=== PATIENT | male | born 1935 | race Caucasian/White ===

== ENCOUNTER → 2017-06-14 05:00 | Outpatient (REF) | payer MEDICARE, OTHER, SELFPAY ==
[2017-06-14 08:52] LABS: Anion Gap 6 (5-15); BUN 19 mg/dL (7-18); BUN/Creat Ratio 26.2 RATIO (10-20); Calcium,Total 8.5 mg/dL (8.5-10.1); Chloride 106 mmol/L (98-107); Creatinine, Serum 0.72 mg/dL (0.70-1.30); EST Glomerular Filtration Rate 111 mL/min (>60); Est Glom Filt Rate - Afr Amer 134 mL/min (>60); Glucose 80 mg/dL (74-106); Potassium 3.3 mmol/L (3.5-5.1); Sodium Level 141 mmol/L (136-145)
[2017-06-14 08:55] LABS: Hematocrit 36.7 % (40-54); Mean Corp Hgb Conc 32.7 g/gl (32-36); Mean Corpuscular Hgb 29.3 pg (27.0-32.0); Mean Corpuscular Volume 89.5 fL (80-94); Platelet Count 104 K/mm3 (150-450); RBC Distribution Width CV 17.5 % (11.6-14.6); RBC Distribution Width SD 57.1 fl (35.1-43.9); White Blood Count 5.7 K/mm3 (4.4-11.0)
[2017-06-14 08:56] LABS: Scan Indicated on CBC? Y/N YES- FLAGS NOTED
[2017-06-14 09:30] LABS: Differential Comment SCANNED
== END ==
LOC: OLS.WHLBEN 05:00
PROVIDERS: Visit Provider Family Medicine
DX: I10 Essential (primary) hypertension (principal)
CPT/HCPCS: 36415; 80048; 85027

== ENCOUNTER → 2017-07-06 05:00 | Outpatient (REF) | payer MEDICARE, OTHER, SELFPAY ==
[2017-07-06 08:36] LABS: Anion Gap 7 (5-15); BUN 20 mg/dL (7-18); BUN/Creat Ratio 26.4 RATIO (10-20); Calcium,Total 8.8 mg/dL (8.5-10.1); Chloride 105 mmol/L (98-107); Creatinine, Serum 0.76 mg/dL (0.70-1.30); EST Glomerular Filtration Rate 105 mL/min (>60); Est Glom Filt Rate - Afr Amer 127 mL/min (>60); Glucose 79 mg/dL (74-106); Potassium 3.5 mmol/L (3.5-5.1); Sodium Level 140 mmol/L (136-145)
== END ==
LOC: OLS.WHLBEN 05:00
PROVIDERS: Visit Provider Family Medicine
DX: I10 Essential (primary) hypertension (principal)
CPT/HCPCS: 36415; 80048

== ENCOUNTER → 2017-09-13 05:00 | Outpatient (REF) | payer MEDICARE, SELFPAY ==
[2017-09-13 08:48] LABS: Hematocrit 30.4 % (40-54); Hemoglobin 10.2 g/dl (13.0-16.5); Mean Corp Hgb Conc 33.6 g/gl (32-36); Mean Corpuscular Hgb 30.6 pg (27.0-32.0); Mean Corpuscular Volume 91.3 fL (80-94); Platelet Count 76 K/mm3 (150-450); RBC Distribution Width CV 19.1 % (11.6-14.6); RBC Distribution Width SD 63.2 fl (35.1-43.9); Red Blood Count 3.33 M/mm3 (4.6-6.2); White Blood Count 4.1 K/mm3 (4.4-11.0)
[2017-09-13 08:49] LABS: Scan Indicated on CBC? Y/N YES- FLAGS NOTED
[2017-09-13 09:11] LABS: BUN 18 mg/dL (7-18); Glucose 87 mg/dL (74-106)
[2017-09-13 09:12] LABS: Anion Gap 7 (5-15); BUN/Creat Ratio 22.6 RATIO (10-20); Calcium,Total 8.5 mg/dL (8.5-10.1); Chloride 104 mmol/L (98-107); EST Glomerular Filtration Rate 99 mL/min (>60); Est Glom Filt Rate - Afr Amer 120 mL/min (>60); Potassium 3.3 mmol/L (3.5-5.1); Sodium Level 138 mmol/L (136-145)
[2017-09-13 09:23] LABS: Differential Comment SCANNED
== END ==
LOC: OLS.WHLBEN 05:00
PROVIDERS: Visit Provider Family Medicine
DX: I10 Essential (primary) hypertension (principal)
CPT/HCPCS: 36415; 80048; 85027

== ENCOUNTER → 2017-11-12 06:45 | Outpatient (REF) | payer MEDICARE, SELFPAY ==
[2017-11-12 07:46] LABS: Absolute Lymphocyte Count 1.32 X10^3/ul (0.83-4.51); Absolute Neutrophil Count 0.7 X10^3/uL (2.0-7.7); Basophil# 0.01 X10^3/uL; Basophil% 0.4 % (0-1); Hematocrit 19.3 % (40-54); Hemoglobin 6.3 g/dl (13.0-16.5); Lymphocyte # 1.32 X10^3/ul (4.0); Lymphocyte % 49.8 % (19-41); Mean Corp Hgb Conc 32.6 g/gl (32-36); Mean Corpuscular Hgb 30.9 pg (27.0-32.0); Mean Corpuscular Volume 94.6 fL (80-94); Mean Platelet Vol. 10.5 fl (6.2-12.0); Monocyte# 0.64 X10^3/uL; Monocyte% 24.2 % (0-10); Neutrophil # 0.67 X10^3/uL (2.7-7.7); Neutrophil % 25.2 % (47-70); Platelet Count 60 K/mm3 (150-450); RBC Distribution Width CV 19.5 % (11.6-14.6); Red Blood Count 2.04 M/mm3 (4.6-6.2); White Blood Count 2.7 K/mm3 (4.4-11.0)
[2017-11-12 07:53] LABS: Differential Indicated SCAN CRITERIA MET; POSITIVE COUNT NO; POSITIVE DIFFERENTIAL YES; POSITIVE MORPHOLOGY NO
[2017-11-12 08:00] LABS: Anion Gap 7 (5-15); BUN 18 mg/dL (7-18); BUN/Creat Ratio 21.2 RATIO (10-20); Calcium,Total 8.2 mg/dL (8.5-10.1); Chloride 107 mmol/L (98-107); Creatinine, Serum 0.85 mg/dL (0.70-1.30); EST Glomerular Filtration Rate 92 mL/min (>60); Est Glom Filt Rate - Afr Amer 111 mL/min (>60); Glucose 84 mg/dL (74-106); Potassium 3.6 mmol/L (3.5-5.1); Sodium Level 141 mmol/L (136-145); Thyroid Stim Hormone (TSH) 3.49 uIU/mL (0.358-3.74)
[2017-11-12 08:11] LABS: Anisocytosis 1+; Differential Comment SCANNED; Hypochromasia 2+; Platelet Estimate MKD DEC (ADEQ); Polychromasia 1+
== END ==
LOC: OLS.WHLBEN 06:45
PROVIDERS: Visit Provider Family Medicine
DX: D64.9 Anemia, unspecified (principal); I10 Essential (primary) hypertension; Z13.29 Encounter for screening for other suspected endocrine disorder
CPT/HCPCS: 36415; 80048; 84443; 85025

== ENCOUNTER → 2017-11-15 05:00 | Outpatient (REF) | payer MEDICARE, OTHER, SELFPAY ==
[2017-11-15 08:58] LABS: Absolute Lymphocyte Count 1.27 X10^3/ul (0.83-4.51); Absolute Neutrophil Count 0.5 X10^3/uL (2.0-7.7); Differential Indicated SCAN CRITERIA MET; Hemoglobin 5.6 g/dl (13.0-16.5); Lymphocyte # 1.27 X10^3/ul (4.0); Lymphocyte % 56.4 % (19-41); Mean Corp Hgb Conc 32.9 g/gl (32-36); Mean Corpuscular Hgb 30.6 pg (27.0-32.0); Mean Corpuscular Volume 92.9 fL (80-94); Mean Platelet Vol. 9.8 fl (6.2-12.0); Monocyte# 0.44 X10^3/uL; Monocyte% 19.6 % (0-10); Neutrophil # 0.53 X10^3/uL (2.7-7.7); Neutrophil % 23.6 % (47-70); POSITIVE COUNT YES; POSITIVE DIFFERENTIAL YES; POSITIVE MORPHOLOGY YES; Platelet Count 55 K/mm3 (150-450); RBC Distribution Width CV 19.7 % (11.6-14.6); RBC Distribution Width SD 67.2 fl (35.1-43.9); Red Blood Count 1.83 M/mm3 (4.6-6.2); White Blood Count 2.3 K/mm3 (4.4-11.0)
[2017-11-15 09:25] LABS: Anisocytosis 1+; Hypochromasia 2+; Platelet Estimate MKD DEC (ADEQ); Polychromasia RARE
[2017-11-15 16:11] LABS: Pathologist Review Reviewed
== END ==
LOC: OLS.WHLBEN 05:00
PROVIDERS: Visit Provider Family Medicine
DX: D64.9 Anemia, unspecified (principal)
CPT/HCPCS: 36415; 85025

== ENCOUNTER 2017-11-15 15:29 | Inpatient (IN) | payer MEDICARE, OTHER, SELFPAY ==
[2017-11-15] VITALS (10 sets, daily range): BP systolic 118–150; BP diastolic 79–108; PULSE 67–98; RESP 14–20; TEMP 36.6–37.4; O2SAT 95–99; BMI 25.2; BMI 24.5
[2017-11-15] MEDS: 0.9% Normal Saline 1,000 ML 125 ML IV (16:32)
[2017-11-15 16:40] LABS: Anion Gap 9 (5-15); BUN 21 mg/dL (7-18); BUN/Creat Ratio 22.7 RATIO (10-20); Calcium,Total 8.6 mg/dL (8.5-10.1); Chloride 106 mmol/L (98-107); Creatinine, Serum 0.93 mg/dL (0.70-1.30); EST Glomerular Filtration Rate 83 mL/min (>60); Est Glom Filt Rate - Afr Amer 101 mL/min (>60); Glucose 100 mg/dL (74-106); Potassium 3.7 mmol/L (3.5-5.1); Sodium Level 140 mmol/L (136-145)
[2017-11-15 17:18] LABS: Absolute Lymphocyte Count 1.07 X10^3/ul (0.83-4.51); Absolute Neutrophil Count 0.7 X10^3/uL (2.0-7.7); Hematocrit 18.3 % (40-54); Hemoglobin 6.1 g/dl (13.0-16.5); Lymphocyte # 1.07 X10^3/ul (4.0); Lymphocyte % 43.9 % (19-41); Mean Corp Hgb Conc 33.3 g/gl (32-36); Mean Corpuscular Volume 92.9 fL (80-94); Mean Platelet Vol. 10.8 fl (6.2-12.0); Monocyte# 0.68 X10^3/uL; Monocyte% 27.9 % (0-10); Neutrophil # 0.68 X10^3/uL (2.7-7.7); Neutrophil % 27.8 % (47-70); Platelet Count 68 K/mm3 (150-450); RBC Distribution Width CV 19.9 % (11.6-14.6); RBC Distribution Width SD 66.4 fl (35.1-43.9); Red Blood Count 1.97 M/mm3 (4.6-6.2); White Blood Count 2.4 K/mm3 (4.4-11.0)
[2017-11-15 17:19] LABS: Differential Indicated SCAN CRITERIA MET; POSITIVE COUNT NO; POSITIVE DIFFERENTIAL YES; POSITIVE MORPHOLOGY YES
--- NOTE | 2017-11-15 17:25 | ED.VISSUMM ---
- ER Visit Summary Date of Service: 11/15/17 Chief Complaint: [Abnormal labs] History of Present Illness: The patient is a 82 M [presents the emergency department for abnormal labs. Patient apparently had blood work drawn on the seventh of the month as he was complaining of fatigue and at that time it was noted that he was pancytopenic. Patient had repeat blood work done yesterday continue to show decline in his hemoglobin and was sent to the ER. Patient denies any abdominal pain. Patient denies any blood in the stool. Patient states that he has not had a bowel movement in 5 days which is not unusual for him. Patient denies any chest pain or shortness of breath.] Physical Examination: [HEENT-PERRLA, EOMI. Cranial nerves II through XII grossly intact. TMs clear. Mucous membranes moist. No adenopathy. Pale conjunctiva Cardiovascular-regular rate and rhythm without murmur or ectopy Lungs-clear to auscultation, chest wall stable without crepitus or subcu emphysema Abdomen-normoactive bowel sounds, soft, nontender, no rebound or rigidity, no peritoneal signs. Extremities-intact ?4, normal range of motion, normal pulses, atraumatic] Test Results: [CBC with differential obtained showed a white count of 2.4, hemoglobin 6.1, hematocrit 18, platelets 68. Chemistry showed a sodium 140, potassium 3.7, chloride 106, CO2 25, glucose 100, BUN 21, creatinine 0.93. Hemoccult was negative.] Emergency Department Course and Treatment: [Patient was typed and crossed for 2 units packed red cells] Treatment Plan: [Admit] Disposition: [Admit] Impression: [Pancytopenia-etiology uncertain Generalized weakness] This note was generated with Heartbeatation software. It may contain incorrect words, spelling, and punctuation that were not noted in review of the chart prior to signing ED Disposition - Plan for ED Patient: Chief Complaint: Abn Labs Referrals: Skinny Gutierrez MD [Primary Care Provider] -
--- NOTE | 2017-11-15 17:36 | EKG12_ITS ---
Test Reason : ABNL LABS Blood Pressure : / mmHG Vent. Rate : 094 BPM Atrial Rate : 094 BPM P-R Int : 178 ms QRS Dur : 088 ms QT Int : 378 ms P-R-T Axes : 040 001 039 degrees QTc Int : 472 ms Normal sinus rhythm Nonspecific ST abnormality Abnormal ECG Confirmed by COSME DAVIS, MATEO ([id number]), videotape editor PATIENCE LOPEZ ([id number]) on 11/17/2017 1:58:37 PM Referred By: FELA Confirmed By:MATEO AGUIAR MD
[2017-11-15 17:55] LABS: Anisocytosis 1+; Hypochromasia RARE; Ovalocyte RARE
--- NOTE | 2017-11-15 18:02 | ED.RN ---
PT REFUSING BLOOD. DR WALKER IN TO TALK WITH PT
--- NOTE | 2017-11-15 18:05 | NURSING ---
PCU SYMTOMATIC ANEMIA WITH PANCYTOPENIA, SINUS TACHY DENISE
--- NOTE | 2017-11-15 18:21 | HP.PCM_ITS ---
Problem List (1) Pancytopenia Status: Acute (2) Severe anemia Status: Acute (3) BPH (benign prostatic hyperplasia) Status: Chronic (4) Hypertension Status: Chronic History of Present Illness Date of Admission: 11/15/17 Chief Complaint: Abnormal labs The patient is a 82 year old M with history of hypertension, BPH was sent from assisted living center or abnormal labs. Patient had labs on November 12 and today and was consistent with pancytopenia. Hemoglobin 5.6, WBCs 2.3 thousand, platelet count 55,000. On 11 12, hemoglobin of 6.3, WBC count 2.7 thousand and platelet count 60,000. Patient complains of slowly progressive fatigue, dyspnea on exertion, dizziness or lightheadedness and unsteady gait. Patient also has slowly progressive edema of lower extremities last 6 months to 1 year. Patient is hard of hearing but denies prior history of coronary artery disease, CHF, stroke, peripheral artery disease, lung disease or smoking history. Does not have prior echo. Patient had history of gross hematuria in August 2015 along with massive right inguinal hernia for which indwelling catheter and subsequently had prostate scrapping/surgery and right inguinal hernia repair. Currently, he urinates spontaneously but denies hematuria, or GI bleed or external form of bleeding. Patient is not on anticoagulant. In ED, 2 units of PRBC ordered and further decided for admission [] Past Medical History Past Medical History (Chronic Problems): Chronic Problems BPH (benign prostatic hyperplasia) (Chronic) Hypertension (Chronic) Allergies No Known Allergies Allergy (Verified 11/15/17 15:34) Home Medications: Ambulatory Orders Medication Instructions Recorded Amlodipine [Norvasc] 5 mg PO QHS 12/11/14 Lisinopril/Hydrochlorothiazide 1 tab PO DAILY 12/11/14 [Zestoretic 20-12.5 mg Tablet] Finasteride [Proscar] 5 mg PO QHS 01/09/16 Acetaminophen 650 mg PO Q4H PRN PRN 11/15/17 Bisacodyl 10 mg RC DAILY PRN 11/15/17 Mag Hydrox/Al Hydrox/Simeth 15 ml PO PRN PRN 11/15/17 [Antacid Suspension] Potassium Chloride [Klor-Con M20] 20 meq PO DAILY 11/15/17 Smoking Status: Never smoker Tobacco Use: Non-smoker - *Family History Paternal History Items: No pertinent history Review of Systems Constitutional: Reports: Weakness, Fatigue. Denies: Chills, Fever, Weight Change HEENT: Reports: Difficulty Hearing Cardiovascular: Denies: Chest Pain, Palpitations Respiratory: Reports: Shortness of breath upon exertion. Denies: Cough, Shortness of breath at rest, Sputum production Gastrointestinal: Denies: Abdominal Pain, Nausea, Vomiting Genitourinary: Denies: Dysuria, Hematuria, Retention Musculoskeletal: Denies: Joint Pain, Joint Tenderness Skin: Denies: Rash, Wounds Neurological: Reports: Balance problems. Denies: Focal weakness, Numbness, Tingling Psychiatric: Denies: Anxiety, Depression, Homicidal Ideations, Suicidal Ideations Hematologic/ Lymphatic: Denies: Easy Bruising, Easy Bleeding VTE Information - Inpt Only VTE Present on Admission: No VTE Mechan Device Prophylaxis: SCD's Reason prophylaxis not ordered:: Medical Contraindication - Severe pancytopenia and anemia Patient Problems: Active and Suspected Problems Pancytopenia (Acute) Severe anemia (Acute) - Physical Exam General: Alert, Oriented x3, Cooperative HEENT: Atraumatic, PERRLA, EOMI, Normocephalic, - - Very hard of hearing, mainly from right ear Neck: Supple, No JVD, Negative Carotid Bruits Lungs: Clear to auscultation, Normal air movement Cardiovascular: Regular Rhythm, Normal S1, Normal S2, No murmurs, Tachycardic Abdomen: Bowel Sounds Present, Soft, Non Tender, Non-Distended Extremities: Capillary Refill Less than 3 Seconds, Edema - 2+ bilateral lower extremity edema Skin: No rashes, No breakdown Musculoskeletal: No Tenderness to Palpation of Joints or Extremities, Arthritic Changes Neurological: Cranial nerves II-XII grossly intact, Neuro grossly intact Psych/Mental Status: Normal Affect, Appropriate Vital Signs Temp Pulse Resp BP Pulse Ox 98.7 F 98 14 146/102 H 98 11/15/17 15:31 11/15/17 15:31 11/15/17 15:31 11/15/17 15:31 11/15/17 15:31 Oxygen Delivery Method Room Air Weight: 190 lb 12.8 oz Body Mass Index (BMI) 25.2 Microbiology Past 72 Hours 11/15/17 16:10 Stool Occult Blood (SRINIVASAN) - Final Stool Laboratory Tests Past 24 Hrs 07/10/18 07/10/18 07/10/18 16:10 16:10 16:10 WBC 2.4 L RBC 1.97 L Hgb 6.1 L Hct 18.3 L MCV 92.9 MCH 31.0 MCHC 33.3 RDW 19.9 H RDW Differential 66.4 H Plt Count 68 L MPV 10.8 Immature Gran % (Auto) 0.400 Neut % (Auto) 27.8 L Lymph % (Auto) 43.9 H [place] % (Auto) 27.9 H Eos % (Auto) 0.0 Baso % (Auto) 0.0 Absolute Neuts (auto) 0.7 L Absolute Lymphs (auto) 1.07 Total Counted Not Reportable Differential Comment Hypochromasia RARE Anisocytosis 1+ Ovalocytes RARE Sodium 140 Potassium 3.7 Chloride 106 Carbon Dioxide 25.0 Anion Gap 9 BUN 21 H Creatinine 0.93 Estim Creat Clear Calc 70.40 Est GFR (MDRD) Af Amer 101 Est GFR (MDRD) Non-Af 83 BUN/Creatinine Ratio 22.7 H Glucose 100 Calcium 8.6 Blood Type A POSITIVE Antibody Screen NEGATIVE Crossmatch 11/15/17 16:10 WBC RBC Hgb Hct MCV MCH MCHC RDW RDW Differential Plt Count MPV Immature Gran % (Auto) Neut % (Auto) Lymph % (Auto) [place] % (Auto) Eos % (Auto) Baso % (Auto) Absolute Neuts (auto) Absolute Lymphs (auto) Total Counted Differential Comment Hypochromasia Anisocytosis Ovalocytes Sodium Potassium Chloride Carbon Dioxide Anion Gap BUN Creatinine Estim Creat Clear Calc Est GFR (MDRD) Af Amer Est GFR (MDRD) Non-Af BUN/Creatinine Ratio Glucose Calcium Blood Type Antibody Screen Crossmatch See Detail Assessment/Plan All Active Problems Pancytopenia (Acute) Severe anemia (Acute) The patient is a 82 year old M with history of hypertension, BPH was sent from [facility] [place] or abnormal labs. Patient had labs on November 12 and today and was consistent with pancytopenia. Hemoglobin 5.6, WBCs 2.3 thousand, platelet count 55,000. On 11 12, hemoglobin of 6.3, WBC count 2.7 thousand and platelet count 60,000. Patient complains of slowly progressive fatigue, dyspnea on exertion, dizziness or lightheadedness and unsteady gait. Patient also has slowly progressive edema of lower extremities last 6 months to 1 year. Patient is hard of hearing but denies prior history of coronary artery disease, CHF, stroke, peripheral artery disease, lung disease or smoking history. Does not have prior echo. Patient had history of gross hematuria in August 2015 along with massive right inguinal hernia for which indwelling catheter and subsequently had prostate scrapping/surgery and right inguinal hernia repair. Currently, he urinates spontaneously but denies hematuria, or GI bleed or external form of bleeding. Patient is not on anticoagulant. In ED, 2 units of PRBC ordered and further decided for admission 1. 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 Patient is being admitted in PCU. 2 units of PRBC transfusion ordered. Peripheral blood smear shows neutropenia and anisocytosis. Serum PT/INRs, PTT, LDH, haptoglobin, B12 and folic acid ordered. Hematology consult. Posttransfusion H&H. Stool for occult blood negative. UA ordered. Patient hemoglobin was 10.2 g percent in September 2017 and 12 g in June 2017. 2. Pancytopenia: WBC count and platelet count are low. His white count was normal in September 2017, 4.1 thousand. Platelet count was 76,000 in September 2017 and 156 ,000 in September 2016. 3. Sinus tachycardia: Patient had transient sinus tachycardia, heart rate shooting up in 140s but resolved and currently heart rate ranges in 94-98/min. Patient denies any previous cardiac history but has lower extremity edema. BNP and troponin ordered. 4. Other chronic comorbidities include BPH status post surgery, right inguinal hernia status post repair, hypertension: Blood pressure is slightly elevated, 150/108. Home medication reconciliation done. Monitor BP and titrate antihypertensive medication. DVT prophylaxis: Pathological prophylaxis contraindicated. Bilateral SCDs ordered. Code status: The patient is DNR CC arrest as per assisted paper. Patient does not wish aggressive resuscitation or ventilator on machine support if he gets into terminal condition. Microbiology Past 72 Hours 11/15/17 16:10 Stool Stool Occult Blood (SRINIVASAN) - Final Laboratory Results 11/15/17 16:10: WBC 2.4 L, RBC 1.97 L, Hgb 6.1 L, Hct 18.3 L, MCV 92.9, MCH 31.0 , MCHC 33.3, RDW 19.9 H, RDW Differential 66.4 H, Plt Count 68 L, MPV 10.8, Immature Gran % (Auto) 0.400, Neut % (Auto) 27.8 L, Lymph % (Auto) 43.9 H, [place] % (Auto) 27.9 H, Eos % (Auto) 0.0, Baso % (Auto) 0.0, Absolute Neuts (auto) 0.7 L, Absolute Lymphs (auto) 1.07, Total Counted Not Reportable, Differential Comment , Hypochromasia RARE, Anisocytosis 1+, Ovalocytes RARE 11/15/17 16:10: Sodium 140, Potassium 3.7, Chloride 106, Carbon Dioxide 25.0, Anion Gap 9, BUN 21 H, Creatinine 0.93, Estim Creat Clear Calc 70.40, Est GFR ( MDRD) Af Amer 101, Est GFR (MDRD) Non-Af 83, BUN/Creatinine Ratio 22.7 H, Glucose 100, Calcium 8.6 11/15/17 16:10: Blood Type A POSITIVE, Antibody Screen NEGATIVE 11/15/17 16:10: Crossmatch See Detail Code Visit Inpatient E&M: 03613 Init Hosp L3
--- NOTE | 2017-11-15 18:21 | NURSING ---
1818 called ed charge ok to receive patient
[2017-11-15 19:50] LABS: Bacteria 0 SEEN /hpf (None Seen); Mucous, Urine 0 SEEN /hpf (<or=2+); Red Blood Cells-Urine 0 SEEN /hpf (0-5); White Blood Cells 0 SEEN /hpf (0-5)
[2017-11-15 19:54] LABS: Color, Urine Yellow (Yellow); Glucose, Dipstick Normal (Normal); Ketone-Dipstick Negative (Negative); Leukocyte Esterase-Dipstick Negative /ul (Negative); Nitrite-Dipstick Negative (Negative); Occult Blood-Urine Negative /ul (Negative); Protein-Dipstick Negative (Negative); Urine Bilirubin Dipstick Negative (Negative); Urine Clarity Sl. Cloudy (Clear); Urine Urobilinogen Normal (Normal)
[2017-11-15 20:18] LABS: International Normalized Ratio 1.2; Prothrombin Time (Protime)PT. 14.8 SECONDS (11.7-14.9)
[2017-11-15 20:19] LABS: Partial Thromboplast Time 34.9 Seconds (24.1-36.2)
[2017-11-15 20:23] LABS: LDH 480 U/L (87-241)
[2017-11-15 20:24] LABS: Squamous Epithelial Cells - UA 0-5 SEEN /hpf (0-5)
[2017-11-15] MEDS: 0.9% Normal Saline 1,000 ML 50 ML IV (23:19)
[2017-11-15] MEDS: Finasteride 5 MG Tablet PO (23:20)
[2017-11-15] MEDS: amLODIPine 5 MG Tablet PO (23:20)
[2017-11-16] VITALS (14 sets, daily range): BP systolic 121–142; BP diastolic 79–94; PULSE 59–81; RESP 18; TEMP 36.7–37.4; O2SAT 94–98
[2017-11-16 04:49] LABS: Anion Gap 9 (5-15); BUN 16 mg/dL (7-18); BUN/Creat Ratio 22.4 RATIO (10-20); Calcium,Total 8.3 mg/dL (8.5-10.1); Chloride 110 mmol/L (98-107); Creatinine, Serum 0.71 mg/dL (0.70-1.30); EST Glomerular Filtration Rate 112 mL/min (>60); Est Glom Filt Rate - Afr Amer 136 mL/min (>60); Estimated Creatinine Clearance 63.59 ml/min; Glucose 93 mg/dL (74-106); Potassium 3.3 mmol/L (3.5-5.1); Sodium Level 144 mmol/L (136-145)
[2017-11-16 05:11] LABS: Absolute Lymphocyte Count 0.86 X10^3/ul (0.83-4.51); Absolute Neutrophil Count 0.7 X10^3/uL (2.0-7.7); Hematocrit 21.6 % (40-54); Hemoglobin 7.1 g/dl (13.0-16.5); Lymphocyte # 0.86 X10^3/ul (4.0); Lymphocyte % 39.4 % (19-41); Mean Corp Hgb Conc 32.9 g/gl (32-36); Mean Corpuscular Hgb 30.7 pg (27.0-32.0); Mean Corpuscular Volume 93.5 fL (80-94); Mean Platelet Vol. 10.6 fl (6.2-12.0); Monocyte# 0.61 X10^3/uL; Neutrophil % 32.1 % (47-70); Platelet Count 60 K/mm3 (150-450); RBC Distribution Width CV 17.9 % (11.6-14.6); RBC Distribution Width SD 57.5 fl (35.1-43.9); Red Blood Count 2.31 M/mm3 (4.6-6.2); White Blood Count 2.2 K/mm3 (4.4-11.0)
[2017-11-16 05:14] LABS: Differential Indicated SCAN CRITERIA MET; POSITIVE COUNT NO; POSITIVE DIFFERENTIAL YES; POSITIVE MORPHOLOGY NO
[2017-11-16 08:20] LABS: Vitamin B12 812 pg/mL (211-911)
--- NOTE | 2017-11-16 09:21 | CASEMGMT ---
Patient is from [facility]. LARISSA called Maribel at [facility] and she confirmed he is from their assisted living. SW to follow for appropriate d/c plan, likely back to [place]. Lorena HANSON OPERATOR AUTOMATED PROCESS
--- NOTE | 2017-11-16 09:30 | CASEMGMT ---
SW spoke with patient and confirmed he plans to return to [place]. He will likely need transport back to [place]. Plan: d/c back to [facility] [place] as long as appropriate. Lorena HANSON MSW
[2017-11-16] MEDS: Lisinopril 20 MG Tablet PO (09:54)
--- NOTE | 2017-11-16 13:04 | PCM.PROGNOTE ---
Patient Problems: Active and Suspected Problems Pancytopenia (Acute) Severe anemia (Acute) Subjective: Patient seen and examined. Very hard of hearing. Denies current complaints. No acute events overnight per nursing. - Physical Exam General: Alert, Cooperative, No apparent distress HEENT: Atraumatic, PERRLA, EOMI, Normocephalic Neck: Supple, No JVD, Negative Carotid Bruits Lungs: Clear to auscultation, Normal air movement Cardiovascular: Regular rate, Regular Rhythm, Normal S1, Normal S2, No murmurs Abdomen: Bowel Sounds Present, Soft, Non Tender, Non-Distended Extremities: No clubbing, No cyanosis, Edema - Bilateral lower extremity Skin: No rashes, No breakdown Musculoskeletal: No Tenderness to Palpation of Joints or Extremities Neurological: Cranial nerves II-XII grossly intact, Neuro grossly intact Psych/Mental Status: Normal Affect, Appropriate Vital Signs Temp Pulse Resp BP Pulse Ox 98.1 F 69 18 122/83 H 97 11/16/17 09:42 11/16/17 12:25 11/16/17 09:42 11/16/17 09:42 11/16/17 09:42 Oxygen Delivery Method Room Air Weight: 83.915 kg Body Mass Index (BMI) 24.5 Intake and Output for Last 24 Hours 11/14/17 11/15/17 11/16/17 23:59 23:59 23:59 Intake Total 1031.3 / 1031.3 665 / 665 Output Total 400 / 400 Balance 631.3 / 631.3 665 / 665 Laboratory Tests Past 24 Hrs 11/15/17 11/15/17 11/15/17 18:46 19:12 19:12 WBC RBC Hgb Hct MCV MCH MCHC RDW RDW Differential Plt Count MPV Immature Gran % (Auto) Neut % (Auto) Lymph % (Auto) [place] % (Auto) Eos % (Auto) Baso % (Auto) Absolute Neuts (auto) Absolute Lymphs (auto) Total Counted Haptoglobin Pending PT INR APTT Sodium Potassium Chloride Carbon Dioxide Anion Gap BUN Creatinine Estim Creat Clear Calc Est GFR (MDRD) Af Amer Est GFR (MDRD) Non-Af BUN/Creatinine Ratio Glucose Calcium Iron TIBC Iron Saturation Ferritin Lactate Dehydrogenase 480 H Troponin I < 0.015 Vitamin B12 Folate 5.90 Urine Color Yellow Urine Clarity Sl. Cloudy Urine pH 7.0 Ur Specific [place] 1.010 Urine Protein Negative Urine Glucose (UA) Normal Urine Ketones Negative Urine Occult Blood Negative Urine Nitrite Negative Urine Bilirubin Negative Urine Urobilinogen Normal Ur Leukocyte Esterase Negative Urine RBC 0 SEEN Urine WBC 0 SEEN Ur Squamous Epith Cells 0-5 SEEN Urine Bacteria 0 SEEN Urine Mucus 0 SEEN 11/15/17 11/15/17 11/16/17 19:12 19:12 04:10 WBC 2.2 L RBC 2.31 L Hgb 7.1 L Hct 21.6 L MCV 93.5 MCH 30.7 MCHC 32.9 RDW 17.9 H RDW Differential 57.5 H Plt Count 60 L MPV 10.6 Immature Gran % (Auto) 0.500 Neut % (Auto) 32.1 L Lymph % (Auto) 39.4 [place] % (Auto) 28.0 H Eos % (Auto) 0.0 Baso % (Auto) 0.0 Absolute Neuts (auto) 0.7 L Absolute Lymphs (auto) 0.86 Total Counted Not Reportable Haptoglobin PT 14.8 INR 1.2 APTT 34.9 Sodium Potassium Chloride Carbon Dioxide Anion Gap BUN Creatinine Estim Creat Clear Calc Est GFR (MDRD) Af Amer Est GFR (MDRD) Non-Af BUN/Creatinine Ratio Glucose Calcium Iron TIBC Iron Saturation Ferritin Lactate Dehydrogenase Troponin I Vitamin B12 812 Folate Urine Color Urine Clarity Urine pH Ur Specific [place] Urine Protein Urine Glucose (UA) Urine Ketones Urine Occult Blood Urine Nitrite Urine Bilirubin Urine Urobilinogen Ur Leukocyte Esterase Urine RBC Urine WBC Ur Squamous Epith Cells Urine Bacteria Urine Mucus 11/16/17 11/16/17 11/16/17 04:10 04:10 04:10 WBC RBC Hgb Hct MCV MCH MCHC RDW RDW Differential Plt Count MPV Immature Gran % (Auto) Neut % (Auto) Lymph % (Auto) [place] % (Auto) Eos % (Auto) Baso % (Auto) Absolute Neuts (auto) Absolute Lymphs (auto) Total Counted Haptoglobin PT INR APTT Sodium 144 Potassium 3.3 L Chloride 110 H Carbon Dioxide 25.0 Anion Gap 9 BUN 16 Creatinine 0.71 Estim Creat Clear Calc 63.59 Est GFR (MDRD) Af Amer 136 Est GFR (MDRD) Non-Af 112 BUN/Creatinine Ratio 22.4 H Glucose 93 Calcium 8.3 L Iron Pending TIBC Pending Iron Saturation Pending Ferritin Pending Lactate Dehydrogenase Troponin I Vitamin B12 Folate Urine Color Urine Clarity Urine pH Ur Specific [place] Urine Protein Urine Glucose (UA) Urine Ketones Urine Occult Blood Urine Nitrite Urine Bilirubin Urine Urobilinogen Ur Leukocyte Esterase Urine RBC Urine WBC Ur Squamous Epith Cells Urine Bacteria Urine Mucus Medical Necessity - Tobacco Use Smoking Status: Never smoker Tobacco Use: Non-smoker Assessment/Plan All Active Problems Pancytopenia (Acute) Severe anemia (Acute) Patient is an 82-year-old male admitted 11/15/2017 due to abnormal labs. He has a past medical history of hypertension, BPH. 1. Pancytopenia-unclear etiology. Hematology consulted, pending. Possible MDS? 2. Acute on chronic normochromic normocytic anemia, symptomatic-status post 2 units packed red blood cell transfusion. Stool for occult blood negative. Trend CBC. 3. Hypertension-stable, continue current regimen of amlodipine, lisinopril, HCTZ. 4. BPH-continue Proscar regimen. CODE STATUS-DNR CCA. DVT prophylaxis: SCDs, pharmacologic prophylaxis contraindicated. This patient was seen by DALTON Zepeda under the supervision of Dr. Meza.
[2017-11-16 13:17] LABS: Iron 181 ug/dL (65-175); Iron Binding Capacity,Total 193 ug/dL (250-450); PERCENT IRON SATURATION 93.8 % (15.0-55.0)
[2017-11-16 13:27] LABS: Ferritin 410 ng/mL (26-388)
[2017-11-16 14:35] LABS: Hematocrit 23.7 % (40-54)
[2017-11-16] MEDS: 0.9% Normal Saline 1,000 ML 50 ML IV (15:57)
--- NOTE | 2017-11-16 16:55 | CON.PCM_ITS ---
Consult Referring Physician: Dr. Alejandrina London. Consult Results: Pancytopenia R/O MDS Subjective Date of Service:: 11/16/17 Chief Complaint: Asked to see Pt for Pancytopenia. History of Present Illness: 82 y.o.man with history of hypertension and BPH was sent from [facility] with abnormal labs, hemoglobin 6.3, WBC 2.7 and platelets of 60,000 after patient complained of fatigue. CBC on 11/15/2017 showed WBC 2.4, Hgb 6.1, PLT 68 in ER, Film did not show any abnormal cells and patient was given 2 units of packed RBCs. He is now on the klein feeling comfortable with no complaints. Past Medical History: Chronic Problems BPH (benign prostatic hyperplasia) (Chronic) Hypertension (Chronic) Paternal Family History: No pertinent history - Social History Smoking Status: Never smoker Tobacco Use: Non-smoker Allergies/Adverse Reactions: Allergy/AdvReac Type Severity Reaction Status Date / Time No Known Allergies Allergy Verified 11/15/17 15:34 Review of Systems Constitutional:: Reports: Fatigue. Denies: Fever, Sweats Cardiovascular:: Denies: Chest pain, Palpitations, Dyspnea on exertion, Orthopnea, PND, Shortness of breath Respiratory: Denies: Cough, Hemoptysis, Shortness of Breath, Wheezing Gastrointestinal:: Denies: Abdominal pain, Nausea, Vomiting, Diarrhea, Constipation, Hematochezia Genitourinary: Denies: Dysuria, Hematuria, 15, Flank pain Musculoskeletal:: Denies: Back pain, Myalgia, Arthralgia Skin: Denies: Rash, Skin Changes, Wounds Neurological:: Denies: Headache, Dizziness, Visual changes, Tinnitus, Hearing loss Psychiatric: Denies: Anxiety, Depression, Homicidal Ideations, Suicidal Ideations Vital Signs Height 6 ft 0.83 in Weight: 83.915 kg Weight in Pounds 185.0 lbs Pulse Ox 94 Temperature 99.4 F Pulse Rate 81 Respiratory Rate 18 Blood Pressure 138/88 Blood Pressure Position Semi-Fowlers - Physical Exam General: Alert, Oriented x3, No apparent distress HEENT: Atraumatic, PERRLA, EOMI, Normocephalic, - - Hard of hearing. Oropharynx:: Dry mucosa Neck:: Supple, Trachea midline. Negative for: JVD, bilateral Cardiac:: Regular rate, Regular rhythm, Normal S1, Normal S2. Negative for: Murmur Lungs: Clear to auscultation, Excusion symmetrical. Negative for: Rhonchi, Wheezes Abdomen:: Bowel sounds x 4, Soft, Non-tender, Non-distended. Negative for: Hepatosplenomegaly Extremities:: Negative for: Cyanosis, Edema Neurological: - - Hard of hearing Skin:: Negative for: Lesions, Rash, Petechiae, Ecchymosis Lymphatics:: Negative for: Cervical lymphadenopathy, Supraclavicular lymphadenopathy, Axillary lymphadenopathy Laboratory Data: Laboratory Tests 3 11/16/17 11/16/17 11/16/17 Range/Units 14:30 04:10 04:10 WBC (4.4-11.0) K/mm3 RBC (4.6-6.2) M/mm3 Hgb 8.0 L (13.0-16.5) g/dl Hct 23.7 L (40-54) % MCV (80-94) fL MCH (27.0-32.0) pg MCHC (32-36) g/gl RDW (11.6-14.6) % RDW Differential (35.1-43.9) fl Plt Count (150-450) K/mm3 MPV (6.2-12.0) fl Immature Gran % (Auto) (0.0-0.9) % Neut % (Auto) (47-70) % Lymph % (Auto) (19-41) % [place] % (Auto) (0-10) % Eos % (Auto) (0-5) % Baso % (Auto) (0-1) % Absolute Neuts (auto) (2.0-7.7) X10^3/uL Absolute Lymphs (auto) (0.83-4.51) X10^3/ul Total Counted PT (11.7-14.9) SECONDS INR APTT (24.1-36.2) Seconds Sodium (136-145) mmol/L Potassium (3.5-5.1) mmol/L Chloride (98-107) mmol/L Carbon Dioxide (21.0-32.0) mmol/L Anion Gap (5-15) BUN (7-18) mg/dL Creatinine (0.70-1.30) mg/dL Estim Creat Clear Calc ml/min Est GFR (MDRD) Af Amer (>60) mL/min Est GFR (MDRD) Non-Af (>60) mL/min BUN/Creatinine Ratio (10-20) RATIO Glucose (74-106) mg/dL Calcium (8.5-10.1) mg/dL Iron 181 H (65-175) ug/dL TIBC 193 L (250-450) ug/dL Iron Saturation 93.8 H (15.0-55.0) % Ferritin 410 H (26-388) ng/mL Lactate Dehydrogenase (87-241) U/L Troponin I (<0.045) ng/mL Vitamin B12 (211-911) pg/mL Folate (3.1-55.4) ng/mL Urine Color (Yellow) Urine Clarity (Clear) Urine pH (5.0 - 8.0) Ur Specific [place] (1.002-1.030) Urine Protein (Negative) mg/dl Urine Glucose (UA) (Normal) mg/dl Urine Ketones (Negative) mg/dl Urine Occult Blood (Negative) /ul Urine Nitrite (Negative) Urine Bilirubin (Negative) mg/dL Urine Urobilinogen (Normal) mg/dl Ur Leukocyte Esterase (Negative) /ul Urine RBC (0-5) /hpf Urine WBC (0-5) /hpf Ur Squamous Epith Cells (0-5) /hpf Urine Bacteria (None Seen) /hpf Urine Mucus (<or=2+) /hpf 3 11/16/17 11/16/17 11/15/17 Range/Units 04:10 04:10 19:12 WBC 2.2 L (4.4-11.0) K/mm3 RBC 2.31 L (4.6-6.2) M/mm3 Hgb 7.1 L (13.0-16.5) g/dl Hct 21.6 L (40-54) % MCV 93.5 (80-94) fL MCH 30.7 (27.0-32.0) pg MCHC 32.9 (32-36) g/gl RDW 17.9 H (11.6-14.6) % RDW Differential 57.5 H (35.1-43.9) fl Plt Count 60 L (150-450) K/mm3 MPV 10.6 (6.2-12.0) fl Immature Gran % (Auto) 0.500 (0.0-0.9) % Neut % (Auto) 32.1 L (47-70) % Lymph % (Auto) 39.4 (19-41) % [place] % (Auto) 28.0 H (0-10) % Eos % (Auto) 0.0 (0-5) % Baso % (Auto) 0.0 (0-1) % Absolute Neuts (auto) 0.7 L (2.0-7.7) X10^3/uL Absolute Lymphs (auto) 0.86 (0.83-4.51) X10^3/ul Total Counted Not Reportable PT 14.8 (11.7-14.9) SECONDS INR 1.2 APTT 34.9 (24.1-36.2) Seconds Sodium 144 (136-145) mmol/L Potassium 3.3 L (3.5-5.1) mmol/L Chloride 110 H (98-107) mmol/L Carbon Dioxide 25.0 (21.0-32.0) mmol/L Anion Gap 9 (5-15) BUN 16 (7-18) mg/dL Creatinine 0.71 (0.70-1.30) mg/dL Estim Creat Clear Calc 63.59 ml/min Est GFR (MDRD) Af Amer 136 (>60) mL/min Est GFR (MDRD) Non-Af 112 (>60) mL/min BUN/Creatinine Ratio 22.4 H (10-20) RATIO Glucose 93 (74-106) mg/dL Calcium 8.3 L (8.5-10.1) mg/dL Iron (65-175) ug/dL TIBC (250-450) ug/dL Iron Saturation (15.0-55.0) % Ferritin (26-388) ng/mL Lactate Dehydrogenase (87-241) U/L Troponin I (<0.045) ng/mL Vitamin B12 (211-911) pg/mL Folate (3.1-55.4) ng/mL Urine Color (Yellow) Urine Clarity (Clear) Urine pH (5.0 - 8.0) Ur Specific [place] (1.002-1.030) Urine Protein (Negative) mg/dl Urine Glucose (UA) (Normal) mg/dl Urine Ketones (Negative) mg/dl Urine Occult Blood (Negative) /ul Urine Nitrite (Negative) Urine Bilirubin (Negative) mg/dL Urine Urobilinogen (Normal) mg/dl Ur Leukocyte Esterase (Negative) /ul Urine RBC (0-5) /hpf Urine WBC (0-5) /hpf Ur Squamous Epith Cells (0-5) /hpf Urine Bacteria (None Seen) /hpf Urine Mucus (<or=2+) /hpf 3 11/15/17 11/15/17 11/15/17 Range/Units 19:12 19:12 18:46 WBC (4.4-11.0) K/mm3 RBC (4.6-6.2) M/mm3 Hgb (13.0-16.5) g/dl Hct (40-54) % MCV (80-94) fL MCH (27.0-32.0) pg MCHC (32-36) g/gl RDW (11.6-14.6) % RDW Differential (35.1-43.9) fl Plt Count (150-450) K/mm3 MPV (6.2-12.0) fl Immature Gran % (Auto) (0.0-0.9) % Neut % (Auto) (47-70) % Lymph % (Auto) (19-41) % [place] % (Auto) (0-10) % Eos % (Auto) (0-5) % Baso % (Auto) (0-1) % Absolute Neuts (auto) (2.0-7.7) X10^3/uL Absolute Lymphs (auto) (0.83-4.51) X10^3/ul Total Counted PT (11.7-14.9) SECONDS INR APTT (24.1-36.2) Seconds Sodium (136-145) mmol/L Potassium (3.5-5.1) mmol/L Chloride (98-107) mmol/L Carbon Dioxide (21.0-32.0) mmol/L Anion Gap (5-15) BUN (7-18) mg/dL Creatinine (0.70-1.30) mg/dL Estim Creat Clear Calc ml/min Est GFR (MDRD) Af Amer (>60) mL/min Est GFR (MDRD) Non-Af (>60) mL/min BUN/Creatinine Ratio (10-20) RATIO Glucose (74-106) mg/dL Calcium (8.5-10.1) mg/dL Iron (65-175) ug/dL TIBC (250-450) ug/dL Iron Saturation (15.0-55.0) % Ferritin (26-388) ng/mL Lactate Dehydrogenase 480 H (87-241) U/L Troponin I < 0.015 (<0.045) ng/mL Vitamin B12 812 (211-911) pg/mL Folate 5.90 (3.1-55.4) ng/mL Urine Color Yellow (Yellow) Urine Clarity Sl. Cloudy (Clear) Urine pH 7.0 (5.0 - 8.0) Ur Specific [place] 1.010 (1.002-1.030) Urine Protein Negative (Negative) mg/dl Urine Glucose (UA) Normal (Normal) mg/dl Urine Ketones Negative (Negative) mg/dl Urine Occult Blood Negative (Negative) /ul Urine Nitrite Negative (Negative) Urine Bilirubin Negative (Negative) mg/dL Urine Urobilinogen Normal (Normal) mg/dl Ur Leukocyte Esterase Negative (Negative) /ul Urine RBC 0 SEEN (0-5) /hpf Urine WBC 0 SEEN (0-5) /hpf Ur Squamous Epith Cells 0-5 SEEN (0-5) /hpf Urine Bacteria 0 SEEN (None Seen) /hpf Urine Mucus 0 SEEN (<or=2+) /hpf Laboratory Tests 11/16/17 11/16/17 04:10 04:10 Iron 181 H TIBC 193 L Iron Saturation 93.8 H Ferritin 410 H Assessment and Plan Pancytopenia, s/p PRBC transfusion. Discussed obtaining bone marrow biopsy to evaluate for MDS. Pt declined at this time, wants to go back to Assisted Living facility. Suggestion: To do supportive PRBC transfusion as needed. Pt agrees to bone marrow biopsy, to be done by Invasive Radiology. If he is discharged, should follow up in [facility] for further evaluation. Thank you. Medications: Prescriptions This Visit Medication Instructions Recorded Acetaminophen 650 mg PO Q4H PRN PRN 11/15/17 Bisacodyl 10 mg RC DAILY PRN 11/15/17 Mag Hydrox/Al Hydrox/Simeth 15 ml PO PRN PRN 11/15/17 [Antacid Suspension] Potassium Chloride [Klor-Con M20] 20 meq PO DAILY 11/15/17 Medications Added to Medication List This Visit Category Date Time Status Ensure Enlive Med 11/16/17 14:00 Active 120 ml PO 4X/DAY Lisinopril [Zestril] Med 11/16/17 10:00 Active 20 mg PO DAILY Potassium Chloride [K-Dur] Med 11/16/17 08:00 Active 20 meq PO DAILY@0800 Primary Care Provider: Skinny Gutierrez MD Referring Provider: - Problem List (1) Pancytopenia Status: Acute Code Visit Office Visits / Consults: [id number] IP Consult L4
[2017-11-16] MEDS: amLODIPine 5 MG Tablet PO (21:35)
[2017-11-16] MEDS: Finasteride 5 MG Tablet PO (21:35)
[2017-11-17] VITALS (20 sets, daily range): BP systolic 123–140; BP diastolic 78–98; PULSE 56–84; RESP 17–18; TEMP 36.7–37.1; O2SAT 96–98
[2017-11-17 06:25] LABS: Hematocrit 20.5 % (40-54); Hemoglobin 6.8 g/dl (13.0-16.5); Mean Corp Hgb Conc 33.2 g/gl (32-36); Mean Corpuscular Hgb 31.2 pg (27.0-32.0); Mean Platelet Vol. 10.8 fl (6.2-12.0); Platelet Count 61 K/mm3 (150-450); RBC Distribution Width SD 58.1 fl (35.1-43.9); Red Blood Count 2.18 M/mm3 (4.6-6.2); White Blood Count 2.2 K/mm3 (4.4-11.0)
[2017-11-17 06:36] LABS: Scan Indicated on CBC? Y/N NO
[2017-11-17 07:06] LABS: Anion Gap 9 (5-15); BUN 15 mg/dL (7-18); BUN/Creat Ratio 22.4 RATIO (10-20); Calcium,Total 8.2 mg/dL (8.5-10.1); Chloride 111 mmol/L (98-107); Creatinine, Serum 0.67 mg/dL (0.70-1.30); EST Glomerular Filtration Rate 121 mL/min (>60); Est Glom Filt Rate - Afr Amer 147 mL/min (>60); Estimated Creatinine Clearance 63.59 ml/min; Glucose 85 mg/dL (74-106); Potassium 3.4 mmol/L (3.5-5.1); Sodium Level 144 mmol/L (136-145)
[2017-11-17 08:10] LABS: Haptoglobin 94 mg/dL (34-200)
--- NOTE | 2017-11-17 10:08 | CASEMGMT ---
LARISSA left a vm for Maribel at [facility] letting her know patient is not ready for d/c today. LARISSA faxed her updated PT/OT evaluations. SW to follow for d/c plan. Plan: Likely d/c back to [facility]. Lorena HANSON STEEL ROLLER
[2017-11-17] MEDS: Lisinopril 20 MG Tablet PO (11:03)
[2017-11-17] MEDS: 0.9% NaCl Peripheral Flush Adult/Peds IV ×2 (11:08→18:27)
--- NOTE | 2017-11-17 13:14 | PCM.PROGNOTE ---
Patient Problems: Active and Suspected Problems Pancytopenia (Acute) Severe anemia (Acute) Subjective: Pt restless, anxious to get out of bed, and anxious to have bone bx done. He is agreeable however. No dizziness LH. He remains fatigued. No bleeding noted. He has no fevers or chills. - Physical Exam General: Alert, Oriented x3, Cooperative HEENT: Atraumatic, PERRLA, EOMI, Normocephalic Neck: Supple, No JVD, Negative Carotid Bruits Lungs: Clear to auscultation, Normal air movement Cardiovascular: Regular rate, No murmurs Abdomen: Bowel Sounds Present, Soft, Non Tender Extremities: No edema, Capillary Refill Less than 3 Seconds Skin: No rashes, No breakdown Musculoskeletal: No Tenderness to Palpation of Joints or Extremities Neurological: Cranial nerves II-XII grossly intact Psych/Mental Status: Normal Affect, Appropriate, Alert and oriented to time, place, person, mood and affect Vital Signs Temp Pulse Resp BP Pulse Ox 98.3 F 65 18 125/88 H 97 11/17/17 12:00 11/17/17 12:00 11/17/17 12:00 11/17/17 12:00 11/17/17 12:00 Oxygen Delivery Method Room Air Weight: 83.915 kg Body Mass Index (BMI) 24.5 Intake and Output for Last 24 Hours 11/15/17 11/16/17 11/17/17 23:59 23:59 23:59 Intake Total 1031.3 / 1031.3 1641 / 1641 767 / 767 Output Total 400 / 400 Balance 631.3 / 631.3 1641 / 1641 767 / 767 Laboratory Tests Past 24 Hrs 11/15/17 11/16/17 11/16/17 19:12 04:10 04:10 WBC RBC Hgb Hct MCV MCH MCHC RDW RDW Differential Plt Count MPV Haptoglobin 94 Sodium Potassium Chloride Carbon Dioxide Anion Gap BUN Creatinine Estim Creat Clear Calc Est GFR (MDRD) Af Amer Est GFR (MDRD) Non-Af BUN/Creatinine Ratio Glucose Calcium Iron 181 H TIBC 193 L Iron Saturation 93.8 H Ferritin 410 H 11/16/17 11/17/17 11/17/17 14:30 05:18 05:18 WBC 2.2 L RBC 2.18 L Hgb 8.0 L 6.8 L Hct 23.7 L 20.5 L MCV 94.0 MCH 31.2 MCHC 33.2 RDW 18.0 H RDW Differential 58.1 H Plt Count 61 L MPV 10.8 Haptoglobin Sodium 144 Potassium 3.4 L Chloride 111 H Carbon Dioxide 24.0 Anion Gap 9 BUN 15 Creatinine 0.67 L Estim Creat Clear Calc 63.59 Est GFR (MDRD) Af Amer 147 Est GFR (MDRD) Non-Af 121 BUN/Creatinine Ratio 22.4 H Glucose 85 Calcium 8.2 L Iron TIBC Iron Saturation Ferritin Medical Necessity - Tobacco Use Smoking Status: Never smoker Tobacco Use: Non-smoker Assessment/Plan All Active Problems Pancytopenia (Acute) Severe anemia (Acute) 1. Pancytopenia unclear etiology - s/p 2 units prbc, still low Hgb, 2 more units to be given. Bone bx tomorrow. Oncology following. Occult blood neg. Iron studies low, ferritin high, B12 and folate normal, LDH high. 2. HTN - stable 3. BPH - proscar. 4. Hypokalemia - repleted. DVT ppx: SCDs. DC planning: return to assisted living at [place]. This patient was seen by Manish Michel PA-C under the supervision of Doctor Meza.
[2017-11-17] MEDS: 0.9% Normal Saline 1,000 ML 50 ML IV (18:27)
[2017-11-17] MEDS: amLODIPine 5 MG Tablet PO (22:32)
[2017-11-17] MEDS: Finasteride 5 MG Tablet PO (22:40)
[2017-11-18] VITALS (19 sets, daily range): BP systolic 94–150; BP diastolic 62–105; PULSE 48–89; RESP 13–22; TEMP 36.5–36.9; O2SAT 88–99
--- NOTE | 2017-11-18 | BMB_PTH ---
PATIENT: NOE HARRIS LOC: [facility] U#:[id number] AGE/SX: 82/M ROOM: [facility] RE11/15/[address]: Dr. Kevin Meza DO : 1935 BED: 1 DIS: 11/18/2017 SPEC #: [id number] RECD: 11/18/17 13:44 STATUS: NINA REQ #: [id number] LAURI: 11/18/17 00:[address]: Kevin Meza DEPT: BONE MARROW RECD BY: Oumar Salmon ENTERED: 11/18/17 13:44 SP TYPE: BMB OTHR DR: MD Dr. Nj Collado MD Dr. Prakash Chand, MD Tissues: Bone marrow, NOS Procedures: PERIPH Decalcification bone/plaque Bone Marrow Aspiration Special Stain Group II PAS Stain (control) Retic (control) Iron Stain (control) Jolly Stain (control) Bone Marrow Core Biopsy Iron Stain Bone Marrow HEADER OPERATION: CT-guided bone marrow biopsy and aspiration PRE-OP DIAGNOSIS: Pancytopenia; low blood count TISSUE SUBMITTED: 11g core x3 left iliac BONE MARROW DIAGNOSIS Bone marrow core and peripheral smear: Hypercellular marrow with trilineage hematopoiesis and mild megakaryocytic dysplasia. Peripheral blood - pancytopenia. See comment. SJ:timothy 11/22/17 COMMENT The findings may represent myeloproliferative disorder/myelodysplastic disorder. Immunohistochemistry ([id number]) does not show significant increase of blasts. Peripheral smear shows mild increased of blasts. Clinical correlation and appropriate follow up are necessary. Case has been reviewed in consultation with Dr. Harper who concurs with the above diagnosis. IDC:AM BONE MARROW STUDY Slides are reviewed. CBC DATE: 11/18/17 WBC 2; RBC 2.66; HGB 8.2; HCT 24.7; MCV 92.9; RDW 18.4; PLTS 66,000 Manual differential count: SEGS 25%; LYMPHS 62%; MONOS 6%; EOS 0%; BASOS 0%; BLASTS 7% PERIPHERAL SMEAR: Submitted. RBC: Normocytic and hyperchromic. WBC: Leukopenia and neutropenia. Mild increased of blasts are noted. PLTS: Decreased. BONE MARROW ASPIRATE DIFFERENTIAL: Not applicable. ASPIRATE FINDINGS: Not applicable. CORE BIOPSY FINDINGS: Site: Not specified Adequacy: Adequate Cellularity: 70-80% M/E ratio: Within normal limits. Megakaryocytes: Present and increased in number. Mild dysplastic changes are noted. Focal clustering of megakaryocytes is also noted. Bony trabeculae: Unremarkable. Granulomas: Absent. Lymphoid aggregate: Absent. Atypical infiltrate: Absent. Comment: Immunohistochemistry ([id number]) does not show significant increase of blasts. ASPIRATE CLOT FINDINGS: Not applicable. SPECIAL STAINS WITH MATCHED CONTROLS: Iron: Decreased. Atypical or ring sideroblasts are not seen. Reticulin: Increased. PAS: Highlights myeloid cells and megakaryocytes. Trichrome: Significant collagenous fibrosis is not seen. BONE MARROW GROSS A - Received is a container labeled with the patient's name and designated bone marrow biopsy. The specimen consists of three variable sized elongated pieces of matthews bone measuring 0.5 to 1.5 cm in length and 0.1 cm in diameter. The entire specimen is submitted in one cassette after decalcification. B - Also received is one peripheral smear stained slide. / DOYLE:timothy 11/18/17 TC:5 CPT: 14929, 53777, 98312, 92448 x4, 52018
--- NOTE | 2017-11-18 | IMM_PTH ---
PATIENT: NOE HARRIS LOC: [facility] U#:[id number] AGE/SX: 82/M ROOM: [facility] RE11/15/[address]: Dr. Kevin Meza DO : 1935 BED: 1 DIS: 11/18/2017 SPEC #: [id number] RECD: 11/21/17 12:07 STATUS: NINA REQ #: [id number] LAURI: 11/18/17 00:[address]: Kevin Meza DEPT: IMMUNOHISTOCHEMISTRY RECD BY: Ron Kelley ENTERED: 11/21/17 12:09 SP TYPE: IMMUNO OTHR DR: MD Dr. Nj Collado MD Dr. Prakash Chand, MD Tissues: Bone marrow of iliac crest Procedures: CD34 (initial) PHYSICIAN & INSTITUTION [place] [address] SPECIMEN INFORMATION: Tissue Source: Bone marrow core x3 left iliac, 11g Clinical Info: Pancytopenia; low blood count Specimen Number: [id number] CPT code: 92461 METHODOLOGY: Deparaffinized sections of prefer/formalin-fixed tissue or PAP/DQ stained slides are incubated with monoclonal/polyclonal antibodies/oligonucleotide probes. Localization is made via biotin free immunoperoxidase method. Appropriate controls are performed and reacted as expected. Results on target cell population are indicated in the following table: RESULTS: ANTIBODY / CLONE RESULT CD34 (QBEnd-10) negative These tests were developed and their performance characteristics determined by [facility]. They may not have been cleared or approved by the U.S. Food and Drug Administration. The FDA has determined that such clearance or approval is not necessary. INTERPRETATION: Bone marrow core x3, left iliac biopsy: Increased number of blasts is not seen. SJ:timothy 11/22/17 Case has been reviewed in consultation with Dr. Harper who concurs with the above diagnosis. IDC:[email or web address]
[2017-11-18 06:00] LABS: Hematocrit 24.7 % (40-54); Hemoglobin 8.2 g/dl (13.0-16.5); Mean Corp Hgb Conc 33.2 g/gl (32-36); Mean Corpuscular Hgb 30.8 pg (27.0-32.0); Mean Corpuscular Volume 92.9 fL (80-94); Platelet Count 66 K/mm3 (150-450); RBC Distribution Width CV 18.5 % (11.6-14.6); Red Blood Count 2.66 M/mm3 (4.6-6.2)
[2017-11-18 06:12] LABS: Scan Indicated on CBC? Y/N NO
[2017-11-18] MEDS: Lisinopril 20 MG Tablet PO (08:33)
--- NOTE | 2017-11-18 10:04 | CT_ITS ---
PROCEDURE: CT GUIDED BONE marrow biopsy of the left iliac crest. DATE: November 18, 2017. INDICATION: Male, 82 years old. Pancytopenia and anemia. PHYSICIAN: Gagan Holbrook M.D. RADIATION DOSAGE (If Supplied By Facility): CTDIvol = ( 16.6 ) mGy, DLP = ( 496.97 ) mGycm. Individualized dose optimization techniques were utilized. PROCEDURE: The risks, benefits, and alternatives to the procedure were explained to the patient. The specific risk of hemorrhage requiring further treatment or intervention was detailed and accepted. Follow-up instructions were discussed with the patient as well. Written informed consent was obtained. The patient was brought into the CT suite and placed in the right side down decubitus position. . An appropriate entry site was identified. The overlying skin was prepped and draped in the usual sterile fashion. 1% lidocaine was administered subcutaneously for local anesthesia. Conscious sedation was performed. The patient received 3 mg of Versed and 75 mcg of fentanyl intravenously. Conscious sedation was started at 10:55 AM and terminated at 11:19 AM. The patient was independently monitored by the department nurse. Under CT guidance, a total of 3 bone marrow biopsies were performed utilizing a 11-gauge bone marrow biopsy needle. The specimens were then placed in the appropriate fluid and transported to the laboratory for analysis. Hemostasis was obtained. The patient tolerated the procedure well without immediate complications. CT/Biopsy/Inj or Needle Placement IMPRESSION: Successful CT guided bone marrow biopsy of the left iliac crest, as described above. Electronically Signed: Gagan Holbrook MD at 12:51 EDT Tel [phone], Service support ,
--- NOTE | 2017-11-18 11:01 | DCINST_ITS ---
- Discharge Diagnoses Current Active Problems: Current Active and Chronic Problems Pancytopenia (Acute) Severe anemia (Acute) BPH (benign prostatic hyperplasia) (Chronic) Hypertension (Chronic) You will use the following diet at home:: Cardiac Your food should be the consistency of: Regular Your liquids should be the consistency of: Regular/Thin Discharge Activity: Return to Normal Activity Allergies/Adverse Reactions: Allergies No Known Allergies Allergy (Verified 11/15/17 15:34) Medications to take at Discharge Amlodipine [Norvasc] 5 mg PO QHS 12/11/14 Finasteride [Proscar] 5 mg PO QHS 01/09/16 Acetaminophen 650 mg PO Q4H PRN PRN 11/15/17 Bisacodyl 10 mg RC DAILY PRN 11/15/17 Mag Hydrox/Al Hydrox/Simeth [Antacid Suspension] 15 ml PO PRN PRN 11/15/17 Potassium Chloride [Klor-Con M20] 20 meq PO DAILY 11/15/17 Lisinopril [Zestril] 20 mg PO DAILY #30 tab 11/18/17 The following prescriptions were given: Lisinopril [Zestril] 20 mg PO DAILY #30 tab Primary Care Physician: Skinny Gutierrez MD [Primary Care Provider] - Please follow up with your Primary Care Physician in: as directed Test Results: Test results from this visit will be discussed in further detail at your follow- up appointment, if applicable. Please Follow Up With: Nj Leija MD When: as directed Proposed Discharge Date: 11/18/12
[2017-11-18 11:37] LABS: Bone Marrow Aspiraton SEE PATHOLOGY REPORT
--- NOTE | 2017-11-18 14:06 | CASEMGMT ---
Pt is ready to return to assisted living today after his blood transfusion is completed. All orders were faxed already. SW spoke w/RN, his blood transfusion should be done about 4pm, pt would be able to return to the assisted living after that. SW spoke w/pt, explained SW is working on setting up transportation to get pt back to the assisted living later today. Pt states that Elicia Grant LARISSA at [facility], had said she can bring pt back to the assisted living. SW called [facility], was connected to Elicia's voice mail, she is out until Tuesday. SW called back and spoke w/RN, they do not have any other way of getting pt back to [facility], and ANAM Herrera states to set up a wheelchair van. SW spoke w/pt in room, let him know that Elicia is not in until Tuesday and [facility] does not have any other transport to take pt back. SW explained we can set up a wheelchair van to take pt back. Pt asked about the hospital van, SW can check to see if they are available. Pt states he can walk and get in and out of the van. SW asked if pt would like SW to call anyone in his family to let them know he is leaving the hospital. Pt said no, but it may be good to let Sharon at [facility] know. LARISSA explained did already let Sharon know pt is returning to the [facility] today. LARISSA called the hospital van, they are not available to take pt at that time. L[facility]ISSA called [facility] neither are available at that time. LARISSA asked RN, pt may be able to be ready by 4:15pm. [facility], they are still not available at 4:15pm. LARISSA called the hospital van back, they can take pt at 4:15pm. SW let pt and pt's RN know that the hospital van can take pt back at 4:15, and pt needs to be at the front entrance at 4:15pm. Pt is in agreement with this. Pt again confirmed he will be able to get in and out of the van himself. RN also thinks pt will be able to get in and out of the van himself. LARISSA did also ask pt about home health care for therapy, pt declined referral. No further needs, pt to [facility] today. SW did let [facility] know as well pt is leaving here at 4:15pm today. RODO Womack, CLEAT BLANKER
--- NOTE | 2017-11-18 14:12 | PCM.DC.SUM ---
Discharge Date and Diagnosis - Problem List Patient Problems: Active and Suspected Problems Pancytopenia (Acute) Severe anemia (Acute) Date of Admission: 11/15/17 Date of Discharge: 11/18/17 - Primary Discharge Diagnosis Active and Suspected Problems Pancytopenia (Acute) Severe anemia (Acute) HTN BPH - Secondary Discharge Diagnosis Chronic Problems BPH (benign prostatic hyperplasia) (Chronic) Hypertension (Chronic) Hospital Course and Treatment Imaging Results: CT/Biopsy/Inj or Needle Placement IMPRESSION: Successful CT guided bone marrow biopsy of the left iliac crest, as described above. Consultations: Oncology-[facility] Operations: None Procedures: - - Bone marrow biopsy Summary of Care Provided: Physical exam on day of discharge: General: Resting comfortably NAD Psych: A/Ox3 normal affect HEENT: PEARRLA AT NC Neck: Supple NT CV: RRR no m/t/r/g/h Resp: CTA Abd: [id number] Soft NT no guarding or rigidity Ext: DP2+= no edema Skin: W/D normal turgor Lymph/Heme: No active bleeding or adenopathy Neuro: CN2-12 intact Hospital course: The patient is a 82 year old M with a history of hypertension, BPH, who presented to the emergency room after being sent from his assisted living for abnormal labs-pancytopenia as demonstrated by hemoglobin of 5.6, WBCs of 2.3, platelet count 55,000. He did complain of slowly progressing fatigue and exertional dyspnea, lightheadedness and dizziness, and unsteady gait. He had no prior history of pancytopenia. He was admitted to the hospital and he underwent transfusion of 2 units of packed red blood cells and hematology oncology was consulted. Iron studies were checked which were unremarkable. He Monck recommended that he have as needed blood transfusions and a bone marrow biopsy. Bone marrow biopsy was obtained via interventional radiology. He received a total of 3 more units for total of 5 units of packed red blood cells. His symptoms did improve and his hemoglobin improved dramatically. Rest of his counts remained stable. We advised that he follow-up as an outpatient with his primary care provider and with [facility] as an outpatient in order to obtain his bone marrow biopsy results. The patient was discharged back to assisted living in stable condition. Please follow-up as directed. This patient was seen by Manish Michel PA-C under the supervision of Doctor Derrick. [] Discharge Diet: Low fat/ Low Cholesterol, 2000 mg Sodium Diet Discharge Activity: Return to Normal Activity Home Medications: Medications to take at Discharge Amlodipine [Norvasc] 5 mg PO QHS 12/11/14 Finasteride [Proscar] 5 mg PO QHS 01/09/16 Acetaminophen 650 mg PO Q4H PRN PRN 11/15/17 Bisacodyl 10 mg RC DAILY PRN 11/15/17 Mag Hydrox/Al Hydrox/Simeth [Antacid Suspension] 15 ml PO PRN PRN 11/15/17 Potassium Chloride [Klor-Con M20] 20 meq PO DAILY 11/15/17 Lisinopril [Zestril] 20 mg PO DAILY #30 tab 11/18/17 Following Prescrptions Were Given to Patient: Lisinopril [Zestril] 20 mg PO DAILY #30 tab Primary Care Physician: Skinny Gutierrez MD [Primary Care Provider] - Please follow up with your Primary Care Physician in: as directed Please Follow Up With: Nj Leija MD When: as directed Disposition: Asstd Living/Non-Skill [place] Minutes spent on discharge:: 35 Patient Condition:: Stable Medical Necessity - Tobacco Use Smoking Status: Never smoker Tobacco Use: Non-smoker Meaningful Use Info Meaningful Use Diagnoses (Choose all that apply): None applicable
--- NOTE | 2017-11-18 14:17 | DS.PCM_ITS ---
Discharge Date and Diagnosis - Problem List Patient Problems: Active and Suspected Problems Pancytopenia (Acute) Severe anemia (Acute) Date of Admission: 11/15/17 Date of Discharge: 11/18/17 - Primary Discharge Diagnosis Active and Suspected Problems Pancytopenia (Acute) Severe anemia (Acute) HTN BPH - Secondary Discharge Diagnosis Chronic Problems BPH (benign prostatic hyperplasia) (Chronic) Hypertension (Chronic) Hospital Course and Treatment Imaging Results: CT/Biopsy/Inj or Needle Placement IMPRESSION: Successful CT guided bone marrow biopsy of the left iliac crest, as described above. Consultations: Oncology-[facility] Operations: None Procedures: - - Bone marrow biopsy Summary of Care Provided: Physical exam on day of discharge: General: Resting comfortably NAD Psych: A/Ox3 normal affect HEENT: PEARRLA AT NC Neck: Supple NT CV: RRR no m/t/r/g/h Resp: CTA Abd: [id number] Soft NT no guarding or rigidity Ext: DP2+= no edema Skin: W/D normal turgor Lymph/Heme: No active bleeding or adenopathy Neuro: CN2-12 intact Hospital course: The patient is a 82 year old M with a history of hypertension, BPH, who presented to the emergency room after being sent from his assisted living for abnormal labs-pancytopenia as demonstrated by hemoglobin of 5.6, WBCs of 2.3, platelet count 55,000. He did complain of slowly progressing fatigue and exertional dyspnea, lightheadedness and dizziness, and unsteady gait. He had no prior history of pancytopenia. He was admitted to the hospital and he underwent transfusion of 2 units of packed red blood cells and hematology oncology was consulted. Iron studies were checked which were unremarkable. He Monck recommended that he have as needed blood transfusions and a bone marrow biopsy. Bone marrow biopsy was obtained via interventional radiology. He received a total of 3 more units for total of 5 units of packed red blood cells. His symptoms did improve and his hemoglobin improved dramatically. Rest of his counts remained stable. We advised that he follow-up as an outpatient with his primary care provider and with [place] [facility] as an outpatient in order to obtain his bone marrow biopsy results. The patient was discharged back to assisted living in stable condition. Please follow-up as directed. This patient was seen by Manish Michel PA-C under the supervision of Doctor Derrick. [] Discharge Diet: Low fat/ Low Cholesterol, 2000 mg Sodium Diet Discharge Activity: Return to Normal Activity Home Medications: Medications to take at Discharge Amlodipine [Norvasc] 5 mg PO QHS 12/11/14 Finasteride [Proscar] 5 mg PO QHS 01/09/16 Acetaminophen 650 mg PO Q4H PRN PRN 11/15/17 Bisacodyl 10 mg RC DAILY PRN 11/15/17 Mag Hydrox/Al Hydrox/Simeth [Antacid Suspension] 15 ml PO PRN PRN 11/15/17 Potassium Chloride [Klor-Con M20] 20 meq PO DAILY 11/15/17 Lisinopril [Zestril] 20 mg PO DAILY #30 tab 11/18/17 Following Prescrptions Were Given to Patient: Lisinopril [Zestril] 20 mg PO DAILY #30 tab Primary Care Physician: Skinny Gutierrez MD [Primary Care Provider] - Please follow up with your Primary Care Physician in: as directed Please Follow Up With: jN Leija MD When: as directed Disposition: Asstd Living/Non-Skill [place] Minutes spent on discharge:: 35 Patient Condition:: Stable Medical Necessity - Tobacco Use Smoking Status: Never smoker Tobacco Use: Non-smoker Meaningful Use Info Meaningful Use Diagnoses (Choose all that apply): None applicable
== END 2017-11-18 16:13 | disposition home or self-care (01) | DRG 810 ==
LOC: ED 17:35 → PCU 18:18
PROVIDERS: Internal Medicine Medical Oncology; Nurse Practitioner Family; Physician Assistant; Admitting Provider Internal Medicine; Emergency Provider Emergency Medicine; Visit Provider Internal Medicine
DX: D61.818 Other pancytopenia (principal); N40.0 Benign prostatic hyperplasia without lower urinary tract symptoms; I10 Essential (primary) hypertension; Z66 Do not resuscitate; E87.6 Hypokalemia
CPT/HCPCS: 36415; 77012; 80048; 81001; 82274; 82607; 82728; 82746; 83010; 83540; 83550; 83615; 83880; 84443; 84484; 85014; 85018; 85025; 85027; 85610; 85730; 86850; 86900; 86920; 88305; 88311; 88313; 88342; 93005; 97116; 97162; 97165; 97530; 97802; 99156; 99157; 99282; J7030; P9016; A4216

== ENCOUNTER → 2017-11-21 07:50 | Outpatient (REF) | payer MEDICARE, OTHER, SELFPAY ==
[2017-11-21 09:37] LABS: Anion Gap 6 (5-15); BUN 19 mg/dL (7-18); BUN/Creat Ratio 25.9 RATIO (10-20); Calcium,Total 8.3 mg/dL (8.5-10.1); Chloride 111 mmol/L (98-107); Creatinine, Serum 0.74 mg/dL (0.70-1.30); EST Glomerular Filtration Rate 109 mL/min (>60); Est Glom Filt Rate - Afr Amer 131 mL/min (>60); Glucose 84 mg/dL (74-106); Potassium 3.8 mmol/L (3.5-5.1); Sodium Level 140 mmol/L (136-145)
[2017-11-21 09:41] LABS: Absolute Lymphocyte Count 1.38 X10^3/ul (0.83-4.51); Absolute Neutrophil Count 0.7 X10^3/uL (2.0-7.7); Basophil# 0.01 X10^3/uL; Basophil% 0.4 % (0-1); Hematocrit 27.8 % (40-54); Hemoglobin 9.2 g/dl (13.0-16.5); Lymphocyte # 1.38 X10^3/ul (4.0); Lymphocyte % 51.7 % (19-41); Mean Corp Hgb Conc 33.1 g/gl (32-36); Mean Corpuscular Hgb 29.7 pg (27.0-32.0); Mean Corpuscular Volume 89.7 fL (80-94); Monocyte# 0.58 X10^3/uL; Monocyte% 21.7 % (0-10); Neutrophil % 26.2 % (47-70); Platelet Count 60 K/mm3 (150-450); RBC Distribution Width SD 58.4 fl (35.1-43.9); White Blood Count 2.7 K/mm3 (4.4-11.0)
[2017-11-21 09:42] LABS: Differential Indicated SCAN CRITERIA MET; POSITIVE COUNT NO; POSITIVE DIFFERENTIAL YES; POSITIVE MORPHOLOGY YES
== END ==
LOC: OLS.WHLBEN 07:50
PROVIDERS: Visit Provider Family Medicine
DX: D64.9 Anemia, unspecified (principal); I10 Essential (primary) hypertension
CPT/HCPCS: 36415; 80048; 85025

== ENCOUNTER → 2017-11-28 06:40 | Outpatient (REF) | payer MEDICARE, OTHER, SELFPAY ==
[2017-11-28 09:41] LABS: Absolute Lymphocyte Count 0.78 X10^3/ul (0.83-4.51); Absolute Neutrophil Count 0.4 X10^3/uL (2.0-7.7); Hematocrit 23.5 % (40-54); Hemoglobin 7.7 g/dl (13.0-16.5); Lymphocyte # 0.78 X10^3/ul (4.0); Lymphocyte % 47.9 % (19-41); Mean Corp Hgb Conc 32.8 g/gl (32-36); Mean Corpuscular Hgb 29.8 pg (27.0-32.0); Mean Corpuscular Volume 91.1 fL (80-94); Monocyte# 0.46 X10^3/uL; Monocyte% 28.2 % (0-10); Neutrophil # 0.39 X10^3/uL (2.7-7.7); Neutrophil % 23.9 % (47-70); RBC Distribution Width CV 17.5 % (11.6-14.6); RBC Distribution Width SD 57.5 fl (35.1-43.9); Red Blood Count 2.58 M/mm3 (4.6-6.2); White Blood Count 1.6 K/mm3 (4.4-11.0)
[2017-11-28 09:49] LABS: Differential Indicated SCAN CRITERIA MET; POSITIVE COUNT YES; POSITIVE DIFFERENTIAL YES; POSITIVE MORPHOLOGY YES; Platelet Count 43 K/mm3 (150-450)
[2017-11-28 10:00] LABS: Anisocytosis RARE; Hypochromasia 2+; Platelet Estimate MKD DEC (ADEQ); Platelet Morphology LARGE
[2017-11-29 16:28] LABS: Pathologist Review Reviewed
== END ==
LOC: OLS.WHLBEN 06:40
PROVIDERS: Visit Provider Family Medicine
DX: D64.9 Anemia, unspecified (principal)
CPT/HCPCS: 36415; 85025

== ENCOUNTER → 2017-11-30 05:55 | Outpatient (REF) | payer SELFPAY | LOC: OLS.WHLBEN 05:55 | PROVIDERS: Visit Provider Family Medicine | DX: D64.9 Anemia, unspecified (principal) | CPT/HCPCS: 86920; 86922 ==

== ENCOUNTER → 2017-12-01 08:54 | Outpatient (CLI) | payer MEDICARE, OTHER, SELFPAY ==
[2017-11-30 07:45] LABS: Absolute Lymphocyte Count 1.05 X10^3/ul (0.83-4.51); Absolute Neutrophil Count 0.5 X10^3/uL (2.0-7.7); Hematocrit 23.5 % (40-54); Hemoglobin 7.6 g/dl (13.0-16.5); Lymphocyte # 1.05 X10^3/ul (4.0); Lymphocyte % 53.6 % (19-41); Mean Corp Hgb Conc 32.3 g/gl (32-36); Mean Corpuscular Hgb 29.6 pg (27.0-32.0); Mean Corpuscular Volume 91.4 fL (80-94); Monocyte% 21.9 % (0-10); Neutrophil # 0.47 X10^3/uL (2.7-7.7); RBC Distribution Width CV 17.5 % (11.6-14.6); RBC Distribution Width SD 58.3 fl (35.1-43.9); Red Blood Count 2.57 M/mm3 (4.6-6.2)
[2017-11-30 07:46] LABS: Monocyte# 0.43 X10^3/uL
[2017-11-30 07:55] LABS: Differential Indicated SCAN CRITERIA MET; POSITIVE COUNT YES; POSITIVE DIFFERENTIAL YES; POSITIVE MORPHOLOGY YES
[2017-11-30 07:56] LABS: Platelet Count 49 K/mm3 (150-450)
[2017-11-30 15:33] LABS: Pathologist Review Reviewed
[2017-12-01] VITALS (7 sets, daily range): BP systolic 129–149; BP diastolic 85–102; PULSE 59–86; RESP 16–18; TEMP 36.8–37.5; O2SAT 96–100; BMI 24.1
== END ==
PROVIDERS: Visit Provider Family Medicine
DX: D61.818 Other pancytopenia (principal)
CPT/HCPCS: 36415; 36430; 85025; 86850; 86900; 86920; 86922; J7040; P9016; A4216

== ENCOUNTER → 2017-12-05 06:05 | Outpatient (REF) | payer MEDICARE, OTHER, SELFPAY ==
[2017-12-05 11:02] LABS: Absolute Lymphocyte Count 1.19 X10^3/ul (0.83-4.51); Absolute Neutrophil Count 0.5 X10^3/uL (2.0-7.7); Hematocrit 26.1 % (40-54); Hemoglobin 8.6 g/dl (13.0-16.5); Lymphocyte # 1.19 X10^3/ul (4.0); Lymphocyte % 53.4 % (19-41); Mean Corpuscular Hgb 30.1 pg (27.0-32.0); Mean Corpuscular Volume 91.3 fL (80-94); Monocyte# 0.57 X10^3/uL; Monocyte% 25.6 % (0-10); Neutrophil # 0.47 X10^3/uL (2.7-7.7); RBC Distribution Width CV 16.7 % (11.6-14.6); RBC Distribution Width SD 54.8 fl (35.1-43.9); Red Blood Count 2.86 M/mm3 (4.6-6.2); White Blood Count 2.2 K/mm3 (4.4-11.0)
[2017-12-05 11:05] LABS: Differential Indicated SCAN CRITERIA MET; POSITIVE COUNT YES; POSITIVE DIFFERENTIAL YES; POSITIVE MORPHOLOGY YES; Platelet Count 44 K/mm3 (150-450)
[2017-12-06 15:15] LABS: Pathologist Review Reviewed
== END ==
LOC: OLS.WHLBEN 06:05
PROVIDERS: Visit Provider Family Medicine
DX: D64.9 Anemia, unspecified (principal)
CPT/HCPCS: 36415; 85025

== ENCOUNTER → 2017-12-12 05:00 | Outpatient (REF) | payer MEDICARE, OTHER, SELFPAY ==
[2017-12-12 10:14] LABS: Absolute Lymphocyte Count 1.05 X10^3/ul (0.83-4.51); Absolute Neutrophil Count 0.4 X10^3/uL (2.0-7.7); Hematocrit 23.6 % (40-54); Hemoglobin 7.6 g/dl (13.0-16.5); Lymphocyte # 1.05 X10^3/ul (4.0); Lymphocyte % 57.7 % (19-41); Mean Corp Hgb Conc 32.2 g/gl (32-36); Mean Corpuscular Hgb 29.6 pg (27.0-32.0); Mean Corpuscular Volume 91.8 fL (80-94); Monocyte# 0.42 X10^3/uL; Monocyte% 23.1 % (0-10); Neutrophil # 0.35 X10^3/uL (2.7-7.7); Neutrophil % 19.2 % (47-70); RBC Distribution Width CV 16.8 % (11.6-14.6); RBC Distribution Width SD 55.7 fl (35.1-43.9); Red Blood Count 2.57 M/mm3 (4.6-6.2); White Blood Count 1.8 K/mm3 (4.4-11.0)
[2017-12-12 10:25] LABS: POSITIVE COUNT YES; POSITIVE DIFFERENTIAL YES; POSITIVE MORPHOLOGY YES; Platelet Count 47 K/mm3 (150-450)
[2017-12-12 10:26] LABS: Differential Indicated SCAN CRITERIA MET
[2017-12-13 10:26] LABS: Pathologist Review Reviewed
== END ==
LOC: OLS.WHLBEN 05:00
PROVIDERS: Visit Provider Family Medicine
DX: D64.9 Anemia, unspecified (principal)
CPT/HCPCS: 36415; 85025

== ENCOUNTER → 2017-12-19 05:00 | Outpatient (REF) | payer MEDICARE, OTHER, SELFPAY ==
[2017-12-19 09:38] LABS: Anion Gap 6 (5-15); BUN 17 mg/dL (7-18); BUN/Creat Ratio 23.1 RATIO (10-20); Calcium,Total 8.3 mg/dL (8.5-10.1); Chloride 110 mmol/L (98-107); Creatinine, Serum 0.74 mg/dL (0.70-1.30); EST Glomerular Filtration Rate 109 mL/min (>60); Est Glom Filt Rate - Afr Amer 131 mL/min (>60); Glucose 91 mg/dL (74-106); Potassium 3.8 mmol/L (3.5-5.1); Sodium Level 142 mmol/L (136-145)
[2017-12-19 09:39] LABS: Absolute Lymphocyte Count 1.36 X10^3/ul (0.83-4.51); Absolute Neutrophil Count 0.8 X10^3/uL (2.0-7.7); Hematocrit 23.6 % (40-54); Hemoglobin 7.5 g/dl (13.0-16.5); Lymphocyte # 1.36 X10^3/ul (4.0); Lymphocyte % 48.6 % (19-41); Mean Corp Hgb Conc 31.8 g/gl (32-36); Mean Corpuscular Hgb 28.8 pg (27.0-32.0); Mean Corpuscular Volume 90.8 fL (80-94); Monocyte# 0.61 X10^3/uL; Monocyte% 21.8 % (0-10); Neutrophil # 0.82 X10^3/uL (2.7-7.7); Neutrophil % 29.2 % (47-70); Platelet Count 56 K/mm3 (150-450); RBC Distribution Width SD 56.2 fl (35.1-43.9); White Blood Count 2.8 K/mm3 (4.4-11.0)
[2017-12-19 09:41] LABS: Differential Indicated SCAN CRITERIA MET; POSITIVE COUNT NO; POSITIVE DIFFERENTIAL YES; POSITIVE MORPHOLOGY YES
[2017-12-19 10:32] LABS: Atypical Lymphocyte 1+ %; Hypochromasia 2+; Platelet Estimate MKD DEC (ADEQ); Platelet Morphology LARGE
== END ==
LOC: OLS.WHLBEN 05:00
PROVIDERS: Visit Provider Family Medicine
DX: D64.9 Anemia, unspecified (principal); I10 Essential (primary) hypertension
CPT/HCPCS: 36415; 80048; 85025

== ENCOUNTER → 2017-12-26 05:00 | Outpatient (REF) | payer MEDICARE, OTHER, SELFPAY ==
[2017-12-26 09:59] LABS: Absolute Lymphocyte Count 1.06 X10^3/ul (0.83-4.51); Absolute Neutrophil Count 0.4 X10^3/uL (2.0-7.7); Hematocrit 18.7 % (40-54); Hemoglobin 6.1 g/dl (13.0-16.5); Lymphocyte # 1.06 X10^3/ul (4.0); Lymphocyte % 57.6 % (19-41); Mean Corp Hgb Conc 32.6 g/gl (32-36); Mean Corpuscular Hgb 29.5 pg (27.0-32.0); Mean Corpuscular Volume 90.3 fL (80-94); Mean Platelet Vol. 10.3 fl (6.2-12.0); Monocyte# 0.38 X10^3/uL; Monocyte% 20.7 % (0-10); Neutrophil % 21.7 % (47-70); Platelet Count 51 K/mm3 (150-450); RBC Distribution Width CV 16.7 % (11.6-14.6); Red Blood Count 2.07 M/mm3 (4.6-6.2); White Blood Count 1.8 K/mm3 (4.4-11.0)
[2017-12-26 10:11] LABS: Differential Indicated SCAN CRITERIA MET; POSITIVE COUNT NO; POSITIVE DIFFERENTIAL YES; POSITIVE MORPHOLOGY YES
== END ==
LOC: OLS.WHLBEN 05:00
PROVIDERS: Visit Provider Family Medicine
DX: D64.9 Anemia, unspecified (principal)
CPT/HCPCS: 36415; 85025

== ENCOUNTER → 2017-12-27 08:28 | Outpatient (CLI) | payer MEDICARE, OTHER, SELFPAY ==
[2017-12-27] VITALS (7 sets, daily range): BP systolic 116–145; BP diastolic 63–90; PULSE 60–85; RESP 16–18; TEMP 36.6–37.1; O2SAT 96–97
== END ==
PROVIDERS: Visit Provider Family Medicine
DX: D61.818 Other pancytopenia (principal)
CPT/HCPCS: 36415; 36430; 86850; 86900; 86920; 86922; J7040; P9016; A4216

== ENCOUNTER → 2018-01-02 05:00 | Outpatient (REF) | payer MEDICARE, OTHER, SELFPAY ==
[2018-01-02 10:02] LABS: Absolute Lymphocyte Count 1.02 X10^3/ul (0.83-4.51); Absolute Neutrophil Count 0.3 X10^3/uL (2.0-7.7); Hematocrit 23.3 % (40-54); Hemoglobin 7.5 g/dl (13.0-16.5); Lymphocyte # 1.02 X10^3/ul (4.0); Mean Corp Hgb Conc 32.2 g/gl (32-36); Mean Corpuscular Hgb 29.1 pg (27.0-32.0); Mean Corpuscular Volume 90.3 fL (80-94); Mean Platelet Vol. 11.4 fl (6.2-12.0); Monocyte# 0.42 X10^3/uL; Monocyte% 24.3 % (0-10); Neutrophil # 0.28 X10^3/uL (2.7-7.7); Neutrophil % 16.1 % (47-70); Platelet Count 66 K/mm3 (150-450); RBC Distribution Width CV 16.1 % (11.6-14.6); RBC Distribution Width SD 52.3 fl (35.1-43.9); Red Blood Count 2.58 M/mm3 (4.6-6.2); White Blood Count 1.7 K/mm3 (4.4-11.0)
[2018-01-02 10:03] LABS: Differential Indicated SCAN CRITERIA MET; POSITIVE COUNT NO; POSITIVE DIFFERENTIAL YES; POSITIVE MORPHOLOGY YES
[2018-01-02 11:10] LABS: Atypical Lymphocyte 2+ %; Hypochromasia 2+; Platelet Estimate MKD DEC (ADEQ); Platelet Morphology LARGE
== END ==
LOC: OLS.WHLBEN 05:00
PROVIDERS: Visit Provider Family Medicine
DX: D64.9 Anemia, unspecified (principal)
CPT/HCPCS: 36415; 85025

== ENCOUNTER → 2018-01-10 05:00 | Outpatient (REF) | payer MEDICARE, OTHER, SELFPAY ==
[2018-01-10 09:44] LABS: Anion Gap 9 (5-15); BUN 20 mg/dL (7-18); BUN/Creat Ratio 27.3 RATIO (10-20); Chloride 110 mmol/L (98-107); Creatinine, Serum 0.73 mg/dL (0.70-1.30); EST Glomerular Filtration Rate 109 mL/min (>60); Est Glom Filt Rate - Afr Amer 132 mL/min (>60); Glucose 86 mg/dL (74-106); Potassium 3.9 mmol/L (3.5-5.1); Sodium Level 144 mmol/L (136-145)
[2018-01-10 09:45] LABS: Absolute Lymphocyte Count 0.89 X10^3/ul (0.83-4.51); Absolute Neutrophil Count 0.2 X10^3/uL (2.0-7.7); Basophil# 0.01 X10^3/uL; Basophil% 0.6 % (0-1); Eosinophil# 0.01 X10^3/uL; Eosinophils% 0.6 % (0-5); Hematocrit 19.4 % (40-54); Hemoglobin 6.4 g/dl (13.0-16.5); Lymphocyte # 0.89 X10^3/ul (4.0); Lymphocyte % 57.8 % (19-41); Mean Corpuscular Hgb 29.2 pg (27.0-32.0); Mean Corpuscular Volume 88.6 fL (80-94); Neutrophil # 0.23 X10^3/uL (2.7-7.7); Platelet Count 52 K/mm3 (150-450); RBC Distribution Width SD 51.4 fl (35.1-43.9); Red Blood Count 2.19 M/mm3 (4.6-6.2); White Blood Count 1.5 K/mm3 (4.4-11.0)
[2018-01-10 09:48] LABS: Differential Indicated SCAN CRITERIA MET; POSITIVE COUNT NO; POSITIVE DIFFERENTIAL YES; POSITIVE MORPHOLOGY YES
[2018-01-12 14:17] LABS: Pathologist Review Reviewed
== END ==
LOC: OLS.WHLBEN 05:00
PROVIDERS: Visit Provider Family Medicine
DX: D64.9 Anemia, unspecified (principal); I10 Essential (primary) hypertension
CPT/HCPCS: 36415; 80048; 85025

== ENCOUNTER → 2018-01-11 09:23 | Outpatient (CLI) | payer MEDICARE, OTHER, SELFPAY ==
[2018-01-11] VITALS (7 sets, daily range): BP systolic 116–147; BP diastolic 75–89; PULSE 57–85; RESP 16–18; TEMP 36.8–37.1; O2SAT 95–98; BMI 25.3
== END ==
PROVIDERS: Visit Provider Family Medicine
DX: C92.00 Acute myeloblastic leukemia, not having achieved remission (principal); D61.818 Other pancytopenia
CPT/HCPCS: 36415; 36430; 86850; 86900; 86920; 86922; J7040; P9016; A4216

== ENCOUNTER → 2018-01-16 05:00 | Outpatient (REF) | payer MEDICARE, OTHER, SELFPAY ==
[2018-01-16 08:24] LABS: Absolute Lymphocyte Count 0.89 X10^3/ul (0.83-4.51); Absolute Neutrophil Count 0.2 X10^3/uL (2.0-7.7); Basophil# 0.01 X10^3/uL; Differential Indicated SCAN CRITERIA MET; Hematocrit 21.9 % (40-54); Hemoglobin 7.1 g/dl (13.0-16.5); Lymphocyte # 0.89 X10^3/ul (4.0); Mean Corp Hgb Conc 32.4 g/gl (32-36); Mean Corpuscular Hgb 29.2 pg (27.0-32.0); Mean Corpuscular Volume 90.1 fL (80-94); Mean Platelet Vol. 12.6 fl (6.2-12.0); Monocyte# 0.39 X10^3/uL; Neutrophil # 0.21 X10^3/uL (2.7-7.7); POSITIVE COUNT NO; POSITIVE DIFFERENTIAL YES; POSITIVE MORPHOLOGY YES; Platelet Count 58 K/mm3 (150-450); RBC Distribution Width CV 15.1 % (11.6-14.6); RBC Distribution Width SD 48.2 fl (35.1-43.9); Red Blood Count 2.43 M/mm3 (4.6-6.2); White Blood Count 1.5 K/mm3 (4.4-11.0)
[2018-01-16 11:21] LABS: Blast 3 % (0-0); Lymphocyte 61 % (19-41); Metamyelocyte 4 % (0-1); Monocyte 5 % (0-10); Myelocyte 3 (0-0); Neutrophil-Band 6 % (0-5); Neutrophil-Segmented 18 % (47-70); Platelet Estimate MKD DEC (ADEQ); Total Cells Counted 100 (MANUAL DIFF)
[2018-01-16 11:22] LABS: Red Cell Morphology NORM C+C NORMAL (NORM C&C)
[2018-01-16 11:48] LABS: Scan Smear per Review Criteria MANUAL DIFF
[2018-01-17 15:10] LABS: Pathologist Review Reviewed
== END ==
LOC: OLS.WHLBEN 05:00
PROVIDERS: Visit Provider Family Medicine
DX: D64.9 Anemia, unspecified (principal)
CPT/HCPCS: 36415; 85025

== ENCOUNTER → 2018-01-23 05:00 | Outpatient (REF) | payer MEDICARE, OTHER, SELFPAY ==
[2018-01-23 07:36] LABS: Absolute Lymphocyte Count 0.94 X10^3/ul (0.83-4.51); Absolute Neutrophil Count 0.2 X10^3/uL (2.0-7.7); Hematocrit 19.3 % (40-54); Hemoglobin 6.4 g/dl (13.0-16.5); Lymphocyte # 0.94 X10^3/ul (4.0); Lymphocyte % 67.6 % (19-41); Mean Corp Hgb Conc 33.2 g/gl (32-36); Mean Corpuscular Volume 87.3 fL (80-94); Monocyte# 0.28 X10^3/uL; Monocyte% 20.1 % (0-10); Neutrophil # 0.17 X10^3/uL (2.7-7.7); Neutrophil % 12.3 % (47-70); RBC Distribution Width CV 15.6 % (11.6-14.6); RBC Distribution Width SD 50.2 fl (35.1-43.9); Red Blood Count 2.21 M/mm3 (4.6-6.2)
[2018-01-23 07:55] LABS: Differential Indicated SCAN CRITERIA MET; POSITIVE COUNT YES; POSITIVE DIFFERENTIAL YES; POSITIVE MORPHOLOGY YES
[2018-01-23 08:52] LABS: White Blood Count 1.4 K/mm3 (4.4-11.0)
[2018-01-23 08:53] LABS: Platelet Count 50 K/mm3 (150-450)
[2018-01-24 10:36] LABS: Pathologist Review Reviewed
== END ==
LOC: OLS.WHLBEN 05:00
PROVIDERS: Visit Provider Family Medicine
DX: D64.9 Anemia, unspecified (principal)
CPT/HCPCS: 36415; 85025; 86850; 86900; 86920; 86922

== ENCOUNTER → 2018-01-24 08:56 | Outpatient (CLI) | payer MEDICARE, OTHER, SELFPAY ==
[2018-01-24 09:08] VITALS: BP 125/67; PULSE 74; RESP 16; TEMP 36.7; O2SAT 99; BMI 24.3
[2018-01-24 09:50] VITALS: BP 128/79; PULSE 62; RESP 16; TEMP 36.8
[2018-01-24 11:55] VITALS: BP 138/90; PULSE 60; TEMP 37.1; O2SAT 95
[2018-01-24 12:18] VITALS: BP 148/87; PULSE 64; RESP 16; TEMP 36.8; O2SAT 96
[2018-01-24 12:19] VITALS: BP 134/93; PULSE 57; RESP 15; TEMP 36.9; O2SAT 99
[2018-01-24 14:16] VITALS: BP 142/97; PULSE 68; RESP 16; TEMP 36.9
== END ==
PROVIDERS: Visit Provider Family Medicine
DX: D64.9 Anemia, unspecified (principal)
CPT/HCPCS: 36430; 86850; 86900; 86920; 86922; J7040; P9016; A4216

== ENCOUNTER → 2018-01-30 05:00 | Outpatient (REF) | payer MEDICARE, OTHER, SELFPAY ==
[2018-01-30 08:04] LABS: Absolute Lymphocyte Count 0.94 X10^3/ul (0.83-4.51); Absolute Neutrophil Count 0.1 X10^3/uL (2.0-7.7); Hematocrit 22.2 % (40-54); Hemoglobin 7.1 g/dl (13.0-16.5); Lymphocyte # 0.94 X10^3/ul (4.0); Lymphocyte % 59.1 % (19-41); Mean Corpuscular Hgb 28.9 pg (27.0-32.0); Mean Corpuscular Volume 90.2 fL (80-94); Mean Platelet Vol. 11.6 fl (6.2-12.0); Monocyte# 0.49 X10^3/uL; Monocyte% 30.8 % (0-10); Neutrophil # 0.14 X10^3/uL (2.7-7.7); Neutrophil % 8.8 % (47-70); Platelet Count 59 K/mm3 (150-450); RBC Distribution Width SD 47.9 fl (35.1-43.9); Red Blood Count 2.46 M/mm3 (4.6-6.2); White Blood Count 1.6 K/mm3 (4.4-11.0)
[2018-01-30 08:06] LABS: Differential Indicated SCAN CRITERIA MET; POSITIVE COUNT NO; POSITIVE DIFFERENTIAL YES; POSITIVE MORPHOLOGY NO
[2018-01-30 08:20] LABS: Differential Comment SCANNED; Platelet Estimate MKD DEC (ADEQ)
[2018-01-30 08:21] LABS: Atypical Lymphocyte 1+ %; Hypochromasia 2+
== END ==
LOC: OLS.WHLBEN 05:00
PROVIDERS: Visit Provider Family Medicine
DX: D64.9 Anemia, unspecified (principal)
CPT/HCPCS: 36415; 85025

== ENCOUNTER → 2018-02-06 05:00 | Outpatient (REF) | payer MEDICARE, OTHER, SELFPAY ==
[2018-02-06 08:12] LABS: Absolute Lymphocyte Count 0.82 X10^3/ul (0.83-4.51); Absolute Neutrophil Count 0.2 X10^3/uL (2.0-7.7); Hematocrit 20.7 % (40-54); Hemoglobin 6.9 g/dl (13.0-16.5); Lymphocyte # 0.82 X10^3/ul (4.0); Lymphocyte % 60.3 % (19-41); Mean Corp Hgb Conc 33.3 g/gl (32-36); Mean Corpuscular Hgb 28.9 pg (27.0-32.0); Mean Corpuscular Volume 86.6 fL (80-94); Mean Platelet Vol. 11.7 fl (6.2-12.0); Monocyte# 0.36 X10^3/uL; Monocyte% 26.5 % (0-10); Neutrophil # 0.17 X10^3/uL (2.7-7.7); Neutrophil % 12.5 % (47-70); Platelet Count 64 K/mm3 (150-450); RBC Distribution Width CV 15.3 % (11.6-14.6); RBC Distribution Width SD 48.6 fl (35.1-43.9); Red Blood Count 2.39 M/mm3 (4.6-6.2)
[2018-02-06 08:20] LABS: Anion Gap 9 (5-15); BUN 14 mg/dL (7-18); BUN/Creat Ratio 21.1 RATIO (10-20); Calcium,Total 8.2 mg/dL (8.5-10.1); Chloride 107 mmol/L (98-107); Creatinine, Serum 0.66 mg/dL (0.70-1.30); EST Glomerular Filtration Rate 122 mL/min (>60); Est Glom Filt Rate - Afr Amer 148 mL/min (>60); Glucose 89 mg/dL (74-106); Potassium 3.5 mmol/L (3.5-5.1); Sodium Level 141 mmol/L (136-145)
[2018-02-06 08:22] LABS: Differential Indicated SCAN CRITERIA MET; POSITIVE COUNT YES; POSITIVE DIFFERENTIAL YES; POSITIVE MORPHOLOGY YES; White Blood Count 1.4 K/mm3 (4.4-11.0)
[2018-02-07 09:25] LABS: Pathologist Review Reviewed
== END ==
LOC: OLS.WHLBEN 05:00
PROVIDERS: Visit Provider Family Medicine
DX: I10 Essential (primary) hypertension (principal)
CPT/HCPCS: 36415; 80048; 85025

== ENCOUNTER → 2018-02-13 05:00 | Outpatient (REF) | payer MEDICARE, OTHER, SELFPAY ==
[2018-02-13 08:29] LABS: Absolute Lymphocyte Count 1.01 X10^3/ul (0.83-4.51); Absolute Neutrophil Count 0.2 X10^3/uL (2.0-7.7); Basophil# 0.01 X10^3/uL; Basophil% 0.5 % (0-1); Eosinophil# 0.01 X10^3/uL; Eosinophils% 0.5 % (0-5); Hematocrit 19.6 % (40-54); Hemoglobin 6.4 g/dl (13.0-16.5); Lymphocyte # 1.01 X10^3/ul (4.0); Lymphocyte % 53.4 % (19-41); Mean Corp Hgb Conc 32.7 g/gl (32-36); Mean Corpuscular Hgb 28.3 pg (27.0-32.0); Mean Corpuscular Volume 86.7 fL (80-94); Mean Platelet Vol. 11.7 fl (6.2-12.0); Monocyte# 0.68 X10^3/uL; Neutrophil # 0.17 X10^3/uL (2.7-7.7); Neutrophil % 9.1 % (47-70); Platelet Count 70 K/mm3 (150-450); RBC Distribution Width CV 15.6 % (11.6-14.6); RBC Distribution Width SD 50.1 fl (35.1-43.9); Red Blood Count 2.26 M/mm3 (4.6-6.2); White Blood Count 1.9 K/mm3 (4.4-11.0)
[2018-02-13 08:30] LABS: Differential Indicated SCAN CRITERIA MET; POSITIVE COUNT NO; POSITIVE DIFFERENTIAL YES; POSITIVE MORPHOLOGY YES
[2018-02-13 08:43] LABS: Hypochromasia 2+; Platelet Estimate MKD DEC (ADEQ)
== END ==
LOC: OLS.WHLBEN 05:00
PROVIDERS: Visit Provider Family Medicine
DX: I10 Essential (primary) hypertension (principal)
CPT/HCPCS: 36415; 85025; 86850; 86900; 86920; 86922

== ENCOUNTER → 2018-02-14 08:45 | Outpatient (CLI) | payer MEDICARE, OTHER, SELFPAY ==
[2018-02-14 08:52] VITALS: BP 139/83; PULSE 73; RESP 15; TEMP 36.8; O2SAT 97; BMI 23.7
[2018-02-14 09:32] VITALS: BP 117/81; PULSE 63; RESP 16; TEMP 36.8; O2SAT 97
[2018-02-14 10:32] VITALS: BP 128/87; PULSE 60; RESP 18; TEMP 37; O2SAT 98
[2018-02-14 11:28] VITALS: BP 128/81; PULSE 61; RESP 16; TEMP 36.7; O2SAT 99
[2018-02-14 13:51] VITALS: BP 123/79; PULSE 73; RESP 15; TEMP 37.2; O2SAT 99
[2018-02-14 15:10] VITALS: BP 133/78; PULSE 63; RESP 16; TEMP 37.2; O2SAT 97
== END ==
PROVIDERS: Referring Provider Family Medicine; Visit Provider Family Medicine
DX: C92.00 Acute myeloblastic leukemia, not having achieved remission (principal); D61.818 Other pancytopenia
CPT/HCPCS: 36430; 86850; 86900; 86920; 86922; J7040; P9016; A4216

== ENCOUNTER → 2018-02-20 04:00 | Outpatient (REF) | payer MEDICARE, OTHER, SELFPAY ==
[2018-02-20 09:02] LABS: Absolute Neutrophil Count 0.2 X10^3/uL (2.0-7.7); Hematocrit 21.1 % (40-54); Hemoglobin 6.7 g/dl (13.0-16.5); Lymphocyte % 60.4 % (19-41); Mean Corp Hgb Conc 31.8 g/gl (32-36); Mean Corpuscular Hgb 28.3 pg (27.0-32.0); Mean Platelet Vol. 11.2 fl (6.2-12.0); Monocyte# 0.39 X10^3/uL; Monocyte% 26.2 % (0-10); Neutrophil # 0.18 X10^3/uL (2.7-7.7); Neutrophil % 12.1 % (47-70); Platelet Count 67 K/mm3 (150-450); RBC Distribution Width SD 46.6 fl (35.1-43.9); Red Blood Count 2.37 M/mm3 (4.6-6.2); White Blood Count 1.5 K/mm3 (4.4-11.0)
[2018-02-20 09:05] LABS: Differential Indicated SCAN CRITERIA MET; POSITIVE COUNT YES; POSITIVE DIFFERENTIAL YES; POSITIVE MORPHOLOGY NO
[2018-02-20 09:40] LABS: Differential Comment SCANNED; Hypochromasia 3+; Platelet Estimate MKD DEC (ADEQ); Platelet Morphology LARGE
== END ==
LOC: OLS.WHLBEN 04:00
PROVIDERS: Visit Provider Family Medicine
DX: I10 Essential (primary) hypertension (principal)
CPT/HCPCS: 36415; 85025

== ENCOUNTER → 2018-02-27 05:00 | Outpatient (REF) | payer MEDICARE, OTHER, SELFPAY ==
[2018-02-27 08:39] LABS: Absolute Lymphocyte Count 0.81 X10^3/ul (0.83-4.51); Absolute Neutrophil Count 0.2 X10^3/uL (2.0-7.7); Basophil# 0.01 X10^3/uL; Basophil% 0.8 % (0-1); Hematocrit 18.8 % (40-54); Hemoglobin 6.1 g/dl (13.0-16.5); Lymphocyte # 0.81 X10^3/ul (4.0); Lymphocyte % 60.9 % (19-41); Mean Corp Hgb Conc 32.4 g/gl (32-36); Mean Corpuscular Hgb 28.1 pg (27.0-32.0); Mean Corpuscular Volume 86.6 fL (80-94); Mean Platelet Vol. 11.2 fl (6.2-12.0); Monocyte# 0.34 X10^3/uL; Monocyte% 25.6 % (0-10); Neutrophil # 0.17 X10^3/uL (2.7-7.7); Neutrophil % 12.7 % (47-70); Platelet Count 69 K/mm3 (150-450); RBC Distribution Width CV 15.7 % (11.6-14.6); RBC Distribution Width SD 50.1 fl (35.1-43.9); Red Blood Count 2.17 M/mm3 (4.6-6.2)
[2018-02-27 08:53] LABS: Differential Indicated SCAN CRITERIA MET; POSITIVE COUNT YES; POSITIVE DIFFERENTIAL YES; POSITIVE MORPHOLOGY YES; White Blood Count 1.3 K/mm3 (4.4-11.0)
[2018-03-01 15:27] LABS: Pathologist Review Reviewed
== END ==
LOC: OLS.WHLBEN 05:00
PROVIDERS: Visit Provider Family Medicine
DX: I10 Essential (primary) hypertension (principal)
CPT/HCPCS: 36415; 85025; 86850; 86900; 86920; 86922

== ENCOUNTER → 2018-02-28 07:53 | Outpatient (CLI) | payer MEDICARE, OTHER, SELFPAY ==
[2018-02-28] VITALS (12 sets, daily range): BP systolic 111–143; BP diastolic 66–95; PULSE 52–72; RESP 14–18; TEMP 36.3–37.3; O2SAT 96–100; BMI 23.7
== END ==
PROVIDERS: Referring Provider Family Medicine; Visit Provider Family Medicine
DX: C92.00 Acute myeloblastic leukemia, not having achieved remission (principal); D61.818 Other pancytopenia
CPT/HCPCS: 36430; 86850; 86900; 86920; 86922; J7040; P9016; A4216

== ENCOUNTER → 2018-03-06 05:00 | Outpatient (REF) | payer MEDICARE, OTHER, SELFPAY ==
[2018-03-06 09:05] LABS: Absolute Neutrophil Count 0.2 X10^3/uL (2.0-7.7); Hematocrit 24.6 % (40-54); Hemoglobin 8.1 g/dl (13.0-16.5); Lymphocyte % 63.3 % (19-41); Mean Corp Hgb Conc 32.9 g/gl (32-36); Mean Corpuscular Hgb 28.2 pg (27.0-32.0); Mean Corpuscular Volume 85.7 fL (80-94); Mean Platelet Vol. 11.6 fl (6.2-12.0); Monocyte# 0.41 X10^3/uL; Monocyte% 25.9 % (0-10); Neutrophil # 0.17 X10^3/uL (2.7-7.7); Neutrophil % 10.8 % (47-70); Platelet Count 64 K/mm3 (150-450); RBC Distribution Width CV 15.3 % (11.6-14.6); RBC Distribution Width SD 47.9 fl (35.1-43.9); Red Blood Count 2.87 M/mm3 (4.6-6.2); White Blood Count 1.6 K/mm3 (4.4-11.0)
[2018-03-06 09:07] LABS: Differential Indicated SCAN CRITERIA MET; POSITIVE COUNT NO; POSITIVE DIFFERENTIAL YES; POSITIVE MORPHOLOGY YES
== END ==
LOC: OLS.WHLBEN 05:00
PROVIDERS: Visit Provider Family Medicine
DX: I10 Essential (primary) hypertension (principal)
CPT/HCPCS: 36415; 85025

== ENCOUNTER → 2018-03-13 05:00 | Outpatient (REF) | payer MEDICARE, OTHER, SELFPAY ==
[2018-03-13 08:45] LABS: Absolute Lymphocyte Count 0.89 X10^3/ul (0.83-4.51); Absolute Neutrophil Count 0.2 X10^3/uL (2.0-7.7); Basophil# 0.01 X10^3/uL; Basophil% 0.7 % (0-1); Lymphocyte # 0.89 X10^3/ul (4.0); Lymphocyte % 59.7 % (19-41); Mean Corp Hgb Conc 31.8 g/gl (32-36); Mean Corpuscular Hgb 27.9 pg (27.0-32.0); Mean Corpuscular Volume 87.6 fL (80-94); Mean Platelet Vol. 12.3 fl (6.2-12.0); Monocyte# 0.42 X10^3/uL; Monocyte% 28.2 % (0-10); Neutrophil # 0.15 X10^3/uL (2.7-7.7); Neutrophil % 10.1 % (47-70); Platelet Count 59 K/mm3 (150-450); RBC Distribution Width CV 14.9 % (11.6-14.6); RBC Distribution Width SD 45.1 fl (35.1-43.9); Red Blood Count 2.51 M/mm3 (4.6-6.2); White Blood Count 1.5 K/mm3 (4.4-11.0)
[2018-03-13 08:49] LABS: Anion Gap 7 (5-15); BUN 17 mg/dL (7-18); BUN/Creat Ratio 24.6 RATIO (10-20); Calcium,Total 8.1 mg/dL (8.5-10.1); Chloride 109 mmol/L (98-107); Creatinine, Serum 0.69 mg/dL (0.70-1.30); EST Glomerular Filtration Rate 117 mL/min (>60); Est Glom Filt Rate - Afr Amer 141 mL/min (>60); Glucose 82 mg/dL (74-106); Potassium 3.9 mmol/L (3.5-5.1); Sodium Level 141 mmol/L (136-145)
[2018-03-13 08:51] LABS: Differential Indicated SCAN CRITERIA MET; POSITIVE COUNT YES; POSITIVE DIFFERENTIAL YES; POSITIVE MORPHOLOGY NO
[2018-03-14 10:39] LABS: Pathologist Review Reviewed
== END ==
LOC: OLS.WHLBEN 05:00
PROVIDERS: Visit Provider Family Medicine
DX: D64.9 Anemia, unspecified (principal)
CPT/HCPCS: 36415; 80048; 85025

== ENCOUNTER → 2018-03-20 05:00 | Outpatient (REF) | payer MEDICARE, OTHER, SELFPAY ==
[2018-03-20 07:54] LABS: Absolute Lymphocyte Count 0.92 X10^3/ul (0.83-4.51); Absolute Neutrophil Count 0.2 X10^3/uL (2.0-7.7); Hematocrit 18.5 % (40-54); Lymphocyte # 0.92 X10^3/ul (4.0); Mean Corp Hgb Conc 32.4 g/gl (32-36); Mean Corpuscular Hgb 28.3 pg (27.0-32.0); Mean Corpuscular Volume 87.3 fL (80-94); Mean Platelet Vol. 11.5 fl (6.2-12.0); Monocyte# 0.46 X10^3/uL; Monocyte% 29.5 % (0-10); Neutrophil # 0.16 X10^3/uL (2.7-7.7); Neutrophil % 10.2 % (47-70); Platelet Count 59 K/mm3 (150-450); RBC Distribution Width SD 44.9 fl (35.1-43.9); Red Blood Count 2.12 M/mm3 (4.6-6.2); White Blood Count 1.6 K/mm3 (4.4-11.0)
[2018-03-20 07:55] LABS: Differential Indicated SCAN CRITERIA MET; POSITIVE COUNT NO; POSITIVE DIFFERENTIAL YES; POSITIVE MORPHOLOGY NO
[2018-03-20 08:13] LABS: Hypochromasia 2+; Platelet Estimate MKD DEC (ADEQ); Platelet Morphology LARGE
== END ==
LOC: OLS.WHLBEN 05:00
PROVIDERS: Visit Provider Family Medicine
DX: D64.9 Anemia, unspecified (principal)
CPT/HCPCS: 36415; 85025

== ENCOUNTER → 2018-03-20 18:50 | Outpatient (CLI) | payer MEDICARE, OTHER, SELFPAY ==
[2018-03-21] VITALS (11 sets, daily range): BP systolic 125–150; BP diastolic 70–89; PULSE 55–78; RESP 16–18; TEMP 36.4–36.9; O2SAT 95–98; BMI 24.4
== END ==
PROVIDERS: Referring Provider Family Medicine; Visit Provider Family Medicine
DX: C92.00 Acute myeloblastic leukemia, not having achieved remission (principal); D61.818 Other pancytopenia
CPT/HCPCS: 36430; 86850; 86900; 86920; 86922; J7040; P9016; A4216

== ENCOUNTER → 2018-03-27 05:00 | Outpatient (REF) | payer MEDICARE, OTHER, SELFPAY ==
[2018-03-27 08:08] LABS: Absolute Lymphocyte Count 0.78 X10^3/ul (0.83-4.51); Absolute Neutrophil Count 0.3 X10^3/uL (2.0-7.7); Basophil# 0.01 X10^3/uL; Basophil% 0.6 % (0-1); Hematocrit 24.1 % (40-54); Hemoglobin 7.7 g/dl (13.0-16.5); Lymphocyte # 0.78 X10^3/ul (4.0); Lymphocyte % 45.6 % (19-41); Mean Corpuscular Hgb 28.2 pg (27.0-32.0); Mean Corpuscular Volume 88.3 fL (80-94); Mean Platelet Vol. 11.9 fl (6.2-12.0); Monocyte# 0.62 X10^3/uL; Monocyte% 36.3 % (0-10); Neutrophil # 0.29 X10^3/uL (2.7-7.7); Neutrophil % 16.9 % (47-70); Platelet Count 58 K/mm3 (150-450); RBC Distribution Width CV 15.1 % (11.6-14.6); RBC Distribution Width SD 46.8 fl (35.1-43.9); Red Blood Count 2.73 M/mm3 (4.6-6.2); White Blood Count 1.7 K/mm3 (4.4-11.0)
[2018-03-27 08:11] LABS: Differential Indicated SCAN CRITERIA MET; POSITIVE COUNT NO; POSITIVE DIFFERENTIAL YES; POSITIVE MORPHOLOGY NO
[2018-03-27 08:34] LABS: Platelet Estimate MKD DEC (ADEQ); Platelet Morphology LARGE
[2018-03-27 08:35] LABS: Atypical Lymphocyte 1+ %; Hypochromasia 2+
[2018-04-13 09:46] VITALS: BMI 23.7
== END ==
LOC: OLS.WHLBEN 05:00
PROVIDERS: Visit Provider Family Medicine
DX: D64.9 Anemia, unspecified (principal)
CPT/HCPCS: 36415; 85025

== ENCOUNTER → 2018-04-03 05:00 | Outpatient (REF) | payer MEDICARE, OTHER, SELFPAY ==
[2018-04-03 09:12] LABS: Absolute Lymphocyte Count 1.02 X10^3/ul (0.83-4.51); Absolute Neutrophil Count 0.2 X10^3/uL (2.0-7.7); Basophil# 0.01 X10^3/uL; Basophil% 0.6 % (0-1); Differential Indicated SCAN CRITERIA MET; Eosinophil# 0.01 X10^3/uL; Eosinophils% 0.6 % (0-5); Hematocrit 22.4 % (40-54); Hemoglobin 7.3 g/dl (13.0-16.5); Lymphocyte # 1.02 X10^3/ul (4.0); Lymphocyte % 60.4 % (19-41); Mean Corp Hgb Conc 32.6 g/gl (32-36); Mean Corpuscular Hgb 27.8 pg (27.0-32.0); Mean Corpuscular Volume 85.2 fL (80-94); Mean Platelet Vol. 11.2 fl (6.2-12.0); Monocyte# 0.48 X10^3/uL; Monocyte% 28.4 % (0-10); Neutrophil # 0.15 X10^3/uL (2.7-7.7); Neutrophil % 8.8 % (47-70); POSITIVE COUNT NO; POSITIVE DIFFERENTIAL YES; POSITIVE MORPHOLOGY YES; Platelet Count 69 K/mm3 (150-450); RBC Distribution Width CV 15.6 % (11.6-14.6); Red Blood Count 2.63 M/mm3 (4.6-6.2); White Blood Count 1.7 K/mm3 (4.4-11.0)
[2018-04-13 09:46] VITALS: BMI 23.7
== END ==
LOC: OLS.WHLBEN 05:00
PROVIDERS: Visit Provider Family Medicine
DX: D64.9 Anemia, unspecified (principal)
CPT/HCPCS: 36415; 85025

== ENCOUNTER → 2018-04-10 04:00 | Outpatient (REF) | payer MEDICARE, OTHER, SELFPAY ==
[2018-04-10 07:50] LABS: Anion Gap 9 (5-15); BUN 16 mg/dL (7-18); BUN/Creat Ratio 24.2 RATIO (10-20); Calcium,Total 8.1 mg/dL (8.5-10.1); Chloride 110 mmol/L (98-107); Creatinine, Serum 0.66 mg/dL (0.70-1.30); EST Glomerular Filtration Rate 123 mL/min (>60); Est Glom Filt Rate - Afr Amer 149 mL/min (>60); Glucose 84 mg/dL (74-106); Potassium 3.9 mmol/L (3.5-5.1); Sodium Level 144 mmol/L (136-145)
[2018-04-10 09:28] LABS: Absolute Neutrophil Count 0.1 X10^3/uL (2.0-7.7); Hematocrit 20.6 % (40-54); Hemoglobin 6.6 g/dl (13.0-16.5); Lymphocyte % 63.7 % (19-41); Mean Corpuscular Hgb 28.1 pg (27.0-32.0); Mean Corpuscular Volume 87.7 fL (80-94); Mean Platelet Vol. 11.5 fl (6.2-12.0); Monocyte# 0.41 X10^3/uL; Monocyte% 26.1 % (0-10); Neutrophil # 0.14 X10^3/uL (2.7-7.7); Neutrophil % 8.9 % (47-70); Platelet Count 72 K/mm3 (150-450); RBC Distribution Width CV 15.1 % (11.6-14.6); RBC Distribution Width SD 45.6 fl (35.1-43.9); Red Blood Count 2.35 M/mm3 (4.6-6.2); White Blood Count 1.6 K/mm3 (4.4-11.0)
[2018-04-10 09:29] LABS: Differential Indicated SCAN CRITERIA MET; POSITIVE COUNT NO; POSITIVE DIFFERENTIAL YES; POSITIVE MORPHOLOGY NO
[2018-04-11 15:03] LABS: Pathologist Review Reviewed
[2018-04-13 09:46] VITALS: BMI 23.7
--- OUTSIDE RECORDS SUMMARY | 2018-06-03 02:40 | XMS RPT_ITS ---
:1935 Author Organization OHIP Support Name Relationship Address Phone Marla Xie Unavailable [address] + [place] [address] R Unavailable Unavailable Unavailable Tebbe, Wagner Unavailable [address] + [place] [address] Marla Xie Unavailable [address] + [place] [address] R Unavailable Unavailable Unavailable Tebbe, Wagner Unavailable [address] + [place] [address] ANNE-MARIE MARLA Unavailable [address] + [place] [address] R Unavailable Unavailable Unavailable TEBBE, WAGNER Unavailable [address] + [place] [address] Anne-Marie, Marla Unavailable [address] + [place] [address] R Unavailable Unavailable Unavailable Tebbe, Wagner Unavailable [address] + [place] [address] Grabielhem, Marla Unavailable [address] + [place] [address] R Unavailable Unavailable Unavailable Tebbe, Wagner Unavailable [address] + [place] [address] [facility] Unavailable [address] + [place] [address] R Unavailable Unavailable Unavailable TEBBE, WAGNER Unavailable [address] + [place] [address] GRABIELHEM, MARLA Unavailable [address] + [place] [address] R Unavailable Unavailable Unavailable TEBBE, WAGNER Unavailable [address] + [place] [address] [facility], Marla Unavailable [address] + [place] [address] R Unavailable Unavailable Unavailable Tebbe, Wagner Unavailable [address] + [place] [address] Hothem, Marla Unavailable [address] + [place] [address] R Unavailable Unavailable Unavailable Tebbe, Wagner Unavailable [address] + [place] [address] Hothem, Marla Unavailable [address] + [place] [address] R Unavailable Unavailable Unavailable Tebbe, Wagner Unavailable [address] + [place] [address] [facility] MARLA Unavailable [address] + [place] [address] R Unavailable Unavailable Unavailable LLOYDBBE, WAGNER Unavailable [address] + [place] [address] [facility] MARLA Unavailable [address] + [place] [address] R Unavailable Unavailable Unavailable TEBBE, WAGNER Unavailable [address] + [place] [address] Hothem, Marla Unavailable [address] + [place] [address] R Unavailable Unavailable Unavailable Tebbe, Wagner Unavailable [address] + [place] [address] HOTHEM, MARLA Unavailable [address] + [place] [address] R Unavailable Unavailable Unavailable TEBBE WAGNER Unavailable [address] + [place] [address] Hothem, Marla Unavailable [address] + [place] [address] R Unavailable Unavailable Unavailable Tebbe Wagner Unavailable [address] + [place] [address] Hothem, Marla Unavailable [address] + [place] [address] R Unavailable Unavailable Unavailable Tebbe Wagner Unavailable [address] + [place] [address] Hothem, Marla Unavailable [address] + [place] [address] R Unavailable Unavailable Unavailable Tebbe, Wagner Unavailable [address] + [place] [address] HOTHEM, MARLA Unavailable [address] + [place] [address] R Unavailable Unavailable Unavailable TEBBE, WAGNER Unavailable [address] + [place] [address] HOTHEM, MARLA Unavailable [address] + [place] [address] R Unavailable Unavailable Unavailable TEBBE, WAGNER Unavailable [address] + [place] [address] [facility], MARLA Unavailable [address] + [place] [address] R Unavailable Unavailable Unavailable TEBBE, WAGNER Unavailable [address] + [place] [address] [facility], MARLA Unavailable [address] + [place] [address] R Unavailable Unavailable Unavailable LLOYDBBE, WAGNER Unavailable [address] + [place] [address] HOTHEM, MARLA Unavailable [address] + [place] [address] R Unavailable Unavailable Unavailable TEBBE, WAGNER Unavailable [address] + [place] [address] HOTHEM, MARLA Unavailable [address] + [place] [address] R Unavailable Unavailable Unavailable TEBBE WAGNER Unavailable [address] + [place] [address] HOTHEM, MARLA Unavailable [address] + [place] [address] R Unavailable Unavailable Unavailable TEBBE, WAGNER Unavailable [address] [facility] [address] + [place] [address] HOTHEM, MARLA Unavailable [address] + [place] [address] R Unavailable Unavailable Unavailable TEBBE WAGNER Unavailable [address] + [place] [address] HOTHEM, MARLA Unavailable [address] + [place] [address] R Unavailable Unavailable Unavailable TEBBE WAGNER Unavailable [address] + [place] [address] HOTHEM, MARLA Unavailable [address] + [place] [address] R Unavailable Unavailable Unavailable TEBBE WAGNER Unavailable [address] + [place] [address] [facility], MARLA Unavailable [address] + [place] [address] R Unavailable Unavailable Unavailable TEBBE, WAGNER Unavailable [address] + [place] [address] [facility], Marla Unavailable [address] + [place] [address] R Unavailable Unavailable Unavailable Tebbe Wagner Unavailable [address] + [place] [address] [facility], Marla Unavailable [address] + [place] [address] R Unavailable Unavailable Unavailable Tebbe Wagner Unavailable [address] + [place] [address] HOT[facility], MARLA Unavailable [address] + [place] [address] R Unavailable Unavailable Unavailable TEBBE, WAGNER Unavailable [address] + [place] [address] Hothem, Marla Unavailable [address] + [place] [address] R Unavailable Unavailable Unavailable Tebbe Wagner Unavailable [address] + [place] [address] [facility], Marla Unavailable [address] + [place] [address] R Unavailable Unavailable Unavailable Tebbe Wagner Unavailable [address] + [place] [address] Hothem, Marla Unavailable [address] + [place] [address] R Unavailable Unavailable Unavailable Tebbe Wagner Unavailable [address] + [place] [address] Hothem, Marla Unavailable [address] + [place] [address] R Unavailable Unavailable Unavailable Tebbe Wagner Unavailable [address] + [place] [address] HOT[facility], MARLA Unavailable [address] + [place] [address] R Unavailable Unavailable Unavailable TEBBE WAGNER Unavailable [address] + [place] [address] Hothem, Marla Unavailable [address] + [place] [address] R Unavailable Unavailable Unavailable Tebbe, Wagner Unavailable [address] + [place] [address] Hothem, Marla Unavailable [address] + [place] [address] R Unavailable Unavailable Unavailable HumphreyeWagner Unavailable [address] + [place] [address] Hothem, Marla Unavailable [address] + [place] [address] R Unavailable Unavailable Unavailable Lloydbbe Wagner Unavailable [address] + [place] [address] Hothem, Marla Unavailable [address] + [place] [address] R Unavailable Unavailable Unavailable Humphreye Wagner Unavailable [address] + [place] [address] Hothem, Marla Unavailable [address] + [place] [address] R Unavailable Unavailable Unavailable Tebbe Wagner Unavailable [address] + [place] [address] Hothem, Marla Unavailable [address] + [place] [address] R Unavailable Unavailable Unavailable Lloydbbe Wagner Unavailable [address] + [place] [address] Hothem, Marla Unavailable [address] + [place] [address] R Unavailable Unavailable Unavailable Tebbe Wagner Unavailable [address] + [place] [address] [facility] Marla Unavailable [address] + [place] [address] R Unavailable Unavailable Unavailable Tebbe, Wagner Unavailable [address] [facility] [facility] [address] + [place] [address] Marla Xie Unavailable [address] + [place] [address] R Unavailable Unavailable Unavailable Tebbe, Wagner Unavailable [address] [facility] [facility] [facility] [address] + [place] [address] [facility] Marla Unavailable [address] + [place] [address] R Unavailable Unavailable Unavailable Tebbe, Wagner Unavailable [address] [facility] [facility] [facility] [address] + [place] [address] [facility] Marla Unavailable [address] + [place] [address] R Unavailable Unavailable Unavailable Tebbe, Wagner Unavailable [address] [facility] [facility] [address] + [place] [address] Care Team Providers Name Role Phone AJ LAZARO Attending Unavailable AJ LAZARO Attending Unavailable AJ LAZARO Referring Unavailable Skinny Lopez Attending Unavailable Matt, Skinny Attending Unavailable Matt, Skinny Attending Unavailable Matt, Skinny Attending Unavailable Matt, Skinny Attending Unavailable Matt, Skinny Attending Unavailable Skinny Lopez E Primary Care Unavailable Surya, Kei Admitting Unavailable PraNj villavicencio Consulting Unavailable Kevin Meza Attending Unavailable Surya, Kei Admitting Unavailable Surya, Kei Attending Unavailable Skinny Lopez E Primary Care Unavailable Surya, Kei Consulting Unavailable Surya, Kei Admitting Unavailable Lopez, Skinny E Primary Care Unavailable Nj Leija Consulting Unavailable Radha Hicks NP-C Attending Unavailable Derrick, Kevin Consulting Unavailable Surya, Kei Admitting Unavailable Manish Michel Attending Unavailable Matt, Skinny E Primary Care Unavailable PraNj villavicencio Consulting Unavailable Teryomairaky, Kevin Consulting Unavailable Surya, Kei Admitting Unavailable Nj Leija Attending Unavailable Matt, Skinny E Primary Care Unavailable Pramaye, Nj Consulting Unavailable Tereletsky, Kevin Consulting Unavailable Surya, Kei Admitting Unavailable Manish Michel Attending Unavailable Lopez, Skinny E Primary Care Unavailable Nj Leija Consulting Unavailable Derrick, Kevin Consulting Unavailable Skinny Lopez Attending Unavailable Lopez, Skinny Attending Unavailable Lopez, Skinny Attending Unavailable Lopez, Skinny Attending Unavailable Lopez, Skinny Referring Unavailable Lopez, Skinny E Primary Care Unavailable Lopez, Skinny Attending Unavailable Prah, Nj Attending Unavailable Lopez, Skinny Referring Unavailable Lopez, Skinny E Primary Care Unavailable Prah, Nj Attending Unavailable Lopez, Skinny Referring Unavailable Lopez, Skinny E Primary Care Unavailable Prah, Nj Consulting Unavailable Lopez, Skinny Attending Unavailable Prah, Nj Attending Unavailable Lopez, Skinny Referring Unavailable Lopez, Skinny E Primary Care Unavailable Prah, Nj Consulting Unavailable Lopez, Skinny Attending Unavailable Lopez, Skinny Attending Unavailable Lopez, Skinny Attending Unavailable Lopez, Skinny Referring Unavailable Lopez, Skinny E Primary Care Unavailable Lopez, Skinny Attending Unavailable Prah, Nj Attending Unavailable Lopez, Skinny Referring Unavailable Lopez, Skinny E Primary Care Unavailable Prah, Nj Consulting Unavailable Lopez, Skinny Attending Unavailable Lopez, Skinny Attending Unavailable Lopez, Skinny Referring Unavailable Lopez, Skinny E Primary Care Unavailable Lopez, Skinny Consulting Unavailable Lopez, Skinny Attending Unavailable Lopez, Skinny Attending Unavailable Lopez, Skinny E Primary Care Unavailable Lopez, Skinny Consulting Unavailable Lopez, Skinny Attending Unavailable Lopez, Skinny Referring Unavailable Lopez, Skinny Attending Unavailable Lopez, Skinny Attending Unavailable Lopez, Skinny Attending Unavailable Lopez, Skinny Attending Unavailable Lopez, Skinny Referring Unavailable Lopez, Skinny E Primary Care Unavailable DOCTOR, OUT OF TOWN Consulting Unavailable Lopez, Skinny Attending Unavailable Lopez, Skinny Attending Unavailable Lopez, Skinny Attending Unavailable Lopez, Skinny Referring Unavailable Lopez, Skinny E Primary Care Unavailable Lopez, Skinny Attending Unavailable Lopez, Skinny Attending Unavailable Lopez, Skinny Attending Unavailable Lopez, Skinny Attending Unavailable Lopez, Skinny Referring Unavailable Lopez, Skinny E Primary Care Unavailable Lopez, Skinny Attending Unavailable Lopez, Skinny Attending Unavailable Lopez, Skinny Attending Unavailable Lopez, Skinny Attending Unavailable Lopez, Skinny E Primary Care Unavailable Lopez, Skinny Referring Unavailable Lopez, Skinny Attending Unavailable PROBLEMS PROBLEMS DATE TYPE CONDITION / CODE ATTENDING STATUS SOURCE 04/20/2018 Unknown I10 - Essential Skinny Lopez Active [facility] (primary) Community hypertension / Hospital I10(ICD-10) Repository 04/20/2018 Unknown D64.9 - Anemia, Skinny Lopez Active [facility] unspecified / Community D64.9(ICD-10) Hospital Repository 04/26/2018 Unknown 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, 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 / C92.00(ICD-10) 01/02/2018 Unknown 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, 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 / Community D61.818(ICD-10) Hospital Repository 12/22/2017 Unknown E11.9 - Type 2 Skinny Lopez Active [facility] diabetes mellitus Community without Hospital complications / Repository E11.9(ICD-10) PROCEDURES PROCEDURES No Procedure Records FoundRESULTS RESULTS CBC W/DIFF, AUTOMATED Collected: 04/24/2018 Status: C Source: [place] 5:15 AM [facility] REPOSITORY Order Comment: 202 ETRA BB TUBE DRAWN [id number] TYPE CODE TESTS RESULT OUT OF RANGE REFERENCE UNITS LAB L100.1000 4.4-11.0 K/mm3 Low WBC 1.8 LAB L100.1200 4.6-6.2 M/mm3 Low RBC 2.50 LAB L100.1300 13.0-16.5 g/dl Low HGB 6.9 LAB L100.1400 40-54 % Low HCT 20.9 LAB L100.1500 80-94 fL Normal MCV 83.6 LAB L100.1600 27.0-32.0 pg Normal MCH 27.6 LAB L100.1700 32-36 g/gl Normal MCHC 33.0 LAB L100.1810 11.6-14.6 % High RDW CV 15.4 LAB L100.1820 35.1-43.9 fl High RDW SD 47.3 LAB L100.1900 150-450 K/mm3 Low PLT 71 LAB L100.2000 6.2-12.0 fl Normal MPV 10.5 LAB L100.2100 47-70 % Low NEUT% 10.4 LAB L100.2200 19-41 % High LY% 61.7 LAB L100.2300 0-10 % High MONO% 26.8 LAB L100.2400 0-5 % Normal EO% 0.0 LAB L100.2500 0-1 % Normal BASO% 0.0 LAB L100.2550 0.0-0.9 % High IM GRAN % 1.100 Result Comment: IG% - Immature Granulocytes (promyelocytes, myelocytes and metamyelocytes) > 1% indicates that a LEFT SHIFT is Present. LAB L100.2620 2.0-7.7 X10 3/uL Low Absolute Neut 0.2 LAB L100.2720 0.83-4.51 X10 3/ul Normal Absolute Lymph 1.13 LAB L100.4500 Normal SMEAR COMMENT SCANNED Result Comment: 1+ ATYPICAL LYMPHS LAB L100.5500 ADEQ PLT EST Normal MOD DEC LAB L100.7600 HYPOCHROMASIA 2+ Normal LAB L100.9900 PATH REV Normal Reviewed Result Comment: Immature cells consistent with blasts are noted. Pancytopenia. Clinical correlation necessary. Darrin Dobson M.D. 04/25/18 AMENDED REPORT 04/25/18 1447 PATH REV previously reported as: September aman Performed By: #### L100.0100 #### [facility] [address] [place], [address] CBC W/DIFF, AUTOMATED Collected: 04/17/2018 Status: F Source: [place] 5:45 AM [facility] REPOSIT[facility] Order Comment: 202 EXRA BB TUBE DRAWN [id number] TYPE CODE TESTS RESULT OUT OF RANGE REFERENCE UNITS LAB L100.1000 4.4-11.0 K/mm3 Low WBC 1.8 LAB L100.1200 4.6-6.2 M/mm3 Low RBC 2.77 LAB L100.1300 13.0-16.5 g/dl Low HGB 7.6 LAB L100.1400 40-54 % Low HCT 23.3 LAB L100.1500 80-94 fL Normal MCV 84.1 LAB L100.1600 27.0-32.0 pg Normal MCH 27.4 LAB L100.1700 32-36 g/gl Normal MCHC 32.6 LAB L100.1810 11.6-14.6 % High RDW CV 15.4 LAB L100.1820 35.1-43.9 fl High RDW SD 48.2 LAB L100.1900 150-450 K/mm3 Low PLT 75 LAB L100.2000 6.2-12.0 fl Normal MPV 11.6 LAB L100.2100 47-70 % Low NEUT% 12.1 LAB L100.2200 19-41 % High LY% 62.8 LAB L100.2300 0-10 % High MONO% 24.6 LAB L100.2400 0-5 % Normal EO% 0.0 LAB L100.2500 0-1 % Normal BASO% 0.5 LAB L100.2550 0.0-0.9 % Normal IM GRAN % 0.000 Result Comment: IG% - Immature Granulocytes (promyelocytes, myelocytes and metamyelocytes) > 1% indicates that a LEFT SHIFT is Present. LAB L100.2620 2.0-7.7 X10 3/uL Low Absolute Neut 0.2 LAB L100.2720 0.83-4.51 X10 3/ul Normal Absolute Lymph 1.15 LAB L100.4500 Normal SMEAR COMMENT COMMENT Result Comment: SLIDE SCANNED - NEUTROPENIA NOTED. Performed By: #### L100.0100 #### [facility] [address] [place], [address] TYPE AND SCREEN Collected: 04/12/2018 Status: F Source: [place] 6:00 AM [facility]POSIT[facility] Order Comment: CMV NEG?* N Give When? 04/13/18 09:30AM Irradiated? N Leukodepleted? Y Reason for Type AND Screen/Red Cells: ANEMIA TYPE CODE TESTS RESULT OUT OF RANGE REFERENCE UNITS LAB B10.0800 A Normal BLOOD TYPE GEL POSITIVE LAB B100.4000 Normal Antibody NEGATIVE Screen Performed By: #### B101.7450 #### [facility] [address] [place], [address] RC Collected: 04/12/2018 Status: F Source: [place] 6:00 AM [facility]POS[facility] TYPE CODE TESTS RESULT OUT OF REFERENCE UNITS RANGE LAB U100.0000 [id number] TRANSFUSED PRODUCT: T AND S with Crossmatch, Red Cells COUNT: 2 Performed By: #### U100.0000 #### Non-[facility] - refer to report for specific site BASIC METABOLIC Collected: 04/10/2018 Status: F Source: [place] PROFILE (BMP) 5:45 AM [facility] REPOSITORY Order Comment: ROOM 202 TYPE CODE TESTS RESULT OUT OF RANGE REFERENCE UNITS LAB L501.0100 74-106 mg/dL Normal GLU 84 Result Comment: Please note revised GLUCOSE reference range effective 2017. LAB L501.1000 7-18 mg/dL Normal BUN 16 LAB L501.1100 0.70-1.30 mg/dL Low CREAT,SERUM 0.66 Result Comment: The validity of the calculated GFR AND GFRAA in patients over 70 years has not been determined. Clinical correlation is essential. LAB L501.1110 >60 mL/min Normal EST GFR 123 Result Comment: Non- GFR Calc LAB L501.1115 >60 mL/min Normal EST GFR - AA 149 Result Comment: GFR Calc LAB L501.1300 10-20 RATIO High BUN/CRE 24.2 LAB L501.2200 8.5-10.1 mg/dL Low CA 8.1 LAB L501.5300 136-145 mmol/L NA Normal 144 LAB L501.5600 3.5-5.1 mmol/L K Normal 3.9 LAB L501.5900 98-107 mmol/L High CL 110 LAB L501.6100 21.0-32.0 mmol/L Normal CO2 25.0 LAB L501.6200 5-15 Normal GAP 9 Performed By: #### L500.2500 #### [facility] [address] [place], [place], [address] CBC W/DIFF, AUTOMATED Collected: 04/10/2018 Status: C Source: [place] 5:45 AM [facility]POS[facility] Order Comment: ROOM 202 TYPE CODE TESTS RESULT OUT OF RANGE REFERENCE UNITS LAB L100.1000 4.4-11.0 K/mm3 Low WBC 1.6 LAB L100.1200 4.6-6.2 M/mm3 Low RBC 2.35 LAB L100.1300 13.0-16.5 g/dl Low HGB 6.6 LAB L100.1400 40-54 % Low HCT 20.6 LAB L100.1500 80-94 fL Normal MCV 87.7 LAB L100.1600 27.0-32.0 pg Normal MCH 28.1 LAB L100.1700 32-36 g/gl Normal MCHC 32.0 LAB L100.1810 11.6-14.6 % High RDW CV 15.1 LAB L100.1820 35.1-43.9 fl High RDW SD 45.6 LAB L100.1900 150-450 K/mm3 Low PLT 72 LAB L100.2000 6.2-12.0 fl Normal MPV 11.5 LAB L100.2100 47-70 % Low NEUT% 8.9 LAB L100.2200 19-41 % High LY% 63.7 LAB L100.2300 0-10 % High MONO% 26.1 LAB L100.2400 0-5 % Normal EO% 0.0 LAB L100.2500 0-1 % Normal BASO% 0.0 LAB L100.2550 0.0-0.9 % High IM GRAN % 1.300 Result Comment: IG% - Immature Granulocytes (promyelocytes, myelocytes and metamyelocytes) > 1% indicates that a LEFT SHIFT is Present. LAB L100.2620 2.0-7.7 X10 3/uL Low Absolute Neut 0.1 LAB L100.2720 0.83-4.51 X10 3/ul Normal Absolute Lymph 1.00 LAB L100.9900 Normal PATH REV Reviewed Result Comment: Pancytopenia. Immature cells consistent with blasts are noted. Clinical correlation necessary. Darrin Dobson M.D. 04/11/18 AMENDED REPORT 04/11/18 1502 PATH REV previously reported as: Violette newton Performed By: #### L100.0100 #### [facility] [address] [place], [address] CBC W/DIFF, AUTOMATED Collected: 04/03/2018 Status: F Source: [place] 6:30 AM [facility]POS[facility] Order Comment: 202 TYPE CODE TESTS RESULT OUT OF RANGE REFERENCE UNITS LAB L100.1000 4.4-11.0 K/mm3 Low WBC 1.7 LAB L100.1200 4.6-6.2 M/mm3 Low RBC 2.63 LAB L100.1300 13.0-16.5 g/dl Low HGB 7.3 LAB L100.1400 40-54 % Low HCT 22.4 LAB L100.1500 80-94 fL Normal MCV 85.2 LAB L100.1600 27.0-32.0 pg Normal MCH 27.8 LAB L100.1700 32-36 g/gl Normal MCHC 32.6 LAB L100.1810 11.6-14.6 % High RDW CV 15.6 LAB L100.1820 35.1-43.9 fl High RDW SD 49.0 LAB L100.1900 150-450 K/mm3 Low PLT 69 LAB L100.2000 6.2-12.0 fl Normal MPV 11.2 LAB L100.2100 47-70 % Low NEUT% 8.8 LAB L100.2200 19-41 % High LY% 60.4 LAB L100.2300 0-10 % High MONO% 28.4 LAB L100.2400 0-5 % Normal EO% 0.6 LAB L100.2500 0-1 % Normal BASO% 0.6 LAB L100.2550 0.0-0.9 % High IM GRAN % 1.200 Result Comment: IG% - Immature Granulocytes (promyelocytes, myelocytes and metamyelocytes) > 1% indicates that a LEFT SHIFT is Present. LAB L100.2620 2.0-7.7 X10 3/uL Low Absolute Neut 0.2 LAB L100.2720 0.83-4.51 X10 3/ul Normal Absolute Lymph 1.02 LAB L100.4500 Normal SMEAR COMMENT COMMENT Result Comment: SLIDE SCANNED - NEUTROPENIA. Performed By: #### L100.0100 #### [facility] [address] [place], [address] CBC W/DIFF, AUTOMATED Collected: 03/27/2018 Status: F Source: [place] 5:40 AM [facility] TYPE CODE TESTS RESULT OUT OF RANGE REFERENCE UNITS LAB L100.1000 4.4-11.0 K/mm3 Low WBC 1.7 LAB L100.1200 4.6-6.2 M/mm3 Low RBC 2.73 LAB L100.1300 13.0-16.5 g/dl Low HGB 7.7 LAB L100.1400 40-54 % Low HCT 24.1 LAB L100.1500 80-94 fL Normal MCV 88.3 LAB L100.1600 27.0-32.0 pg Normal MCH 28.2 LAB L100.1700 32-36 g/gl Normal MCHC 32.0 LAB L100.1810 11.6-14.6 % High RDW CV 15.1 LAB L100.1820 35.1-43.9 fl High RDW SD 46.8 LAB L100.1900 150-450 K/mm3 Low PLT 58 LAB L100.2000 6.2-12.0 fl Normal MPV 11.9 LAB L100.2100 47-70 % Low NEUT% 16.9 LAB L100.2200 19-41 % High LY% 45.6 LAB L100.2300 0-10 % High MONO% 36.3 LAB L100.2400 0-5 % Normal EO% 0.0 LAB L100.2500 0-1 % Normal BASO% 0.6 LAB L100.2550 0.0-0.9 % Normal IM GRAN % 0.600 Result Comment: IG% - Immature Granulocytes (promyelocytes, myelocytes and metamyelocytes) > 1% indicates that a LEFT SHIFT is Present. LAB L100.2620 2.0-7.7 X10 3/uL Low Absolute Neut 0.3 LAB L100.2720 0.83-4.51 X10 3/ul Low Absolute Lymph 0.78 LAB L100.4600 % ATYPICAL LYMPH Normal 1+ LAB L100.5500 ADEQ PLT EST Normal MKD DEC LAB L100.5650 PLT MORPH Normal LARGE LAB L100.7600 HYPOCHROMASIA Normal 2+ Performed By: #### L100.0100 #### [facility] [address] [place], [address] CBC W/DIFF, AUTOMATED Collected: 03/20/2018 Status: F Source: [place] 6:00 AM [facility]POS[facility] Order Comment: HUNTER EXTRA BB TUBE TYPE CODE TESTS RESULT OUT OF RANGE REFERENCE UNITS LAB L100.1000 4.4-11.0 K/mm3 Low WBC 1.6 LAB L100.1200 4.6-6.2 M/mm3 Low RBC 2.12 LAB L100.1300 13.0-16.5 g/dl Low HGB 6.0 LAB L100.1400 40-54 % Low HCT 18.5 LAB L100.1500 80-94 fL Normal MCV 87.3 LAB L100.1600 27.0-32.0 pg Normal MCH 28.3 LAB L100.1700 32-36 g/gl Normal MCHC 32.4 LAB L100.1810 11.6-14.6 % High RDW CV 15.0 LAB L100.1820 35.1-43.9 fl High RDW SD 44.9 LAB L100.1900 150-450 K/mm3 Low PLT 59 LAB L100.2000 6.2-12.0 fl Normal MPV 11.5 LAB L100.2100 47-70 % Low NEUT% 10.2 LAB L100.2200 19-41 % High LY% 59.0 LAB L100.2300 0-10 % High MONO% 29.5 LAB L100.2400 0-5 % Normal EO% 0.0 LAB L100.2500 0-1 % Normal BASO% 0.0 LAB L100.2550 0.0-0.9 % High IM GRAN % 1.300 Result Comment: IG% - Immature Granulocytes (promyelocytes, myelocytes and metamyelocytes) > 1% indicates that a LEFT SHIFT is Present. LAB L100.2620 2.0-7.7 X10 3/uL Low Absolute Neut 0.2 LAB L100.2720 0.83-4.51 X10 3/ul Absolute Lymph Normal 0.92 LAB L100.5500 ADEQ PLT EST Normal MKD DEC LAB L100.5650 PLT MORPH Normal LARGE LAB L100.7600 HYPOCHROMASIA Normal 2+ Performed By: #### L100.0100 #### [facility] [address] [facility] [place], [place], [address] TYPE AND SCREEN Collected: 03/20/2018 Status: F Source: [place] 6:00 AM [facility]POSIT[facility] Order Comment: PRETRANSFUSION HGB = 6 HCT = 18.5 PERFORMED AT [facility] CMV NEG?* N Give When? 03/21/18 @0800 Irradiated? N Leukodepleted? Y Reason for Type AND Screen/Red Cells: ANEMIA TYPE CODE TESTS RESULT OUT OF RANGE REFERENCE UNITS LAB B10.0800 A Normal BLOOD TYPE GEL POSITIVE LAB B100.4000 Normal Antibody NEGATIVE Screen Performed By: #### B101.7450 #### [facility] [address] [place], [address] RC Collected: 03/20/2018 Status: F Source: KIMBERLY 6:00 AM [facility] REPOSITORY TYPE CODE TESTS RESULT OUT OF REFERENCE UNITS RANGE LAB U100.0000 [id number] TRANSFUSED PRODUCT: T AND S with Crossmatch, Red Cells COUNT: 3 Performed By: #### U100.0000 #### Non-[facility] - refer to report for specific site BASIC METABOLIC Collected: 03/13/2018 Status: F Source: KIMBERLY PROFILE (BMP) 5:50 AM [facility] REPOSITORY TYPE CODE TESTS RESULT OUT OF RANGE REFERENCE UNITS LAB L501.0100 74-106 mg/dL Normal GLU 82 Result Comment: Please note revised GLUCOSE reference range effective 2017. LAB L501.1000 7-18 mg/dL Normal BUN 17 LAB L501.1100 0.70-1.30 mg/dL Low CREAT,SERUM 0.69 Result Comment: The validity of the calculated GFR AND GFRAA in patients over 70 years has not been determined. Clinical correlation is essential. LAB L501.1110 >60 mL/min Normal EST GFR 117 Result Comment: Non- GFR Calc LAB L501.1115 >60 mL/min Normal EST GFR - AA 141 Result Comment: GFR Calc LAB L501.1300 10-20 RATIO High BUN/CRE 24.6 LAB L501.2200 8.5-10.1 mg/dL Low CA 8.1 LAB L501.5300 136-145 mmol/L NA Normal 141 LAB L501.5600 3.5-5.1 mmol/L K Normal 3.9 LAB L501.5900 98-107 mmol/L High CL 109 LAB L501.6100 21.0-32.0 mmol/L Normal CO2 25.0 LAB L501.6200 5-15 Normal GAP 7 Performed By: #### L500.2500 #### [facility] [address]. [place], [place], [address] CBC W/DIFF, AUTOMATED Collected: 03/13/2018 Status: C Source: JASPER 5:50 AM [facility] REPOSITORY Order Comment: HUNTER EXTRA BLOOD BANK TUBE TYPE CODE TESTS RESULT OUT OF RANGE REFERENCE UNITS LAB L100.1000 4.4-11.0 K/mm3 Low WBC 1.5 LAB L100.1200 4.6-6.2 M/mm3 Low RBC 2.51 LAB L100.1300 13.0-16.5 g/dl Low HGB 7.0 LAB L100.1400 40-54 % Low HCT 22.0 LAB L100.1500 80-94 fL Normal MCV 87.6 LAB L100.1600 27.0-32.0 pg Normal MCH 27.9 LAB L100.1700 32-36 g/gl Low MCHC 31.8 LAB L100.1810 11.6-14.6 % High RDW CV 14.9 LAB L100.1820 35.1-43.9 fl High RDW SD 45.1 LAB L100.1900 150-450 K/mm3 Low PLT 59 LAB L100.2000 6.2-12.0 fl High MPV 12.3 LAB L100.2100 47-70 % Low NEUT% 10.1 LAB L100.2200 19-41 % High LY% 59.7 LAB L100.2300 0-10 % High MONO% 28.2 LAB L100.2400 0-5 % Normal EO% 0.0 LAB L100.2500 0-1 % Normal BASO% 0.7 LAB L100.2550 0.0-0.9 % High IM GRAN % 1.300 Result Comment: IG% - Immature Granulocytes (promyelocytes, myelocytes and metamyelocytes) > 1% indicates that a LEFT SHIFT is Present. LAB L100.2620 2.0-7.7 X10 3/uL Low Absolute Neut 0.2 LAB L100.2720 0.83-4.51 X10 3/ul Normal Absolute Lymph 0.89 LAB L100.4500 Normal SMEAR COMMENT COMMENT Result Comment: SLIDE SCANNED - NEUTROPENIA,LEUKOCYTOPENIA. LAB L100.9900 Normal Reviewed PATH REV Result Comment: Pancytopenia. A few immature cells consistent with blasts are noted. Clinical correlation necessary. Darrin Dobson M.D. 03/14/18 AMENDED REPORT 03/14/18 1038 PATH REV previously reported as: September aman Performed By: #### L100.0100 #### [facility] [place], [address] CBC W/DIFF, AUTOMATED Collected: 03/06/2018 Status: F Source: JASPER 6:20 AM [facility] REPOSITORY Order Comment: HUNTER EXTRA BLOOD BANK TUBE ([id number]) TYPE CODE TESTS RESULT OUT OF RANGE REFERENCE UNITS LAB L100.1000 4.4-11.0 K/mm3 Low WBC 1.6 LAB L100.1200 4.6-6.2 M/mm3 Low RBC 2.87 LAB L100.1300 13.0-16.5 g/dl Low HGB 8.1 LAB L100.1400 40-54 % Low HCT 24.6 LAB L100.1500 80-94 fL Normal MCV 85.7 LAB L100.1600 27.0-32.0 pg Normal MCH 28.2 LAB L100.1700 32-36 g/gl Normal MCHC 32.9 LAB L100.1810 11.6-14.6 % High RDW CV 15.3 LAB L100.1820 35.1-43.9 fl High RDW SD 47.9 LAB L100.1900 150-450 K/mm3 Low PLT 64 LAB L100.2000 6.2-12.0 fl Normal MPV 11.6 LAB L100.2100 47-70 % Low NEUT% 10.8 LAB L100.2200 19-41 % High LY% 63.3 LAB L100.2300 0-10 % High MONO% 25.9 LAB L100.2400 0-5 % Normal EO% 0.0 LAB L100.2500 0-1 % Normal BASO% 0.0 LAB L100.2550 0.0-0.9 % Normal IM GRAN % 0.000 Result Comment: IG% - Immature Granulocytes (promyelocytes, myelocytes and metamyelocytes) > 1% indicates that a LEFT SHIFT is Present. LAB L100.2620 2.0-7.7 X10 3/uL Low Absolute Neut 0.2 LAB L100.2720 0.83-4.51 X10 3/ul Normal Absolute Lymph 1.00 LAB L100.4500 SMEAR Normal COMMENT Result Comment: SLIDE SCANNED - NEUTROPENIA NOTED. Performed By: #### L100.0100 #### [facility] [address] [place], [address] CBC W/DIFF, AUTOMATED Collected: 02/27/2018 Status: C Source: JASPER 6:22 AM [facility] REPOSITORY Order Comment: HUNTER EXTRA BLOOD BANK TUBE TYPE CODE TESTS RESULT OUT OF RANGE REFERENCE UNITS LAB L100.1000 4.4-11.0 K/mm3 Low alert WBC 1.3 Result Comment: CRITICAL VALUE VERIFIED. CALLED TO JAILYN ABRAMS 02/27/18 0852 Nahid Sousa. RESULTS READ BACK BY SAME. LAB L100.1200 4.6-6.2 M/mm3 Low RBC 2.17 LAB L100.1300 13.0-16.5 g/dl Low HGB 6.1 LAB L100.1400 40-54 % Low HCT 18.8 LAB L100.1500 80-94 fL Normal MCV 86.6 LAB L100.1600 27.0-32.0 pg Normal MCH 28.1 LAB L100.1700 32-36 g/gl Normal MCHC 32.4 LAB L100.1810 11.6-14.6 % High RDW 15.7 CV LAB L100.1820 35.1-43.9 fl High RDW 50.1 SD LAB L100.1900 150-450 K/mm3 Low PLT 69 LAB L100.2000 6.2-12.0 fl Normal MPV 11.2 LAB L100.2100 47-70 % Low NEUT% 12.7 LAB L100.2200 19-41 % High LY% 60.9 LAB L100.2300 0-10 % High MONO% 25.6 LAB L100.2400 0-5 % Normal EO% 0.0 LAB L100.2500 0-1 % Normal BASO% 0.8 LAB L100.2550 0.0-0.9 % Normal IM 0.000 GRAN % Result Comment: IG% - Immature Granulocytes (promyelocytes, myelocytes and metamyelocytes) > 1% indicates that a LEFT SHIFT is Present. LAB L100.2620 2.0-7.7 X10 3/uL Low Absolute Neut 0.2 LAB L100.2720 0.83-4.51 X10 3/ul Low Absolute Lymph 0.81 LAB L100.4500 Normal SMEAR COMMENT COMMENT Result Comment: SLIDE SCANNED - NEUTROPENIA,LEUKOCYTOPENIA. LAB L100.9900 Normal Reviewed PATH REV Result Comment: Pancytopenia. Immature cells consistent with blasts are noted. Clinical correlation necessary. Darrin Dobson M.D. 03/01/18 AMENDED REPORT 03/01/18 1526 PATH REV previously reported as: September foll Performed By: #### L100.0100 #### [facility] [address] [place], [place], [address] TYPE AND SCREEN Collected: 02/27/2018 Status: P Source: KIMBERLY 6:22 AM [facility] REPOSITORY Order Comment: CMV NEG?* N Give When? 02/28/18 08:00AM Irradiated? N Leukodepleted? Y Reason for Type AND Screen/Red Cells: ANEMIA TYPE CODE TESTS RESULT OUT OF RANGE REFERENCE UNITS LAB B10.0800 A Normal BLOOD TYPE GEL POSITIVE LAB B100.4000 Normal Antibody NEGATIVE Screen Performed By: #### B101.7450 #### [facility] [address] [place], [address] TYPE AND SCREEN Collected: 02/27/2018 Status: F Source: JASPER 6:22 AM [facility] REPOSITORY Order Comment: CMV NEG?* N Give When? 02/28/18 08:00AM Irradiated? N Leukodepleted? Y Reason for Type AND Screen/Red Cells: ANEMIA TYPE CODE TESTS RESULT OUT OF RANGE REFERENCE UNITS LAB B10.0800 A Normal BLOOD TYPE GEL POSITIVE LAB B100.4000 Normal Antibody NEGATIVE Screen Performed By: #### B101.7450 #### [facility] [address] [place], [address] RC Collected: 02/27/2018 Status: F Source: JASPER 6:22 AM [facility] REPOSITORY TYPE CODE TESTS RESULT OUT OF REFERENCE UNITS RANGE LAB U100.0000 [id number] TRANSFUSED PRODUCT: T AND S with Crossmatch, Red Cells COUNT: 3 Performed By: #### U100.0000 #### Non-[facility] - refer to report for specific site CBC W/DIFF, AUTOMATED Collected: 02/20/2018 Status: F Source: JASPER 6:35 AM [facility] REPOSITORY Order Comment: ROOM 202 TYPE CODE TESTS RESULT OUT OF RANGE REFERENCE UNITS LAB L100.1000 4.4-11.0 K/mm3 Low WBC 1.5 LAB L100.1200 4.6-6.2 M/mm3 Low RBC 2.37 LAB L100.1300 13.0-16.5 g/dl Low HGB 6.7 LAB L100.1400 40-54 % Low HCT 21.1 LAB L100.1500 80-94 fL Normal MCV 89.0 LAB L100.1600 27.0-32.0 pg Normal MCH 28.3 LAB L100.1700 32-36 g/gl Low MCHC 31.8 LAB L100.1810 11.6-14.6 % High RDW CV 15.0 LAB L100.1820 35.1-43.9 fl High RDW SD 46.6 LAB L100.1900 150-450 K/mm3 Low PLT 67 LAB L100.2000 6.2-12.0 fl Normal MPV 11.2 LAB L100.2100 47-70 % Low NEUT% 12.1 LAB L100.2200 19-41 % High LY% 60.4 LAB L100.2300 0-10 % High MONO% 26.2 LAB L100.2400 0-5 % Normal EO% 0.0 LAB L100.2500 0-1 % Normal BASO% 0.0 LAB L100.2550 0.0-0.9 % High IM GRAN % 1.300 Result Comment: IG% - Immature Granulocytes (promyelocytes, myelocytes and metamyelocytes) > 1% indicates that a LEFT SHIFT is Present. LAB L100.2620 2.0-7.7 X10 3/uL Low Absolute Neut 0.2 LAB L100.2720 0.83-4.51 X10 3/ul Normal Absolute Lymph 0.90 LAB L100.4500 Normal SMEAR COMMENT SCANNED Result Comment: DECREASED LEUKOCYTES AND THROMBOCYTES NOTED LAB L100.5500 ADEQ PLT EST Normal MKD DEC LAB L100.5650 PLT MORPH Normal LARGE LAB L100.7600 HYPOCHROMASIA Normal 3+ Performed By: #### L100.0100 #### [facility] [place], [address] CNOVSP Observed: 02/17/2018 Status: COMPLETED Source: MONUMENT 3:10 PM [facility] REPOSITORY Visit (SP) Office (CHERIE) ORION XIE ([id number]) 1935 M Date Time Provider Department 02/17/18 3:10 PM AJ LAZARO During your visit today, we recorded the following information about you: Temperature Pulse Blood pressure Weight 98.5 degrees 75/minute 140/85 82.3 kg Gisela Mar LPN 02/17/2018 3:16 PM Signed Est patient. Six week office visit. Gisela Mar ALIZA Aj Lazaro, 02/17/2018 3:58 PM Signed Patient is self-referred for second opinion regarding management of acute leukemia. HPI: The patient is an 82-year-old male who has a past medical history significant for hypertension. He had a history of anemia and moderate thrombocytopenia. For instance a CBC done in August 2015 demonstrated a total white count of 7900. Differential not performed. Hemoglobin was 9.6 g/dL with an MCV of 86.9 and a platelet count of 106,000. Another CBC in December 2015 revealed a white count of 6700. Differential not performed. Hemoglobin was 7.8 g/dL with a platelet count 215,000. In September 2017, another CBC showed a white count of 4100. Hemoglobin 10.2 g/dL with platelet count of 76,000. Repeat CBC with differential on 11/12/2017 revealed a total white count of 2700. The ANC was 700. The hemoglobin was 6.3 g/dL and the platelet count was 60,000. The patient underwent of red blood cell transfusion and was referred referred to Dr. eLija who performed a thorough evaluation. A bone marrow biopsy performed on 11/18/2017 demonstrated a hypercellular marrow with trilineage hematopoiesis and mild megakaryocytic dysplasia. The cellularity of the marrow with 70-80%. Focal clustering of megakaryocytes was also observed. No granulomas were observed. Doesn't appear aspirate was performed. Cytogenetic testing revealed no mitotic activity. Subsequent PCR testing for JAK2 V617F and flow cytometry of peripheral blood for PNH on 12/08/2017 were negative. However flow cytometry of the peripheral blood revealed a blast population with an immunophenotype indicative of acute undifferentiated leukemia representing 22% of the 2200 peripheral white blood cells. Additionally 2% of the peripheral leukocytes were identified as a monoclonal CD5+, CD23+ positive, CD38- lymphocyte population. The patient has been transfusion dependent. He had not had any infectious complications. He has chronic gait imbalance. Presents for ongoing hematologic management. Interim history: Has been receiving transfusions regularly. Most recent transfusion was 02/14 for Hgb of 6.4 g/dl on 02/13. He tells me today that sometimes she will have a bowel movement for 2 or 3 days and then when he goes he has a large black tarry looking bowel movement. He is not seeing any blood per se. However he does feel that after one these episodes he's a lot weaker and has noticed some correlation to the time when he needs a transfusion. He denies abdominal pain and bloating except for sometime some left lower quadrant discomfort where he feels a lump that is reducible when he pushes on it. No nausea or vomiting. His appetite is been doing fairly well. Has not been acutely he'll since I last saw him. No other unusual bleeding or unexplained bruising. PMH, medications and allergies personally reviewed by me today. Any changes documented in appropriate section. ROS: Constitutional: No recent fever, chills or night sweats. Neuro: Denies symptoms of neuropathy. HEENT: No recent change in voice, vision or hearing. Resp: Denies cough, wheeze and hemoptysis. Denies shortness of breath at rest. Denies KWOK. CVS: Denies exertional chest pain, PND, orthopnea and LE edema. GI: Denies dysgeusia. Denies symptoms of stomatitis. Denies dysphagia and odynophagia. Denies reflux, n/v, change in bowel habits and abdominal pain. : Denies dysuria or gross hematuria. Endo: Denies hot flashes. Denies polyuria and polydipsia. Denies heat and cold intolerance. Musculoskeletal: Denies bone, back, joint and muscular pain. Derm: Denies rash. Denies jaundice and diffuse pruritis. Heme: See above. Psych: Normal mood. PHYSICAL EXAM: Vitals: Blood pressure 140/85, pulse 75, temperature 36.9 ?C (98.5 ?F), temperature source Temporal Artery, weight 82.3 kg (181 lb 8 oz). Thin and frail-appearing and in no acute distress. EYES: Sclerae are anicteric bilaterally. ENT: Oral mucosa is unremarkable. There is no sign of thrush or mucositis. NECK: Supple. LYMPHATIC: There is no palpable cervical, supraclavicular or axillary adenopathy. RESPIRATORY: Inspiratory breath sounds are of normal intensity in all malagon. No rales, wheezes or rhonchi. CARDIOVASCULAR: Rhythm is regular. Normal intensity S1/S2. There is no gallop or murmur. ABDOMEN: The abdomen is nondistended. No organomegaly. No tenderness. Extremities: Trace edema. SKIN: No jaundice or rash. No petechiae. NEUROLOGIC: radiology director II-XII are grossly intact. 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 More recently he developed pancytopenia and has been transfusion dependent. 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 -His KPS is 50-60%. -I again discussed the natural history and treatment approach to the management of MDS/acute leukemia. We discussed best supportive care with ongoing transfusions and again discussed the use of Vidaza. -He has an appointment with the social work professor at [facility] to start the process of getting a medical power of environmental attorney for healthcare decisions in place as well as a living will. -Is also been having symptoms of melena and constipation. He has not previously had colonoscopy. Plan: -He will continue transfusional supportive care. -I will discuss stool testing and referral to colonoscopy with Dr. Lopez. Aj Lazaro DO Referring Provider: AJ LAZARO [[id number]] Allergies As of Date: 02/17/2018 (No Known Allergies) Date Reviewed: 02/17/2018 Reviewed by: Gisela Mar LPN - Fully Assessed Reason for Visit: Established Patient [175] Primary Visit Diagnosis:Acute myeloid leukemia not having achieved remission (HCC) [C92.00] Follow-up and Disposition History Recorded Prescriptions as of 02/17/2018 Sig: FERROUS GLUCONATE 324 MG (36 * Take 1 tablet by mouth twice * LISINOPRIL 20 MG TABLET Take 20 mg by mouth once myranda* POTASSIUM CHLORIDE ER 20 MEQ * Take 20 mEq by mouth once dillon* FINASTERIDE 5 MG TABLET Take 1 tablet by mouth once d* AMLODIPINE 10 MG TABLET Take 1 tablet by mouth once d* HYDROCODONE 5 MG-ACETAMINOPHE* Take 1 tablet by mouth every * Patient not taking: Reported on 01/05/2018 DOCUSATE SODIUM 100 MG CAPSULE Take 1 capsule by mouth twice* Patient not taking: Reported on 01/05/2018 TAMSULOSIN 0.4 MG CAPSULE Take 1 capsule by mouth daily* Patient not taking: Reported on 01/05/2018 LISINOPRIL 20 MG-HYDROCHLOROT* Take 1 tablet by mouth once d* Patient not taking: Reported on 01/05/2018 Problem List As Of Date 02/17/2018 Noted Resolved Urinary retention [R33.9] INVALID FOR* H/O right inguinal hernia repair [Z98.890, Z87.*INVALID FOR* Hypertension [I10] Gross hematuria [R31.0] INVALID FOR* BPH (benign prostatic hypertrophy) with urinary*INVALID FOR* 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 Six week office visit. Gisela Mar LPN Encounter Status:Closed by AJ LAZARO DO on 02/17/18 PROGRESS Observed: 02/17/2018 Status: COMPLETED Source: MONUMENT 3:06 PM [facility] [place] REPOSITORY HNO ID: [id number] Author: Aj Lazaro Service: (none) Author Type: Physician Type: Progress Notes Filed: 02/17/2018 3:58 PM Note Text: Patient is self-referred for second opinion regarding management of acute leukemia. HPI: The patient is an 82-year-old male who has a past medical history significant for hypertension. He had a history of anemia and moderate thrombocytopenia. For instance a CBC done in August 2015 demonstrated a total white count of 7900. Differential not performed. Hemoglobin was 9.6 g/dL with an MCV of 86.9 and a platelet count of 106,000. Another CBC in December 2015 revealed a white count of 6700. Differential not performed. Hemoglobin was 7.8 g/dL with a platelet count 215,000. In September 2017, another CBC showed a white count of 4100. Hemoglobin 10.2 g/dL with platelet count of 76,000. Repeat CBC with differential on 11/12/2017 revealed a total white count of 2700. The ANC was 700. The hemoglobin was 6.3 g/dL and the platelet count was 60,000. The patient underwent of red blood cell transfusion and was referred referred to Dr. Leija who performed a thorough evaluation. A bone marrow biopsy performed on 11/18/2017 demonstrated a hypercellular marrow with trilineage hematopoiesis and mild megakaryocytic dysplasia. The cellularity of the marrow with 70-80%. Focal clustering of megakaryocytes was also observed. No granulomas were observed. Doesn't appear aspirate was performed. Cytogenetic testing revealed no mitotic activity. Subsequent PCR testing for JAK2 V617F and flow cytometry of peripheral blood for PNH on 12/08/2017 were negative. However flow cytometry of the peripheral blood revealed a blast population with an immunophenotype indicative of acute undifferentiated leukemia representing 22% of the 2200 peripheral white blood cells. Additionally 2% of the peripheral leukocytes were identified as a monoclonal CD5+, CD23+ positive, CD38- lymphocyte population. The patient has been transfusion dependent. He had not had any infectious complications. He has chronic gait imbalance. Presents for ongoing hematologic management. Interim history: Has been receiving transfusions regularly. Most recent transfusion was 02/14 for Hgb of 6.4 g/dl on 02/13. He tells me today that sometimes she will have a bowel movement for 2 or 3 days and then when he goes he has a large black tarry looking bowel movement. He is not seeing any blood per se. However he does feel that after one these episodes he's a lot weaker and has noticed some correlation to the time when he needs a transfusion. He denies abdominal pain and bloating except for sometime some left lower quadrant discomfort where he feels a lump that is reducible when he pushes on it. No nausea or vomiting. His appetite is been doing fairly well. Has not been acutely he'll since I last saw him. No other unusual bleeding or unexplained bruising. PMH, medications and allergies personally reviewed by me today. Any changes documented in appropriate section. ROS: Constitutional: No recent fever, chills or night sweats. Neuro: Denies symptoms of neuropathy. HEENT: No recent change in voice, vision or hearing. Resp: Denies cough, wheeze and hemoptysis. Denies shortness of breath at rest. Denies KWOK. CVS: Denies exertional chest pain, PND, orthopnea and LE edema. GI: Denies dysgeusia. Denies symptoms of stomatitis. Denies dysphagia and odynophagia. Denies reflux, n/v, change in bowel habits and abdominal pain. : Denies dysuria or gross hematuria. Endo: Denies hot flashes. Denies polyuria and polydipsia. Denies heat and cold intolerance. Musculoskeletal: Denies bone, back, joint and muscular pain. Derm: Denies rash. Denies jaundice and diffuse pruritis. Heme: See above. Psych: Normal mood. PHYSICAL EXAM: Vitals: Blood pressure 140/85, pulse 75, temperature 36.9 ?C (98.5 ?F), temperature source Temporal Artery, weight 82.3 kg (181 lb 8 oz). Thin and frail-appearing and in no acute distress. EYES: Sclerae are anicteric bilaterally. ENT: Oral mucosa is unremarkable. There is no sign of thrush or mucositis. NECK: Supple. LYMPHATIC: There is no palpable cervical, supraclavicular or axillary adenopathy. RESPIRATORY: Inspiratory breath sounds are of normal intensity in all malagon. No rales, wheezes or rhonchi. CARDIOVASCULAR: Rhythm is regular. Normal intensity S1/S2. There is no gallop or murmur. ABDOMEN: The abdomen is nondistended. No organomegaly. No tenderness. Extremities: Trace edema. SKIN: No jaundice or rash. No petechiae. NEUROLOGIC: radiology director II-XII are grossly intact. 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 More recently he developed pancytopenia and has been transfusion dependent. 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 -His KPS is 50-60%. -I again discussed the natural history and treatment approach to the management of MDS/acute leukemia. We discussed best supportive care with ongoing transfusions and again discussed the use of Vidaza. -He has an appointment with the social work professor at the [facility] to start the process of getting a medical power of environmental attorney for healthcare decisions in place as well as a living will. -Is also been having symptoms of melena and constipation. He has not previously had colonoscopy. Plan: -He will continue transfusional supportive care. -I will discuss stool testing and referral to colonoscopy with Dr. Lopez. Aj Lazaro, CBC W/DIFF, AUTOMATED Collected: 02/13/2018 Status: F Source: KIMBERLY 7:30 AM [facility] REPOSITORY Order Comment: 202 HUNTER EXTRA BLOOD BANK TUBE TYPE CODE TESTS RESULT OUT OF RANGE REFERENCE UNITS LAB L100.1000 4.4-11.0 K/mm3 Low WBC 1.9 LAB L100.1200 4.6-6.2 M/mm3 Low RBC 2.26 LAB L100.1300 13.0-16.5 g/dl Low HGB 6.4 LAB L100.1400 40-54 % Low HCT 19.6 LAB L100.1500 80-94 fL Normal MCV 86.7 LAB L100.1600 27.0-32.0 pg Normal MCH 28.3 LAB L100.1700 32-36 g/gl Normal MCHC 32.7 LAB L100.1810 11.6-14.6 % High RDW CV 15.6 LAB L100.1820 35.1-43.9 fl High RDW SD 50.1 LAB L100.1900 150-450 K/mm3 Low PLT 70 LAB L100.2000 6.2-12.0 fl Normal MPV 11.7 LAB L100.2100 47-70 % Low NEUT% 9.1 LAB L100.2200 19-41 % High LY% 53.4 LAB L100.2300 0-10 % High MONO% 36.0 LAB L100.2400 0-5 % Normal EO% 0.5 LAB L100.2500 0-1 % Normal BASO% 0.5 LAB L100.2550 0.0-0.9 % Normal IM GRAN % 0.500 Result Comment: IG% - Immature Granulocytes (promyelocytes, myelocytes and metamyelocytes) > 1% indicates that a LEFT SHIFT is Present. LAB L100.2620 2.0-7.7 X10 3/uL Low Absolute Neut 0.2 LAB L100.2720 0.83-4.51 X10 3/ul Absolute Lymph Normal 1.01 LAB L100.5500 ADEQ PLT EST Normal MKD DEC LAB L100.7600 HYPOCHROMASIA Normal 2+ Performed By: #### L100.0100 #### [facility] [address] [place], [address] TYPE AND SCREEN Collected: 02/13/2018 Status: P Source: KIMBERLY 7:30 AM [facility] REPOSIT[facility] Order Comment: CMV NEG?* N Give When? [id number] 9AM Irradiated? N Leukodepleted? Y Reason for Type AND Screen/Red Cells: ANEMIA TYPE CODE TESTS RESULT OUT OF RANGE REFERENCE UNITS LAB B10.0800 A Normal BLOOD TYPE GEL POSITIVE LAB B100.4000 Normal Antibody NEGATIVE Screen Performed By: #### B101.7450 #### [facility] [place], [place], [address] TYPE AND SCREEN Collected: 02/13/2018 Status: P Source: KIMBERLY 7:30 AM [facility] REPOSIT[facility] Order Comment: CMV NEG?* N Give When? [id number] 9AM Irradiated? N Leukodepleted? Y Reason for Type AND Screen/Red Cells: ANEMIA TYPE CODE TESTS RESULT OUT OF RANGE REFERENCE UNITS LAB B10.0800 A Normal BLOOD TYPE GEL POSITIVE LAB B100.4000 Normal Antibody NEGATIVE Screen Performed By: #### B101.7450 #### [facility] [address] [place] [address]. [place], [place], [address] TYPE AND SCREEN Collected: 02/13/2018 Status: F Source: KIMBERLY 7:30 AM [facility] REPOS[facility] Order Comment: CMV NEG?* N Give When? [id number] 9AM Irradiated? N Leukodepleted? Y Reason for Type AND Screen/Red Cells: ANEMIA TYPE CODE TESTS RESULT OUT OF RANGE REFERENCE UNITS LAB B10.0800 A Normal BLOOD TYPE GEL POSITIVE LAB B100.4000 Normal Antibody NEGATIVE Screen Performed By: #### B101.7450 #### [facility] [address] [place] [address]. [place], [place], [address] RC Collected: 02/13/2018 Status: F Source: KIMBERLY 7:30 AM [facility]POS[facility] TYPE CODE TESTS RESULT OUT OF REFERENCE UNITS RANGE LAB U100.0000 [id number] TRANSFUSED PRODUCT: T AND S with Crossmatch, Red Cells COUNT: 2 Performed By: #### U100.0000 #### [facility] - refer to report for specific site BASIC METABOLIC Collected: 02/06/2018 Status: F Source: KIMBERLY PROFILE (BMP) 6:40 AM [facility] REPOS[facility]ORY TYPE CODE TESTS RESULT OUT OF RANGE REFERENCE UNITS LAB L501.0100 74-106 mg/dL Normal GLU 89 Result Comment: Please note revised GLUCOSE reference range effective 2017. LAB L501.1000 7-18 mg/dL Normal BUN 14 LAB L501.1100 0.70-1.30 mg/dL Low CREAT,SERUM 0.66 Result Comment: The validity of the calculated GFR AND GFRAA in patients over 70 years has not been determined. Clinical correlation is essential. LAB L501.1110 >60 mL/min Normal EST GFR 122 Result Comment: Non- GFR Calc LAB L501.1115 >60 mL/min Normal EST GFR - AA 148 Result Comment: GFR Calc LAB L501.1300 10-20 RATIO High BUN/CRE 21.1 LAB L501.2200 8.5-10.1 mg/dL Low CA 8.2 LAB L501.5300 136-145 mmol/L NA Normal 141 LAB L501.5600 3.5-5.1 mmol/L K Normal 3.5 LAB L501.5900 98-107 mmol/L CL Normal 107 LAB L501.6100 21.0-32.0 mmol/L Normal CO2 25.0 LAB L501.6200 5-15 Normal GAP 9 Performed By: #### L500.2500 #### [facility] [address] [place], [address] CBC W/DIFF, AUTOMATED Collected: 02/06/2018 Status: C Source: JASPER 6:40 AM [facility]POS[facility] Order Comment: HUNTER EXTRA BLOOD BANK TUBE TYPE CODE TESTS RESULT OUT OF RANGE REFERENCE UNITS LAB L100.1000 4.4-11.0 K/mm3 Low alert WBC 1.4 Result Comment: CRITICAL VALUE VERIFIED. CALLED TO JAILYN ABRAMS 02/06/18 0821 Nahid Sousa. RESULTS READ BACK BY SAME. LAB L100.1200 4.6-6.2 M/mm3 Low RBC 2.39 LAB L100.1300 13.0-16.5 g/dl Low HGB 6.9 LAB L100.1400 40-54 % Low HCT 20.7 LAB L100.1500 80-94 fL Normal MCV 86.6 LAB L100.1600 27.0-32.0 pg Normal MCH 28.9 LAB L100.1700 32-36 g/gl Normal MCHC 33.3 LAB L100.1810 11.6-14.6 % High RDW 15.3 CV LAB L100.1820 35.1-43.9 fl High RDW 48.6 SD LAB L100.1900 150-450 K/mm3 Low PLT 64 LAB L100.2000 6.2-12.0 fl Normal MPV 11.7 LAB L100.2100 47-70 % Low NEUT% 12.5 LAB L100.2200 19-41 % High LY% 60.3 LAB L100.2300 0-10 % High MONO% 26.5 LAB L100.2400 0-5 % Normal EO% 0.0 LAB L100.2500 0-1 % Normal BASO% 0.0 LAB L100.2550 0.0-0.9 % Normal IM 0.700 GRAN % Result Comment: IG% - Immature Granulocytes (promyelocytes, myelocytes and metamyelocytes) > 1% indicates that a LEFT SHIFT is Present. LAB L100.2620 2.0-7.7 X10 3/uL Low Absolute Neut 0.2 LAB L100.2720 0.83-4.51 X10 3/ul Low Absolute Lymph 0.82 LAB L100.4500 Normal SMEAR COMMENT COMMENT Result Comment: SLIDE SCANNED - NEUTROPENIA,LEUKOCYTOPENIA. LAB L100.9900 Normal Reviewed PATH REV Result Comment: Pancytopenia. Rare immature cells consistent with blasts are noted. Clinical correlation necessary. Darrin Dobson M.D. 02/07/18 AMENDED REPORT 02/07/18 0925 PATH REV previously reported as: Violette newton Performed By: #### L100.0100 #### [facility] [address] [place] [address]. [place], [address] CBC W/DIFF, AUTOMATED Collected: 01/30/2018 Status: F Source: JASPER 5:45 AM [facility]POS[facility] TYPE CODE TESTS RESULT OUT OF RANGE REFERENCE UNITS LAB L100.1000 4.4-11.0 K/mm3 Low WBC 1.6 LAB L100.1200 4.6-6.2 M/mm3 Low RBC 2.46 LAB L100.1300 13.0-16.5 g/dl Low HGB 7.1 LAB L100.1400 40-54 % Low HCT 22.2 LAB L100.1500 80-94 fL Normal MCV 90.2 LAB L100.1600 27.0-32.0 pg Normal MCH 28.9 LAB L100.1700 32-36 g/gl Normal MCHC 32.0 LAB L100.1810 11.6-14.6 % High RDW CV 15.0 LAB L100.1820 35.1-43.9 fl High RDW SD 47.9 LAB L100.1900 150-450 K/mm3 Low PLT 59 LAB L100.2000 6.2-12.0 fl Normal MPV 11.6 LAB L100.2100 47-70 % Low NEUT% 8.8 LAB L100.2200 19-41 % High LY% 59.1 LAB L100.2300 0-10 % High MONO% 30.8 LAB L100.2400 0-5 % Normal EO% 0.0 LAB L100.2500 0-1 % Normal BASO% 0.0 LAB L100.2550 0.0-0.9 % High IM GRAN % 1.300 Result Comment: IG% - Immature Granulocytes (promyelocytes, myelocytes and metamyelocytes) > 1% indicates that a LEFT SHIFT is Present. LAB L100.2620 2.0-7.7 X10 3/uL Low Absolute Neut 0.1 LAB L100.2720 0.83-4.51 X10 3/ul Normal Absolute Lymph 0.94 LAB L100.4500 Normal SMEAR COMMENT SCANNED Result Comment: DECREASED LEUKOCYTES NOTED LAB L100.4600 % ATYPICAL LYMPH Normal 1+ LAB L100.5500 ADEQ PLT EST Normal MKD DEC LAB L100.7600 HYPOCHROMASIA Normal 2+ Performed By: #### L100.0100 #### [facility] [address] [place], [address] CBC W/DIFF, AUTOMATED Collected: 01/23/2018 Status: C Source: JASPER 6:20 AM [facility]POS[facility] TYPE CODE TESTS RESULT OUT OF RANGE REFERENCE UNITS LAB L100.1000 4.4-11.0 K/mm3 Low alert WBC 1.4 Result Comment: CRITICAL VALUE VERIFIED. CALLED TO TALIA MENDIETA 01/23/18 0821 Nahid Sousa. RESULTS READ BACK BY SAME. LAB L100.1200 4.6-6.2 M/mm3 Low RBC 2.21 LAB L100.1300 13.0-16.5 g/dl Low HGB 6.4 LAB L100.1400 40-54 % Low HCT 19.3 LAB L100.1500 80-94 fL Normal MCV 87.3 LAB L100.1600 27.0-32.0 pg Normal MCH 29.0 LAB L100.1700 32-36 g/gl Normal MCHC 33.2 LAB L100.1810 11.6-14.6 % High RDW 15.6 CV LAB L100.1820 35.1-43.9 fl High RDW 50.2 SD LAB L100.1900 150-450 K/mm3 Low alert PLT 50 Result Comment: CRITICAL VALUE VERIFIED. CALLED TO TALIA MENDIETA 01/23/18 0821 Nahid Sousa. RESULTS READ BACK BY SAME. LAB L100.2000 6.2-12.0 fl Normal MPV 11.0 LAB L100.2100 47-70 % Low NEUT% 12.3 LAB L100.2200 19-41 % High LY% 67.6 LAB L100.2300 0-10 % High MONO% 20.1 LAB L100.2400 0-5 % Normal EO% 0.0 LAB L100.2500 0-1 % Normal BASO% 0.0 LAB L100.2550 0.0-0.9 % Normal IM 0.000 GRAN % Result Comment: IG% - Immature Granulocytes (promyelocytes, myelocytes and metamyelocytes) > 1% indicates that a LEFT SHIFT is Present. LAB L100.2620 2.0-7.7 X10 3/uL Low Absolute Neut 0.2 LAB L100.2720 0.83-4.51 X10 3/ul Normal Absolute Lymph 0.94 LAB L100.4500 Normal SMEAR COMMENT COMMENT Result Comment: SLIDE SCANNED - NEUTROPENIA,LEUKOCYTOPENIA. LAB L100.9900 Normal Reviewed PATH REV Result Comment: Pancytopenia. Immature cells consistent with blasts are noted. As per EMR, the patient has seen Dr. Leija, oncologist. Clinical correlation necessary. Darrin Dobson M.D. 01/24/18 AMENDED REPORT 01/24/18 1035 PATH REV previously reported as: September Performed By: #### L100.0100 #### [facility] [address] [place], [address] TYPE AND SCREEN Collected: 01/23/2018 Status: P Source: JASPER 6:20 AM [facility]POS[facility] Order Comment: CMV NEG?* N Give When? 01/24/18 10AM Irradiated? N Leukodepleted? Y Reason for Type AND Screen/Red Cells: ANEMIA TYPE CODE TESTS RESULT OUT OF RANGE REFERENCE UNITS LAB B10.0800 A Normal BLOOD TYPE GEL POSITIVE LAB B100.4000 Normal Antibody NEGATIVE Screen Performed By: #### B101.7450 #### [facility] [address] [facility] [place], [address] TYPE AND SCREEN Collected: 01/23/2018 Status: F Source: JASPER 6:20 AM [facility] Order Comment: CMV NEG?* N Give When? 01/24/18 10AM Irradiated? N Leukodepleted? Y Reason for Type AND Screen/Red Cells: ANEMIA TYPE CODE TESTS RESULT OUT OF RANGE REFERENCE UNITS LAB B10.0800 A Normal BLOOD TYPE GEL POSITIVE LAB B100.4000 Normal Antibody NEGATIVE Screen Performed By: #### B101.7450 #### [facility] [address] [place], [address] RC Collected: 01/23/2018 Status: F Source: JASPER 6:20 AM [facility] TYPE CODE TESTS RESULT OUT OF REFERENCE UNITS RANGE LAB U100.0000 [id number] TRANSFUSED PRODUCT: T AND S with Crossmatch, Red Cells COUNT: 2 Performed By: #### U100.0000 #### [facility] - refer to report for specific site CBC W/DIFF, AUTOMATED Collected: 01/16/2018 Status: C Source: JASPER 6:35 AM [facility]POS[facility] TYPE CODE TESTS RESULT OUT OF RANGE REFERENCE UNITS LAB L100.1000 4.4-11.0 K/mm3 Low WBC 1.5 LAB L100.1200 4.6-6.2 M/mm3 Low RBC 2.43 LAB L100.1300 13.0-16.5 g/dl Low HGB 7.1 LAB L100.1400 40-54 % Low HCT 21.9 LAB L100.1500 80-94 fL Normal MCV 90.1 LAB L100.1600 27.0-32.0 pg Normal MCH 29.2 LAB L100.1700 32-36 g/gl Normal MCHC 32.4 LAB L100.1810 11.6-14.6 % High RDW CV 15.1 LAB L100.1820 35.1-43.9 fl High RDW SD 48.2 LAB L100.1900 150-450 K/mm3 Low 58 PLT LAB L100.2000 6.2-12.0 fl High MPV 12.6 LAB L100.2620 2.0-7.7 X10 3/uL Low Absolute Neut 0.2 LAB L100.2720 0.83-4.51 X10 3/ul Normal Absolute Lymph 0.89 LAB L100.3100 MANUAL DIFF Normal CELLS COUNTED 100 LAB L100.3200 47-70 % Low 18 SEGS LAB L100.3300 0-5 % High 6 BAND LAB L100.3400 0-1 % High 4 META LAB L100.3500 0-0 High 3 MYELO LAB L100.3700 0-0 % High 3 alert BLAST LAB L100.3800 19-41 % High 61 LYMPH LAB L100.3900 0-10 % 5 Normal MONOCYTE LAB L100.5500 ADEQ Normal PLT EST MKD DEC LAB L100.7000 NORM C AND C NORMAL Normal RED CELL MORPH NORM C+C LAB L100.9900 Normal PATH REV Reviewed Result Comment: Pancytopenia. Rare immature cells consistent with blasts are noted. Clinical correlation necessary. Darrin Dobson M.D. 01/17/18 AMENDED REPORT 01/17/18 1510 PATH REV previously reported as: September Performed By: #### L100.0100 #### [facility] [address] [facility] [place], [address] TYPE AND SCREEN Collected: 01/10/2018 Status: F Source: JASPER 1:55 PM [facility]POS[facility] Order Comment: CMV NEG?* N Give When? 01/11/18 09:30am Irradiated? N Leukodepleted? Y Reason for Type AND Screen/Red Cells: ANEMIA TYPE CODE TESTS RESULT OUT OF RANGE REFERENCE UNITS LAB B10.0800 A Normal BLOOD TYPE GEL POSITIVE LAB B100.4000 Normal Antibody NEGATIVE Screen Performed By: #### B101.7450 #### [facility] [address] [place], [address] RC Collected: 01/10/2018 Status: F Source: KIMBERLY 1:55 PM [facility] TYPE CODE TESTS RESULT OUT OF REFERENCE UNITS RANGE LAB U100.0000 [id number] TRANSFUSED PRODUCT: T AND S with Crossmatch, Red Cells COUNT: 2 Performed By: #### U100.0000 #### [facility] - refer to report for specific site BASIC METABOLIC Collected: 01/10/2018 Status: F Source: KIMBERLY PROFILE (BMP) 5:45 AM [facility] REPOS[facility] Order Comment: 202 TYPE CODE TESTS RESULT OUT OF RANGE REFERENCE UNITS LAB L501.0100 74-106 mg/dL Normal GLU 86 Result Comment: Please note revised GLUCOSE reference range effective 2017. LAB L501.1000 7-18 mg/dL High BUN 20 LAB L501.1100 0.70-1.30 mg/dL Normal CREAT,SERUM 0.73 Result Comment: The validity of the calculated GFR AND GFRAA in patients over 70 years has not been determined. Clinical correlation is essential. LAB L501.1110 >60 mL/min Normal EST GFR 109 Result Comment: Non- GFR Calc LAB L501.1115 >60 mL/min Normal EST GFR - AA 132 Result Comment: GFR Calc LAB L501.1300 10-20 RATIO High BUN/CRE 27.3 LAB L501.2200 8.5-10.1 mg/dL Low CA 8.0 LAB L501.5300 136-145 mmol/L NA Normal 144 LAB L501.5600 3.5-5.1 mmol/L K Normal 3.9 LAB L501.5900 98-107 mmol/L High CL 110 LAB L501.6100 21.0-32.0 mmol/L Normal CO2 25.0 LAB L501.6200 5-15 Normal GAP 9 Performed By: #### L500.2500 #### [facility] [address] [place], [address] CBC W/DIFF, AUTOMATED Collected: 01/10/2018 Status: C Source: KIMBERLY 5:45 AM [facility]POS[facility] Order Comment: 202 TYPE CODE TESTS RESULT OUT OF RANGE REFERENCE UNITS LAB L100.1000 4.4-11.0 K/mm3 Low WBC 1.5 LAB L100.1200 4.6-6.2 M/mm3 Low RBC 2.19 LAB L100.1300 13.0-16.5 g/dl Low HGB 6.4 LAB L100.1400 40-54 % Low HCT 19.4 LAB L100.1500 80-94 fL Normal MCV 88.6 LAB L100.1600 27.0-32.0 pg Normal MCH 29.2 LAB L100.1700 32-36 g/gl Normal MCHC 33.0 LAB L100.1810 11.6-14.6 % High RDW CV 16.0 LAB L100.1820 35.1-43.9 fl High RDW SD 51.4 LAB L100.1900 150-450 K/mm3 Low PLT 52 LAB L100.2100 47-70 % Low NEUT% 15.0 LAB L100.2200 19-41 % High LY% 57.8 LAB L100.2300 0-10 % High MONO% 26.0 LAB L100.2400 0-5 % Normal EO% 0.6 LAB L100.2500 0-1 % Normal BASO% 0.6 LAB L100.2550 0.0-0.9 % Normal IM GRAN % 0.000 Result Comment: IG% - Immature Granulocytes (promyelocytes, myelocytes and metamyelocytes) > 1% indicates that a LEFT SHIFT is Present. LAB L100.2620 2.0-7.7 X10 3/uL Low Absolute Neut 0.2 LAB L100.2720 0.83-4.51 X10 3/ul Normal Absolute Lymph 0.89 LAB L100.4500 Normal SMEAR COMMENT COMMENT Result Comment: SLIDE SCANNED - NEUTROPENIA, 1+ LARGE PLTS. LAB L100.9900 Normal Reviewed PATH REV Result Comment: Pancytopenia. Clinical correlation necessary. Darrin Dobson M.D. 01/12/18 AMENDED REPORT 01/12/18 1417 PATH REV previously reported as: September aman Performed By: #### L100.0100 #### [facility] [place], [address] PROGRESS Observed: 01/07/2018 Status: COMPLETED Source: MONUMENT 1:57 PM [facility] REPOSITORY HNO ID: [id number] Author: Aj Lazaro Service: (none) Author Type: Physician Type: Progress Notes Filed: 01/07/2018 2:24 PM Note Text: Patient is self-referred for second opinion regarding management of acute leukemia. HPI: The patient is an 82-year-old male who has a past medical history significant for hypertension. He had a history of anemia and moderate thrombocytopenia. For instance a CBC done in August 2015 demonstrated a total white count of 7900. Differential not performed. Hemoglobin was 9.6 g/dL with an MCV of 86.9 and a platelet count of 106,000. Another CBC in December 2015 revealed a white count of 6700. Differential not performed. Hemoglobin was 7.8 g/dL with a platelet count 215,000. In September 2017, another CBC showed a white count of 4100. Hemoglobin 10.2 g/dL with platelet count of 76,000. Repeat CBC with differential on 11/12/2017 revealed a total white count of 2700. The ANC was 700. The hemoglobin was 6.3 g/dL and the platelet count was 60,000. The patient underwent of red blood cell transfusion and was referred referred to Dr. Leija who performed a thorough evaluation. A bone marrow biopsy performed on 11/18/2017 demonstrated a hypercellular marrow with trilineage hematopoiesis and mild megakaryocytic dysplasia. The cellularity of the marrow with 70-80%. Focal clustering of megakaryocytes was also observed. No granulomas were observed. Doesn't appear aspirate was performed. Cytogenetic testing revealed no mitotic activity. Subsequent PCR testing for JAK2 V617F and flow cytometry of peripheral blood for PN on 12/08/2017 were negative. However flow cytometry of the peripheral blood revealed a blast population with an immunophenotype indicative of acute undifferentiated leukemia representing 22% of the 2200 peripheral white blood cells. Additionally 2% of the peripheral leukocytes were identified as a monoclonal CD5+, CD23+ positive, CD38- lymphocyte population. The patient has been transfusion dependent. It appears she's been receiving red blood cell transfusion every 1-2 weeks. -Currently he is quite satisfied with periodic transfusions at [facility]. He enjoys the food and care. He's not had any infectious complications. He's had no unusual bleeding or unexplained bruising. He is taking an iron supplement and tolerating it well. He is not on any antiplatelet agents or anticoagulation. His appetite is been normal. He is a resident at [facility]--he doesn't have any family in this area. He has 2 brothers but there are not involved in his medical situation. He entered snf care several years ago after undergoing inguinal hernia repair.. He's not had any complications from transfusion. He has chronic gait imbalance. He offers no complaints today. PMH, medications and allergies personally reviewed by me today. Any changes documented in appropriate section. ROS: Constitutional: See above. Neuro: Denies symptoms of neuropathy. HEENT: No recent change in voice, vision or hearing. Resp: Denies cough, wheeze and hemoptysis. Denies shortness of breath at rest. Denies KWOK. CVS: Denies exertional chest pain, PND, orthopnea and LE edema. GI: Denies dysgeusia. Denies symptoms of stomatitis. Denies dysphagia and odynophagia. Denies reflux, n/v, change in bowel habits and abdominal pain. : Denies dysuria or gross hematuria. Endo: Denies hot flashes. Denies polyuria and polydipsia. Denies heat and cold intolerance. Musculoskeletal: Denies bone, back, joint and muscular pain. Derm: Denies rash. Denies jaundice and diffuse pruritis. Heme: See above. Psych: Normal mood. PHYSICAL EXAM: Vitals: Blood pressure 139/92, pulse 84, temperature 37.4 ?C (99.3 ?F), temperature source Temporal Artery, height 180.3 cm (5' 11), weight 83.5 kg (184 lb). Thin and frail-appearing and in no acute distress. EYES: Sclerae are anicteric bilaterally. ENT: Oral mucosa is unremarkable. There is no sign of thrush or mucositis. NECK: Supple. LYMPHATIC: There is no palpable cervical, supraclavicular or axillary adenopathy. RESPIRATORY: Inspiratory breath sounds are of normal intensity in all malagon. No rales, wheezes or rhonchi. CARDIOVASCULAR: Rhythm is regular. Normal intensity S1/S2. There is no gallop or murmur. ABDOMEN: The abdomen is nondistended. No organomegaly. No tenderness. Extremities: Trace edema. SKIN: No jaundice or rash. No petechiae. NEUROLOGIC: radiology director II-XII are grossly intact. Unsteady gait--orthostasis observed when standing up. 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 More recently he developed pancytopenia and has been transfusion dependent. 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 -His KPS is 50-60%. -I had a long and detailed discussion with the patient and his friend today regarding the the natural history, treated course, and prognosis of MDS/AML. I discussed the approach to treatment consisting of best supportive care and the potential for lower-intensity treatment such as azacitidine and decitabine. He understands the goal of such therapy would be a potential increase in overall survival as well as a decrease in transfusion dependence. 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 -At this juncture, he and his friend would like to think over the options. I also discussed advanced directives with him. He does not have a durable health care power of environmental attorney nor does he have a living will in place. I encouraged him to do so and we'll have our social work professor discuss these documents with him. Plan: -He will continue transfusional supportive care. -OV in about 6 weeks. Aj Lazaro DO CNOVSP Observed: 01/05/2018 Status: COMPLETED Source: MONUMENT 3:00 PM [facility] REPOSITORY Visit (SP) Office (CHERIE) ORION XIE ([id number]) 1935 M Date Time Provider Department 01/05/18 3:00 PM AJ LAZARO During your visit today, we recorded the following information about you: Temperature Pulse Blood pressure Weight 99.3 degrees 84/minute 139/92 83.5 kg Height 1.803 m Gisela Mar LPN 01/05/2018 3:26 PM Signed New patient. Discuss acute leukemia. Gisela Lazaro DO 01/07/2018 2:24 PM Signed Patient is self-referred for second opinion regarding management of acute leukemia. HPI: The patient is an 82-year-old male who has a past medical history significant for hypertension. He had a history of anemia and moderate thrombocytopenia. For instance a CBC done in August 2015 demonstrated a total white count of 7900. Differential not performed. Hemoglobin was 9.6 g/dL with an MCV of 86.9 and a platelet count of 106,000. Another CBC in December 2015 revealed a white count of 6700. Differential not performed. Hemoglobin was 7.8 g/dL with a platelet count 215,000. In September 2017, another CBC showed a white count of 4100. Hemoglobin 10.2 g/dL with platelet count of 76,000. Repeat CBC with differential on 11/12/2017 revealed a total white count of 2700. The ANC was 700. The hemoglobin was 6.3 g/dL and the platelet count was 60,000. The patient underwent of red blood cell transfusion and was referred referred to Dr. Leija who performed a thorough evaluation. A bone marrow biopsy performed on 11/18/2017 demonstrated a hypercellular marrow with trilineage hematopoiesis and mild megakaryocytic dysplasia. The cellularity of the marrow with 70-80%. Focal clustering of megakaryocytes was also observed. No granulomas were observed. Doesn't appear aspirate was performed. Cytogenetic testing revealed no mitotic activity. Subsequent PCR testing for JAK2 V617F and flow cytometry of peripheral blood for PNH on 12/08/2017 were negative. However flow cytometry of the peripheral blood revealed a blast population with an immunophenotype indicative of acute undifferentiated leukemia representing 22% of the 2200 peripheral white blood cells. Additionally 2% of the peripheral leukocytes were identified as a monoclonal CD5+, CD23+ positive, CD38- lymphocyte population. The patient has been transfusion dependent. It appears she's been receiving red blood cell transfusion every 1-2 weeks. -Currently he is quite satisfied with periodic transfusions at [facility]. He enjoys the food and care. He's not had any infectious complications. He's had no unusual bleeding or unexplained bruising. He is taking an iron supplement and tolerating it well. He is not on any antiplatelet agents or anticoagulation. His appetite is been normal. He is a resident at [facility]--he doesn't have any family in this area. He has 2 brothers but there are not involved in his medical situation. He entered snf care several years ago after undergoing inguinal hernia repair.. He's not had any complications from transfusion. He has chronic gait imbalance. He offers no complaints today. PMH, medications and allergies personally reviewed by me today. Any changes documented in appropriate section. ROS: Constitutional: See above. Neuro: Denies symptoms of neuropathy. HEENT: No recent change in voice, vision or hearing. Resp: Denies cough, wheeze and hemoptysis. Denies shortness of breath at rest. Denies KWOK. CVS: Denies exertional chest pain, PND, orthopnea and LE edema. GI: Denies dysgeusia. Denies symptoms of stomatitis. Denies dysphagia and odynophagia. Denies reflux, n/v, change in bowel habits and abdominal pain. : Denies dysuria or gross hematuria. Endo: Denies hot flashes. Denies polyuria and polydipsia. Denies heat and cold intolerance. Musculoskeletal: Denies bone, back, joint and muscular pain. Derm: Denies rash. Denies jaundice and diffuse pruritis. Heme: See above. Psych: Normal mood. PHYSICAL EXAM: Vitals: Blood pressure 139/92, pulse 84, temperature 37.4 ?C (99.3 ?F), temperature source Temporal Artery, height 180.3 cm (5' 11), weight 83.5 kg (184 lb). Thin and frail-appearing and in no acute distress. EYES: Sclerae are anicteric bilaterally. ENT: Oral mucosa is unremarkable. There is no sign of thrush or mucositis. NECK: Supple. LYMPHATIC: There is no palpable cervical, supraclavicular or axillary adenopathy. RESPIRATORY: Inspiratory breath sounds are of normal intensity in all malagon. No rales, wheezes or rhonchi. CARDIOVASCULAR: Rhythm is regular. Normal intensity S1/S2. There is no gallop or murmur. ABDOMEN: The abdomen is nondistended. No organomegaly. No tenderness. Extremities: Trace edema. SKIN: No jaundice or rash. No petechiae. NEUROLOGIC: radiology director II-XII are grossly intact. Unsteady gait--orthostasis observed when standing up. 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 More recently he developed pancytopenia and has been transfusion dependent. 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 -His KPS is 50-60%. -I had a long and detailed discussion with the patient and his friend today regarding the the natural history, treated course, and prognosis of MDS/AML. I discussed the approach to treatment consisting of best supportive care and the potential for lower-intensity treatment such as azacitidine and decitabine. He understands the goal of such therapy would be a potential increase in overall survival as well as a decrease in transfusion dependence. 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 -At this juncture, he and his friend would like to think over the options. I also discussed advanced directives with him. He does not have a durable health care power of environmental attorney nor does he have a living will in place. I encouraged him to do so and we'll have our social work professor discuss these documents with him. Plan: -He will continue transfusional supportive care. -OV in about 6 weeks. Aj Lazaro DO Referring Provider: SELF [200] Allergies As of Date: 01/05/2018 (No Known Allergies) Date Reviewed: 01/05/2018 Reviewed by: Gisela Mar LPN - Fully Assessed Reason for Visit: New Patient [172] Primary Visit Diagnosis:Acute myeloid leukemia not having achieved remission (HCC) [C92.00] Follow-up and Disposition History Recorded Prescriptions as of 01/05/2018 Sig: FERROUS GLUCONATE 324 MG (36 * Take 1 tablet by mouth twice * LISINOPRIL 20 MG TABLET Take 20 mg by mouth once myranda* POTASSIUM CHLORIDE ER 20 MEQ * Take 20 mEq by mouth once dillon* FINASTERIDE 5 MG TABLET Take 1 tablet by mouth once d* AMLODIPINE 10 MG TABLET Take 1 tablet by mouth once d* HYDROCODONE 5 MG-ACETAMINOPHE* Take 1 tablet by mouth every * Patient not taking: Reported on 01/05/2018 DOCUSATE SODIUM 100 MG CAPSULE Take 1 capsule by mouth twice* Patient not taking: Reported on 01/05/2018 TAMSULOSIN 0.4 MG CAPSULE Take 1 capsule by mouth daily* Patient not taking: Reported on 01/05/2018 LISINOPRIL 20 MG-HYDROCHLOROT* Take 1 tablet by mouth once d* Patient not taking: Reported on 01/05/2018 Medication notes this encounter AMLODIPINE 10 MG TABLET >> Gisela Mar LPN 01/05/2018 3:07 PM >> GISELA MAR LPN [facility] Jan 05, 2018 3:07 PM Taking 5 mg daily Problem List As Of Date 01/05/2018 Noted Resolved Urinary retention [R33.9] INVALID FOR* H/O right inguinal hernia repair [Z98.890, Z87.*INVALID FOR* Hypertension [I10] Gross hematuria [R31.0] INVALID FOR* BPH (benign prostatic hypertrophy) with urinary*INVALID FOR* 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 Discuss acute leukemia. Gisela Mar LPN Encounter Status:Closed by AJ LAZARO DO on 01/07/18 CNPN Observed: 01/05/2018 Status: COMPLETED Source: [place] 12:00 AM [facility] REPOSITORY Telephone (CHERIE) ORION XIE ([id number]) 1935 M Date Time Provider Department 01/05/18 AJ LAZARO During your visit today, we recorded the following information about you: Aliya Mullins 01/05/2018 5:01 PM Signed [facility] requests patient records from his OV with Dr. Lazaro. Fax number is [phone] Zhanna Harrell 01/06/2018 8:10 AM Signed Notes from yesterday have not been completed from , so we will fax this information once it has been completed Zhanna Rubior Kita Hooper, RN, RN 01/10/2018 8:40 AM Signed Notes faxed to [facility] [employer] [facility]. Gisela Mar LPN 01/10/2018 12:17 PM Signed Correct fax# is [phone]. Gisela Mar LPN Allergies As of Date: 01/05/2018 (No Known Allergies) Date Reviewed: 01/05/2018 Reviewed by: Gisela Mar LPN - Fully Assessed Reason for Visit: Records [Other] Prescriptions as of 01/05/2018 Sig: FERROUS GLUCONATE 324 MG (36 * Take 1 tablet by mouth twice * LISINOPRIL 20 MG TABLET Take 20 mg by mouth once myranda* POTASSIUM CHLORIDE ER 20 MEQ * Take 20 mEq by mouth once dillon* HYDROCODONE 5 MG-ACETAMINOPHE* Take 1 tablet by mouth every * Patient not taking: Reported on 01/05/2018 DOCUSATE SODIUM 100 MG CAPSULE Take 1 capsule by mouth twice* Patient not taking: Reported on 01/05/2018 FINASTERIDE 5 MG TABLET Take 1 tablet by mouth once d* TAMSULOSIN 0.4 MG CAPSULE Take 1 capsule by mouth daily* Patient not taking: Reported on 01/05/2018 LISINOPRIL 20 MG-HYDROCHLOROT* Take 1 tablet by mouth once d* Patient not taking: Reported on 01/05/2018 AMLODIPINE 10 MG TABLET Take 1 tablet by mouth once d* Problem List As Of Date 01/05/2018 Noted Resolved Urinary retention [R33.9] INVALID FOR* H/O right inguinal hernia repair [Z98.890, Z87.*INVALID FOR* Hypertension [I10] Gross hematuria [R31.0] INVALID FOR* BPH (benign prostatic hypertrophy) with urinary*INVALID FOR* 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 - History of Present Illness 82y/o man was found to have abnormal labs, CBC on November 15, 2017 showed WBC 2.4 hemoglobin 6.1 platelets 68. Peripheral smear showed no abnormal cells and he was given 2 units of packed RBCs. He had bone marrow biopsy was done on 11/18/2017. He was seen in the clinic for further evaluation. 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 JAK2 was negative, PNH was also negative. He was thinking about his options, comes in for follow up. Has been getting blood transfusions weekly. - Past Medical/Social History Social History Smoking Status Never smoker Review of Systems Constitutional:: Denies: Fever, Sweats, Weight loss, Appetite change, Chills Cardiovascular:: Denies: Chest pain, Palpitations, Dyspnea on exertion, Orthopnea, PND, Shortness of breath Respiratory: Denies: Cough, Hemoptysis, Shortness of Breath, Wheezing Gastrointestinal:: Denies: Abdominal pain, Nausea, Vomiting, Diarrhea, Constipation, Hematochezia Genitourinary: Denies: Dysuria, Hematuria, 15, Flank pain Musculoskeletal:: Denies: Back pain, Myalgia, Arthralgia Vital Signs Height 5 ft 10 in Weight: 83.461 kg Weight in Pounds 184.0 lbs Pulse Ox 97 - Physical Exam General: Alert, Oriented x3, No apparent distress Laboratory Data: Laboratory Tests 01/02/2018 wbc 1.7, Hgb 7.5, PLT 66. 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 Discussed the finding of blast cells and differential diagnosis with Pt and his friend Wagner. It may be suggestive of Acute Leukemia. Suggested referral to a bigger hospital for review, they still have not made a decision about further management. Plan is to think about options and report next week. I will also talk to Dr. Taj Lopez. RTC 1 wk. Medications: Prescriptions This Visit Medication Instructions Recorded Ferrous Gluconate 325 mg PO DAILY@0800 12/07/17 Primary Care Provider: Skinny Lopez MD Referring Provider: Skinny Lopez - Problem List (1) Pancytopenia Status: Chronic Code Visit Office Visits / Consults: [id number] OV L4 Est 01/02/18 1706 <Electronically signed by Nj Leija MD> Date Nj Leija MD Cosigner Signature: Date (if applicable) CC: COMPREHENSIVE METABOLIC Collected: 01/02/2018 Status: F Source: [place] PROFIL 3:00 PM [facility] REPOSITORY Order Comment: Reason for Laboratory Test OV TYPE CODE TESTS RESULT OUT OF RANGE REFERENCE UNITS LAB L501.0100 74-106 mg/dL High GLU 107 Result Comment: Fasting Glucose result from 100 to 125 mg/dL suggests IMPAIRED HOMEOSTASIS per A.D.A. criteria. Please note revised GLUCOSE reference range effective 2017. LAB L501.1000 7-18 mg/dL High BUN 19 LAB L501.1100 0.70-1.30 mg/dL Normal CREAT,SERUM 0.81 Result Comment: The validity of the calculated GFR AND GFRAA in patients over 70 years has not been determined. Clinical correlation is essential. LAB L501.1110 >60 mL/min Normal EST GFR 97 Result Comment: Non- GFR Calc LAB L501.1115 >60 mL/min Normal EST GFR - AA 118 Result Comment: GFR Calc LAB L501.1255 ml/min Normal Estimated CRCL 73.85 LAB L501.1300 10-20 RATIO High BUN/CRE 23.5 LAB L501.1500 6.4-8. g/dL Normal 2 T PROT 8.0 LAB L501.1800 3.2-5. g/dL Normal 0 ALB 3.7 LAB L501.1950 2.2-4. g/dL High 2 GLOB 4.3 LAB L501.2000 0.9-2. RATIO Normal 4 A/G 0.9 LAB L501.2200 8.5-10 mg/dL Normal .1 CA 8.7 LAB L501.4100 15-37 U/L Normal AST 18 LAB L501.4305 45-117 U/L High ALK P 328 LAB L501.4405 16-61 U/L Normal ALT 28 LAB L501.4600 0.20-1 mg/dL Normal .00 T BILI 0.30 LAB L501.5300 136-14 mmol/L Normal 5 NA 142 LAB L501.5600 3.5-5. mmol/L Normal 1 K 4.2 LAB L501.5900 98-107 mmol/L Normal CL 106 LAB L501.6100 21.0-3 mmol/L Normal 2.0 CO2 24.0 LAB L501.6200 5-15 Normal GAP 12 Performed By: #### L500.4050 #### [facility] [address] [place], [address] CBC W/DIFF, AUTOMATED Collected: 01/02/2018 Status: F Source: [place] 6:05 AM [facility] REPOSITORY Order Comment: 202 TYPE CODE TESTS RESULT OUT OF RANGE REFERENCE UNITS LAB L100.1000 4.4-11.0 K/mm3 Low WBC 1.7 LAB L100.1200 4.6-6.2 M/mm3 Low RBC 2.58 LAB L100.1300 13.0-16.5 g/dl Low HGB 7.5 LAB L100.1400 40-54 % Low HCT 23.3 LAB L100.1500 80-94 fL Normal MCV 90.3 LAB L100.1600 27.0-32.0 pg Normal MCH 29.1 LAB L100.1700 32-36 g/gl Normal MCHC 32.2 LAB L100.1810 11.6-14.6 % High RDW CV 16.1 LAB L100.1820 35.1-43.9 fl High RDW SD 52.3 LAB L100.1900 150-450 K/mm3 Low PLT 66 LAB L100.2000 6.2-12.0 fl Normal MPV 11.4 LAB L100.2100 47-70 % Low NEUT% 16.1 LAB L100.2200 19-41 % High LY% 59.0 LAB L100.2300 0-10 % High MONO% 24.3 LAB L100.2400 0-5 % Normal EO% 0.0 LAB L100.2500 0-1 % Normal BASO% 0.0 LAB L100.2550 0.0-0.9 % Normal IM GRAN % 0.600 Result Comment: IG% - Immature Granulocytes (promyelocytes, myelocytes and metamyelocytes) > 1% indicates that a LEFT SHIFT is Present. LAB L100.2620 2.0-7.7 X10 3/uL Low Absolute Neut 0.3 LAB L100.2720 0.83-4.51 X10 3/ul Absolute Lymph Normal 1.02 LAB L100.4600 % ATYPICAL LYMPH Normal 2+ LAB L100.5500 ADEQ PLT EST Normal MKD DEC LAB L100.5650 PLT MORPH Normal LARGE LAB L100.7600 HYPOCHROMASIA Normal 2+ Performed By: #### L100.0100 #### [facility] [address] [place], [place], [address] TYPE AND SCREEN Collected: 12/26/2017 Status: F Source: [place] 10:30 PM [facility] REPOSITORY Order Comment: CMV NEG?* N Give When? 12/27/2017 0830 Irradiated? N Leukodepleted? Y Reason for Type AND Screen/Red Cells: ANEMIA TYPE CODE TESTS RESULT OUT OF RANGE REFERENCE UNITS LAB B10.0800 A Normal BLOOD TYPE GEL POSITIVE LAB B100.4000 Normal Antibody NEGATIVE Screen Performed By: #### B101.7450 #### [facility] [address] [place], [place], [address] RC Collected: 12/26/2017 Status: F Source: [place] 10:30 PM [facility] REPOSITORY TYPE CODE TESTS RESULT OUT OF REFERENCE UNITS RANGE LAB U100.0000 [id number] TRANSFUSED PRODUCT: T AND S with Crossmatch, Red Cells COUNT: 2 Performed By: #### U100.0000 #### Non-[facility] - refer to report for specific site CBC W/DIFF, AUTOMATED Collected: 12/26/2017 Status: F Source: [place] 6:00 AM [facility] REPOSITORY Order Comment: 202 TYPE CODE TESTS RESULT OUT OF RANGE REFERENCE UNITS LAB L100.1000 4.4-11.0 K/mm3 Low WBC 1.8 LAB L100.1200 4.6-6.2 M/mm3 Low RBC 2.07 LAB L100.1300 13.0-16.5 g/dl Low HGB 6.1 LAB L100.1400 40-54 % Low HCT 18.7 LAB L100.1500 80-94 fL Normal MCV 90.3 LAB L100.1600 27.0-32.0 pg Normal MCH 29.5 LAB L100.1700 32-36 g/gl Normal MCHC 32.6 LAB L100.1810 11.6-14.6 % High RDW CV 16.7 LAB L100.1820 35.1-43.9 fl High RDW SD 54.0 LAB L100.1900 150-450 K/mm3 Low PLT 51 LAB L100.2000 6.2-12.0 fl Normal MPV 10.3 LAB L100.2100 47-70 % Low NEUT% 21.7 LAB L100.2200 19-41 % High LY% 57.6 LAB L100.2300 0-10 % High MONO% 20.7 LAB L100.2400 0-5 % Normal EO% 0.0 LAB L100.2500 0-1 % Normal BASO% 0.0 LAB L100.2550 0.0-0.9 % Normal IM GRAN % 0.000 Result Comment: IG% - Immature Granulocytes (promyelocytes, myelocytes and metamyelocytes) > 1% indicates that a LEFT SHIFT is Present. LAB L100.2620 2.0-7.7 X10 3/uL Low Absolute Neut 0.4 LAB L100.2720 0.83-4.51 X10 3/ul Normal Absolute Lymph 1.06 LAB L100.4500 Normal SMEAR COMMENT COMMENT Result Comment: SLIDE SCANNED - NEUTROPENIA NOTED. Performed By: #### L100.0100 #### [facility] [address] [place], [address] BASIC METABOLIC Collected: 12/19/2017 Status: F Source: [place] PROFILE ([facility]) 8:00 AM [facility] REPOSITORY Order Comment: 202 TYPE CODE TESTS RESULT OUT OF RANGE REFERENCE UNITS LAB L501.0100 74-106 mg/dL Normal GLU 91 Result Comment: Please note revised GLUCOSE reference range effective 2017. LAB L501.1000 7-18 mg/dL Normal BUN 17 LAB L501.1100 0.70-1.30 mg/dL Normal CREAT,SERUM 0.74 Result Comment: The validity of the calculated GFR AND GFRAA in patients over 70 years has not been determined. Clinical correlation is essential. LAB L501.1110 >60 mL/min Normal EST GFR 109 Result Comment: Non- GFR Calc LAB L501.1115 >60 mL/min Normal EST GFR - AA 131 Result Comment: GFR Calc LAB L501.1300 10-20 RATIO High BUN/CRE 23.1 LAB L501.2200 8.5-10.1 mg/dL Low CA 8.3 LAB L501.5300 136-145 mmol/L NA Normal 142 LAB L501.5600 3.5-5.1 mmol/L K Normal 3.8 LAB L501.5900 98-107 mmol/L High CL 110 LAB L501.6100 21.0-32.0 mmol/L Normal CO2 26.0 LAB L501.6200 5-15 Normal GAP 6 Performed By: #### L500.2500 #### [facility] [address] [place], [address] CBC W/DIFF, AUTOMATED Collected: 12/19/2017 Status: F Source: [place] 8:00 AM [facility] REPOSITORY Order Comment: 202 TYPE CODE TESTS RESULT OUT OF RANGE REFERENCE UNITS LAB L100.1000 4.4-11.0 K/mm3 Low 2.8 WBC LAB L100.1200 4.6-6.2 M/mm3 Low 2.60 RBC LAB L100.1300 13.0-16.5 g/dl Low 7.5 HGB LAB L100.1400 40-54 % Low 23.6 HCT LAB L100.1500 80-94 fL 90.8 Normal MCV LAB L100.1600 27.0-32.0 pg 28.8 Normal MCH LAB L100.1700 32-36 g/gl Low 31.8 MCHC LAB L100.1810 11.6-14.6 % High 17.0 RDW CV LAB L100.1820 35.1-43.9 fl High 56.2 RDW SD LAB L100.1900 150-450 K/mm3 Low 56 PLT LAB L100.2000 6.2-12.0 fl Test Normal MPV not performed LAB L100.2100 47-70 % Low 29.2 NEUT% LAB L100.2200 19-41 % High 48.6 LY% LAB L100.2300 0-10 % High 21.8 MONO% LAB L100.2400 0-5 % 0.0 Normal EO% LAB L100.2500 0-1 % 0.0 Normal BASO% LAB L100.2550 0.0-0.9 % 0.400 Normal IM GRAN % Result Comment: IG% - Immature Granulocytes (promyelocytes, myelocytes and metamyelocytes) > 1% indicates that a LEFT SHIFT is Present. LAB L100.2620 2.0-7.7 X10 3/uL Low Absolute Neut 0.8 LAB L100.2720 0.83-4.51 X10 3/ul Absolute Lymph Normal 1.36 LAB L100.4600 % ATYPICAL LYMPH Normal 1+ LAB L100.5500 ADEQ PLT EST Normal MKD DEC LAB L100.5650 PLT MORPH Normal LARGE LAB L100.7600 HYPOCHROMASIA Normal 2+ Performed By: #### L100.0100 #### [facility] [facility] [place], [address] ONCOLOGY VISIT REPORT Observed: 12/15/2017 Status: F Source: [place] 1:20 PM [facility] REPOSIT[facility] [address] [place] [address]. [place] [address] OFFICE VISIT Date of Service: 12/14/171918 MR#: [id number] Acct: [id number] Name: ORION XIE Rep #: [id number] : 1935 From: Nj Leija MD Age/Sex: 82/M Location: OMD Status: Signed Subjective - Date of Service Date of Service:: 12/13/17 - Chief Complaint Follow up for Pancytopenia. - History of Present Illness 82y/o man was found to have abnormal labs, CBC on November 15, 2017 showed WBC 2.4 hemoglobin 6.1 platelets 68. Peripheral smear showed no abnormal cells and he was given 2 units of packed RBCs. He had bone marrow biopsy was done on 11/18/2017. Hewas seen in the clinic for further evaluation. Had Flow cytometry done, got a preliminary report so he is in the clinic to discuss the findings. - Past Medical/Social History Social History Smoking Status Never smoker Review of Systems Constitutional:: Denies: Fever, Sweats, Weight loss, Appetite change, Chills Cardiovascular:: Denies: Chest pain, Palpitations, Dyspnea on exertion, Orthopnea, PND, Shortness of breath Respiratory: Denies: Cough, Hemoptysis, Shortness of Breath, Wheezing Gastrointestinal:: Denies: Abdominal pain, Nausea, Vomiting, Diarrhea, Constipation, Hematochezia Genitourinary: Denies: Dysuria, Hematuria, 15, Flank pain Musculoskeletal:: Denies: Back pain, Myalgia, Arthralgia Skin: Denies: Rash, Skin Changes, Wounds Neurological:: Denies: Headache, Dizziness, Visual changes, Tinnitus, Hearing loss Psychiatric: Denies: Anxiety, Depression, Homicidal Ideations, Suicidal Ideations Vital Signs Height 5 ft 10 in Weight: 83.915 kg Weight in Pounds 185.0 lbs Pulse Ox 97 - Physical Exam General: Alert, Oriented x3, No apparent distress Laboratory Data: 12/08/2017 Preliminary report of flow cytometry shows 22% blast cells according to Lab elayne Pathologist. Assessment and Plan Pancytopenia-differential diagnosis include Myeloproliferative disease, MDS. Discussed the biopsy report with Pathologist Dr. 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 Discussed the finding of blast cells and differential diagnosis with Pt and his friend Wagner. It may be suggestive of Acute Leukemia. Suggested referral to a bigger hospital for review. They want to wait for official report and also think about what they want to do. Plan is to await Peripheral blood flow cytometry for PNH, cytogenetics, JAK2. RTC 2 wks. Medications: Prescriptions This Visit Medication Instructions Recorded Ferrous Gluconate 325 mg PO DAILY@0800 12/07/17 Primary Care Provider: Skinny Lopez MD Referring Provider: Skinny Lopez - Problem List (1) Pancytopenia Status: Acute Code Visit Office Visits / Consults: [id number] OV L3 Est 12/15/17 1320 <Electronically signed by Nj Leija MD> Date Nj Leija MD Cosigner Signature: Date (if applicable) CC: CBC W/DIFF, AUTOMATED Collected: 12/12/2017 Status: C Source: [place] 6:05 AM [facility] REPOSITORY Order Comment: 202 TYPE CODE TESTS RESULT OUT OF RANGE REFERENCE UNITS LAB L100.1000 4.4-11.0 K/mm3 Low WBC 1.8 LAB L100.1200 4.6-6.2 M/mm3 Low RBC 2.57 LAB L100.1300 13.0-16.5 g/dl Low HGB 7.6 LAB L100.1400 40-54 % Low HCT 23.6 LAB L100.1500 80-94 fL Normal MCV 91.8 LAB L100.1600 27.0-32.0 pg Normal MCH 29.6 LAB L100.1700 32-36 g/gl Normal MCHC 32.2 LAB L100.1810 11.6-14.6 % High RDW CV 16.8 LAB L100.1820 35.1-43.9 fl High RDW SD 55.7 LAB L100.1900 150-450 K/mm3 Low alert PLT 47 Result Comment: CRITICAL VALUE VERIFIED. CALLED TO JAILYN ABRAMS 12/12/17 1025 Nahid Sousa. RESULTS READ BACK BY SAME. LAB L100.2100 47-70 % Low NEUT% 19.2 LAB L100.2200 19-41 % High LY% 57.7 LAB L100.2300 0-10 % High MONO% 23.1 LAB L100.2400 0-5 % Normal EO% 0.0 LAB L100.2500 0-1 % Normal BASO% 0.0 LAB L100.2550 0.0-0.9 % Normal IM GRAN % 0.000 Result Comment: IG% - Immature Granulocytes (promyelocytes, myelocytes and metamyelocytes) > 1% indicates that a LEFT SHIFT is Present. LAB L100.2620 2.0-7.7 X10 3/uL Low Absolute Neut 0.4 LAB L100.2720 0.83-4.51 X10 3/ul Normal Absolute Lymph 1.05 LAB L100.4500 Normal SMEAR COMMENT COMMENT Result Comment: SLIDE SCANNED - NEUTROPENIA, THROMBOCYTOPENIA, 1+ LARGE PLTS. LAB L100.9900 Normal Reviewed PATH REV Result Comment: Pancytopenia. Clinical correlation necessary. Darrin Dobson M.D. 12/13/17 AMENDED REPORT 12/13/17 1026 PATH REV previously reported as: September aman Performed By: #### L100.0100 #### [facility] [place], [address] MISCELLANEOUS LAB Collected: 12/08/2017 Status: F Source: [place] PROCEDURE 2:19 PM [facility] REPOSITORY Order Comment: Reason for Laboratory Test JAK2-LC# [id number] Comments: [id number] Mutation Analysis, Qualitativ Test(s) Ordered: [id number] Mutation Analysis,TALL LAV WB TYPE CODE TESTS RESULT OUT OF RANGE REFERENCE UNITS LAB L801.1541 Normal [facility] LAB TEST Result Comment: TEST RESULT LIMITS JAK2 V617F Qual, Rfx E12-15 JAK2 V617F mutation detection Result: NEGATIVE for the JAK2 V617F mutation. Interpretation: The G to T nucleotide change encoding the V617F mutation was not detected. This result does not rule out the presence of the JAK2 mutation at a level below the sensitivity of detection of this assay, or the presence of other mutations within JAK2 not detected by this assay. This result does not rule out a diagnosis of polycythemia vera, essential thrombocythemia or idiopathic myelofibrosis as the V617F mutation is not detected in all patients with these disorders. Background: JAK2 is a cytoplasmic tyrosine kinase with a jackman role in signal transduction from multiple hematopoietic growth factor receptors. A point mutation within exon 14 of the JAK2 gene ([id number]) encoding a valine to phenylalanine substitution at position 617 of the JAK2 protein (V617F) has been identified in most patients with polycythemia vera, and in about half of those with either essential thrombocythemia or idiopathic myelofibrosis. The V617F has also been detected, although infrequently, in other myeloid disorders such as chronic myelomonocytic leukemia and chronic neutrophilic luekemia. V617F is an acquired mutation that alters a highly conserved valine present in the negative regulatory JH2 domain of the JAK2 protein and is predicted to dysregulate kinase activity. Methodology: Total genomic DNA was extracted and subjected to TaqMan real-time PCR amplification/detection. Two amplification products per sample were monitored by real-time PCR using primers/probes specific to JAK2 wild type (WT) and JAK2 mutant V617F. The [id number] Absolute Quantitation software will compare the patient specimen valuse to the standard curves and generate percent values for wild type and mutant type. In vitro studies have indicated that this assay has an analytical sensitivity of 1%. References: Smith EJ, Duarte LM, Jimmy PJ, et al. Acquired mutation of the tyrosine kinase JAK2 in human myeloproliferative disorders. Lancet. 2005 Jul 25; 365(8240):4870-8305. Harley Diego, Edward V, Kisha Silva JP. A unique clonal JAK2 mutation leading to constitutive signaling causes polycythaemia vera. Nature. 2005 Sep 03; 557(9397):3830-2156. Homer R, Clarisa F, Debra , et al. A bsvd-qd-gjzoschy mutation of JAK2 in myeloproliferative disorders. N Engl J Med. 2005 Sep 03; 352(89):2429-0068. Director Review: Nathalie Frausto MD, PhD Director, Molecular Oncology [facility] [place] [address] Disclaimer: This test was developed and its performance characteristics determined by [facility]. It has not been cleared or approved by the Food and Drug Administration. Reflex: Reflex to JAK2 Exon 12-15 Mutation Analysis is indicated. JAK2 Exons 12-15 Mut Det PCR NEGATIVE JAK2 mutations were not detected in exons 12, 13, 14 and 15. This result does not rule out the presence of JAK2 mutation at a level below the detection sensitivity of this assay, the presence of other mutations outside the analyzed region of the JAK2 gene, or the presence of a myeloproliferative or other neoplasm. Result must be correlated with other clinical data for the most accurate diagnosis. Indications Comment: NEUTROPENIA THROMBOCYTOPENIA PANCYTOPENIA Specimen Type Blood Background JAK2 V617F mutation is detected in patients with polycythemia vera (95%), essential thrombocythemia (50%) and primary myelofibrosis (50%). A small percentage of JAK2 mutation positive patients (3.3%)contain other non-V617F mutations within exons 12 to 15. The detection of a JAK2 gene mutation aids in the specific diagnosis of a myeloproliferative neoplasm, and help distinguish this clonal disease from a benign reactive process. Method Total RNA was purified from the provided specimen. The JAK2 gene region covering exons 12 to 15 was subjected to reverse-color sprayer coupled PCR amplification, and bi-directional sequencing to identify sequence variations. This assay has a sensitivity to detect approximately 15% population of cells containing the JAK2 mutations in a background of non-mutant cells. This test was developed and its performance characteristics determined by [facility]. It has not been cleared or approved by the Food and Drug Administration. References Tran Merrill. et al. Detection of mutations in JAK2 exons 12-15 by Les sequencing. Int J Lab Hemato. 2015, 38:34-41. Meggan Elaine. et al. Mutation profile of JAK2 transcripts in patients with chronic myeloproliferative neoplasias. J Mol Diagn. 2009, 11:49-53. Director Review Keven Petit, PhD Director, Molecular Oncology [facility] [place] [address] Extraction Completed TESTING PERFORMED AT [facility]. ORIGINAL REPORT ON FILE IN LAB CONTAINS ADDITIONAL TEST SITE INFORMATION. Performed By: #### L801.1541 #### [facility] [address] [place], [address] MISCELLANEOUS LAB Collected: 12/08/2017 Status: F Source: JASPER PROCEDURE 2:19 PM [facility] REPOSITORY Order Comment: Reason for Laboratory Test [id number] Comments: [id number] [facility] 4ML HEPARIN Test(s) Ordered: [id number] [facility] 4ML HEPARIN TYPE CODE TESTS RESULT OUT OF RANGE REFERENCE UNITS LAB L801.1541 Normal [facility] LAB TEST Result Comment: TEST RESULT LIMITS Flow Cytometry [facility] Interpretation: Peripheral Blood: No evidence of paroxysmal nocturnal hemoglobinuria (PNH). Comment: At the sensitivity level of this assay (typically 0.01-0.1%), these results do not support a diagnosis of paroxysmal nocturnal hemoglobinuria (PNH). Correlation with all available clinical, laboratory, and morphologic data is recommended. (sensitivity typically 0.01-0.1%; lower limit of detection dependent on number of cells present and events acquired, typically 90,000+ events acquired) Specimen: Peripheral Blood Submitted Dx: Evaluation for paroxysmal nocturnal hemoglobinuria (PNH) Viability: 98% (7AAD exclusion) Flow Results: Cell Population Population Analysis Granulocytes: No GPI-anchor deficiency Monocytes: No GPI-anchor deficiency Antibodies Performed: CD14, CD15, CD24, CD45, CD64, FLAER Comment: This test was developed and its performance characteristics determined by [facility]. It has not been cleared or approved by the Food and Drug Administration (FDA). The FDA has determined that such clearance or approval is not necessary. Any image(s) that accompany this report is/are a treasury representative image(s) only and should not be used to render a diagnosis. Director Review Reviewed By: Nj Mark M.D. TESTING PERFORMED AT [facility]. ORIGINAL REPORT ON FILE IN LAB CONTAINS ADDITIONAL TEST SITE INFORMATION. Performed By: #### L801.1541 #### [facility] [address] [place], [address] MISCELLANEOUS LAB Collected: 12/08/2017 Status: F Source: JASPER PROCEDURE 3 2:19 PM [facility] REPOSITORY Order Comment: Reason for Laboratory Test FLOW CYTOMETRY-PNH Comments: [id number] Leukemia/Lymphoma Immunophenotyping Profile List Test(s) Ordered by Physician: [id number] Leukemia/Lymphoma Immunophenotyping Profile TYPE CODE TESTS RESULT OUT OF RANGE REFERENCE UNITS LAB L801.1545 Normal [facility] LAB TEST 3 Result Comment: TEST RESULT LIMITS Comp panel: Leukemia/Lymphoma Flow Interpretation 1) Acute undifferentiated leukemia See Comment 2) CD5+, CD23+ clonal B-cell population, CLL/SLL phenotype, CD38 negative, 2% of leukocytes, <5000/uL See Comment Flow Comment 1) The blasts do not express any lineage specific markers. Bone marrow evaluation and cytogenetic studies are recommended if clinically indicated. 2) If the patient is not known to have CLL or SLL, further investigation is recommended if clinically indicated. In the absence of CLL or SLL, small (<5000/uL) clonal B-cell populations in the blood are classified as monoclonal B-cell lymphocytosis. Clinical correlation is required. This case received intradepartmental review. Clinical Information Accompanying CBC dated 12-05-17 shows a pancytopenia. WBC 2.2,RBC 2.86, PLT 44 K, Shamar 0.5, Lym 1.7 Specimen Type Peripheral blood Assessment of Leukocytes A CD5+, CD23+ monoclonal B cell population is detected with kappa light chain restriction representing 48% of the B-cells and 2% of the leukocytes. CD38 is not expressed on the clonal B-cells. There is no loss of, or aberrant expression of, the bustillos T cell antigens to suggest a neoplastic T cell process. A decreased CD4/T helper to CD8/T suppressor cell ratio is detected. CD4:CD8 ratio 0.3 CD57+ large granular lymphocytes are relatively increased, 48% of the lymphocytes. They are a mixed population of CD4+ and CD8+ T-cells and natural killer cells. A blast population is detected representing 22% of the leukocytes. The blasts express CD7, CD38, CD117 (dim) and HLA-DR. CD2, CD3, cCD3, CD4, CD5, CD8, CD10, CD11c, CD13, CD33, CD19, CD20, CD34, CD14, CD64, CD41, CD61, MPO, Tdt, are not expressed. Monocytes show aberrant expression of CD56. Analysis of the leukocyte population shows: granulocytes 17%, monocytes 8%, lymphocytes 53%, blasts 22%, B cells 5%, T cells 36%, NK cells 12%, CD57+ LGLs 25%. Viability 94% Immunophenotypic Profile Abnormal cell population: present-22% of total cells (Phenotype below),2% of total cells (Phenotype below) Analysis and Gating Strategy 8 color analysis with CD45/SSC Phenotype Chart CD2 N N CD3 N N CD4 N N CD5 N P CD7 P N CD8 N N CD10 N N CD11b N N CD11c N N CD13 N N CD14 N N CD15 N N CD16 N N CD19 N P CD20 N PD CD22 N PD CD23 N P CD33 N N CD34 N N CD38 PB N CD45 PD P CD56 N N CD57 N N CD103 IM N CD117 PD N cMPO N IM cCD3 N IM [facility]-7 IM N HLA-DR P P KAPPA N PD LAMBDA N N TdT N IM CD64 N N CD61 N IM Resulting Path Name Melissa Boyd M.D. Comment: Each antibody in this assay was utilized to assess for potential abnormalities of studied cell populations or to characterize identified abnormalities. This test was developed and its performance characteristics determined by [facility]. It has not been cleared or approved by the U.S. Food and Drug Administration. The FDA has determined that such clearance or approval is not necessary. This test is used for clinical purposes. It should not be regarded as investigational or for research. TESTING PERFORMED AT [facility]. ORIGINAL REPORT ON FILE IN LAB CONTAINS ADDITIONAL TEST SITE INFORMATION. Performed By: #### L801.1545 #### [facility] [place], [address] MISCELLANEOUS LAB Collected: 12/08/2017 Status: F Source: JASPER PROCEDURE 2 2:19 PM [facility] REPOSITORY Order Comment: Reason for Laboratory Test PERIPHERAL BLOOD CYTOGENICS-# [id number] Comments: [id number] Chromosome Analysis, PED HEPARIN List Test(s) Ordered by Physician: [id number] Chromosome Analysis, PED HEPARIN TYPE CODE TESTS RESULT OUT OF RANGE REFERENCE UNITS LAB L801.1543 Normal [facility] LAB TEST 2 Result Comment: TEST RESULT LIMITS Chromosome, Leukemia/Lymphoma Specimen Type Comment: BLOOD Cells Counted 0 Cells Analyzed 0 Cells Karyotyped 0 GTG Band Resolution Achieved N/A Cytogenetic Result Comment: NO MITOTIC ACTIVITY Interpetation Comment: Cytogenetic analysis of unstimulated cultures revealed no mitotic activity. The sample submitted appeared to be blood. Generally 5% blasts in the peripheral circulation are necessary to obtain cytogenetic results*. Bone marrow is recommended for the analysis of disorders with blasts below that percentage. Interphase FISH (fluorescence in situ hybridization) or a chromosome microarray PROCESSOR INSPECTOR), however, can be performed on this sample. FISH panels available targeting specific disease associated alterations are: AML (#[id number]), MDS (#[id number]), CLL (#[id number]), MM (#[id number]), ALL (#[id number], pediatric panel; #[id number], adult panel), and aggressive B-cell lymphoma (#[id number]). The array (#[id number]) targets both copy number changes throughout the genome and copy neutral DEUCE. (If desired, please call the number below ([phone]) and testing can be performed on available residual sample.. *In small cell B-lymphoid disorders some leukemic clones can be stimulated by B mitogens, eliminating the necessity for peripheral blood blasts. These disorders include most B-LPD. Director Review: Comment: Sarah Conrad, PhD TESTING PERFORMED AT [facility]. ORIGINAL REPORT ON FILE IN LAB CONTAINS ADDITIONAL TEST SITE INFORMATION. Performed By: #### L801.1543 #### [facility] [address] [place], [address] ONCOLOGY HISTORY AND Observed: 12/07/2017 Status: F Source: KIMBERLY PHYSICAL 5:16 PM [facility] REPOSITORY [facility] Medical Records Department [address] [place] [address] History and Physical 12/07/17 1649 MR#: [id number] Acct: [id number] Name: ORION XIE Rep #: [id number] : [id number] 82 From: Nj Leija MD PCP: Skinny Lopez MD Status: REG RCR Y Location: [facility] Subjective Date of Service:: 12/07/17 Chief Complaint: For work up of Pancytopenia. History of Present Illness: 82y/o man was found to have abnormal labs, CBC on November 15, 2017 showed WBC 2.4 hemoglobin 6.1 platelets 68. Peripheral smear showed no abnormal cells and he was given 2 units of packed RBCs. He had bone marrow biopsy was done on 11/18/2017. He comes to the clinic today for further evaluation. Power of Electrophysiology Technologist: No Living Will: No Health History: Past Medical History (Last Updated 12/07/17 @ 14:58 by Joan Burton) Anemia (Acute) Benign prostatic hyperplasia (Acute) Hernia (Acute) Pancytopenia (Acute) Hypertension (Chronic) Past Surgical History (Last Updated 12/07/17 @ 14:58 by Joan Burton) History of hernia repair (Acute) Family History (Last Updated 12/07/17 @ 08:22 by Joan Burton) Other No pertinent family history Allergies/Adverse Reactions: Allergy/AdvReac Type Severity Reaction Status Date / Time No Known Allergies Allergy Verified 12/01/17 09:41 Risk Factors Social History Smoking Status Never smoker Tobacco Risk Data: Tobacco Risk Smoking Status Never smoker Type of tobacco: Smokeless tobacco usage: Items/Day: Year started: Years used: Counseled to quit/cut down: Reason for no counseling performed: Reason for no pharmacotherapy: Tobacco use comments: Passive smoke exposure: No Substance Risk Drug use: No Caffeine use [drinks/day]: 2 Alcohol use: No Type of alcohol: Drinks per day: Has patient felt the need to cut down: Has the patient been annoyed by complaints: Has the patient felt guilty about drinking: Has the patient needed an eye weatherization specialist in the mornings: Comments: Review of Systems Constitutional:: Reports: - - Hard of hearing.. Denies: Fever, Sweats, Weight loss, Appetite change, Chills Cardiovascular:: Denies: Chest pain, Palpitations, Dyspnea on exertion, Orthopnea, PND, Shortness of breath Respiratory: Denies: Cough, Hemoptysis, Shortness of Breath, Wheezing Gastrointestinal:: Denies: Abdominal pain, Nausea, Vomiting, Diarrhea, Constipation, Hematochezia Genitourinary: Denies: Dysuria, Hematuria, 15, Flank pain Musculoskeletal:: Denies: Back pain, Myalgia, Arthralgia Skin: Denies: Rash, Skin Changes, Wounds Neurological:: Denies: Headache, Dizziness, Visual changes, Tinnitus, Hearing loss Psychiatric: Denies: Anxiety, Depression, Homicidal Ideations, Suicidal Ideations Vital Signs Height 5 ft 10 in Weight: 85.275 kg Weight in Pounds 188.0 lbs Pulse Ox 97 - Physical Exam General: Alert, Oriented x3, No apparent distress HEENT: Atraumatic, PERRLA, EOMI, Normocephalic, - - + hearing difficulty. Oropharynx:: Dry mucosa Neck:: Supple, Trachea midline. Negative for: JVD, bilateral Cardiac:: Regular rate, Regular rhythm, Normal S1, Normal S2. Negative for: Murmur Lungs: Clear to auscultation, Excusion symmetrical. Negative for: Rhonchi, Wheezes Abdomen:: Bowel sounds x 4, Soft, Non-tender, Non-distended. Negative for: Hepatosplenomegaly Extremities:: Negative for: Cyanosis, Edema Neurological: Neuro grossly intact Skin:: Negative for: Lesions, Rash, Petechiae, Ecchymosis Psychiatric:: Appropriate affect, Euthymic Lymphatics:: Negative for: Cervical lymphadenopathy, Supraclavicular lymphadenopathy, Axillary lymphadenopathy Laboratory Data: Laboratory Tests WBC 2.2 L Pathology Data: 11/18/2017 Bone marrow biopsy reviewed. BONE MARROW DIAGNOSIS Bone marrow core and peripheral smear: Hypercellular marrow with trilineage hematopoiesis and mild megakaryocytic dysplasia. Peripheral blood - pancytopenia. See comment. SJ:rg 11/22/17 COMMENT The findings may represent myeloproliferative disorder/myelodysplastic disorder. Immunohistochemistry ([id number]) does not show significant increase of blasts. Peripheral smear shows mild increased of blasts. Clinical correlation and appropriate follow up are necessary. Case has been reviewed in consultation with Dr. Harper who concurs with the above diagnosis. 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 Discussed the biopsy report with Pathologist Dr. 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 No cytogenetic testing was done. Discussed the finding with pt and his friend. Plan is to obtain Peripheral blood flow cytometry for [facility], cytogenetics, JAK2. RTC 2 wks. Medications: Prescriptions This Visit Medication Instructions Recorded Ferrous Gluconate 325 mg PO DAILY@0800 12/07/17 Primary Care Provider: Skinny Lopez MD Referring Provider: Skinny Lopez - Problem List (1) Pancytopenia Status: Acute Code Visit Office Visits / Consults: [id number] OV L5 New 12/07/17 1716 <Electronically signed by Nj Leija MD> Date Nj Leija MD Cosigner Signature: Date (if applicable) CC: Skinny Lopez MD; Skinny Lopez MD; Nj Leija MD Signed CBC W/DIFF, AUTOMATED Collected: 12/05/2017 Status: C Source: JASPER 6:05 AM [facility] REPOSITORY TYPE CODE TESTS RESULT OUT OF RANGE REFERENCE UNITS LAB L100.1000 4.4-11.0 K/mm3 Low WBC 2.2 LAB L100.1200 4.6-6.2 M/mm3 Low RBC 2.86 LAB L100.1300 13.0-16.5 g/dl Low HGB 8.6 LAB L100.1400 40-54 % Low HCT 26.1 LAB L100.1500 80-94 fL Normal MCV 91.3 LAB L100.1600 27.0-32.0 pg Normal MCH 30.1 LAB L100.1700 32-36 g/gl Normal MCHC 33.0 LAB L100.1810 11.6-14.6 % High RDW CV 16.7 LAB L100.1820 35.1-43.9 fl High RDW SD 54.8 LAB L100.1900 150-450 K/mm3 Low alert PLT 44 Result Comment: CRITICAL VALUE VERIFIED. CALLED TO JAILYN ABRAMS 12/05/17 1105 Nahid R Stoner. RESULTS READ BACK BY SAME. LAB L100.2100 47-70 % Low NEUT% 21.0 LAB L100.2200 19-41 % High LY% 53.4 LAB L100.2300 0-10 % High MONO% 25.6 LAB L100.2400 0-5 % Normal EO% 0.0 LAB L100.2500 0-1 % Normal BASO% 0.0 LAB L100.2550 0.0-0.9 % Normal IM GRAN % 0.000 Result Comment: IG% - Immature Granulocytes (promyelocytes, myelocytes and metamyelocytes) > 1% indicates that a LEFT SHIFT is Present. LAB L100.2620 2.0-7.7 X10 3/uL Low Absolute Neut 0.5 LAB L100.2720 0.83-4.51 X10 3/ul Normal Absolute Lymph 1.19 LAB L100.4500 SMEAR Normal COMMENT Result Comment: SLIDE SCANNED - NEUTROPENIA, RARE RBC FRAGMENTS, 1+ LARGE PLTS, THROMBOCYTOPENIA. LAB L100.9900 Normal Reviewed PATH REV Result Comment: Pancytopenia. Clinical correlation necessary. Darrin Dobson M.D. 12/06/17 AMENDED REPORT 12/06/17 1514 PATH REV previously reported as: September Performed By: #### L100.0100 #### [facility] [place], [address] CBC W/DIFF, AUTOMATED Collected: 11/30/2017 Status: C Source: JASPER 5:55 AM [facility] REPOSITORY TYPE CODE TESTS RESULT OUT OF RANGE REFERENCE UNITS LAB L100.1000 4.4-11.0 K/mm3 Low WBC 2.0 LAB L100.1200 4.6-6.2 M/mm3 Low RBC 2.57 LAB L100.1300 13.0-16.5 g/dl Low HGB 7.6 LAB L100.1400 40-54 % Low HCT 23.5 LAB L100.1500 80-94 fL Normal MCV 91.4 LAB L100.1600 27.0-32.0 pg Normal MCH 29.6 LAB L100.1700 32-36 g/gl Normal MCHC 32.3 LAB L100.1810 11.6-14.6 % High RDW CV 17.5 LAB L100.1820 35.1-43.9 fl High RDW SD 58.3 LAB L100.1900 150-450 K/mm3 Low alert PLT 49 Result Comment: CRITICAL VALUE VERIFIED. CALLED TO JAILYN ABRAMS 11/30/17 0756 Nahid Sousa. RESULTS READ BACK BY SAME. LAB L100.2100 47-70 % Low NEUT% 24.0 LAB L100.2200 19-41 % High LY% 53.6 LAB L100.2300 0-10 % High MONO% 21.9 LAB L100.2400 0-5 % Normal EO% 0.0 LAB L100.2500 0-1 % Normal BASO% 0.0 LAB L100.2550 0.0-0.9 % Normal IM GRAN % 0.500 Result Comment: IG% - Immature Granulocytes (promyelocytes, myelocytes and metamyelocytes) > 1% indicates that a LEFT SHIFT is Present. LAB L100.2620 2.0-7.7 X10 3/uL Low Absolute Neut 0.5 LAB L100.2720 0.83-4.51 X10 3/ul Normal Absolute Lymph 1.05 LAB L100.4500 Normal SMEAR COMMENT COMMENT Result Comment: SLIDE SCANNED - NEUTROPENIA,THROMBOCYTOPENIA. LAB L100.9900 Normal Reviewed PATH REV Result Comment: Pancytopenia. Rare blasts are noted. Darrin Dobson M.D. 11/30/17 AMENDED REPORT 11/30/17 1533 PATH REV previously reported as: September Performed By: #### L100.0100 #### [facility] [address] [place], [place], [id number] TYPE AND SCREEN Collected: 11/30/2017 Status: P Source: KIMBERLY 5:55 AM [facility] REPOSITORY Order Comment: CMV NEG?* N Give When? WHEN NEEDED Irradiated? N Leukodepleted? Y Reason for Type AND Screen/Red Cells: ANEMIA TYPE CODE TESTS RESULT OUT OF RANGE REFERENCE UNITS LAB B10.0800 A Normal BLOOD TYPE GEL POSITIVE LAB B100.4000 Normal Antibody NEGATIVE Screen Performed By: #### B101.7450 #### [facility] [address] [place], [place], [address] TYPE AND SCREEN Collected: 11/30/2017 Status: P Source: JASPER 5:55 AM [facility] REPOSITORY Order Comment: CMV NEG?* N Give When? WHEN NEEDED Irradiated? N Leukodepleted? Y Reason for Type AND Screen/Red Cells: ANEMIA TYPE CODE TESTS RESULT OUT OF RANGE REFERENCE UNITS LAB B10.0800 A Normal BLOOD TYPE GEL POSITIVE LAB B100.4000 Normal Antibody NEGATIVE Screen Performed By: #### B101.7450 #### [facility] [address] [place], [address] CBC W/DIFF, AUTOMATED Collected: 11/30/2017 Status: F Source: JASPER 5:55 AM [facility] REPOSITORY TYPE CODE TESTS RESULT OUT OF RANGE REFERENCE UNITS LAB L100.1000 4.4-11.0 K/mm3 Low WBC 2.0 LAB L100.1200 4.6-6.2 M/mm3 Low RBC 2.57 LAB L100.1300 13.0-16.5 g/dl Low HGB 7.6 LAB L100.1400 40-54 % Low HCT 23.5 LAB L100.1500 80-94 fL Normal MCV 91.4 LAB L100.1600 27.0-32.0 pg Normal MCH 29.6 LAB L100.1700 32-36 g/gl Normal MCHC 32.3 LAB L100.1810 11.6-14.6 % High RDW CV 17.5 LAB L100.1820 35.1-43.9 fl High RDW SD 58.3 LAB L100.1900 150-450 K/mm3 Low alert PLT 49 Result Comment: CRITICAL VALUE VERIFIED. CALLED TO JAILYN ABRAMS 11/30/17 0756 Nahid Sousa. RESULTS READ BACK BY SAME. LAB L100.2100 47-70 % Low NEUT% 24.0 LAB L100.2200 19-41 % High LY% 53.6 LAB L100.2300 0-10 % High MONO% 21.9 LAB L100.2400 0-5 % Normal EO% 0.0 LAB L100.2500 0-1 % Normal BASO% 0.0 LAB L100.2550 0.0-0.9 % Normal IM GRAN % 0.500 Result Comment: IG% - Immature Granulocytes (promyelocytes, myelocytes and metamyelocytes) > 1% indicates that a LEFT SHIFT is Present. LAB L100.2620 2.0-7.7 X10 3/uL Low Absolute Neut 0.5 LAB L100.2720 0.83-4.51 X10 3/ul Normal Absolute Lymph 1.05 LAB L100.4500 Normal SMEAR COMMENT COMMENT Result Comment: SLIDE SCANNED - NEUTROPENIA,THROMBOCYTOPENIA. LAB L100.9900 Normal Reviewed PATH REV Result Comment: Pancytopenia. Rare blasts are noted. Darrin Dobson M.D. 11/30/17 AMENDED REPORT 11/30/17 1533 PATH REV previously reported as: September Performed By: #### L100.0100 #### [facility] [address] [facility] [address] [place], [place], [address] TYPE AND SCREEN Collected: 11/30/2017 Status: F Source: JASPER 5:55 AM [facility] REPOSITORY Order Comment: CMV NEG?* N Give When? WHEN NEEDED Irradiated? N Leukodepleted? Y Reason for Type AND Screen/Red Cells: ANEMIA TYPE CODE TESTS RESULT OUT OF RANGE REFERENCE UNITS LAB B10.0800 A Normal BLOOD TYPE GEL POSITIVE LAB B100.4000 Normal Antibody NEGATIVE Screen Performed By: #### B101.7450 #### [facility] [address] [place], [place], [address] RC Collected: 11/30/2017 Status: F Source: JASPER 5:55 AM [facility] REPOSITORY TYPE CODE TESTS RESULT OUT OF REFERENCE UNITS RANGE LAB U100.0000 [id number] TRANSFUSED PRODUCT: T AND S with Crossmatch, Red Cells COUNT: 2 Performed By: #### U100.0000 #### Non-[facility] - refer to report for specific site CBC W/DIFF, AUTOMATED Collected: 11/28/2017 Status: C Source: JASPER 6:40 AM [facility] REPOSITORY TYPE CODE TESTS RESULT OUT OF RANGE REFERENCE UNITS LAB L100.1000 4.4-11.0 K/mm3 Low WBC 1.6 LAB L100.1200 4.6-6.2 M/mm3 Low RBC 2.58 LAB L100.1300 13.0-16.5 g/dl Low HGB 7.7 LAB L100.1400 40-54 % Low HCT 23.5 LAB L100.1500 80-94 fL Normal MCV 91.1 LAB L100.1600 27.0-32.0 pg Normal MCH 29.8 LAB L100.1700 32-36 g/gl Normal MCHC 32.8 LAB L100.1810 11.6-14.6 % High RDW CV 17.5 LAB L100.1820 35.1-43.9 fl High RDW SD 57.5 LAB L100.1900 150-450 K/mm3 Low alert PLT 43 Result Comment: CRITICAL VALUE VERIFIED. CALLED TO JAILYN ABRAMS 11/28/17 0949 Nahid Sousa. RESULTS READ BACK BY SAME. LAB L100.2100 47-70 % Low NEUT% 23.9 LAB L100.2200 19-41 % High LY% 47.9 LAB L100.2300 0-10 % High MONO% 28.2 LAB L100.2400 0-5 % Normal EO% 0.0 LAB L100.2500 0-1 % Normal BASO% 0.0 LAB L100.2550 0.0-0.9 % Normal IM GRAN % 0.000 Result Comment: IG% - Immature Granulocytes (promyelocytes, myelocytes and metamyelocytes) > 1% indicates that a LEFT SHIFT is Present. LAB L100.2620 2.0-7.7 X10 3/uL Low Absolute Neut 0.4 LAB L100.2720 0.83-4.51 X10 3/ul Low Absolute Lymph 0.78 LAB L100.5500 ADEQ PLT EST Normal MKD DEC LAB L100.5650 PLT MORPH Normal LARGE LAB L100.7300 ANISO Normal RARE LAB L100.7600 HYPOCHROMASIA Normal 2+ LAB L100.9900 PATH REV Normal Reviewed Result Comment: Pancytopenia. Rare blasts are noted. Clinical correlation necessary. Darrin Dobson M.D. 11/29/17 AMENDED REPORT 11/29/17 1628 PATH REV previously reported as: September aman Performed By: #### L100.0100 #### [facility] [place], [address] BASIC METABOLIC Collected: 11/21/2017 Status: F Source: JASPER PROFILE (BMP) 7:50 AM [facility] REPOSITORY TYPE CODE TESTS RESULT OUT OF RANGE REFERENCE UNITS LAB L501.0100 74-106 mg/dL Normal GLU 84 Result Comment: Please note revised GLUCOSE reference range effective 2017. LAB L501.1000 7-18 mg/dL High BUN 19 LAB L501.1100 0.70-1.30 mg/dL Normal CREAT,SERUM 0.74 Result Comment: The validity of the calculated GFR AND GFRAA in patients over 70 years has not been determined. Clinical correlation is essential. LAB L501.1110 >60 mL/min Normal EST GFR 109 Result Comment: Non- GFR Calc LAB L501.1115 >60 mL/min Normal EST GFR - AA 131 Result Comment: GFR Calc LAB L501.1300 10-20 RATIO High BUN/CRE 25.9 LAB L501.2200 8.5-10.1 mg/dL Low CA 8.3 LAB L501.5300 136-145 mmol/L NA Normal 140 LAB L501.5600 3.5-5.1 mmol/L K Normal 3.8 LAB L501.5900 98-107 mmol/L High CL 111 LAB L501.6100 21.0-32.0 mmol/L Normal CO2 23.0 LAB L501.6200 5-15 Normal GAP 6 Performed By: #### L500.2500 #### [facility] [address] [place], [address] CBC W/DIFF, AUTOMATED Collected: 11/21/2017 Status: F Source: KIMBER[place] 7:50 AM [facility] REPOSITORY TYPE CODE TESTS RESULT OUT OF RANGE REFERENCE UNITS LAB L100.1000 4.4-11.0 K/mm3 Low WBC 2.7 LAB L100.1200 4.6-6.2 M/mm3 Low RBC 3.10 LAB L100.1300 13.0-16.5 g/dl Low HGB 9.2 LAB L100.1400 40-54 % Low HCT 27.8 LAB L100.1500 80-94 fL Normal MCV 89.7 LAB L100.1600 27.0-32.0 pg Normal MCH 29.7 LAB L100.1700 32-36 g/gl Normal MCHC 33.1 LAB L100.1810 11.6-14.6 % High RDW CV 18.0 LAB L100.1820 35.1-43.9 fl High RDW SD 58.4 LAB L100.1900 150-450 K/mm3 Low PLT 60 LAB L100.2100 47-70 % Low NEUT% 26.2 LAB L100.2200 19-41 % High LY% 51.7 LAB L100.2300 0-10 % High MONO% 21.7 LAB L100.2400 0-5 % Normal EO% 0.0 LAB L100.2500 0-1 % Normal BASO% 0.4 LAB L100.2550 0.0-0.9 % Normal IM GRAN % 0.000 Result Comment: IG% - Immature Granulocytes (promyelocytes, myelocytes and metamyelocytes) > 1% indicates that a LEFT SHIFT is Present. LAB L100.2620 2.0-7.7 X10 3/uL Low Absolute Neut 0.7 LAB L100.2720 0.83-4.51 X10 3/ul Normal Absolute Lymph 1.38 LAB L100.4500 Normal SMEAR COMMENT COMMENT Result Comment: SLIDE SCANNED - NEUTROPENIA, 1+ LARGE PLTS. Performed By: #### L100.0100 #### [facility] [address] [place], [address] DISCHARGE SUMMARY Observed: 11/18/2017 Status: F Source: JASPER 5:40 PM [facility] REPOSITORY [facility] Medical Records Department [address] [place] [address] Discharge Summary 11/18/17 1412 MR#: [id number] Acct: [id number] Name: ORION XIE Rep #: [id number] : 1935 82 From: Manish MCGILL PCP: Skinny Lopez MD Status: DIS IN Y Location: [place] [address]-1 ADDENDUM by Kevin Meza DO on 11/18/17 at 1740 Code Visit Additional diagnosis: Severe anemia requiring blood transfusion Inpatient E AND M: [id number] Disch Hosp 11/18/17 1740 <Electronically signed by Kevin Meza DO> Date Kevin Meza DO cc: Skinny Lopez MD; NANO Michel; Kevin Meza DO * Signed Discharge Date and Diagnosis - Problem List Patient Problems: Active and Suspected Problems Pancytopenia (Acute) Severe anemia (Acute) Date of Admission: 11/15/17 Date of Discharge: 11/18/17 - Primary Discharge Diagnosis Active and Suspected Problems Pancytopenia (Acute) Severe anemia (Acute) HTN BPH - Secondary Discharge Diagnosis Chronic Problems BPH (benign prostatic hyperplasia) (Chronic) Hypertension (Chronic) Hospital Course and Treatment Imaging Results: CT/Biopsy/Inj or Needle Placement IMPRESSION: Successful CT guided bone marrow biopsy of the left iliac crest, as described above. Consultations: Oncology-Pra Operations: None Procedures: - - Bone marrow biopsy Summary of Care Provided: Physical exam on day of discharge: General: Resting comfortably NAD Psych: A/Ox3 normal affect HEENT: PEARRLA AT NC Neck: Supple NT CV: RRR no m/t/r/g/h Resp: CTA Abd: [id number] Soft NT no guarding or rigidity Ext: DP2+= no edema Skin: W/D normal turgor Lymph/Heme: No active bleeding or adenopathy Neuro: CN2-12 intact Hospital course: The patient is a 82 year old M with a history of hypertension, BPH, who presented to the emergency room after being sent from his assisted living for abnormal labs-pancytopenia as demonstrated by hemoglobin of 5.6, WBCs of 2.3, platelet count 55,000. He did complain of slowly progressing fatigue and exertional dyspnea, lightheadedness and dizziness, and unsteady gait. He had no prior history of pancytopenia. He was admitted to the hospital and he underwent transfusion of 2 units of packed red blood cells and hematology oncology was consulted. Iron studies were checked which were unremarkable. He Monck recommended that he have as needed blood transfusions and a bone marrow biopsy. Bone marrow biopsy was obtained via interventional radiology. He received a total of 3 more units for total of 5 units of packed red blood cells. His symptoms did improve and his hemoglobin improved dramatically. Rest of his counts remained stable. We advised that he follow- up as an outpatient with his primary care provider and with [facility] as an outpatient in order to obtain his bone marrow biopsy results. The patient was discharged back to assisted living in stable condition. Please follow-up as directed. This patient was seen by Manish Michel PA-C under the supervision of Doctor Derrick. [] Discharge Diet: Low fat/ Low Cholesterol, 2000 mg Sodium Diet Discharge Activity: Return to Normal Activity Home Medications: Medications to take at Discharge Amlodipine [Norvasc] 5 mg PO QHS 12/11/14 Finasteride [Proscar] 5 mg PO QHS 01/09/16 Acetaminophen 650 mg PO Q4H PRN PRN 11/15/17 Bisacodyl 10 mg RC DAILY PRN 11/15/17 Mag Hydrox/Al Hydrox/Simeth [Antacid Suspension] 15 ml PO PRN PRN 11/15/17 Potassium Chloride [Klor-Con M20] 20 meq PO DAILY 11/15/17 Lisinopril [Zestril] 20 mg PO DAILY #30 tab 11/18/17 Following Prescrptions Were Given to Patient: Lisinopril [Zestril] 20 mg PO DAILY #30 tab Primary Care Physician: Skinny Lopez MD [Primary Care Provider] - Please follow up with your Primary Care Physician in: as directed Please Follow Up With: Nj Leija MD When: as directed Disposition: Asstd Living/Non-Skill PR Minutes spent on discharge:: 35 Patient Condition:: Stable Medical Necessity - Tobacco Use Smoking Status: Never smoker Tobacco Use: Non-smoker Meaningful Use Info Meaningful Use Diagnoses (Choose all that apply): None applicable 11/18/17 1417 <Electronically signed by Manish MCGILL> Date Manish MCGILL 11/18/17 1737<Electronically signed by Kevin Meza DO> Cosigner Signature (if applicable): Date Kevin Meza DO CC: Skinny Lopez MD; NANO Michel; Kevin Meza DO Signed BONE MARROW ASPIRATON Collected: 11/18/2017 Status: F Source: JASPER 11:20 AM [facility] REPOSITORY TYPE CODE TESTS RESULT OUT OF RANGE REFERENCE UNITS LAB L350.0900 SEE Normal BONE PATHOLOGY MARROW ASP REPORT Result Comment: Specimen submitted to Anatomical Pathology Department for testing. Performed By: #### L350.0900 #### [facility] [address] [place], [address] DISCHARGE INSTRUCTION Observed: 11/18/2017 Status: F Source: JASPER 11:01 AM [facility] REPOSITORY [facility] Medical Records Department [address] [place] [address] Instructions for Home/Discharge Instructions 11/18/17 1059 MR#: [id number] Acct: [id number] Name: ORION XIE Rep #: [id number] : 1935 82 From: Manish MCGILL PCP: Skinny Lopez MD Status: ADM IN - Discharge Diagnoses Current Active Problems: Current Active and Chronic Problems Pancytopenia (Acute) Severe anemia (Acute) BPH (benign prostatic hyperplasia) (Chronic) Hypertension (Chronic) You will use the following diet at home:: Cardiac Your food should be the consistency of: Regular Your liquids should be the consistency of: Regular/Thin Discharge Activity: Return to Normal Activity Allergies/Adverse Reactions: Allergies No Known Allergies Allergy (Verified 11/15/17 15:34) Medications to take at Discharge Amlodipine [Norvasc] 5 mg PO QHS 12/11/14 Finasteride [Proscar] 5 mg PO QHS 01/09/16 Acetaminophen 650 mg PO Q4H PRN PRN 11/15/17 Bisacodyl 10 mg RC DAILY PRN 11/15/17 Mag Hydrox/Al Hydrox/Simeth [Antacid Suspension] 15 ml PO PRN PRN 11/15/17 Potassium Chloride [Klor-Con M20] 20 meq PO DAILY 11/15/17 Lisinopril [Zestril] 20 mg PO DAILY #30 tab 11/18/17 The following prescriptions were given: Lisinopril [Zestril] 20 mg PO DAILY #30 tab Primary Care Physician: Skinny Lopez MD [Primary Care Provider] - Please follow up with your Primary Care Physician in: as directed Test Results: Test results from this visit will be discussed in further detail at your follow-up appointment, if applicable. Please Follow Up With: Nj Leija MD When: as directed Proposed Discharge Date: 11/18/12 11/18/17 1101 <Electronically signed by Manish MCGILL> Date Manish MCGILL CC: Skinny Lopez MD; Nj Leija MD CBC-COMPLETE BLOOD CNT Collected: 11/18/2017 Status: F Source: [place]IM[place] NO DIFF 5:12 AM [facility] REPOSITORY TYPE CODE TESTS RESULT OUT OF RANGE REFERENCE UNITS LAB L100.1000 4.4-11.0 K/mm3 Low WBC 2.0 LAB L100.1200 4.6-6.2 M/mm3 Low RBC 2.66 LAB L100.1300 13.0-16.5 g/dl Low HGB 8.2 LAB L100.1400 40-54 % Low HCT 24.7 LAB L100.1500 80-94 fL Normal MCV 92.9 LAB L100.1600 27.0-32.0 pg Normal MCH 30.8 LAB L100.1700 32-36 g/gl Normal MCHC 33.2 LAB L100.1810 11.6-14.6 % High RDW CV 18.5 LAB L100.1820 35.1-43.9 fl High RDW SD 59.0 LAB L100.1900 150-450 K/mm3 Low PLT 66 LAB L100.2000 6.2-12.0 fl Normal MPV 12.0 Performed By: #### L100.0500 #### [facility] [address] [place], [place], [id number] BONE MARROW BIOPSY Observed: 11/18/2017 Status: F Source: KIMBERLY 12:00 AM [facility] REPOSITORY Patient: ORION XIE : 1935 (82/M) Acct Num: [id number] Phys: Derrick ROSEKevin Unit Num: [id number] Loc: U [id number] Specimen: [id number] Received: 11/18/17 - 1344 Spec Type: BMB TISSUES TISSUES: Bone marrow, NOS BONE MARROW GROSS A - Received is a container labeled with the patient's name and designated bone marrow biopsy. The specimen consists of three variable sized elongated pieces of matthews bone measuring 0.5 to 1.5 cm in length and 0.1 cm in diameter. The entire specimen is submitted in one cassette after decalcification. B - Also received is one peripheral smear stained slide. / SJ:timothy 11/18/17 TC: 5 CPT: 84564, 44904, 17266, 46084 x4, 17077 BONE MARROW STUDY Slides are reviewed. CBC DATE: 11/18/17 WBC 2; RBC 2.66; HGB 8.2; HCT 24.7; MCV 92.9; RDW 18.4; PLTS 66,000 Manual differential count: SEGS 25%; LYMPHS 62%; MONOS 6%; EOS 0%; BASOS 0 %; BLASTS 7% PERIPHERAL SMEAR: Submitted. RBC: Normocytic and hyperchromic. WBC: Leukopenia and neutropenia. Mild increased of blasts are noted. PLTS: Decreased. BONE MARROW ASPIRATE DIFFERENTIAL: Not applicable. ASPIRATE FINDINGS: Not applicable. CORE BIOPSY FINDINGS: Site: Not specified Adequacy: Adequate Cellularity: 70-80% M/E ratio: Within normal limits. Megakaryocytes: Present and increased in number. Mild dysplastic changes are noted. Focal clustering of megakaryocytes is also noted. Bony trabeculae: Unremarkable. Granulomas: Absent. Lymphoid aggregate: Absent. Atypical infiltrate: Absent. Comment: Immunohistochemistry ([id number]) does not show significant increase of blasts. ASPIRATE CLOT FINDINGS: Not applicable. SPECIAL STAINS WITH MATCHED CONTROLS: Iron: Decreased. Atypical or ring sideroblasts are not seen. Reticulin: Increased. PAS: Highlights myeloid cells and megakaryocytes. Trichrome: Significant collagenous fibrosis is not seen. COMMENT The findings may represent myeloproliferative disorder/myelodysplastic disorder. Immunohistochemistry ([id number]) does not show significant increase of blasts. Peripheral smear shows mild increased of blasts. Clinical correlation and appropriate follow up are necessary. Case has been reviewed in consultation with Dr. Harper who concurs with the above diagnosis. IDC:AM BONE MARROW DIAGNOSIS Bone marrow core and peripheral smear: Hypercellular marrow with trilineage hematopoiesis and mild megakaryocytic dysplasia. Peripheral blood - pancytopenia. See comment. SJ:timothy 11/22/17 HEADER OPERATION: CT-guided bone marrow biopsy and aspiration PRE-OP DIAGNOSIS: Pancytopenia; low blood count TISSUE SUBMITTED: 11g core x3 left iliac Signed Darrin Dobson 11/22/17 <signature on file> Performed By: #### PBMB #### [facility] [address] [place] [address]. [place], [address] IMMUNOHISTOCHEMISTRY Observed: 11/18/2017 Status: F Source: JASPER 12:00 AM [facility] REPOSITORY Patient: ORION XIE : 1935 (82/M) Acct Num: [id number] Phys: Derrick ,Kevin Unit Num: [id number] Loc: [facility] [id number] Specimen: [id number] Received: 11/21/171206 Spec Type: IMMUNO TISSUES TISSUES: Bone marrow of iliac crest SPECIMEN INFORMATION: Tissue Source: Bone marrow core x3 left iliac, 11g Clinical Info: Pancytopenia; low blood count Specimen Number: [id number] CPT code: 98692 METHODOLOGY: Deparaffinized sections of prefer/formalin-fixed tissue or PAP/DQ stained slides are incubated with monoclonal/polyclonal antibodies/oligonucleotide probes. Localization is made via biotin free immunoperoxidase method. Appropriate controls are performed and reacted as expected. Results on target cell population are indicated in the following table: RESULTS: ANTIBODY / CLONE RESULT CD34 (QBEnd-10) negative These tests were developed and their performance characteristics determined by [facility]. They may not have been cleared or approved by the U.S. Food and Drug Administration. The FDA has determined that such clearance or approval is not necessary. INTERPRETATION: Bone marrow core x3, left iliac biopsy: Increased number of blasts is not seen. DOYLE:timothy 11/22/17 Case has been reviewed in consultation with Dr. Harper who concurs with the above diagnosis. IDC:AM [facility]YS[facility] IN[facility] [address] [address] Signed Darrin Terryin 11/22/17 <signature on file> Performed By: #### PIMM #### [facility] [address] [place], [address] CONSULTATION Observed: 11/17/2017 Status: F Source: JASPER 5:22 PM [facility] REPOSITORY [facility] Medical Records Department [address] [place] [address] Consultation 11/16/17 1649 MR#: [id number] Acct: [id number] Name: ORION XIE Rep #: [id number] : 1935 82 From: Nj Leija MD PCP: Skinny Lopez MD Status: ADM IN Y Location: [place] [address] Consult Referring Physician: Dr. Alejandrina London. Consult Results: Pancytopenia R/O MDS Subjective Date of Service:: 11/16/17 Chief Complaint: Asked to see Pt for Pancytopenia. History of Present Illness: 82 y.o.man with history of hypertension and BPH was sent from [facility] with abnormal labs, hemoglobin 6.3, WBC 2.7 and platelets of 60,000 after patient complained of fatigue. CBC on 11/15/2017 showed WBC 2.4, Hgb 6.1, PLT 68 in ER, Film did not show any abnormal cells and patient was given 2 units of packed RBCs. He is now on the klein feeling comfortable with no complaints. Past Medical History: Chronic Problems BPH (benign prostatic hyperplasia) (Chronic) Hypertension (Chronic) Paternal Family History: No pertinent history - Social History Smoking Status: Never smoker Tobacco Use: Non-smoker Allergies/Adverse Reactions: Allergy/AdvReac Type Severity Reaction Status Date / Time No Known Allergies Allergy Verified 11/15/17 15:34 Review of Systems Constitutional:: Reports: Fatigue. Denies: Fever, Sweats Cardiovascular:: Denies: Chest pain, Palpitations, Dyspnea on exertion, Orthopnea, PND, Shortness of breath Respiratory: Denies: Cough, Hemoptysis, Shortness of Breath, Wheezing Gastrointestinal:: Denies: Abdominal pain, Nausea, Vomiting, Diarrhea, Constipation, Hematochezia Genitourinary: Denies: Dysuria, Hematuria, 15, Flank pain Musculoskeletal:: Denies: Back pain, Myalgia, Arthralgia Skin: Denies: Rash, Skin Changes, Wounds Neurological:: Denies: Headache, Dizziness, Visual changes, Tinnitus, Hearing loss Psychiatric: Denies: Anxiety, Depression, Homicidal Ideations, Suicidal Ideations Vital Signs Height 6 ft 0.83 in Weight: 83.915 kg Weight in Pounds 185.0 lbs Pulse Ox 94 - Physical Exam General: Alert, Oriented x3, No apparent distress HEENT: Atraumatic, PERRLA, EOMI, Normocephalic, - - Hard of hearing. Oropharynx:: Dry mucosa Neck:: Supple, Trachea midline. Negative for: JVD, bilateral Cardiac:: Regular rate, Regular rhythm, Normal S1, Normal S2. Negative for: Murmur Lungs: Clear to auscultation, Excusion symmetrical. Negative for: Rhonchi, Wheezes Abdomen:: Bowel sounds x 4, Soft, Non-tender, Non-distended. Negative for: Hepatosplenomegaly Extremities:: Negative for: Cyanosis, Edema Neurological: - - Hard of hearing Skin:: Negative for: Lesions, Rash, Petechiae, Ecchymosis Lymphatics:: Negative for: Cervical lymphadenopathy, Supraclavicular lymphadenopathy, Axillary lymphadenopathy Laboratory Data: Laboratory Tests WBC (4.4-11.0) K/mm3 RBC (4.6-6.2) M/mm3 WBC 2.2 L (4.4-11.0) K/mm3 Laboratory Tests Iron 181 H TIBC 193 L Iron Saturation 93.8 H Ferritin 410 H Assessment and Plan Pancytopenia, s/p PRBC transfusion. Discussed obtaining bone marrow biopsy to evaluate for MDS. Pt declined at this time, wants to go back to Assisted Living facility. Suggestion: To do supportive PRBC transfusion as needed. Pt agrees to bone marrow biopsy, to be done by Invasive Radiology. If he is discharged, should follow up in [facility] for further evaluation. Thank you. Medications: Prescriptions This Visit Medication Instructions Recorded Acetaminophen 650 mg PO Q4H PRN PRN 11/15/17 Medications Added to Medication List This Visit Ensure [facility] Med 11/16/17 14:00 Active Primary Care Provider: Skinny Lopez MD Referring Provider: - Problem List (1) Pancytopenia Status: Acute Code Visit Office Visits / Consults: [id number] IP Consult L4 11/17/17 1722 <Electronically signed by Nj Leija MD> Date Nj Leija MD Cosigner Signature (if applicable): Date CC: Skinny Lopez MD; Nj Leija MD Signed 12 LEAD ELECTROCARDIOGRAM Observed: 11/17/2017 Status: F Source: JASPER 1:59 PM [facility] REPOSITORY [facility] Cardiovascular Services [address] [place] [address] 12 Lead EKG 11/15/17 1736 MR#: [id number] Acct: [id number] Name: ORION XIE Rep #: [id number] : 1935 82 From: Francisco Sarah MD Attending Dr: Kevin Meza DO Status: ADM IN Ordering Dr: Kevin Meza DO Date: 11/15/17 Location: [facility] Sex: M C Admitted: 11/15/17 Test Reason : ABNL LABS Blood Pressure : / mmHG Vent. Rate : 094 BPM Atrial Rate : 094 BPM P-R Int : 178 ms QRS Dur : 088 ms QT Int : 378 ms P-R-T Axes : 040 001 039 degrees QTc Int : 472 ms Normal sinus rhythm Nonspecific ST abnormality Abnormal ECG Confirmed by FRANCISCO SARAH MD ([id number]), editor publications PATIENCE LOPEZ ([id number]) on 11/17/2017 1:58:37 PM Referred By: FELA Confirmed By:FRANCISCO SARAH MD 11/17/17 1358 Date Francisco Sarah MD CC: Skinny Lopez MD; Kevin Meza DO Signed BIOPSY/INJ OR NEEDLE Observed: 11/17/2017 Status: F Source: [place] PLACEMENT 10:06 AM [facility] REPOSITORY [facility] Imaging Services [address] [place] [address] Biopsy/Inj or Needle Placement MR#: [id number] Acct: [id number] Name: ORION XIE Rep #: [id number] : 1935 M 82 From: Gagan Holbrook MD PCP: Skinny Lopez MD Status: ADM IN Study: Biopsy/Inj or Needle Placement Date of Exam: 11/18/17 Exam# [id number] Ordering Dr: Kevin Meza DO PROCEDURE: CT GUIDED BONE marrow biopsy of the left iliac crest. DATE: November 18, 2017. INDICATION: Male, 82 years old. Pancytopenia and anemia. PHYSICIAN: Gagan Holbrook M.D. RADIATION DOSAGE (If Supplied By Facility): CTDIvol = ( 16.6 ) mGy, DLP = ( 496.97 ) mGycm. Individualized dose optimization techniques were utilized. PROCEDURE: The risks, benefits, and alternatives to the procedure were explained to the patient. The specific risk of hemorrhage requiring further treatment or intervention was detailed and accepted. Follow-up instructions were discussed with the patient as well. Written informed consent was obtained. The patient was brought into the CT suite and placed in the right side down decubitus position. . An appropriate entry site was identified. The overlying skin was prepped and draped in the usual sterile fashion. 1% lidocaine was administered subcutaneously for local anesthesia. Conscious sedation was performed. The patient received 3 mg of Versed and 75 mcg of fentanyl intravenously. Conscious sedation was started at 10:55 AM and terminated at 11:19 AM. The patient was independently monitored by the department nurse. Under CT guidance, a total of 3 bone marrow biopsies were performed utilizing a 11-gauge bone marrow biopsy needle. The specimens were then placed in the appropriate fluid and transported to the laboratory for analysis. Hemostasis was obtained. The patient tolerated the procedure well without immediate complications. CT/Biopsy/Inj or Needle Placement IMPRESSION: Successful CT guided bone marrow biopsy of the left iliac crest, as described above. Electronically Signed: Gagan Holbrook MD at 12:51 EDT Tel [phone], Service support , CC: Skinny Lopez MD; Kevin Meza DO [employer] Supervisor: Signed CBC-COMPLETE BLOOD CNT Collected: 11/17/2017 Status: F Source: [place]IMBER[place] NO DIFF 5:18 AM [facility] REPOSITORY TYPE CODE TESTS RESULT OUT OF RANGE REFERENCE UNITS LAB L100.1000 4.4-11.0 K/mm3 Low WBC 2.2 LAB L100.1200 4.6-6.2 M/mm3 Low RBC 2.18 LAB L100.1300 13.0-16.5 g/dl Low HGB 6.8 LAB L100.1400 40-54 % Low HCT 20.5 LAB L100.1500 80-94 fL Normal MCV 94.0 LAB L100.1600 27.0-32.0 pg Normal MCH 31.2 LAB L100.1700 32-36 g/gl Normal MCHC 33.2 LAB L100.1810 11.6-14.6 % High RDW CV 18.0 LAB L100.1820 35.1-43.9 fl High RDW SD 58.1 LAB L100.1900 150-450 K/mm3 Low PLT 61 LAB L100.2000 6.2-12.0 fl Normal MPV 10.8 Performed By: #### L100.0500 #### [facility] [place], [address] BASIC METABOLIC Collected: 11/17/2017 Status: F Source: KIMBERLY PROFILE (BMP) 5:18 AM [facility] REPOSITORY TYPE CODE TESTS RESULT OUT OF RANGE REFERENCE UNITS LAB L501.0100 74-106 mg/dL Normal GLU 85 Result Comment: Please note revised GLUCOSE reference range effective 2017. LAB L501.1000 7-18 mg/dL Normal BUN 15 LAB L501.1100 0.70-1.30 mg/dL Low CREAT,SERUM 0.67 Result Comment: The validity of the calculated GFR AND GFRAA in patients over 70 years has not been determined. Clinical correlation is essential. LAB L501.1110 >60 mL/min Normal EST GFR 121 Result Comment: Non- GFR Calc LAB L501.1115 >60 mL/min Normal EST GFR - AA 147 Result Comment: GFR Calc LAB L501.1255 ml/min Normal Estimated CRCL 63.59 LAB L501.1300 10-20 RATIO High BUN/CRE 22.4 LAB L501.2200 8.5-10 mg/dL Low .1 CA 8.2 LAB L501.5300 136-14 mmol/L Normal 5 NA 144 LAB L501.5600 3.5-5. mmol/L Low 1 K 3.4 LAB L501.5900 98-107 mmol/L High CL 111 LAB L501.6100 21.0-3 mmol/L Normal 2.0 CO2 24.0 LAB L501.6200 5-15 Normal GAP 9 Performed By: #### L500.2500 #### [facility] [address] [place], [address] HH, HEMOGLOBIN AND Collected: 11/16/2017 Status: F Source: JASPER HEMATOCRIT 2:30 PM [facility] REPOSITORY TYPE CODE TESTS RESULT OUT OF RANGE REFERENCE UNITS LAB L100.1300 13.0-16.5 g/dl Low HGB 8.0 LAB L100.1400 40-54 % Low HCT 23.7 Performed By: #### L100.0600 #### [facility] [address] [place], [address] BASIC METABOLIC Collected: 11/16/2017 Status: F Source: KIMBERLY PROFILE (BMP) 4:10 AM [facility] REPOSITORY TYPE CODE TESTS RESULT OUT OF RANGE REFERENCE UNITS LAB L501.0100 74-106 mg/dL Normal GLU 93 Result Comment: Please note revised GLUCOSE reference range effective 2017. LAB L501.1000 7-18 mg/dL Normal BUN 16 LAB L501.1100 0.70-1.30 mg/dL Normal CREAT,SERUM 0.71 Result Comment: The validity of the calculated GFR AND GFRAA in patients over 70 years has not been determined. Clinical correlation is essential. LAB L501.1110 >60 mL/min Normal EST GFR 112 Result Comment: Non- GFR Calc LAB L501.1115 >60 mL/min Normal EST GFR - AA 136 Result Comment: GFR Calc LAB L501.1255 ml/min Normal Estimated CRCL 63.59 LAB L501.1300 10-20 RATIO High BUN/CRE 22.4 LAB L501.2200 8.5-10 mg/dL Low .1 CA 8.3 LAB L501.5300 136-14 mmol/L Normal 5 NA 144 LAB L501.5600 3.5-5. mmol/L Low 1 K 3.3 LAB L501.5900 98-107 mmol/L High CL 110 LAB L501.6100 21.0-3 mmol/L Normal 2.0 CO2 25.0 LAB L501.6200 5-15 Normal GAP 9 Performed By: #### L500.2500 #### [facility] [address] [place], [place], [address] CBC W/DIFF, AUTOMATED Collected: 11/16/2017 Status: F Source: JASPER 4:10 AM [facility] REPOSITORY TYPE CODE TESTS RESULT OUT OF RANGE REFERENCE UNITS LAB L100.1000 4.4-11.0 K/mm3 Low WBC 2.2 LAB L100.1200 4.6-6.2 M/mm3 Low RBC 2.31 LAB L100.1300 13.0-16.5 g/dl Low HGB 7.1 LAB L100.1400 40-54 % Low HCT 21.6 LAB L100.1500 80-94 fL Normal MCV 93.5 LAB L100.1600 27.0-32.0 pg Normal MCH 30.7 LAB L100.1700 32-36 g/gl Normal MCHC 32.9 LAB L100.1810 11.6-14.6 % High RDW CV 17.9 LAB L100.1820 35.1-43.9 fl High RDW SD 57.5 LAB L100.1900 150-450 K/mm3 Low PLT 60 LAB L100.2000 6.2-12.0 fl Normal MPV 10.6 LAB L100.2100 47-70 % Low NEUT% 32.1 LAB L100.2200 19-41 % Normal LY% 39.4 LAB L100.2300 0-10 % High MONO% 28.0 LAB L100.2400 0-5 % Normal EO% 0.0 LAB L100.2500 0-1 % Normal BASO% 0.0 LAB L100.2550 0.0-0.9 % Normal IM GRAN % 0.500 Result Comment: IG% - Immature Granulocytes (promyelocytes, myelocytes and metamyelocytes) > 1% indicates that a LEFT SHIFT is Present. LAB L100.2620 2.0-7.7 X10 3/uL Low Absolute Neut 0.7 LAB L100.2720 0.83-4.51 X10 3/ul Normal Absolute Lymph 0.86 Performed By: #### L100.0100 #### [facility] [address] [place], [place], [address] IRON+IRON BINDING Collected: 11/16/2017 Status: F Source: [facility] 4:10 AM [facility] REPOSITORY Order Comment: Comments: Specimen for 11/15/2017 TYPE CODE TESTS RESULT OUT OF REFERENCE UNITS RANGE LAB L503.6075 250-450 ug/dL Low TIBC 193 LAB L503.6150 65-175 ug/dL IRON High 181 LAB L503.6250 15.0-55.0 % IRON High SATURATION 93.8 Performed By: #### L503.6030 #### [facility] [address] [place], [place], [address] FERRITIN Collected: 11/16/2017 Status: F Source: JASPER 4:10 AM [facility] REPOSITORY Order Comment: Comments: Specimen from 11/15/2017 TYPE CODE TESTS RESULT OUT OF REFERENCE UNITS RANGE LAB L503.6550 26-388 ng/mL High FERRITIN 410 Performed By: #### L503.6550 #### [facility] [address] [place], [place], [address] TROPONIN-I Collected: 11/15/2017 Status: F Source: JASPER 7:12 PM [facility] REPOSITORY TYPE CODE TESTS RESULT OUT OF RANGE REFERENCE UNITS LAB L501.4010 <0.045 ng/mL Normal < 0.015 TROPONIN-I Result Comment: TROPONIN-I EXPECTED VALUES <0.045 Negative 0.045 - 0.590 Consistent with Cardiac Damage > OR = 0.600 Critical Value Not every elevated troponin is indicative of CA. These values should be used with clinical judgement in examining the patient's clinical picture for diagnosis. To establish a diagnosis of CA versus myocardial injury, there must be a demonstrated rise and/or fall in the troponin values, in addition to ischemic symptoms, EKG changes, new regional wall motion abnormality, and/or angiographical evidence. PLEASE NOTE: REFERENCE RANGES EDITED 17 Performed By: #### L501.4010, L504.2610, L506.0250 #### [facility] [address] [place], [address] LDH Collected: 11/15/2017 Status: F Source: JASPER 7:12 PM [facility] REPOSITORY TYPE CODE TESTS RESULT OUT OF RANGE REFERENCE UNITS LAB L504.2610 87-241 U/L High LDH 480 Performed By: #### L501.4010, L504.2610, L506.0250 #### [facility] [address] [place], [address] FOLATES, (FOLIC ACID) Collected: 11/15/2017 Status: F Source: JASPER 7:12 PM [facility] REPOSITORY TYPE CODE TESTS RESULT OUT OF RANGE REFERENCE UNITS LAB L506.0250 3.1-55.4 ng/mL Normal FOLATES 5.90 Performed By: #### L501.4010, L504.2610, L506.0250 #### [facility] [address] [place], [address] PROTHROMBIN TIME W/INR Collected: 11/15/2017 Status: F Source: JASPER 7:12 PM [facility] REPOSITORY TYPE CODE TESTS RESULT OUT OF RANGE REFERENCE UNITS LAB L300.4150 11.7-14.9 SECONDS Normal PROTIME 14.8 LAB L300.4200 Normal INR 1.2 Performed By: #### L300.3900, L300.4310 #### [facility] [address] [place], [address] PARTIAL THROMBOPLAST Collected: 11/15/2017 Status: F Source: KIMBERLY TIME 7:12 PM [facility] REPOSITORY TYPE CODE TESTS RESULT OUT OF RANGE REFERENCE UNITS LAB L300.4310 24.1-36.2 Seconds Normal PTT 34.9 Performed By: #### L300.3900, L300.4310 #### [facility] [address] [place], [address] VITAMIN B12 Collected: 11/15/2017 Status: F Source: KIMBERLY 7:12 PM [facility] REPOSITORY TYPE CODE TESTS RESULT OUT OF RANGE REFERENCE UNITS LAB L503.0105 211-911 pg/mL Normal Vitamin B12 812 Performed By: #### L503.0105 #### [facility] [address] [place], [address] HAPTOGLOBIN Collected: 11/15/2017 Status: F Source: KIMBERLY 7:12 PM [facility] REPOSITORY TYPE CODE TESTS RESULT OUT OF RANGE REFERENCE UNITS LAB L3100.1850 34-200 mg/dL Normal HAPTOGLOB 1628 94 Result Comment: Performed at: - [facility] [id number] Inspector Packager: Leroy Villegas PhD, Phone: [phone] Performed By: #### L3100.1850 #### [facility] (refer to report for specific site) refer to report for address and phone number HISTORY AND PHYSICAL Observed: 11/15/2017 Status: F Source: KIMBERLY EXAM 7:09 PM [facility] REPOSITORY [facility] Medical Records Department [address] [place] [address] History and Physical 11/15/17 1821 MR#: [id number] Acct: [id number] Name: ORION XIE Rep #: [id number] : [id number] 82 From: Kei London MD PCP: Skinny Lpoez MD Status: ADM IN Location: [address] Problem List (1) Pancytopenia Status: Acute (2) Severe anemia Status: Acute (3) BPH (benign prostatic hyperplasia) Status: Chronic (4) Hypertension Status: Chronic History of Present Illness Date of Admission: 11/15/17 Chief Complaint: Abnormal labs The patient is a 82 year old M with history of hypertension, BPH was sent from [facility] or abnormal labs. Patient had labs on November 12 and today and was consistent with pancytopenia. Hemoglobin 5.6, WBCs 2.3 thousand, platelet count 55,000. On 11 12, hemoglobin of 6.3, WBC count 2.7 thousand and platelet count 60,000. Patient complains of slowly progressive fatigue, dyspnea on exertion, dizziness or lightheadedness and unsteady gait. Patient also has slowly progressive edema of lower extremities last 6 months to 1 year. Patient is hard of hearing but denies prior history of coronary artery disease, CHF, stroke, peripheral artery disease, lung disease or smoking history. Does not have prior echo. Patient had history of gross hematuria in August 2015 along with massive right inguinal hernia for which indwelling catheter and subsequently had prostate scrapping/surgery and right inguinal hernia repair. Currently, he urinates spontaneously but denies hematuria, or GI bleed or external form of bleeding. Patient is not on anticoagulant. In ED, 2 units of PRBC ordered and further decided for admission [] Past Medical History Past Medical History (Chronic Problems): Chronic Problems BPH (benign prostatic hyperplasia) (Chronic) Hypertension (Chronic) Allergies No Known Allergies Allergy (Verified 11/15/17 15:34) Home Medications: Ambulatory Orders Medication Instructions Recorded Amlodipine [Norvasc] 5 mg PO QHS 12/11/14 Smoking Status: Never smoker Tobacco Use: Non-smoker - *Family History Paternal History Items: No pertinent history Review of Systems Constitutional: Reports: Weakness, Fatigue. Denies: Chills, Fever, Weight Change HEENT: Reports: Difficulty Hearing Cardiovascular: Denies: Chest Pain, Palpitations Respiratory: Reports: Shortness of breath upon exertion. Denies: Cough, Shortness of breath at rest, Sputum production Gastrointestinal: Denies: Abdominal Pain, Nausea, Vomiting Genitourinary: Denies: Dysuria, Hematuria, Retention Musculoskeletal: Denies: Joint Pain, Joint Tenderness Skin: Denies: Rash, Wounds Neurological: Reports: Balance problems. Denies: Focal weakness, Numbness, Tingling Psychiatric: Denies: Anxiety, Depression, Homicidal Ideations, Suicidal Ideations Hematologic/ Lymphatic: Denies: Easy Bruising, Easy Bleeding VTE Information - Inpt Only VTE Present on Admission: No VTE Mechan Device Prophylaxis: SCD's Reason prophylaxis not ordered:: Medical Contraindication - Severe pancytopenia and anemia Patient Problems: Active and Suspected Problems Pancytopenia (Acute) Severe anemia (Acute) - Physical Exam General: Alert, Oriented x3, Cooperative HEENT: Atraumatic, PERRLA, EOMI, Normocephalic, - - Very hard of hearing, mainly from right ear Neck: Supple, No JVD, Negative Carotid Bruits Lungs: Clear to auscultation, Normal air movement Cardiovascular: Regular Rhythm, Normal S1, Normal S2, No murmurs, Tachycardic Abdomen: Bowel Sounds Present, Soft, Non Tender, Non-Distended Extremities: Capillary Refill Less than 3 Seconds, Edema - 2+ bilateral lower extremity edema Skin: No rashes, No breakdown Musculoskeletal: No Tenderness to Palpation of Joints or Extremities, Arthritic Changes Neurological: Cranial nerves II-XII grossly intact, Neuro grossly intact Psych/Mental Status: Normal Affect, Appropriate Vital Signs Temp Pulse Resp BP Pulse Ox 98.7 F 98 14 146/102 H 98 11/15/17 15:31 11/15/17 15:31 11/15/17 15:31 11/15/17 15:31 11/15/17 15:31 Oxygen Delivery Method Room Air Weight: 190 lb 12.8 oz Body Mass Index (BMI) 25.2 Microbiology Past 72 Hours 11/15/17 16:10 Stool Occult Blood (SRINIVASAN) - Final Stool Laboratory Tests Past 24 Hrs WBC 2.4 L RBC 1.97 L Hgb 6.1 L Hct 18.3 L MCV 92.9 MCH 31.0 MCHC 33.3 WBC RBC Hgb Assessment/Plan All Active Problems Pancytopenia (Acute) Severe anemia (Acute) The patient is a 82 year old M with history of hypertension, BPH was sent from [facility] or abnormal labs. Patient had labs on November 12 and today and was consistent with pancytopenia. Hemoglobin 5.6, WBCs 2.3 thousand, platelet count 55,000. On 11 12, hemoglobin of 6.3, WBC count 2.7 thousand and platelet count 60,000. Patient complains of slowly progressive fatigue, dyspnea on exertion, dizziness or lightheadedness and unsteady gait. Patient also has slowly progressive edema of lower extremities last 6 months to 1 year. Patient is hard of hearing but denies prior history of coronary artery disease, CHF, stroke, peripheral artery disease, lung disease or smoking history. Does not have prior echo. Patient had history of gross hematuria in August 2015 along with massive right inguinal hernia for which indwelling catheter and subsequently had prostate scrapping/surgery and right inguinal hernia repair. Currently, he urinates spontaneously but denies hematuria, or GI bleed or external form of bleeding. Patient is not on anticoagulant. In ED, 2 units of PRBC ordered and further decided for admission 1. 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 Patient is being admitted in PCU. 2 units of PRBC transfusion ordered. Peripheral blood smear shows neutropenia and anisocytosis. Serum PT/INRs, PTT, LDH, haptoglobin, B12 and folic acid ordered. Hematology consult. Posttransfusion H AND H. Stool for occult blood negative. UA ordered. Patient hemoglobin was 10.2 g percent in September 2017 and 12 g in June 2017. 2. Pancytopenia: WBC count and platelet count are low. His white count was normal in September 2017, 4.1 thousand. Platelet count was 76,000 in September 2017 and 156,000 in September 2016. 3. Sinus tachycardia: Patient had transient sinus tachycardia, heart rate shooting up in 140s but resolved and currently heart rate ranges in 94-98/min. Patient denies any previous cardiac history but has lower extremity edema. BNP and troponin ordered. 4. Other chronic comorbidities include BPH status post surgery, right inguinal hernia status post repair, hypertension: Blood pressure is slightly elevated, 150/108. Home medication reconciliation done. Monitor BP and titrate antihypertensive medication. DVT prophylaxis: Pathological prophylaxis contraindicated. Bilateral SCDs ordered. Code status: The patient is DNR CC arrest as per snf paper. Patient does not wish aggressive resuscitation or ventilator on machine support if he gets into terminal condition. Microbiology Past 72 Hours 11/15/17 16:10 Stool Stool Occult Blood (SRINIVASAN) - Final Laboratory Results 11/15/17 16:10: WBC 2.4 L, RBC 1.97 L, Hgb 6.1 L, Hct 18.3 L, MCV 92.9, MCH 31.0, MCHC 33.3, RDW 19.9 H, RDW Differential 66.4 H, Plt Count 68 L, MPV 10.8, Immature Gran % (Auto) 0.400, Neut % (Auto) 27.8 L, Lymph % (Auto) 43.9 H, [place] % (Auto) 27.9 H, Eos % (Auto) 0.0, Baso % (Auto) 0.0, Absolute Neuts (auto) 0.7 L, Absolute Lymphs (auto) 1.07, Total Counted Not Reportable, Differential Comment , Hypochromasia RARE, Anisocytosis 1+, Ovalocytes RARE 11/15/17 16:10: Sodium 140, Potassium 3.7, Chloride 106, Carbon Dioxide 25.0, Anion Gap 9, BUN 21 H, Creatinine 0.93, Estim Creat Clear Calc 70.40, Est GFR (MDRD) Af Amer 101, Est GFR (MDRD) Non-Af 83, BUN/Creatinine Ratio 22.7 H, Glucose 100, Calcium 8.6 11/15/17 16:10: Blood Type A POSITIVE, Antibody Screen NEGATIVE 11/15/17 16:10: Crossmatch See Detail Code Visit Inpatient E AND M: 47904 Init Hosp L3 11/15/17 1909 <Electronically signed by Kei London MD> Date Kei London MD Cosigner Signature: Date (if applicable) CC: Skinny Lopez MD; Kei London MD Signed URINALYSIS, COMPLETE Collected: 11/15/2017 Status: F Source: KIMBERLY 6:46 PM [facility] REPOSITORY Order Comment: How was Urine Obtained? NURSERY RN TO SPECIFY TYPE CODE TESTS RESULT OUT OF RANGE REFERENCE UNITS LAB L400.3000 Yellow COLOR Normal Yellow LAB L400.3050 Clear Normal CLARITY Sl. Cloudy LAB L400.3200 Normal mg/dl Normal GLUCOSE, UR Normal LAB L400.3300 Negative mg/dL Normal BILIRUBIN URINE Negative LAB L400.3400 Negative mg/dl Normal KETONE UR Negative LAB L400.3465 1.002-1.030 Normal SP.GR. DIPSTX 1.010 LAB L400.3550 5.0 - 8.0 pH UR Normal 7.0 LAB L400.3600 Negative mg/dl PROT Normal DIPSTX Negative LAB L400.3700 Normal mg/dl Normal UROBILI Normal LAB L400.3750 Negative Normal NITRITE UR Negative LAB L400.3780 Negative /ul Normal OCCULT BLOOD-UR Negative LAB L400.3800 Negative /ul LEUK Normal ESTERASE Negative LAB L400.4050 0-5 /hpf WBC 0 Normal SEEN LAB L400.4100 0-5 /hpf 0 Normal RBC-UA SEEN LAB L400.4150 0-5 /hpf SQUAM Normal EPI 0-5 SEEN LAB L400.4300 None Seen /hpf 0 Normal BACTERIA SEEN LAB L400.4350 <or=2+ /hpf 0 Normal MUCUS, URINE SEEN Performed By: #### L400.0001 #### [facility] [address] [place], [address] EMERGENCY DEPARTMENT Observed: 11/15/2017 Status: F Source: JASPER SUMMARY 5:27 PM [facility] REPOSITORY [facility] Medical Records Department [address] [place] [address] Emergency Department Summary 11/15/17 1725 MR#: [id number] Acct: [id number] Name: ORION XIE Rep #: [id number] : 1935 82 From: Janie Lozano DO PCP: Skinny Lopez MD Status: REG ER - ER Visit Summary Date of Service: 11/15/17 Chief Complaint: [Abnormal labs] History of Present Illness: The patient is a 82 M [presents the emergency department for abnormal labs. Patient apparently had blood work drawn on the seventh of the month as he was complaining of fatigue and at that time it was noted that he was pancytopenic. Patient had repeat blood work done yesterday continue to show decline in his hemoglobin and was sent to the ER. Patient denies any abdominal pain. Patient denies any blood in the stool. Patient states that he has not had a bowel movement in 5 days which is not unusual for him. Patient denies any chest pain or shortness of breath.] Physical Examination: [HEENT-PERRLA, EOMI. Cranial nerves II through XII grossly intact. TMs clear. Mucous membranes moist. No adenopathy. Pale conjunctiva Cardiovascular-regular rate and rhythm without murmur or ectopy Lungs-clear to auscultation, chest wall stable without crepitus or subcu emphysema Abdomen-normoactive bowel sounds, soft, nontender, no rebound or rigidity, no peritoneal signs. Extremities-intact 4, normal range of motion, normal pulses, atraumatic] Test Results: [CBC with differential obtained showed a white count of 2.4, hemoglobin 6.1, hematocrit 18, platelets 68. Chemistry showed a sodium 140, potassium 3.7, chloride 106, CO2 25, glucose 100, BUN 21, creatinine 0.93. Hemoccult was negative.] Emergency Department Course and Treatment: [Patient was typed and crossed for 2 units packed red cells] Treatment Plan: [Admit] Disposition: [Admit] Impression: [Pancytopenia-etiology uncertain Generalized weakness] This note was generated with Pitchbriteation software. It may contain incorrect words, spelling, and punctuation that were not noted in review of the chart prior to signing ED Disposition - Plan for ED Patient: Chief Complaint: Abn Labs Referrals: Skinny Lopez MD [Primary Care Provider] - What to do if you have Problems For any increased pain, shortness of breath, bleeding, nausea or vomiting, chest pain, or any unexpected problems, contact your Primary Care Provider. Call [facility] ([phone]) or report to the closest Emergency Room. Call 911 if necessary. 11/15/17 1727 <Electronically signed by Janie Lozano DO> Date Janie Lozano DO Cosigner Signature (If Indicated): Date CC: Skinny Lopez MD BASIC METABOLIC Collected: 11/15/2017 Status: F Source: KIMBERLY PROFILE (BMP) 4:10 PM [facility] REPOSITORY TYPE CODE TESTS RESULT OUT OF RANGE REFERENCE UNITS LAB L501.0100 74-106 mg/dL Normal GLU 100 Result Comment: Fasting Glucose result from 100 to 125 mg/dL suggests IMPAIRED HOMEOSTASIS per A.D.A. criteria. Please note revised GLUCOSE reference range effective 2017. LAB L501.1000 7-18 mg/dL High BUN 21 LAB L501.1100 0.70-1.30 mg/dL Normal CREAT,SERUM 0.93 Result Comment: The validity of the calculated GFR AND GFRAA in patients over 70 years has not been determined. Clinical correlation is essential. LAB L501.1110 >60 mL/min Normal EST GFR 83 Result Comment: Non- GFR Calc LAB L501.1115 >60 mL/min Normal EST GFR - AA 101 Result Comment: GFR Calc LAB L501.1255 ml/min Normal Estimated CRCL 70.40 LAB L501.1300 10-20 RATIO High BUN/CRE 22.7 LAB L501.2200 8.5-10 mg/dL Normal .1 CA 8.6 LAB L501.5300 136-14 mmol/L Normal 5 NA 140 LAB L501.5600 3.5-5. mmol/L Normal 1 K 3.7 LAB L501.5900 98-107 mmol/L Normal CL 106 LAB L501.6100 21.0-3 mmol/L Normal 2.0 CO2 25.0 LAB L501.6200 5-15 Normal GAP 9 Performed By: #### L500.2500 #### [facility] [address] [place], [address] Observed: 11/15/2017 Status: F Source: JASPER STOOL OCCULT BLOOD 4:10 PM [facility] IFOB REPOSITORY Order Date: 11/15/17 Has pt arrived? Y STOB iFOB Occult Blood Negative Performed By: #### M100.7900 #### [facility] [address] [place], [address] CBC W/DIFF, AUTOMATED Collected: 11/15/2017 Status: F Source: JASPER 4:10 PM [facility] REPOSITORY TYPE CODE TESTS RESULT OUT OF RANGE REFERENCE UNITS LAB L100.1000 4.4-11.0 K/mm3 Low WBC 2.4 LAB L100.1200 4.6-6.2 M/mm3 Low RBC 1.97 LAB L100.1300 13.0-16.5 g/dl Low HGB 6.1 LAB L100.1400 40-54 % Low HCT 18.3 LAB L100.1500 80-94 fL Normal MCV 92.9 LAB L100.1600 27.0-32.0 pg Normal MCH 31.0 LAB L100.1700 32-36 g/gl Normal MCHC 33.3 LAB L100.1810 11.6-14.6 % High RDW CV 19.9 LAB L100.1820 35.1-43.9 fl High RDW SD 66.4 LAB L100.1900 150-450 K/mm3 Low PLT 68 LAB L100.2000 6.2-12.0 fl Normal MPV 10.8 LAB L100.2100 47-70 % Low NEUT% 27.8 LAB L100.2200 19-41 % High LY% 43.9 LAB L100.2300 0-10 % High MONO% 27.9 LAB L100.2400 0-5 % Normal EO% 0.0 LAB L100.2500 0-1 % Normal BASO% 0.0 LAB L100.2550 0.0-0.9 % Normal IM GRAN % 0.400 Result Comment: IG% - Immature Granulocytes (promyelocytes, myelocytes and metamyelocytes) > 1% indicates that a LEFT SHIFT is Present. LAB L100.2620 2.0-7.7 X10 3/uL Low Absolute Neut 0.7 LAB L100.2720 0.83-4.51 X10 3/ul Absolute Lymph Normal 1.07 LAB L100.7300 ANISO Normal 1+ LAB L100.7600 HYPOCHROMASIA Normal RARE LAB L100.8200 OVALOCYTE Normal RARE LAB L100.4500 SMEAR COMMENT Normal Result Comment: NEUTROPENIA AND ANISOCYTOSIS NOTED Performed By: #### L100.0100 #### [facility] [address] [place], [address] TYPE AND SCREEN Collected: 11/15/2017 Status: F Source: JASPER 4:10 PM [facility] REPOSITORY Order Comment: Reason for Type AND Screen/Red Cells: ANEMIA TYPE CODE TESTS RESULT OUT OF RANGE REFERENCE UNITS LAB B10.0800 A Normal BLOOD TYPE GEL POSITIVE LAB B100.4000 Normal Antibody NEGATIVE Screen Performed By: #### B101.7450 #### [facility] [address] [place], [address] RC Collected: 11/15/2017 Status: F Source: KIMBERLY 4:10 PM [facility] REPOSITORY TYPE CODE TESTS RESULT OUT OF REFERENCE UNITS RANGE LAB U100.0000 [id number] TRANSFUSED PRODUCT: T AND S with Crossmatch, Red Cells COUNT: 2 Performed By: #### U100.0000 #### [facility] Laboratory - refer to report for specific site BNP,B-TYPE NATRIURETIC Collected: 11/15/2017 Status: F Source: KIMBERLY PEPTIDE 4:10 PM [facility] REPOSITORY TYPE CODE TESTS RESULT OUT OF RANGE REFERENCE UNITS LAB L503.6620 0-100 pg/mL Normal B-TYPE 25.0 REKHA PEP Performed By: #### L503.6620 #### [facility] [address] [place], [address] RC Collected: 11/15/2017 Status: F Source: KIMBERLY 4:10 PM [facility] REPOSITORY TYPE CODE TESTS RESULT OUT OF REFERENCE UNITS RANGE LAB U100.0000 [id number] TRANSFUSED PRODUCT: T AND S with Crossmatch, Red Cells COUNT: 2 Performed By: #### U100.0000 #### [facility] Laboratory - refer to report for specific site RC Collected: 11/15/2017 Status: F Source: KIMBERLY 4:10 PM [facility] REPOSITORY TYPE CODE TESTS RESULT OUT OF REFERENCE UNITS RANGE LAB U100.0000 [id number] TRANSFUSED PRODUCT: T AND S with Crossmatch, Red Cells COUNT: 1 Performed By: #### U100.0000 #### [facility] Laboratory - refer to report for specific site CBC W/DIFF, AUTOMATED Collected: 11/15/2017 Status: F Source: KIMBERLY 6:50 AM [facility] REPOSITORY Order Comment: 202 CRITICAL VALUE VERIFIED. CALLED TO PRIMO AT [facility] 11/15/17926 Radha Neff. RESULTS READ BACK BY SAME . RESULTS FAXED TO [phone] 11/15/17926 Radha Neff. TYPE CODE TESTS RESULT OUT OF RANGE REFERENCE UNITS LAB L100.1000 4.4-11.0 K/mm3 Low WBC 2.3 LAB L100.1200 4.6-6.2 M/mm3 Low RBC 1.83 LAB L100.1300 13.0-16.5 g/dl Low alert HGB 5.6 LAB L100.1400 40-54 % Low HCT 17.0 LAB L100.1500 80-94 fL Normal MCV 92.9 LAB L100.1600 27.0-32.0 pg Normal MCH 30.6 LAB L100.1700 32-36 g/gl Normal MCHC 32.9 LAB L100.1810 11.6-14.6 % High RDW CV 19.7 LAB L100.1820 35.1-43.9 fl High RDW SD 67.2 LAB L100.1900 150-450 K/mm3 Low PLT 55 LAB L100.2000 6.2-12.0 fl Normal MPV 9.8 LAB L100.2100 47-70 % Low NEUT% 23.6 LAB L100.2200 19-41 % High LY% 56.4 LAB L100.2300 0-10 % High MONO% 19.6 LAB L100.2400 0-5 % Normal EO% 0.0 LAB L100.2500 0-1 % Normal BASO% 0.0 LAB L100.2550 0.0-0.9 % Normal IM GRAN % 0.400 Result Comment: IG% - Immature Granulocytes (promyelocytes, myelocytes and metamyelocytes) > 1% indicates that a LEFT SHIFT is Present. LAB L100.2620 2.0-7.7 X10 3/uL Low Absolute Neut 0.5 LAB L100.2720 0.83-4.51 X10 3/ul Absolute Lymph Normal 1.27 LAB L100.5500 ADEQ PLT EST Normal MKD DEC LAB L100.7300 ANISO Normal 1+ LAB L100.7500 POLYCHROMASIA Normal RARE LAB L100.7600 HYPOCHROMASIA Normal 2+ LAB L100.9900 PATH REV Normal Reviewed Result Comment: Pancytopenia. Clinical correlation necessary. Darrin Dobson M.D. 11/15/17 Performed By: #### L100.0100 #### [facility] [address] [place], [place], [id number] CBC W/DIFF, AUTOMATED Collected: 11/12/2017 Status: F Source: JASPER 6:45 AM [facility] REPOSITORY TYPE CODE TESTS RESULT OUT OF RANGE REFERENCE UNITS LAB L100.1000 4.4-11.0 K/mm3 Low WBC 2.7 LAB L100.1200 4.6-6.2 M/mm3 Low RBC 2.04 LAB L100.1300 13.0-16.5 g/dl Low HGB 6.3 LAB L100.1400 40-54 % Low HCT 19.3 LAB L100.1500 80-94 fL High MCV 94.6 LAB L100.1600 27.0-32.0 pg Normal MCH 30.9 LAB L100.1700 32-36 g/gl Normal MCHC 32.6 LAB L100.1810 11.6-14.6 % High RDW CV 19.5 LAB L100.1820 35.1-43.9 fl High RDW SD 62.0 LAB L100.1900 150-450 K/mm3 Low PLT 60 LAB L100.2000 6.2-12.0 fl Normal MPV 10.5 LAB L100.2100 47-70 % Low NEUT% 25.2 LAB L100.2200 19-41 % High LY% 49.8 LAB L100.2300 0-10 % High MONO% 24.2 LAB L100.2400 0-5 % Normal EO% 0.0 LAB L100.2500 0-1 % Normal BASO% 0.4 LAB L100.2550 0.0-0.9 % Normal IM GRAN % 0.400 Result Comment: IG% - Immature Granulocytes (promyelocytes, myelocytes and metamyelocytes) > 1% indicates that a LEFT SHIFT is Present. LAB L100.2620 2.0-7.7 X10 3/uL Low Absolute Neut 0.7 LAB L100.2720 0.83-4.51 X10 3/ul Normal Absolute Lymph 1.32 LAB L100.4500 Normal SMEAR COMMENT SCANNED Result Comment: ELEVATED LYMPHOCYTES NOTED RARE ATYPICAL LYMPHS LAB L100.5500 ADEQ Normal PLT EST MKD DEC LAB L100.7300 Normal ANISO 1+ LAB L100.7500 Normal POLYCHROMASIA 1+ LAB L100.7600 Normal HYPOCHROMASIA 2+ Performed By: #### L100.0100 #### [facility] [address] [place], [address] BASIC METABOLIC Collected: 11/12/2017 Status: F Source: KIMBERLY PROFILE (BMP) 6:45 AM [facility] REPOSITORY TYPE CODE TESTS RESULT OUT OF RANGE REFERENCE UNITS LAB L501.0100 74-106 mg/dL Normal GLU 84 Result Comment: Please note revised GLUCOSE reference range effective 2017. LAB L501.1000 7-18 mg/dL Normal BUN 18 LAB L501.1100 0.70-1.30 mg/dL Normal CREAT,SERUM 0.85 Result Comment: The validity of the calculated GFR AND GFRAA in patients over 70 years has not been determined. Clinical correlation is essential. LAB L501.1110 >60 mL/min Normal EST GFR 92 Result Comment: Non- GFR Calc LAB L501.1115 >60 mL/min Normal EST GFR - AA 111 Result Comment: GFR Calc LAB L501.1300 10-20 RATIO High BUN/CRE 21.2 LAB L501.2200 8.5-10.1 mg/dL Low CA 8.2 LAB L501.5300 136-145 mmol/L NA Normal 141 LAB L501.5600 3.5-5.1 mmol/L K Normal 3.6 LAB L501.5900 98-107 mmol/L CL Normal 107 LAB L501.6100 21.0-32.0 mmol/L Normal CO2 27.0 LAB L501.6200 5-15 Normal GAP 7 Performed By: #### L500.2500, L501.9520 #### [facility] [address] [place], [address] THYROID STIM HORMONE Collected: 11/12/2017 Status: F Source: KIMBERLY (TSH) 6:45 AM [facility] REPOSITORY TYPE CODE TESTS RESULT OUT OF RANGE REFERENCE UNITS LAB L501.9520 0.358-3.74 uIU/mL Normal TSH 3.49 Performed By: #### L500.2500, L501.9520 #### [facility] [address] [place], [address] CBC-COMPLETE BLOOD CNT Collected: 09/13/2017 Status: F Source: KIMBERLY NO DIFF 7:05 AM [facility] REPOSITORY Order Comment: 202 TYPE CODE TESTS RESULT OUT OF RANGE REFERENCE UNITS LAB L100.1000 4.4-11.0 K/mm3 Low 4.1 WBC LAB L100.1200 4.6-6.2 M/mm3 Low 3.33 RBC LAB L100.1300 13.0-16.5 g/dl Low 10.2 HGB LAB L100.1400 40-54 % Low 30.4 HCT LAB L100.1500 80-94 fL 91.3 Normal MCV LAB L100.1600 27.0-32.0 pg 30.6 Normal MCH LAB L100.1700 32-36 g/gl 33.6 Normal MCHC LAB L100.1810 11.6-14.6 % High 19.1 RDW CV LAB L100.1820 35.1-43.9 fl High 63.2 RDW SD LAB L100.1900 150-450 K/mm3 Low 76 PLT LAB L100.2000 6.2-12.0 fl Test Normal MPV not performed Performed By: #### L100.0500, L100.4500 #### [facility] [address] [place], [place], [address] DIFFERENTIAL COMMENT Collected: 09/13/2017 Status: F Source: KIMBERLY 7:05 AM [facility] REPOSITORY Order Comment: 202 TYPE CODE TESTS RESULT OUT OF RANGE REFERENCE UNITS LAB L100.4500 Normal SMEAR COMMENT SCANNED Result Comment: LARGE PLATELETS NOTED Performed By: #### L100.0500, L100.4500 #### [facility] [address] [place], [address] BASIC METABOLIC Collected: 09/13/2017 Status: F Source: KIMBERLY PROFILE (BMP) 7:05 AM [facility] REPOSITORY Order Comment: 202 TYPE CODE TESTS RESULT OUT OF RANGE REFERENCE UNITS LAB L501.0100 74-106 mg/dL Normal GLU 87 Result Comment: Please note revised GLUCOSE reference range effective 2017. LAB L501.1000 7-18 mg/dL Normal BUN 18 LAB L501.1100 0.70-1.30 mg/dL Normal CREAT,SERUM 0.80 Result Comment: The validity of the calculated GFR AND GFRAA in patients over 70 years has not been determined. Clinical correlation is essential. LAB L501.1110 >60 mL/min Normal EST GFR 99 Result Comment: Non- GFR Calc LAB L501.1115 >60 mL/min Normal EST GFR - AA 120 Result Comment: GFR Calc LAB L501.1300 10-20 RATIO High BUN/CRE 22.6 LAB L501.2200 8.5-10.1 mg/dL CA Normal 8.5 LAB L501.5300 136-145 mmol/L NA Normal 138 LAB L501.5600 3.5-5.1 mmol/L Low K 3.3 LAB L501.5900 98-107 mmol/L CL Normal 104 LAB L501.6100 21.0-32.0 mmol/L Normal CO2 27.0 LAB L501.6200 5-15 Normal GAP 7 Performed By: #### L500.2500 #### [facility] [address] [place], [address] BASIC METABOLIC Collected: 07/06/2017 Status: F Source: JASPER PROFILE ([facility]) 6:22 AM [facility] REPOSITORY Order Comment: ROOM 202 PREETHI TYPE CODE TESTS RESULT OUT OF RANGE REFERENCE UNITS LAB L501.0100 74-106 mg/dL Normal GLU 79 Result Comment: Please note revised GLUCOSE reference range effective 2017. LAB L501.1000 7-18 mg/dL High BUN 20 LAB L501.1100 0.70-1.30 mg/dL Normal CREAT,SERUM 0.76 Result Comment: The validity of the calculated GFR AND GFRAA in patients over 70 years has not been determined. Clinical correlation is essential. LAB L501.1110 >60 mL/min Normal EST GFR 105 Result Comment: Non- GFR Calc LAB L501.1115 >60 mL/min Normal EST GFR - AA 127 Result Comment: GFR Calc LAB L501.1300 10-20 RATIO High BUN/CRE 26.4 LAB L501.2200 8.5-10.1 mg/dL CA Normal 8.8 LAB L501.5300 136-145 mmol/L NA Normal 140 LAB L501.5600 3.5-5.1 mmol/L K Normal 3.5 LAB L501.5900 98-107 mmol/L CL Normal 105 LAB L501.6100 21.0-32.0 mmol/L Normal CO2 28.0 LAB L501.6200 5-15 Normal GAP 7 Performed By: #### L500.2500 #### [facility] [address] [place], [place], [address] BASIC METABOLIC Collected: 06/14/2017 Status: F Source: KIMBERLY PROFILE (BMP) 6:42 AM [facility] REPOSITORY Order Comment: 202 TYPE CODE TESTS RESULT OUT OF RANGE REFERENCE UNITS LAB L501.0100 74-106 mg/dL Normal GLU 80 LAB L501.1000 7-18 mg/dL High BUN 19 LAB L501.1100 0.70-1.30 mg/dL Normal 0.72 CREAT,SERUM Result Comment: The validity of the calculated GFR AND GFRAA in patients over 70 years has not been determined. Clinical correlation is essential. LAB L501.1110 >60 mL/min Normal EST GFR 111 Result Comment: Non- GFR Calc LAB L501.1115 >60 mL/min Normal EST GFR - AA 134 Result Comment: GFR Calc LAB L501.1300 10-20 RATIO High BUN/CRE 26.2 LAB L501.2200 8.5-10.1 mg/dL CA Normal 8.5 LAB L501.5300 136-145 mmol/L NA Normal 141 LAB L501.5600 3.5-5.1 mmol/L Low K 3.3 LAB L501.5900 98-107 mmol/L CL Normal 106 LAB L501.6100 21.0-32.0 mmol/L Normal CO2 29.0 LAB L501.6200 5-15 Normal GAP 6 Performed By: #### L500.2500 #### [facility] [address] [place], [place], [address] CBC-COMPLETE BLOOD CNT Collected: 06/14/2017 Status: F Source: KIMBERLY NO DIFF 6:42 AM [facility] REPOSITORY Order Comment: 202 TYPE CODE TESTS RESULT OUT OF RANGE REFERENCE UNITS LAB L100.1000 4.4-11.0 K/mm3 5.7 Normal WBC LAB L100.1200 4.6-6.2 M/mm3 Low 4.10 RBC LAB L100.1300 13.0-16.5 g/dl Low 12.0 HGB LAB L100.1400 40-54 % Low 36.7 HCT LAB L100.1500 80-94 fL 89.5 Normal MCV LAB L100.1600 27.0-32.0 pg 29.3 Normal MCH LAB L100.1700 32-36 g/gl 32.7 Normal MCHC LAB L100.1810 11.6-14.6 % High 17.5 RDW CV LAB L100.1820 35.1-43.9 fl High 57.1 RDW SD LAB L100.1900 150-450 K/mm3 Low 104 PLT LAB L100.2000 6.2-12.0 fl Test Normal MPV not performed Performed By: #### L100.0500, L100.4500 #### [facility] [address] [place], [address] DIFFERENTIAL COMMENT Collected: 06/14/2017 Status: F Source: JASPER 6:42 AM [facility] REPOSITORY Order Comment: 202 TYPE CODE TESTS RESULT OUT OF RANGE REFERENCE UNITS LAB L100.4500 Normal SMEAR COMMENT SCANNED Result Comment: LARGE PLATELETS NOTED Performed By: #### L100.0500, L100.4500 #### [facility] [address] [place], [address] ALLERGIES ALLERGIES DATE TYPE / CODE NAME / CODE REACTION SEVERITY SOURCE 01/02/2018 Drug No Known Unknown [facility] Allergy/416 Allergies/C41602 [facility] 773507(SNOM 0388(RXNORM) Repository ED CT) Drug NO KNOWN [facility] Class/79865 ALLERGIES [facility] [place] 1003(SNOMED Repository CT) ENCOUNTERS ENCOUNTERS ADMIT/DISCHARGE ACCOUNT ADMITTING ENCOUNTER LOCATION SOURCE NUMBER CLASS 04/24/2018 [id number] [facility] ing:OLS.LBE Repository N 04/17/2018 [id number] [facility] ing:OLS.LBE Repository N 04/13/2018 [id number] [facility] 04/10/2018 [id number] [facility] ing:OLS.LBE Repository N 04/03/2018 [id number] [facility] ing:OLS.WHLBE Repository N 03/27/2018 [id number] [facility] Repository N 03/20/2018 [id number] [facility] ing:[facility] Repository 03/20/2018 [id number] [facility] ing:OLS.WHLBE Repository N 03/13/2018 [id number] Ambulatory [facility] ing:OLS.WHLBE Repository N 03/06/2018 [id number] [facility] ing:OLS.WHLBE Repository N 02/28/2018 [id number] Ambulatory [facility] ing:MEDOUTP Repository 02/27/2018 [id number] Ambulatory [facility] ing:OLS.WHLBE Repository N 02/20/2018 [id number] Ambulatory [facility] ing:OLS.WHLBE Repository N 02/17/2018/02/21/20 [id number] Ambulatory [address] Repository 02/14/2018 [id number] [facility] ing:[facility] Repository 02/13/2018 [id number] Ambulatory [facility] ing:OLS.WHLBE Repository N 02/06/2018 [id number] [facility] ing:OLS.WHLBE Repository N 01/30/2018 [id number] [facility] ing:[facility]S.WHL[facility] Repository N 01/24/2018 [id number] [facility] ing:MED[facility] Repository 01/23/2018 [id number] [facility] ing:OLS.WHLBE Repository N 01/16/2018 [id number] [facility] ing:OLS.WHLBE Repository N 01/11/2018 [id number] Ambulatory [facility] ing:MEDOUTP Repository 01/10/2018 [id number] Ambulatory [facility] ing:OLS.WHLBE Repository N 01/05/2018/01/11/20 [id number] Ambulatory [address] Repository 01/02/2018 [id number] Ambulatory [facility] ing:OMD Repository 01/02/2018 [id number] Ambulatory BMSBuilding:[place] Hospital Repository 01/02/2018 [id number] Ambulatory [facility] ing:OLS.WHLBE Repository N 12/27/2017 [id number] Ambulatory [facility] ing:MEDOUTP Repository 12/26/2017 [id number] Ambulatory [facility] ing:OLS.WHLBE Repository N 12/19/2017 [id number] Ambulatory [facility] ing:OLS.WHLBE Repository N 12/14/2017 [id number] Ambulatory BMSBuilding:B [place].[facility] Hospital Repository 12/12/2017 [id number] Ambulatory [facility] ing:OLS.WHLBE Repository N 12/07/2017 [id number] Ambulatory BMSBuilding:B [place].[facility] Hospital Repository 12/05/2017 [id number] Ambulatory [facility] ing:OLS.WHLBE Repository N 12/01/2017 [id number] Ambulatory [facility] ing:MEDOUTP Repository 11/30/2017 [id number] Ambulatory [facility] ing:OLS.WHLBE Repository N 11/28/2017 [id number] Ambulatory [facility] ing:OLS.WHLBE Repository N 11/21/2017 [id number] Ambulatory [facility] ing:OLS.WHLBE Repository N 11/15/2017/11/19/19 [id number] [facility] [address] ing:PCURoom: Repository [id number]: 1 11/15/2017 [id number] [facility], Ambulatory BMSBuilding:Gaby Choudhury MS.[facility] Repository 11/15/2017 [id number] [facility], Ambulatory BMSBuilding:Gaby Choudhury MS.[facility] Repository 11/15/2017 [id number] [facility], Ambulatory BMSBuilding:Gaby Choudhury MS.[facility] Repository 11/15/2017 [id number] [facility], Ambulatory BMSBuilding:Gaby Choudhury MS.CF.[facility] Repository 11/15/2017 [id number] [facility], Ambulatory BMSBuilding:Gaby Choudhury MS.[facility] Repository 11/15/2017 [id number] [facility] ing:OLS.WHLBE Repository N 11/12/2017 [id number] [facility] Hospital ing:OLS.WHLBE Repository N 09/13/2017 [id number] [facility] Hospital ing:OLS.WHLBE Repository N 07/06/2017 [id number] [facility] Hospital ing:OLS.WHLBE Repository N 06/14/2017 [id number] [facility] Hospital ing:OLS.LBE Repository N PAYERS PAYERS ENCOUNTER GUARANTOR PAYER SUBSCRIBER SOURCE 04/24/2018 ORION Espino Primary NOT GIVENUNK [place] [id number] Insurance:SELF PAY [address] Number: Effective Repository [id number]: (330) Date:2018-04-24 [phone] () 04/17/2018 ORION Espion Primary NOT GIVENUNK [place] [id number] Insurance:SELF PAY [address] Number: Effective Repository [phone]: (330) Date:2018-04-17 [phone] () 04/13/2018 ORION Espino Primary ORION Espino [place] [id number] Insurance:MEDICARE HOTHEMDOB: [facility] PART A BPolicy [id number] [facility] [place] Number: Repository [address]Cke: 330 [id number] [phone] () Date:2018-04-10 04/13/2018 Secondary ORION L [place] Insurance:CIGNAPolicy HOTHEMDOB: Community Number: [id number] Hospital [id number] Repository Date:7655-85-95[address]QYSFXHVWTJ, [place] [address]GO: 04/13/2018 Tertiary NOT GIVENUNK [place] Insurance:SELF PAY [facility] Number: Effective Repository Date:2018-04-10 04/10/2018 ORION L Primary ORION L [place] [id number] Insurance:CIGNAPolicy HOTHEMDOB: [facility] RDAPT Number: [id number] [facility] [place] [id number] Repository [address]Pue: 330) Date:3039-95-05MG [phone] () [address]15[address]LPNZEQPFKLF, [place] [address]UX: 04/10/2018 Secondary ORION L [place] Insurance:MEDICARE HOTHEMDOB: [facility] PART A [facility] [id number] Hospital Number: Repository [id number] Date:2018-04-10 04/10/2018 Tertiary NOT GIVENUNK [place] Insurance:SELF PAY [facility] Number: Effective Repository Date:2018-04-10 04/03/2018 ORION L Primary NOT GIVENUNK [place] [id number] Insurance:SELF PAY [facility] [place] Number: Effective Repository [id number]: (330) Date:2018-04-03 [phone] () 03/27/2018 ORION L Primary ORION L [place] [id number] Insurance:CIGNAPolicy HOTHEMDOB: [facility] RDAPT Number: [id number] [facility] [place] [id number] Repository [address]Ccw: (330) Date:1953-91-18[phone] () 311506PTCTKAAJVGP, [place] [address]FU: 03/27/2018 Secondary ORION [address] Insurance:MEDICARE HOTHEMDOB: Community PART A olicy [id number] Hospital Number: Repository [id number] Date:2018-03-27 03/27/2018 Tertiary NOT GIVENUNK [place] Insurance:SELF PAY [facility] Number: Effective Repository Date:2018-03-27 03/20/2018 ORION Espino Primary ORION [place] [id number] Insurance:MEDICARE HOTHEMDOB: [facility] RDAPT PART A [facility] [id number] Number: Repository [address]Qgl: (299) [id number] [phone] () Date:2018-03-20 03/20/2018 Secondary ORION [address] Insurance:CIGNAPolicy HOTHEMDOB: [facility] Number: [id number] Hospital [id number] Repository Date:5729-68-54[address]YDHVUBEIBJC, [place] [address]GD: 03/20/2018 Tertiary NOT GIVENUNK [place] Insurance:SELF PAY [facility] Hospital Number: Effective Repository Date:2018-03-20 03/20/2018 ORION Espino Primary ORION [place] [id number] Insurance:CIGNAPolicy HOTHEMDOB: [facility] RDAPT Number: [id number] [id number] Repository [address]Kpo: 330) Date:6908-23-13[phone] () 734270XRXVXRMNCEX, [place] [address]ZL: 03/20/2018 Secondary ORION [address] Insurance:MEDICARE HOTHEMDOB: Community PART A olicy [id number] Hospital Number: Repository [id number] Date:2018-03-20 03/20/2018 Tertiary NOT GIVENUNK [place] Insurance:SELF PAY [facility] Number: Effective Repository Date:2018-03-20 03/13/2018 ORION Espino Primary ORION Harris [id number] Insurance:CIGNAPolicy HOTHEMDOB: [facility] RDAPT Number: [id number] [id number] Repository [address]Qtz: 330) Date:5983-25-12VY [phone] () 2859[address]RIEUROXXZRA, [place] [address]QU: 03/13/2018 Secondary ORION [address] Insurance:MEDICARE HOTHEMDOB: Community PART A [facility] [id number] Hospital Number: Repository [id number] Date:2018-03-13 03/13/2018 Tertiary NOT GIVENUNK [place] Insurance:SELF PAY [facility] Hospital Number: Effective Repository Date:2018-03-13 03/06/2018 ORION Espino Primary ORION [place] [id number] Insurance:MEDICARE [facility] [id number] Number: Repository [address]Jfo: 330 [id number] [phone] () Date:2018-03-06 03/06/2018 Secondary ORION [address] Insurance:CIGNAPolicy HOTHEMDOB: [facility] Number: [id number] Hospital [id number] Repository Date:4572-09-09[address]UEWCQEMCYNW, [place] [address]NL: 03/06/2018 Tertiary NOT GIVENUNK [place] Insurance:SELF PAY [facility] Number: Effective Repository Date:2018-03-06 02/28/2018 ORION Espino Primary ORION [place] [id number] Insurance:MEDICARE HOTHEMDOB: [facility] RDAPT PART A [facility] [id number] Number: Repository [address]Bfx: 330 [id number] [phone] () Date:2018-02-27 02/28/2018 Secondary ORION [address] Insurance:CIGNAPolicy HOTHEMDOB: Community Number: [id number] Hospital [id number] Repository Date:6805-02-76[address]AS[address]AQNREY, [place] [address]WA: 02/28/2018 Tertiary NOT GIVENUNK [place] Insurance:SELF PAY [facility] Number: Effective Repository Date:2018-02-27 02/27/2018 ORION Espino Primary ORION Harris [id number] Insurance:CIGNAPolicy HOTHEMDOB: [facility] RDAPT Number: [id number] [id number] Repository [address]Lsb: (330) Date:1010-24-13[phone] () 617087YAUMGLWWTUB, [place] [address]CP: 02/27/2018 Secondary ORION Harris Insurance:MEDICARE HOTHEMDOB: Community PART A [facility] [id number] Hospital Number: Repository [id number] Date:2018-02-27 02/27/2018 Tertiary NOT GIVENUNK [place] Insurance:SELF PAY [facility] Number: Effective Repository Date:2018-02-27 02/20/2018 ORION Espino Primary ORION Harris [id number] Insurance:CIGNAPolicy HOTHEMDOB: [facility] RDAPT Number: [id number] [id number] Repository [address]Mqm: (330) Date:5353-51-03TT [phone] () 789190IAKRTWPQQFL, [place] [address]HQ: 02/20/2018 Secondary ORION Harris Insurance:MEDICARE HOTHEMDOB: Community PART A [facility] [id number] Hospital Number: Repository [id number] Date:2018-02-20 02/20/2018 Tertiary NOT GIVENUNK [place] Insurance:SELF PAY [facility] Number: Effective Repository Date:2018-02-20 02/14/2018 ORION Espino Primary ORION Harris [id number] Insurance:MEDICARE HOTHEMDOB: [facility] RDAPT PART A [facility] [id number] Number: Repository [address]Xiw: 330 [id number] [phone] () Date:2018-02-13 02/14/2018 Secondary ORION Espino [place] Insurance:CIGNAPolicy HOTHEMDOB: Community Number: [id number] Hospital [id number] Repository Date:6214-15-09CV [address]UEETYLHVJXK, [place] [address]EO: 02/14/2018 Tertiary NOT GIVENUNK [place] Insurance:SELF PAY [facility] Number: Effective Repository Date:2018-02-13 02/13/2018 ORION L Primary ORION Harris [id number] Insurance:MEDICARE HOTHEMDOB: [facility] RDAPT PART A olicy [id number] Number: Repository [address]Frs: ([phone]) [id number] [phone] () Date:2018-02-13 02/13/2018 Secondary ORION Harris Insurance:CIGNAPolicy HOTHEMDOB: Community Number: [id number] Hospital [id number] Repository Date:5708-46-88DZ [address]WDMHVHWTIYP, [place] [address]ER: 02/13/2018 Tertiary NOT GIVENUNK [place] Insurance:SELF PAY [facility] Number: Effective Repository Date:2018-02-13 02/06/2018 ORION Espino Primary ORION Harris [id number] Insurance:CIGNAPolicy HOTHEMDOB: [facility] RDAPT Number: [id number] [id number] Repository [address]Ndl: 330) Date:1924-35-63RK [phone] () 894032YEYGTTJWLKR, [place] [address]MK: 02/06/2018 Secondary ORION Espino [place] Insurance:MEDICARE HOTHEMDOB: Community PART A olicy [id number] Hospital Number: Repository [id number] Date:2018-02-06 02/06/2018 Tertiary NOT GIVENUNK [place] Insurance:SELF PAY [facility] Number: Effective Repository Date:2018-02-06 01/30/2018 ORION L Primary ORION Harris [id number] Insurance:MEDICARE HOTHEMDOB: [facility] RDAPT PART A olic [id number] Number: Repository [address]Hki: (107) [id number] [phone] () Date:2018-01-30 01/30/2018 Secondary ORION Harris Insurance:CIGNAPolicy HOTHEMDOB: Community Number: [id number] Hospital [id number] Repository Date:0024-15-41IO [address]IFWCXWMFURN, [place] [address]WS: 01/30/2018 Tertiary NOT GIVENUNK [place] Insurance:SELF PAY [facility] Number: Effective Repository Date:2018-01-30 01/24/2018 ORION Espino Primary ORION Harris [id number] Insurance:MEDICARE HOTHEMDOB: [facility] RDAPT PART A [facility] [id number] Number: Repository [address]Jpo: 330 [id number] [phone] () Date:2018-01-23 01/24/2018 Secondary ORION Harris Insurance:CIGNAPolicy HOTHEMDOB: Community Number: [id number] Hospital [id number] Repository Date:7417-65-71MT [address]GUUOJYPCROX, [place] [address]PJ: 01/24/2018 Tertiary NOT GIVENUNK [place] Insurance:SELF PAY [facility] Number: Effective Repository Date:2018-01-23 01/23/2018 ORION Espino Primary ORION Harris [id number] Insurance:CIGNAPolicy HOTHEMDOB: [facility] RDAPT Number: [id number] [id number] Repository [address]Aeg: 330) Date:5614-63-45WK [phone] () 445231YOTJKUYPACY, [place] [address]RF: 01/23/2018 Secondary ORION Harris Insurance:MEDICARE HOTHEMDOB: Community PART A [facility] [id number] Hospital Number: Repository [id number] Date:2018-01-23 01/23/2018 Tertiary NOT GIVENUNK [place] Insurance:SELF PAY [facility] Number: Effective Repository Date:2018-01-23 01/16/2018 ORION L Primary ORION Herreraoster [id number] Insurance:MEDICARE HOTHEMDOB: [facility] RDAPT PART A [facility] [id number] Number: Repository [address]Cif: 330 [id number] [phone] () Date:2018-01-16 01/16/2018 Secondary ORION Espino [place] Insurance:CIGNAPolicy HOTHEMDOB: Community Number: [id number] Hospital [id number] Repository Date:9233-91-24PJ [address]ETIRQYYXNWN, [place] [address]HX: 01/16/2018 Tertiary NOT GIVENUNK [place] Insurance:SELF PAY [facility] Number: Effective Repository Date:2018-01-16 01/11/2018 ORION L Primary ORION Harris [id number] Insurance:MEDICARE [facility] [id number] Number: Repository [address]Lac: 330 [id number] [phone] () Date:2018-01-10 01/11/2018 Secondary ORION Harris Insurance:CIGNAPolicy HOTHEMDOB: Community Number: [id number] Hospital [id number] Repository Date:1077-93-57IX [address]HKDLEMVWVBO, [place] [address]GK: 01/11/2018 Tertiary NOT GIVENUNK [place] Insurance:SELF PAY [facility] Number: Effective Repository Date:2018-01-10 01/10/2018 ORION L Primary ORION Harris [id number] Insurance:CIGNAPolicy HOTHEMDOB: [facility] RDAPT Number: [id number] [id number] Repository [address]Ugi: 330) Date:3652-08-17ZG [phone] () 153193JONHSCLHYXN, [place] [address]LS: 01/10/2018 Secondary ORION Espino [place] Insurance:MEDICARE HOTHEMDOB: Community PART A [facility] [id number] Hospital Number: Repository [id number] Date:2018-01-10 01/10/2018 Tertiary NOT GIVENUNK [place] Insurance:SELF PAY [facility] Hospital Number: Effective Repository Date:2018-01-10 01/02/2018 ORION Espino Primary ORION Herreraoster [id number] Insurance:MEDICARE HOTHEMDOB: [facility] RDAPT PART A [facility] [id number] Number: Repository [address]Kqr: 330 [id number] [phone] (HP) Date:2017-11-25 01/02/2018 Secondary ORION Espino [place] Insurance:CIGNAPolicy HOTHEMDOB: Community Number: [id number] Hospital [id number] Repository Date:9531-13-46HE [facility] 657227TXOBDBSGMQK, [place] [address]RX: 01/02/2018 Tertiary NOT GIVENUNK [place] Insurance:SELF PAY [facility] Number: Effective Repository Date:2017-11-25 01/02/2018 ORION Espino Primary ORION Espino [place] [id number] Insurance:MEDICARE HOTHEMDOB: [facility] RDAPT PART A [facility] [id number] Number: Repository [address]Qot: 330 [id number] [phone] () Date:2017-11-25 01/02/2018 Secondary ORION Espino [place] Insurance:CIGNAPolicy HOTHEMDOB: Community Number: [id number] Hospital [id number] Repository Date:9815-43-76NO [place]27[place]103FFUSKAKKAXG, [place] [address]XS: 01/02/2018 Tertiary NOT GIVENUNK [place] Insurance:SELF PAY [facility] Number: Effective Repository Date:2018-01-02 01/02/2018 ORION Espino Primary ORION Herreraoster [id number] Insurance:MEDICARE HOTHEMDOB: [facility] RDAPT PART A [facility] [id number] Number: Repository [address]Oli: [phone]) [id number] [phone] (HP) Date:2018-01-02 01/02/2018 Secondary ORION Harris Insurance:CIGNAPolicy HOTHEMDOB: Community Number: [id number] Hospital [id number] Repository Date:4687-24-34LI [address]ISGRQKGAGBW, [place] [address]RB: 01/02/2018 Tertiary NOT GIVENUNK [place] Insurance:SELF PAY [facility] Hospital Number: Effective Repository Date:2018-01-02 12/27/2017 ORION Espino Primary ORION Harris [id number] Insurance:MEDICARE [facility] [place] [id number] Number: Repository [address]Qga: (704) [id number] [phone] () Date:2017-12-26 12/27/2017 Secondary ORION Harris Insurance:CIGNAPolicy HOTHEMDOB: Community Number: [id number] Hospital [id number] Repository Date:8972-73-59BH [address]XWMFKXPMHHD, [place] [address]SC: 12/27/2017 Tertiary NOT GIVENUNK [place] Insurance:SELF PAY [facility] Hospital Number: Effective Repository Date:2017-12-26 12/26/2017 ORION Espino Primary ORION Harris [id number] Insurance:MEDICARE HOTHEMDOB: [facility] PART A [place] [id number] Number: Repository [address]Fhz: ([phone]) [id number] [phone] () Date:2017-12-26 12/26/2017 Secondary ORION Harris Insurance:CIGNAPolicy HOTHEMDOB: Community Number: [id number] Hospital [id number] Repository Date:2449-10-44LZ [address]VMWUHTPQAJV, [place] [address]VU: 12/26/2017 Tertiary NOT GIVENUNK [place] Insurance:SELF PAY [facility] Hospital Number: Effective Repository Date:2017-12-26 12/19/2017 ORION Espino Primary ORION Harris [id number] Insurance:CIGNAPolicy HOTHEMDOB: [facility] RDAPT Number: [id number] [id number] Repository [address]Rhk: 330) Date:3916-67-25XI [phone] () 893575ULHVERMCXRG, [place] [address]IS: 12/19/2017 Secondary ORION L [place] Insurance:MEDICARE HOTHEMDOB: Community PART A [facility] [id number] Hospital Number: Repository [id number] Date:2017-12-19 12/19/2017 Tertiary NOT GIVENUNK [place] Insurance:SELF PAY [facility] Hospital Number: Effective Repository Date:2017-12-19 12/14/2017 ORION L Primary ORION Harris [id number] Insurance:MEDICARE HOTHEMDOB: [facility] RDAPT PART A [facility] [id number] Number: Repository [address]Mwm: 330 [id number] [phone] () Date:2017-11-25 12/14/2017 Secondary ORION L [place] Insurance:CIGNAPolicy HOTHEMDOB: Community Number: [id number] Hospital [id number] Repository Date:4000-25-65KI [address]SCOIGKVUFLS, [place] [address]TL: 12/14/2017 Tertiary NOT GIVENUNK [place] Insurance:SELF PAY [facility] Number: Effective Repository Date:2017-12-14 12/12/2017 ORION L Primary ORION Espino [place] [id number] Insurance:MEDICARE HOTHEMDOB: [facility] RDAPT PART A [facility] [id number] Number: Repository [address]Vcm: 330 [id number] [phone] () Date:2017-12-12 12/12/2017 Secondary ORION L [place] Insurance:CIGNAPolicy HOTHEMDOB: Community Number: [id number] Hospital [id number] Repository Date:6959-59-94JU [address]NFMGZWJGURI, [place] [address]OC: 12/12/2017 Tertiary NOT GIVENUNK [place] Insurance:SELF PAY [facility] Number: Effective Repository Date:2017-12-12 12/07/2017 ORION Espino Primary ORION Harris [id number] Insurance:MEDICARE [facility]MDOB[facility] [id number] [place] Number: Repository [address]Eqy: (609) [id number] [phone] (HP) Date:2017-11-25 12/07/2017 Secondary ORION Espino [place] Insurance:CIGNAPolicy HOTHEMDOB: Community Number: [id number] Hospital [id number] Repository Date:0127-81-96WG [address]XFRPKBTNRQF, [place] [address]YW: 12/07/2017 Tertiary NOT GIVENUNK [place] Insurance:SELF PAY [facility] Number: Effective Repository Date:2017-12-07 12/05/2017 Orion Espino Primary Orion Harris [id number] Insurance:MEDICARE [facility]hemDOB[facility] [id number] Number: Repository [address]Kqo: 330 [id number] [phone] () Date:2017-12-05 12/05/2017 Secondary Orion Harris Insurance:CIGNAPolicy HothemDOB: Community Number: [id number] Hospital [id number] Repository Date:8511-22-39JW [address]BDSEGJAEHTY, [place] [address]SD: 12/05/2017 Tertiary NOT GIVENUNK [place] Insurance:SELF PAY [facility] Number: Effective Repository Date:2017-12-05 12/01/2017 ORION Espino Primary ORION Harris [id number] Insurance:MEDICARE [facility] [id number] Number: Repository [address]Ilj: (239) [id number] [phone] (HP) Date:2017-11-30 12/01/2017 Secondary ORION Espino [place] Insurance:CIGNAPolicy HOTHEMDOB: [facility] Number: [id number] Hospital [id number] Repository Date:8319-01-69QG [address]GFVUXTTCHPS, [place] [address]QG: 12/01/2017 Tertiary NOT GIVENUNK [place] Insurance:SELF PAY [facility] Number: Effective Repository Date:2017-11-30 11/30/2017 Orion L Primary NOT GIVENUNK [place] [id number] Insurance:SELF PAY [address], [place] Number: Effective Repository [phone]: 330) Date:2017-11-30 [id number] (HP) 11/28/2017 Orion L Primary Orion Harris [id number] Insurance:MEDICARE HothemDOB[facility] [id number] [place] Number: Repository [address]Zfw: 330 [id number] [phone] (HP) Date:2017-11-28 11/28/2017 Secondary Orion Espino [place] Insurance:CIGNAPolicy HothemDOB: Community Number: [id number] Hospital [id number] Repository Date:9390-93-12NT [address]LGKJEYQVOYL, [place] [address]JP: 11/28/2017 Tertiary NOT GIVENUNK [place] Insurance:SELF PAY [facility] Number: Effective Repository Date:2017-11-28 11/21/2017 ORION L Primary ORION Espino [place] [id number] Insurance:MEDICARE [facility]HEMDOB[facility] [id number] Number: Repository [address]Zqa: 330 [id number] [phone] (HP) Date:2017-11-21 11/21/2017 Secondary ORION Espino [place] Insurance:CIGNAPolicy HOTHEMDOB: Community Number: [id number] Hospital [id number] Repository Date:0947-08-55WC [address]ASCGRXKKBAS, [place] [address]YJ: 11/21/2017 Tertiary NOT GIVENUNK [place] Insurance:SELF PAY Community [facility] Number: Effective Repository Date:2017-11-21 11/15/2017 ORION Espino Primary ORION Harris [id number] Insurance:MEDICARE [facility]MD[facility] [id number] Number: Repository [address]Ayb: 330 [id number] [phone] (HP) Date:2017-11-15 11/15/2017 Secondary ORION Harris Insurance:CIGNAPolicy HOTHEMDOB: Community Number: [id number] Hospital [id number] Repository Date:3826-87-78FI [address]PSBJOIQTBWM, [place] [address]XQ: 11/15/2017 Tertiary NOT GIVENUNK [place] Insurance:SELF PAY [facility] Number: Effective Repository Date:2017-11-15 11/15/2017 ORION Espino Primary ORION Herreraoster [id number] Insurance:MEDICARE HOTHEMDOB: [facility] PART A [facility] [id number] Number: Repository [address]Pnp: 330 [id number] [phone] (HP) Date:2017-11-15 11/15/2017 Secondary ORION Harris Insurance:CIGNAPolicy HOTHEMDOB: Community Number: [id number] Hospital [id number] Repository Date:3753-10-23DG [address]MMQRKXERSIM, [place] [address]FN: 11/15/2017 Tertiary NOT GIVENUNK [place] Insurance:SELF PAY [facility] Number: Effective Repository Date:2017-11-15 11/15/2017 ORION Espino Primary ORION Herreraoster [id number] Insurance:MEDICARE [facility]MDOB[facility] [id number] Number: Repository [address]Vxv: 330 [id number] [phone] (HP) Date:2017-11-15 11/15/2017 Secondary ORION Espino [place] Insurance:CIGNAPolicy HOTHEMDOB: Community Number: [id number] Hospital [id number] Repository Date:5092-75-47KP [address]FBZTIKFNWQC, [place] [address]VL: 11/15/2017 Tertiary NOT GIVENUNK [place] Insurance:SELF PAY [facility] Number: Effective Repository Date:2017-11-15 11/15/2017 ORION L Primary ORION Harris [id number] Insurance:MEDICARE [facility]MDOB[facility] [id number] Number: Repository [address]Wfs: ([phone]) [id number] [phone] () Date:2017-11-15 11/15/2017 Secondary ORION Espino [place] Insurance:CIGNAPolicy HOTHEMDOB: [facility] Number: [id number] Hospital [id number] Repository Date:8912-74-89TX [address]GQXHEOUEPNO, [place] [address]WI: 11/15/2017 Tertiary NOT GIVENUNK [place] Insurance:SELF PAY [facility] Number: Effective Repository Date:2017-11-15 11/15/2017 ORION L Primary ORION Herreraoster [id number] Insurance:MEDICARE [facility]MDOB[facility] [id number] Number: Repository [address]Bbt: ([phone]) [id number] [phone] () Date:2017-11-15 11/15/2017 Secondary ORION Kenzie [place] Insurance:CIGNAPolicy HOTHEMDOB: Community Number: [id number] Hospital [id number] Repository Date:3775-74-80KP [address]ASPEZBPSSIF, [place] [address]QJ: 11/15/2017 Tertiary NOT GIVENUNK [place] Insurance:SELF PAY [facility] Number: Effective Repository Date:2017-11-15 11/15/2017 ORION L Primary ORION Herreraoster [id number] Insurance:MEDICARE [facility]MDOB[facility] [id number], [place] Number: Repository [address]Cln: (925) [id number] [phone] (HP) Date:2017-11-15 11/15/2017 Secondary ORION Harris Insurance:CIGNAPolicy HOTHEMDOB: Community Number: [id number] Hospital [id number] Repository Date:1716-49-01VU [address]CQYPEOSSVTF, [place] [address]SP: 11/15/2017 Tertiary NOT GIVENUNK [place] Insurance:SELF PAY [facility] Number: Effective Repository Date:2017-11-15 11/15/2017 Orion Espino Primary Orion Harris [id number] Insurance:MEDICARE HothemDOB: [facility] RDAPT PART A [facility] [id number] [place] Number: Repository [address]Iiy: 330 [id number] [phone] (HP) Date:2017-11-15 11/15/2017 Secondary Orion Harris Insurance:CIGNAPolicy HothemDOB: [facility] Number: [id number] Hospital [id number] Repository Date:5818-84-04XT [address]GCUKSNVQINF, [place] [address]YF: 11/15/2017 Tertiary NOT GIVENUNK [place] Insurance:SELF PAY [facility] Number: Effective Repository Date:2017-11-15 11/12/2017 ORION L Primary ORION Herreraoster [id number] Insurance:MEDICARE HOTHEMDOB: [facility] RDAPT PART A [facility] [id number] [place] Number: Repository [address]Itv: (729) [id number] [phone] (HP) Date:2017-11-12 11/12/2017 Secondary NOT GIVENUNK [place] Insurance:SELF PAY [facility] Number: Effective Repository Date:2017-11-12 09/13/2017 ORION L Primary ORION Herreraoster [id number] Insurance:MEDICARE HOTHEMDOB: [facility] RDAPT PART A [facility] [id number] Number: Repository [address]Lwj: (908) [id number] [phone] (HP) Date:2017-09-13 09/13/2017 Secondary NOT GIVENUNK [place] Insurance:SELF PAY [facility] Number: Effective Repository Date:2017-09-13 07/06/2017 Orion Espino Primary Orion Harris [id number] Insurance:MEDICARE [facility]DOB[facility] olic [id number] Number: Repository [address]Upa: [phone]) [id number] [phone] () Date:2017-07-06 07/06/2017 Secondary Orion Harris Insurance:CIGNAPolicy HothemDOB: Community Number: [id number] Hospital [id number] Repository Date:6072-39-76UR [address]KVGFWHABJBN, [place] [address]YG: 07/06/2017 Tertiary NOT GIVENUNK [place] Insurance:SELF PAY [facility] Number: Effective Repository Date:2017-07-06 06/14/2017 Orion L Primary Orion Harris [id number] Insurance:MEDICARE HothemDOB: [facility] [id number] [place] Number: Repository [address]Tbm: [phone]) [id number] [phone] () Date:2017-06-14 06/14/2017 Secondary Orion Harris Insurance:CIGNAPolicy HothemDOB: Community Number: [id number] Hospital [id number] Repository Date:1264-43-55CB [address]AYEQMPZZJIF, [place] [address]XW: 06/14/2017 Tertiary NOT GIVENUNK [place] Insurance:SELF PAY [facility] Number: Effective Repository Date:2017-06-14
== END ==
LOC: OLS.WHLBEN 04:00
PROVIDERS: Visit Provider Family Medicine
DX: I10 Essential (primary) hypertension (principal); D64.9 Anemia, unspecified
CPT/HCPCS: 36415; 80048; 85025

== ENCOUNTER → 2018-04-13 09:31 | Outpatient (CLI) | payer MEDICARE, OTHER, SELFPAY ==
[2018-04-13 09:46] VITALS: BP 154/93; PULSE 72; RESP 18; TEMP 36.8; O2SAT 100; BMI 23.7
[2018-04-13 10:30] VITALS: BP 107/78; PULSE 62; RESP 16; TEMP 37.1
[2018-04-13 11:24] VITALS: BP 142/82; PULSE 60; RESP 16; TEMP 36.6
[2018-04-13 12:06] VITALS: BP 122/77; PULSE 60; RESP 15; TEMP 36.8; O2SAT 97
[2018-04-13 13:14] VITALS: BP 111/81; PULSE 73; TEMP 36.9
[2018-04-13 15:28] VITALS: BP 142/89; PULSE 69; RESP 16; TEMP 36.7
== END ==
PROVIDERS: Referring Provider Family Medicine; Visit Provider Family Medicine
DX: C92.00 Acute myeloblastic leukemia, not having achieved remission (principal); D61.818 Other pancytopenia
CPT/HCPCS: 36415; 36430; 86850; 86900; 86920; 86922; J7040; P9016; A4216

== ENCOUNTER → 2018-04-17 04:00 | Outpatient (REF) | payer MEDICARE, OTHER, SELFPAY ==
[2018-04-13 09:46] VITALS: BMI 23.7
[2018-04-17 09:18] LABS: Absolute Lymphocyte Count 1.15 X10^3/ul (0.83-4.51); Absolute Neutrophil Count 0.2 X10^3/uL (2.0-7.7); Basophil# 0.01 X10^3/uL; Basophil% 0.5 % (0-1); Differential Indicated SCAN CRITERIA MET; Hematocrit 23.3 % (40-54); Hemoglobin 7.6 g/dl (13.0-16.5); Lymphocyte # 1.15 X10^3/ul (4.0); Lymphocyte % 62.8 % (19-41); Mean Corp Hgb Conc 32.6 g/gl (32-36); Mean Corpuscular Hgb 27.4 pg (27.0-32.0); Mean Corpuscular Volume 84.1 fL (80-94); Mean Platelet Vol. 11.6 fl (6.2-12.0); Monocyte# 0.45 X10^3/uL; Monocyte% 24.6 % (0-10); Neutrophil # 0.22 X10^3/uL (2.7-7.7); Neutrophil % 12.1 % (47-70); POSITIVE COUNT NO; POSITIVE DIFFERENTIAL YES; POSITIVE MORPHOLOGY YES; Platelet Count 75 K/mm3 (150-450); RBC Distribution Width CV 15.4 % (11.6-14.6); RBC Distribution Width SD 48.2 fl (35.1-43.9); Red Blood Count 2.77 M/mm3 (4.6-6.2); White Blood Count 1.8 K/mm3 (4.4-11.0)
[2018-05-03 08:38] VITALS: BMI 23.7
== END ==
LOC: OLS.WHLBEN 04:00
PROVIDERS: Visit Provider Family Medicine
DX: D64.9 Anemia, unspecified (principal)
CPT/HCPCS: 36415; 85025

== ENCOUNTER → 2018-04-24 04:00 | Outpatient (REF) | payer MEDICARE, OTHER, SELFPAY ==
[2018-04-13 09:46] VITALS: BMI 23.7
[2018-04-24 08:53] LABS: Absolute Lymphocyte Count 1.13 X10^3/ul (0.83-4.51); Absolute Neutrophil Count 0.2 X10^3/uL (2.0-7.7); Hematocrit 20.9 % (40-54); Hemoglobin 6.9 g/dl (13.0-16.5); Lymphocyte # 1.13 X10^3/ul (4.0); Lymphocyte % 61.7 % (19-41); Mean Corpuscular Hgb 27.6 pg (27.0-32.0); Mean Corpuscular Volume 83.6 fL (80-94); Mean Platelet Vol. 10.5 fl (6.2-12.0); Monocyte# 0.49 X10^3/uL; Monocyte% 26.8 % (0-10); Neutrophil # 0.19 X10^3/uL (2.7-7.7); Neutrophil % 10.4 % (47-70); Platelet Count 71 K/mm3 (150-450); RBC Distribution Width CV 15.4 % (11.6-14.6); RBC Distribution Width SD 47.3 fl (35.1-43.9); White Blood Count 1.8 K/mm3 (4.4-11.0)
[2018-04-24 08:55] LABS: Differential Indicated SCAN CRITERIA MET; POSITIVE COUNT NO; POSITIVE DIFFERENTIAL YES; POSITIVE MORPHOLOGY YES
[2018-04-24 09:17] LABS: Differential Comment SCANNED; Hypochromasia 2+; Platelet Estimate MOD DEC (ADEQ)
[2018-04-25 14:48] LABS: Pathologist Review Reviewed
[2018-05-03 08:38] VITALS: BMI 23.7
--- OUTSIDE RECORDS SUMMARY | 2018-07-26 14:58 | XMS RPT_ITS ---
:1935 Author Organization OHIP Support Name Relationship Address Phone Marla Xie Unavailable [address] + [place] [address] R Unavailable Unavailable Unavailable Kayla Wagner Unavailable [address] + [place] [address] Marla Xie Unavailable [address] + [place] [address] R Unavailable Unavailable Unavailable Kayla Wagner Unavailable [address] + [place] [address] ANNE-MARIE, MARLA Unavailable [address] + [place] [address] R Unavailable Unavailable Unavailable KAYLA WAGNER Unavailable [address] + [place] [address] Luciehem, Marla Unavailable [address] + [place] [address] R Unavailable Unavailable Unavailable Kayla, Wagner Unavailable [address] + [place] [address] Luciehem, Marla Unavailable [address] + [place] [address] R Unavailable Unavailable Unavailable Kayla Wagner Unavailable [address] + [place] [address] HOTHEM, MARLA Unavailable [address] + [place] [address] R Unavailable Unavailable Unavailable JENNIFER WAGNER Unavailable [address] + [place] [address] Hothem, Marla Unavailable [address] + [place] [address] R Unavailable Unavailable Unavailable Kayla Wagner Unavailable [address] + [place] [address] [facility] Unavailable [address] + [place] [address] R Unavailable Unavailable Unavailable HumphreyeWagner Unavailable [address] + [place] [address] Hothem, Marla Unavailable [address] + [place] [address] R Unavailable Unavailable Unavailable LloydbeWagner villalpando Unavailable [address] + [place] [address] HOTHEM, MARLA Unavailable [address] + [place] [address] R Unavailable Unavailable Unavailable WAGNER CONTEH Unavailable [address] + [place] [address] Hothem, Marla Unavailable [address] + [place] [address] R Unavailable Unavailable Unavailable Wagner Garza Unavailable [address] + [place] [address] Hothem, Marla Unavailable [address] + [place] [address] R Unavailable Unavailable Unavailable Wagner Garza Unavailable [address] + [place] [address] Hothem, Marla Unavailable [address] + [place] [address] R Unavailable Unavailable Unavailable Wagner Garza Unavailable [address] + [place] [address] HOTHEM, MARLA Unavailable [address] + [place] [address] R Unavailable Unavailable Unavailable WAGNER CONTEH Unavailable [address] + [place] [address] Hothem, Marla Unavailable [address] + [place] [address] R Unavailable Unavailable Unavailable Kayla Wagner Unavailable [address] + [place] [address] Hothem, Marla Unavailable [address] + [place] [address] R Unavailable Unavailable Unavailable Wagner Conteh Unavailable [address] + [place] [address] Hothem, Marla Unavailable [address] + [place] [address] R Unavailable Unavailable Unavailable Tebbe, Wagner Unavailable [address] + [place] [address] HOTHEM, MARLA Unavailable [address] + [place] [address] R Unavailable Unavailable Unavailable TEBBE, WAGNER Unavailable [address] + [place] [address] Hothem, Marla Unavailable [address] + [place] [address] R Unavailable Unavailable Unavailable Tebbe, Wagner Unavailable [address] + [place] [address] [facility], Marla Unavailable [address] + [place] [address] R Unavailable Unavailable Unavailable Tebbe, Wagner Unavailable [address] + [place] [address] [facility], MARLA Unavailable [address] + [place] [address] R Unavailable Unavailable Unavailable LLOYDBBE, WAGNER Unavailable [address] + [place] [address] Hothem, Marla Unavailable [address] + [place] [address] R Unavailable Unavailable Unavailable Tebbe, Wagner Unavailable [address] + [place] [address] Hothem, Marla Unavailable [address] + [place] [address] R Unavailable Unavailable Unavailable Tebbe Wagner Unavailable [address] + [place] [address] Hothem, Marla Unavailable [address] + [place] [address] R Unavailable Unavailable Unavailable Tebbe, Wagner Unavailable [address] + [place] [address] HOTHEM, MARLA Unavailable [address] + [place] [address] R Unavailable Unavailable Unavailable TEBBE WAGNER Unavailable [address] + [place] [address] Hothem, Marla Unavailable [address] + [place] [address] R Unavailable Unavailable Unavailable Tebbe Wagner Unavailable [address] + [place] [address] HOTHEM, MARLA Unavailable [address] + [place] [address] R Unavailable Unavailable Unavailable TEBBE WAGNER Unavailable [address] + [place] [address] [facility] MAR[facility] Unavailable [address] + [place] [address] R Unavailable Unavailable Unavailable TEBBE, WAGNER Unavailable [address] + [place] [address] [facility], Marla Unavailable [address] + [place] [address] R Unavailable Unavailable Unavailable Tebbe Wagner Unavailable [address] + [place] [address] [facility], MARLA Unavailable [address] + [place] [address] R Unavailable Unavailable Unavailable TEBBE WAGNER Unavailable [address] + [place] [address] HOTHEM, MARLA Unavailable [address] + [place] [address] R Unavailable Unavailable Unavailable TEBBE, WAGNER Unavailable [address] + [place] [address] HOTHEM, AMRLA Unavailable [address] + [place] [address] R Unavailable Unavailable Unavailable TEBBE WAGNER Unavailable [address] + [place] [address] [facility] Unavailable [address] + [place] [address] R Unavailable Unavailable Unavailable TEBBE WAGNER Unavailable [address] + [place] [address] HOTHEM, MARLA Unavailable [address] + [place] [address] R Unavailable Unavailable Unavailable TEBBE WAGNER Unavailable [address] + [place] [address] Hothem, Marla Unavailable [address] + [place] [address] R Unavailable Unavailable Unavailable Tebbe Wagner Unavailable [address] + [place] [address] Hothem, Marla Unavailable [address] + [place] [address] R Unavailable Unavailable Unavailable Tebbe Wagner Unavailable [address] + [place] [address] Hothem, Marla Unavailable [address] + [place] [address] R Unavailable Unavailable Unavailable Tebbe, Wagner Unavailable [address] + [place] [address] HOTHEM, MARLA Unavailable [address] + [place] [address] R Unavailable Unavailable Unavailable HUMPHREYEWAGNER Unavailable [address] + [place] [address] Hothem, Marla Unavailable [address] + [place] [address] R Unavailable Unavailable Unavailable Lloydbbe Wagner Unavailable [address] + [place] [address] Hothem, Marla Unavailable [address] + [place] [address] R Unavailable Unavailable Unavailable Humphreye Wagner Unavailable [address] + [place] [address] Hothem, Marla Unavailable [address] + [place] [address] R Unavailable Unavailable Unavailable Tebbe Wagner Unavailable [address] + [place] [address] Hothem, Marla Unavailable [address] + [place] [address] R Unavailable Unavailable Unavailable Lloydbbe Wagner Unavailable [address] + [place] [address] HOTHEM, MARLA Unavailable [address] + [place] [address] R Unavailable Unavailable Unavailable TEBBE WAGNER Unavailable [address] + [place] [address] Hothem, Marla Unavailable [address] + [place] [address] R Unavailable Unavailable Unavailable TebbeWagner Unavailable [address] + [place] [address] Hothem, Marla Unavailable [address] + [place] [address] R Unavailable Unavailable Unavailable TebbeWagner Unavailable [address] + [place] [address] Hothem, Marla Unavailable [address] + [place] [address] R Unavailable Unavailable Unavailable TebbeWagner Unavailable [address] + [place] [address] Hothem, Marla Unavailable [address] + [place] [address] R Unavailable Unavailable Unavailable LloydbbeWagner Unavailable [address] + [place] [address] Hothem, Marla Unavailable [address] + [place] [address] R Unavailable Unavailable Unavailable Tebbe Wagner Unavailable [address] + [place] [address] Hothem, Marla Unavailable [address] + [place] [address] R Unavailable Unavailable Unavailable TebbeWagner Unavailable [address] + [place] [address] Hothem, Marla Unavailable [address] + [place] [address] R Unavailable Unavailable Unavailable Tebbe Wagner Unavailable [address] + [place] [address] Hothem, Marla Unavailable [address] + [place] [address] R Unavailable Unavailable Unavailable Tebbe Wagner Unavailable [address] + [place] [address] Hothem, Marla Unavailable [address] + [place] [address] R Unavailable Unavailable Unavailable Tebbe Wagner Unavailable [address] + [place] [address] Anne-Marie, Marla Unavailable [address] + [place] [address] R Unavailable Unavailable Unavailable Tebbe, Wagner Unavailable [address] + [place] [address] [facility], Marla Unavailable [address] + [place] [address] R Unavailable Unavailable Unavailable Lloydbbe, Wagner Unavailable [address] [phone] [place] [address] Care Team Providers Name Role Phone AJ LAZARO Attending Unavailable MASCI, AJ Abdalla Attending Unavailable MASCI, AJ Abdalla Referring Unavailable Lopez, Skinny Attending Unavailable Lopez, Skinny Attending Unavailable Lopez, Skinny Attending Unavailable Lopez, Skinny Referring Unavailable Lopez, Skinny Primary Care Unavailable Lopez, Skinny Attending Unavailable Lopez, Skinny Attending Unavailable Lopez, Skinny Attending Unavailable Surya, Kei Admitting Unavailable Lopez, Skinny E Primary Care Unavailable Prah, Nj Consulting Unavailable Radha Hicks, RESERVATIONIST-C Attending Unavailable Tereletsky, Kevin Consulting Unavailable Surya, Kei Admitting Unavailable Marilu, Manish Attending Unavailable Lopez, Skinny E Primary Care Unavailable Prah, Nj Consulting Unavailable Tereletsky, Kevin Consulting Unavailable Lopez, Skinny Attending Unavailable Lopez, Skinny Attending Unavailable Lopez, Skinny Attending Unavailable Lopez, Skinny Attending Unavailable Lopez, Skinny Attending Unavailable Lopez, Skinny Attending Unavailable Lopez, Skinny Attending Unavailable Prah, Nj Attending Unavailable Lopez, Skinny Referring Unavailable Lopez, Skinyn E Primary Care Unavailable Prah, Nj Consulting Unavailable Prah, Nj Attending Unavailable Lopez, Skinny Referring Unavailable Lopez, Skinny E Primary Care Unavailable Lopez, Skinny Attending Unavailable Lopez, Skinny Attending Unavailable Lopez, Skinny Referring Unavailable Lopez, Skinny E Primary Care Unavailable Lopez, Skinny Attending Unavailable Lopez, Skinny Attending Unavailable Surya, Kei Admitting Unavailable Marilu, Manish Attending Unavailable Lopez, Skinny E Primary Care Unavailable Prah, Nj Consulting Unavailable Tereletsky, Kevin Consulting Unavailable Surya, Kei Admitting Unavailable Prah, Nj Attending Unavailable Lopez, Skinny E Primary Care Unavailable Prah, Nj Consulting Unavailable Tereletsky, Kevin Consulting Unavailable Surya, Kei Admitting Unavailable Surya, Kei Attending Unavailable Lopez, Skinny E Primary Care Unavailable Surya, Kei Consulting Unavailable Lopez, Skinny Attending Unavailable Lopez, Skinny E Primary Care Unavailable Surya, Kei Admitting Unavailable Prah, Nj Consulting Unavailable Tereletsky, Kevin Attending Unavailable Lopez, Skinny Attending Unavailable Lopez, Skinny Attending Unavailable Lopez, Skinny Attending Unavailable Lopez, Skinny Attending Unavailable Lopez, Skinny Attending Unavailable Lopez, Skinny Attending Unavailable Lopez, Skinny Referring Unavailable Lopez, Skinny Primary Care Unavailable Lopez, Skinny Attending Unavailable Lopez, Skinny E Primary Care Unavailable Lopez, Skinny Referring Unavailable Lopez, Skinny Attending Unavailable Lopez, Skinny Referring Unavailable Lopez, Skinny E Primary Care Unavailable Lopez, Skinny Attending Unavailable Lopez, Skinny Attending Unavailable Lopez, Skinny Attending Unavailable Lopez, Ksinny Referring Unavailable Lopez, Skinny E Primary Care [...] Skinny Consulting Unavailable Lopez, Skinny Attending Unavailable Prah, Nj Attending Unavailable Lopez, Skinny Referring Unavailable Lopez, Skinny E Primary Care Unavailable Prah, Nj Consulting Unavailable Lopez, Skinny Attending Unavailable Lopez, Skinny Attending Unavailable Lopez, Skinny Referring Unavailable Lopez, Skinny E Primary Care Unavailable Lopez, Skinny Attending Unavailable Lopez, Skinny Attending Unavailable Prah, Nj Attending Unavailable Lopez, Skinny Referring Unavailable Lopez, Skinny E Primary Care Unavailable Prah, Nj Consulting Unavailable PROBLEMS PROBLEMS DATE TYPE CONDITION / CODE ATTENDING STATUS SOURCE 05/29/2018 Unknown D64.9 - Anemia, Skinny [facility] unspecified / Community D64.9(ICD-10) Hospital Repository 05/29/2018 Unknown I10 - Essential Skinny Lopez Active [facility] (primary) Community hypertension / Hospital I10(ICD-10) Repository 04/26/2018 Unknown 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, 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 / C92.00(ICD-10) 01/02/2018 Unknown 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1500 80-94 fL MCV Normal 85.0 LAB L100.1600 27.0-32.0 pg MCH Normal 27.6 LAB L100.1700 32-36 g/gl MCHC Normal 32.4 LAB L100.1810 11.6-14.6 % RDW CV High 16.7 LAB L100.1820 35.1-43.9 fl RDW SD High 52.1 LAB L100.1900 150-450 K/mm3 Low PLT 88 LAB L100.2000 6.2-12.0 fl MPV Normal 11.9 LAB L100.3100 MANUAL DIFF CELLS COUNTED Normal 100 LAB L100.3200 47-70 % Low SEGS 11 LAB L100.3600 0-0 PROMYELO High 1 LAB L100.3700 0-0 % BLAST High alert 9 LAB L100.3800 19-41 % LYMPH High 60 LAB L100.3900 0-10 % MONOCYTE High 19 LAB L100.5500 ADEQ PLT EST Normal MKD DEC LAB L100.5650 PLT MORPH Normal LARGE LAB L100.7300 ANISO Normal RARE LAB L100.7600 HYPOCHROMASIA Normal 3+ LAB L100.2620 2.0-7.7 X10 3/uL Low Absolute Neut 0.2 LAB L100.2720 0.83-4.51 X10 3/ul Absolute Lymph Normal 1.14 LAB L100.9900 PATH REV Normal Reviewed Result Comment: Pancytopenia. Leukopenia. Normocytic anemia. Moderate to marked Thrombocytopenia. Clinical correlation necessary. Abdoul Harper D.O. 05/30/18 AMENDED REPORT 05/30/18 1036 PATH REV previously reported as: September Performed By: #### L100.0100 #### [facility] [address] [place], [place], [address] CBC W/DIFF, AUTOMATED Collected: 05/22/2018 Status: F Source: [place] 6:10 AM [facility] REPOSITORY TYPE CODE TESTS RESULT OUT OF RANGE REFERENCE UNITS LAB L100.1000 4.4-11.0 K/mm3 Low WBC 1.5 LAB L100.1200 4.6-6.2 M/mm3 Low RBC 2.66 LAB L100.1300 13.0-16.5 g/dl Low HGB 7.3 LAB L100.1400 40-54 % Low HCT 22.5 LAB L100.1500 80-94 fL Normal MCV 84.6 LAB L100.1600 27.0-32.0 pg Normal MCH 27.4 LAB L100.1700 32-36 g/gl Normal MCHC 32.4 LAB L100.1810 11.6-14.6 % High RDW CV 16.3 LAB L100.1820 35.1-43.9 fl High RDW SD 50.5 LAB L100.1900 150-450 K/mm3 Low PLT 72 LAB L100.2000 6.2-12.0 fl Normal MPV 10.7 LAB L100.2100 47-70 % Low NEUT% 11.2 LAB L100.2200 19-41 % High LY% 63.8 LAB L100.2300 0-10 % High MONO% 23.0 LAB L100.2400 0-5 % Normal EO% 0.0 LAB L100.2500 0-1 % Normal BASO% 0.7 LAB L100.2550 0.0-0.9 % High IM GRAN % 1.300 Result Comment: IG% - Immature Granulocytes (promyelocytes, myelocytes and metamyelocytes) > 1% indicates that a LEFT SHIFT is Present. LAB L100.2620 2.0-7.7 X10 3/uL Low Absolute Neut 0.2 LAB L100.2720 0.83-4.51 X10 3/ul Normal Absolute Lymph 0.97 LAB L100.4500 SMEAR Normal COMMENT Result Comment: SLIDE SCANNED - NEUTROPENIA. Performed By: #### L100.0100 #### [facility] [address] [place], [address] TYPE AND SCREEN Collected: 05/17/2018 Status: F Source: [place] 7:15 AM [facility] REPOSITORY Order Comment: CMV NEG?* N Give When? 05/19/18@0830 Irradiated? N Leukodepleted? Y Reason for Type AND Screen/Red Cells: ANEMIA TYPE CODE TESTS RESULT OUT OF RANGE REFERENCE UNITS LAB B10.0800 A Normal BLOOD TYPE GEL POSITIVE LAB B100.4000 Normal Antibody NEGATIVE Screen Performed By: #### B101.7450 #### [facility] [address] [place], [address] Collected: 05/17/2018 Status: F Source: [place] 7:15 AM [facility] REPOSITORY TYPE CODE TESTS RESULT OUT OF REFERENCE UNITS RANGE LAB U100.0000 [id number] TRANSFUSED PRODUCT: T AND S with Crossmatch, Red Cells COUNT: 2 Performed By: #### U100.0000 #### Non-[facility] - refer to report for specific site BASIC METABOLIC Collected: 05/15/2018 Status: F Source: [place] PROFILE (BMP) 5:05 AM [facility] REPOSITORY Order Comment: ROOM 202 TYPE CODE TESTS RESULT OUT OF RANGE REFERENCE UNITS LAB L501.0100 74-106 mg/dL Normal GLU 82 Result Comment: Please note revised GLUCOSE reference range effective 2017. LAB L501.1000 7-18 mg/dL Normal BUN 18 LAB L501.1100 0.70-1.30 mg/dL Low CREAT,SERUM 0.61 Result Comment: The validity of the calculated GFR AND GFRAA in patients over 70 years has not been determined. Clinical correlation is essential. LAB L501.1110 >60 mL/min Normal EST GFR 136 Result Comment: Non- GFR Calc LAB L501.1115 >60 mL/min Normal EST GFR - AA 164 Result Comment: GFR Calc LAB L501.1300 10-20 RATIO High BUN/CRE 29.7 LAB L501.2200 8.5-10.1 mg/dL Low CA 7.9 LAB L501.5300 136-145 mmol/L NA Normal 143 LAB L501.5600 3.5-5.1 mmol/L K Normal 3.8 LAB L501.5900 98-107 mmol/L High CL 110 LAB L501.6100 21.0-32.0 mmol/L Normal CO2 24.0 LAB L501.6200 5-15 Normal GAP 9 Performed By: #### L500.2500 #### [facility] [address] [place], [place], [address] CBC W/DIFF, AUTOMATED Collected: 05/15/2018 Status: C Source: [place] 5:05 AM [facility] REPOSITORY Order Comment: ROOM 202 TYPE CODE TESTS RESULT OUT OF RANGE REFERENCE UNITS LAB L100.1000 4.4-11.0 K/mm3 Low WBC 1.5 LAB L100.1200 4.6-6.2 M/mm3 Low RBC 2.45 LAB L100.1300 13.0-16.5 g/dl Low HGB 6.6 LAB L100.1400 40-54 % Low HCT 20.2 LAB L100.1500 80-94 fL Normal MCV 82.4 LAB L100.1600 27.0-32.0 pg Low MCH 26.9 LAB L100.1700 32-36 g/gl Normal MCHC 32.7 LAB L100.1810 11.6-14.6 % High RDW CV 16.0 LAB L100.1820 35.1-43.9 fl High RDW SD 48.8 LAB L100.1900 150-450 K/mm3 Low PLT 68 LAB L100.2000 6.2-12.0 fl Normal MPV 11.4 LAB L100.2100 47-70 % Low NEUT% 10.2 LAB L100.2200 19-41 % High LY% 63.9 LAB L100.2300 0-10 % High MONO% 24.5 LAB L100.2400 0-5 % Normal EO% 0.0 LAB L100.2500 0-1 % Normal BASO% 0.7 LAB L100.2550 0.0-0.9 % Normal IM GRAN % 0.700 Result Comment: IG% - Immature Granulocytes (promyelocytes, myelocytes and metamyelocytes) > 1% indicates that a LEFT SHIFT is Present. LAB L100.2620 2.0-7.7 X10 3/uL Low Absolute Neut 0.2 LAB L100.2720 0.83-4.51 X10 3/ul Normal Absolute Lymph 0.94 LAB L100.4500 Normal SMEAR COMMENT COMMENT Result Comment: SLIDE SCANNED - NEUTROPENIA,LEUKOCYTOPENIA. LAB L100.9900 Normal Reviewed PATH REV Result Comment: Pancytopenia. Leukopenia. Normocytic anemia. Marked Thrombocytopenia. Clinical correlation necessary. Abdoul Harper D.O. 05/16/18 AMENDED REPORT 05/16/18 6032 PATH REV previously reported as: September aman Performed By: #### L100.0100 #### [facility] [address] [place], [address] CBC W/DIFF, AUTOMATED Collected: 05/08/2018 Status: F Source: [place] 4:20 AM [facility] REPOSITORY Order Comment: 202 EXTRA BB TUBE DRAWN. [id number] TYPE CODE TESTS RESULT OUT OF RANGE REFERENCE UNITS LAB L100.1000 4.4-11.0 K/mm3 Low WBC 1.8 LAB L100.1200 4.6-6.2 M/mm3 Low RBC 2.72 LAB L100.1300 13.0-16.5 g/dl Low HGB 7.5 LAB L100.1400 40-54 % Low HCT 23.2 LAB L100.1500 80-94 fL Normal MCV 85.3 LAB L100.1600 27.0-32.0 pg Normal MCH 27.6 LAB L100.1700 32-36 g/gl Normal MCHC 32.3 LAB L100.1810 11.6-14.6 % High RDW CV 15.5 LAB L100.1820 35.1-43.9 fl High RDW SD 47.2 LAB L100.1900 150-450 K/mm3 Low PLT 75 LAB L100.2000 6.2-12.0 fl Normal MPV 11.9 LAB L100.2100 47-70 % Low NEUT% 11.6 LAB L100.2200 19-41 % High LY% 55.8 LAB L100.2300 0-10 % High MONO% 29.8 LAB L100.2400 0-5 % Normal EO% 0.6 LAB L100.2500 0-1 % High BASO% 1.1 LAB L100.2550 0.0-0.9 % High IM GRAN % 1.100 Result Comment: IG% - Immature Granulocytes (promyelocytes, myelocytes and metamyelocytes) > 1% indicates that a LEFT SHIFT is Present. LAB L100.2620 2.0-7.7 X10 3/uL Low Absolute Neut 0.2 LAB L100.2720 0.83-4.51 X10 3/ul Absolute Normal Lymph 1.01 LAB L100.7700 Normal MICROCYTES 2+ Performed By: #### L100.0100 #### [facility] [address] [place], [address] CBC W/DIFF, AUTOMATED Collected: 05/01/2018 Status: C Source: [place] 6:10 AM [facility] REPOSITORY Order Comment: 202 EXTRA BB TUBE [id number] TYPE CODE TESTS RESULT OUT OF RANGE REFERENCE UNITS LAB L100.1000 4.4-11.0 K/mm3 Low WBC 1.8 LAB L100.1200 4.6-6.2 M/mm3 Low RBC 2.13 LAB L100.1300 13.0-16.5 g/dl Low alert HGB 5.8 Result Comment: CRITICAL VALUE VERIFIED. CALLED TO FLOYD MENDIETA 05/01/18 0759 Nahid Sousa. RESULTS READ BACK BY SAME. LAB L100.1400 40-54 % Low HCT 18.3 LAB L100.1500 80-94 fL Normal MCV 85.9 LAB L100.1600 27.0-32.0 pg Normal MCH 27.2 LAB L100.1700 32-36 g/gl Low MCHC 31.7 LAB L100.1810 11.6-14.6 % High RDW CV 15.1 LAB L100.1820 35.1-43.9 fl High RDW SD 45.8 LAB L100.1900 150-450 K/mm3 Low PLT 87 LAB L100.2000 6.2-12.0 fl Normal MPV 11.5 LAB L100.2100 47-70 % Low NEUT% 7.1 LAB L100.2200 19-41 % High LY% 64.7 LAB L100.2300 0-10 % High MONO% 23.9 LAB L100.2400 0-5 % Normal EO% 0.5 LAB L100.2500 0-1 % High BASO% 1.1 LAB L100.2550 0.0-0.9 % High IM GRAN % 2.700 Result Comment: IG% - Immature Granulocytes (promyelocytes, myelocytes and metamyelocytes) > 1% indicates that a LEFT SHIFT is Present. LAB L100.2620 2.0-7.7 X10 3/uL Low Absolute Neut 0.1 LAB L100.2720 0.83-4.51 X10 3/ul Normal Absolute Lymph 1.19 LAB L100.4500 Normal SMEAR COMMENT COMMENT Result Comment: SLIDE SCANNED - NEUTROPENIA, 1+ HYPOCHROMIA. LAB L100.9900 Normal Reviewed PATH REV Result Comment: Pancytopenia. Clinical correlation necessary. Darrin Dobson M.D. 05/01/18 AMENDED REPORT 05/01/18 1006 PATH REV previously reported as: September Performed By: #### L100.0100 #### [facility] [address] [place], [place], [address] TYPE AND SCREEN Collected: 05/01/2018 Status: P Source: [place] 6:10 AM [facility] REPOSITORY Order Comment: CMV NEG?* Y Give When? 05/03/18 08:30AM Irradiated? N Leukodepleted? Y Reason for Type AND Screen/Red Cells: ANEMIA TYPE CODE TESTS RESULT OUT OF RANGE REFERENCE UNITS LAB B10.0800 A Normal BLOOD TYPE GEL POSITIVE LAB B100.4000 Normal Antibody NEGATIVE Screen Performed By: #### B101.7450 #### [facility] [address] [place], [place], [address] TYPE AND SCREEN Collected: 05/01/2018 Status: F Source: [place] 6:10 AM [facility] REPOSITORY Order Comment: CMV NEG?* N Give When? 05/03/18 08:30AM Irradiated? N Leukodepleted? Y Reason for Type AND Screen/Red Cells: ANEMIA TYPE CODE TESTS RESULT OUT OF RANGE REFERENCE UNITS LAB B10.0800 A Normal BLOOD TYPE GEL POSITIVE LAB B100.4000 Normal Antibody NEGATIVE Screen Performed By: #### B101.7450 #### [facility] [address] [place], [address] RC Collected: 05/01/2018 Status: F Source: [place] 6:10 AM [facility] REPOSITORY TYPE CODE TESTS RESULT OUT OF REFERENCE UNITS RANGE LAB U100.0000 [id number] TRANSFUSED PRODUCT: T AND S with Crossmatch, Red Cells COUNT: 3 Performed By: #### U100.0000 #### Non[facility] - refer to report for specific site CBC W/DIFF, AUTOMATED Collected: 04/24/2018 Status: C Source: [place] 5:15 AM [facility] REPOSITORY Order Comment: 202 ETRA BB TUBE DRAWN [id number] TYPE CODE TESTS RESULT OUT OF RANGE [...] September aman Performed By: #### L100.0100 #### [facility] [address] [place], [address] CBC W/DIFF, AUTOMATED Collected: 04/17/2018 Status: F Source: DOVER 5:45 AM [facility] REPOSITORY Order Comment: 202 EXRA BB TUBE DRAWN [id number] TYPE CODE TESTS RESULT OUT OF RANGE [...] NEUTROPENIA NOTED. Performed By: #### L100.0100 #### [facility] [address] [place], [address] TYPE AND SCREEN Collected: 04/12/2018 Status: F Source: KIMBERLY 6:00 AM [facility] REPOSITORY Order Comment: CMV NEG?* N Give When? 04/13/18 09:30AM Irradiated? N Leukodepleted? Y Reason for Type AND Screen/Red Cells: ANEMIA TYPE CODE TESTS RESULT OUT OF RANGE REFERENCE UNITS LAB B10.0800 A Normal BLOOD TYPE GEL POSITIVE LAB B100.4000 Normal Antibody NEGATIVE Screen Performed By: #### B101.7450 #### [facility] [address] [place], [address] RC Collected: 04/12/2018 Status: F Source: KIMBERLY 6:00 AM [facility] REPOSITORY TYPE CODE TESTS RESULT OUT OF REFERENCE UNITS RANGE LAB U100.0000 [id number] TRANSFUSED PRODUCT: T AND S with Crossmatch, Red Cells COUNT: 2 Performed By: #### U100.0000 #### [facility] - refer to report for specific site BASIC METABOLIC Collected: 04/10/2018 Status: F Source: KIMBERLY PROFILE (BMP) 5:45 AM [facility] REPOSITORY Order Comment: ROOM 202 TYPE CODE [...] GAP 9 Performed By: #### L500.2500 #### [facility] [address] [place], [place], [address] CBC W/DIFF, AUTOMATED Collected: 04/10/2018 Status: C Source: DOVER 5:45 AM [facility] REPOSITORY Order Comment: ROOM 202 TYPE CODE [...] Violette newton Performed By: #### L100.0100 #### [facility] [address] [place], [address] CBC W/DIFF, AUTOMATED Collected: 04/03/2018 Status: F Source: DOVER 6:30 AM [facility] REPOSITORY Order Comment: 202 TYPE CODE TESTS [...] - NEUTROPENIA. Performed By: #### L100.0100 #### [facility] [address] [place], [address] CBC W/DIFF, AUTOMATED Collected: 03/27/2018 Status: F Source: DOVER 5:40 AM [facility] REPOS[facility]ORY TYPE CODE TESTS RESULT OUT OF [...] Normal 2+ Performed By: #### L100.0100 #### [facility] [address] [place], [address] CBC W/DIFF, AUTOMATED Collected: 03/20/2018 Status: F Source: DOVER 6:00 AM [facility] REPOS[facility] Order Comment: HUNTER EXTRA BB TUBE [...] Normal 2+ Performed By: #### L100.0100 #### [facility] [address] [place], [address] TYPE AND SCREEN Collected: 03/20/2018 Status: F Source: DOVER 6:00 AM [facility] REPOS[facility] Order Comment: PRETRANSFUSION HGB = 6 HCT = 18.5 PERFORMED AT [facility] CMV NEG?* N Give When? 03/21/18 @0800 Irradiated? N Leukodepleted? Y Reason for Type AND Screen/Red Cells: ANEMIA TYPE CODE TESTS RESULT OUT OF RANGE REFERENCE UNITS LAB B10.0800 A Normal BLOOD TYPE GEL POSITIVE LAB B100.4000 Normal Antibody NEGATIVE Screen Performed By: #### B101.7450 #### [facility] [address] [facility] [place], [address] RC Collected: 03/20/2018 Status: F Source: KIM[place]LY 6:00 AM [facility] TYPE CODE TESTS RESULT OUT OF REFERENCE UNITS RANGE LAB U100.0000 [id number] TRANSFUSED PRODUCT: T AND S with Crossmatch, Red Cells COUNT: 3 Performed By: #### U100.0000 #### [facility] - refer to report for specific site BASIC METABOLIC Collected: 03/13/2018 Status: F Source: KIMBERLY PROFILE (BMP) 5:50 AM [facility] REPOS[facility]ORY TYPE CODE TESTS RESULT OUT OF [...] GAP 7 Performed By: #### L500.2500 #### [facility] [address] [place], [place], [address] CBC W/DIFF, AUTOMATED Collected: 03/13/2018 Status: C Source: DOVER 5:50 AM [facility] REPOS[facility] Order Comment: HUNTER EXTRA BLOOD BANK [...] September aman Performed By: #### L100.0100 #### [facility] [address] [place] [address]. [place], [address] CBC W/DIFF, AUTOMATED Collected: 03/06/2018 Status: F Source: DOVER 6:20 AM [facility] Order Comment: HUNTER EXTRA BLOOD BANK TUBE ([id number]) TYPE CODE TESTS RESULT OUT OF RANGE [...] NEUTROPENIA NOTED. Performed By: #### L100.0100 #### [facility] [address] [place], [address] CBC W/DIFF, AUTOMATED Collected: 02/27/2018 Status: C Source: DOVER 6:22 AM [facility] Order Comment: HUNTER EXTRA BLOOD BANK [...] 1526 PATH REV previously reported as: September aman Performed By: #### L100.0100 #### [facility] [address], [address] TYPE AND SCREEN Collected: 02/27/2018 Status: P Source: KIM[place]LY 6:22 AM [facility] REPOS[facility] Order Comment: CMV NEG?* N Give When? 02/28/18 08:00AM Irradiated? N Leukodepleted? Y Reason for Type AND Screen/Red Cells: ANEMIA TYPE CODE TESTS RESULT OUT OF RANGE REFERENCE UNITS LAB B10.0800 A Normal BLOOD TYPE GEL POSITIVE LAB B100.4000 Normal Antibody NEGATIVE Screen Performed By: #### B101.7450 #### [facility] [address] [place], [address] TYPE AND SCREEN Collected: 02/27/2018 Status: F Source: DOVER 6:22 AM [facility]POS[facility] Order Comment: CMV NEG?* N Give When? 02/28/18 08:00AM Irradiated? N Leukodepleted? Y Reason for Type AND Screen/Red Cells: ANEMIA TYPE CODE TESTS RESULT OUT OF RANGE REFERENCE UNITS LAB B10.0800 A Normal BLOOD TYPE GEL POSITIVE LAB B100.4000 Normal Antibody NEGATIVE Screen Performed By: #### B101.7450 #### [facility] [address] [place], [address] RC Collected: 02/27/2018 Status: F Source: DOVER 6:22 AM [facility] TYPE CODE TESTS RESULT OUT OF REFERENCE UNITS RANGE LAB U100.0000 [id number] TRANSFUSED PRODUCT: T AND S with Crossmatch, Red Cells COUNT: 3 Performed By: #### U100.0000 #### [facility] - refer to report for specific site CBC W/DIFF, AUTOMATED Collected: 02/20/2018 Status: F Source: DOVER 6:35 AM [facility] Order Comment: ROOM 202 TYPE CODE [...] Normal 3+ Performed By: #### L100.0100 #### [facility] [place], [address] CNOVSP Observed: 02/17/2018 Status: COMPLETED Source: [place] 3:10 PM [facility] REPOSITORY Visit (SP) Office (CHERIE) ORION XIE ([id number]) 1935 M Date Time Provider Department 02/17/18 3:10 PM AJ LAZARO During your visit today, we recorded the following information about you: Temperature Pulse Blood pressure Weight 98.5 degrees 75/minute 140/85 82.3 kg Gisela Garibay LPN 02/17/2018 3:16 PM Signed Est patient. Six week office visit. Gisela Garibay ALIZA Aj Lazaro, 02/17/2018 3:58 PM Signed [...] No jaundice or rash. No petechiae. NEUROLOGIC: securities attorney II-XII are grossly intact. ASSESSMENT/PLAN: (C92.00) Acute [...] Vidaza. -He has an appointment with [facility] to start the process of getting a medical power of health care attorney for healthcare decisions in place as well as a living will. -Is also been having symptoms of melena and constipation. He has not previously had colonoscopy. Plan: -He will continue transfusional supportive care. -I will discuss stool testing and referral to colonoscopy with Dr. Lopez. Aj Lazaro DO Referring Provider: AJ LAZARO [[id number]] Allergies As of Date: 02/17/2018 (No Known Allergies) Date Reviewed: 02/17/2018 Reviewed by: Gisela Garibay LPN - Fully Assessed Reason for Visit: [...] achieved helen*INVALID FOR* Visit Notes: >> Gisela Garibay LPN TueFeb 17, 2018 2:51 PM Status: Signed Est patient. Six week office visit. Gisela Garibay LPN Encounter Status:Closed by AJ LAZARO DO on 02/17/18 PROGRESS Observed: 02/17/2018 Status: COMPLETED Source: [place] 3:06 PM [facility] REPOSITORY HNO ID: [id number] Author: Aj Lazaro Service: (none) Author Type: [...] No jaundice or rash. No petechiae. NEUROLOGIC: securities attorney II-XII are grossly intact. ASSESSMENT/PLAN: (C92.00) Acute [...] Vidaza. -He has an appointment with the [facility] the [facility] to start the process of getting a medical power of health care attorney for healthcare decisions in place as well as a living will. -Is also been having symptoms of melena and constipation. He has not previously had colonoscopy. Plan: -He will continue transfusional supportive care. -I will discuss stool testing and referral to colonoscopy with Dr. Lopez. Aj Lazaro, DO CBC W/DIFF, AUTOMATED Collected: 02/13/2018 Status: F Source: KIM[place]LY 7:30 AM [facility]POS[facility] Order Comment: 202 HUNTER EXTRA BLOOD [...] Normal 2+ Performed By: #### L100.0100 #### [facility] [address] [place], [place], [address] TYPE AND SCREEN Collected: 02/13/2018 Status: P Source: KIM[place] 7:30 AM [facility] REPOSITORY Order Comment: CMV NEG?* N Give When? [id number] 9AM Irradiated? N Leukodepleted? Y Reason for Type AND Screen/Red Cells: ANEMIA TYPE CODE TESTS RESULT OUT OF RANGE REFERENCE UNITS LAB B10.0800 A Normal BLOOD TYPE GEL POSITIVE LAB B100.4000 Normal Antibody NEGATIVE Screen Performed By: #### B101.7450 #### [facility] [facility]. [place], [place], [address] TYPE AND SCREEN Collected: 02/13/2018 Status: P Source: [place]IM[place] 7:30 AM [facility] REPOSIT[facility] Order Comment: CMV NEG?* N Give When? 959306 9AM Irradiated? N Leukodepleted? Y Reason for Type AND Screen/Red Cells: ANEMIA TYPE CODE TESTS RESULT OUT OF RANGE REFERENCE UNITS LAB B10.0800 A Normal BLOOD TYPE GEL POSITIVE LAB B100.4000 Normal Antibody NEGATIVE Screen Performed By: #### B101.7450 #### [facility] [address] [place] [address]. [place], [place], [address] TYPE AND SCREEN Collected: 02/13/2018 Status: F Source: [place] 7:30 AM [facility] REPOSIT[facility] Order Comment: CMV NEG?* N Give When? 665288 9AM Irradiated? N Leukodepleted? Y Reason for Type AND Screen/Red Cells: ANEMIA TYPE CODE TESTS RESULT OUT OF RANGE REFERENCE UNITS LAB B10.0800 A Normal BLOOD TYPE GEL POSITIVE LAB B100.4000 Normal Antibody NEGATIVE Screen Performed By: #### B101.7450 #### [facility]. [place], [place], [address] RC Collected: 02/13/2018 Status: F Source: KIM[place] 7:30 AM [facility] REPOSITORY TYPE CODE TESTS RESULT OUT OF REFERENCE UNITS RANGE LAB U100.0000 [id number] TRANSFUSED PRODUCT: T AND S with Crossmatch, Red Cells COUNT: 2 Performed By: #### U100.0000 #### [facility] - refer to report for specific site BASIC METABOLIC Collected: 02/06/2018 Status: F Source: KIM[place] PROFILE (BMP) 6:40 AM [facility] REPOSITORY TYPE CODE TESTS RESULT OUT OF [...] GAP 9 Performed By: #### L500.2500 #### [facility] [address] [place], [address] CBC W/DIFF, AUTOMATED Collected: 02/06/2018 Status: C Source: DOVER 6:40 AM [facility] REPOSITORY Order Comment: HUNTER EXTRA BLOOD BANK [...] Violette newton Performed By: #### L100.0100 #### [facility] [address] [place] [address]. [place], [address] CBC W/DIFF, AUTOMATED Collected: 01/30/2018 Status: F Source: DOVER 5:45 AM [facility]POS[facility]ORY TYPE CODE TESTS RESULT OUT OF [...] Normal 2+ Performed By: #### L100.0100 #### [facility] [address] [facility] [place], [address] CBC W/DIFF, AUTOMATED Collected: 01/23/2018 Status: C Source: DOVER 6:20 AM [facility] REPOSITORY TYPE CODE TESTS RESULT OUT OF [...] as: September Performed By: #### L100.0100 #### [facility] [address] [place], [address] TYPE AND SCREEN Collected: 01/23/2018 Status: P Source: DOVER 6:20 AM [facility]POS[facility] Order Comment: CMV NEG?* N Give When? 01/24/18 10AM Irradiated? N Leukodepleted? Y Reason for Type AND Screen/Red Cells: ANEMIA TYPE CODE TESTS RESULT OUT OF RANGE REFERENCE UNITS LAB B10.0800 A Normal BLOOD TYPE GEL POSITIVE LAB B100.4000 Normal Antibody NEGATIVE Screen Performed By: #### B101.7450 #### [facility] [address] [facility] [place], [address] TYPE AND SCREEN Collected: 01/23/2018 Status: F Source: DOVER 6:20 AM [facility] Order Comment: CMV NEG?* N Give When? 01/24/18 10AM Irradiated? N Leukodepleted? Y Reason for Type AND Screen/Red Cells: ANEMIA TYPE CODE TESTS RESULT OUT OF RANGE REFERENCE UNITS LAB B10.0800 A Normal BLOOD TYPE GEL POSITIVE LAB B100.4000 Normal Antibody NEGATIVE Screen Performed By: #### B101.7450 #### [facility] [address] [place], [address] RC Collected: 01/23/2018 Status: F Source: DOVER 6:20 AM [facility] TYPE CODE TESTS RESULT OUT OF REFERENCE UNITS RANGE LAB U100.0000 [id number] TRANSFUSED PRODUCT: T AND S with Crossmatch, Red Cells COUNT: 2 Performed By: #### U100.0000 #### [facility] - refer to report for specific site CBC W/DIFF, AUTOMATED Collected: 01/16/2018 Status: C Source: KIM[place]LY 6:35 AM [facility] TYPE CODE TESTS RESULT OUT OF [...] as: September Performed By: #### L100.0100 #### [facility] [address] [facility] [place], [address] TYPE AND SCREEN Collected: 01/10/2018 Status: F Source: DOVER 1:55 PM [facility]POS[facility] Order Comment: CMV NEG?* N Give When? 01/11/18 09:30am Irradiated? N Leukodepleted? Y Reason for Type AND Screen/Red Cells: ANEMIA TYPE CODE TESTS RESULT OUT OF RANGE REFERENCE UNITS LAB B10.0800 A Normal BLOOD TYPE GEL POSITIVE LAB B100.4000 Normal Antibody NEGATIVE Screen Performed By: #### B101.7450 #### [facility] [address] [place], [address] RC Collected: 01/10/2018 Status: F Source: [place]IM[place]LY 1:55 PM [facility] TYPE CODE TESTS RESULT OUT OF REFERENCE UNITS RANGE LAB U100.0000 [id number] TRANSFUSED PRODUCT: T AND S with Crossmatch, Red Cells COUNT: 2 Performed By: #### U100.0000 #### [facility] - refer to report for specific site BASIC METABOLIC Collected: 01/10/2018 Status: F Source: KIMBERLY PROFILE (BMP) 5:45 AM [facility] REPOSIT[facility] Order Comment: 202 TYPE CODE TESTS [...] GAP 9 Performed By: #### L500.2500 #### [facility] [address] [place], [address] CBC W/DIFF, AUTOMATED Collected: 01/10/2018 Status: C Source: KIM[place]LY 5:45 AM [facility] REPOSITORY Order Comment: 202 TYPE CODE TESTS [...] September aman Performed By: #### L100.0100 #### [facility] [address] [place], [address] PROGRESS Observed: 01/07/2018 Status: COMPLETED Source: [place] 1:57 PM [facility] REPOSITORY HNO ID: [id number] Author: Aj Lazaro Service: (none) Author Type: [...] is quite satisfied with periodic transfusions at [facility]. He enjoys the food and care. He's not had any infectious complications. He's had no unusual bleeding or unexplained bruising. He is taking an iron supplement and tolerating it well. He is not on any antiplatelet agents or anticoagulation. His appetite is been normal. He is a resident at [facility]--he doesn't have any family in this area. He has 2 brothers but there are not involved in his medical situation. [facility] entered [facility] after undergoing inguinal [...] No jaundice or rash. No petechiae. NEUROLOGIC: securities attorney II-XII are grossly intact. Unsteady gait--orthostasis observed [...] have a durable health care power of health care attorney nor does he have a living will in place. I encouraged him to do so and we'll have our long term care social worker discuss these documents with him. Plan: -He will continue transfusional supportive care. -OV in about 6 weeks. Aj Lazaro DO CNOVSP Observed: 01/05/2018 Status: COMPLETED Source: [place] 3:00 PM [facility] REPOSITORY Visit (SP) Office (CHERIE) ORION XIE ([id number]) 1935 M Date Time Provider Department 01/05/18 3:00 PM AJ LAZARO During your visit today, we recorded the following information about you: Temperature Pulse Blood pressure Weight 99.3 degrees 84/minute 139/92 83.5 kg Height 1.803 m Gisela Garibay LPN 01/05/2018 3:26 PM Signed New patient. [...] is quite satisfied with periodic transfusions at [facility]. He enjoys the food and care. He's not had any infectious complications. He's had no unusual bleeding or unexplained bruising. He is taking an iron supplement and tolerating it well. He is not on any antiplatelet agents or anticoagulation. His appetite is been normal. He is a resident at [facility]--he doesn't have any family in this area. He has 2 brothers but there are not involved in his medical situation. He entered [facility] care several years ago after undergoing inguinal [...] No jaundice or rash. No petechiae. NEUROLOGIC: securities attorney II-XII are grossly intact. Unsteady gait--orthostasis observed [...] have a durable health care power of health care attorney nor does he have a living will in place. I encouraged him to do so and we'll have our long term care social worker discuss these documents with him. Plan: -He will continue transfusional supportive care. -OV in about 6 weeks. Aj Lazaro DO Referring Provider: SELF [200] Allergies As of Date: 01/05/2018 (No Known Allergies) Date Reviewed: 01/05/2018 Reviewed by: Gisela Garibay LPN - Fully Assessed Reason for Visit: [...] encounter AMLODIPINE 10 MG TABLET >> Gisela Garibay LPN 01/05/2018 3:07 PM >> GISELA GARIBAY LPN [facility] Jan 05, 2018 3:07 PM Taking 5 mg daily Problem List As Of Date 01/05/2018 Noted Resolved Urinary retention [R33.9] INVALID FOR* H/O right inguinal hernia repair [Z98.890, Z87.*INVALID FOR* Hypertension [I10] Gross hematuria [R31.0] INVALID FOR* BPH (benign prostatic hypertrophy) with urinary*INVALID FOR* 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 Discuss acute leukemia. Gisela Garibay LPN Encounter Status:Closed by AJ LAZARO DO on 01/07/18 CNPN Observed: 01/05/2018 Status: COMPLETED Source: [place] 12:00 AM [facility] REPOSITORY Telephone (CHERIE) ORION XIE ([id number]) 1935 M Date Time Provider Department 01/05/18 AJ LAZARO During your visit today, we recorded the following information about you: Aliya Mullins 01/05/2018 5:01 PM Signed [facility] requests patient records from his OV with Dr. Lazaro. Fax number is [phone] Zhanna Escalona Psr 01/06/2018 8:10 AM Signed Notes from yesterday have not been completed from , so we will fax this information once it has been completed Zhanna Escalona Psr Kita Hooper, RN, RN 01/10/2018 8:40 AM Signed Notes faxed to [facility] [employer] [facility]. Gisela Garibay LPN 01/10/2018 12:17 PM Signed Correct fax# is [phone]. Gisela Garibay LPN Allergies As of Date: 01/05/2018 (No Known Allergies) Date Reviewed: 01/05/2018 Reviewed by: Gisela Garibay LPN - Fully Assessed Reason for Visit: [...] 01/02/2018 Status: F Source: [place] 5:06 PM [facility] REPOSITORY [facility] [place] [address] OFFICE VISIT Date of Service: 01/02/18 1633 MR#: [id number] Acct: [id number] Name: ANNE-MARIEORION Kenzie Rep #: [id number] : 1935 From: Nj Leija MD Age/Sex: [...] Chronic Code Visit Office Visits / Consults: [id number] OV L4 Est 01/02/18 1706 <Electronically signed by Nj Leija MD> Date Nj Leija MD Cosigner Signature: Date (if applicable) CC: COMPREHENSIVE METABOLIC Collected: 01/02/2018 Status: F Source: KIMBERLY TIANA 3:00 PM [facility] REPOSITORY Order Comment: Reason for Laboratory Test [...] GAP 12 Performed By: #### L500.4050 #### [facility] [address] [place], [address] CBC W/DIFF, AUTOMATED Collected: 01/02/2018 Status: F Source: DOVER 6:05 AM [facility] REPOSITORY Order Comment: 202 TYPE CODE TESTS [...] Normal 2+ Performed By: #### L100.0100 #### [facility] [address] [facility] [place], [address] TYPE AND SCREEN Collected: 12/26/2017 Status: F Source: [place] 10:30 PM [facility] REPOSITORY Order Comment: CMV NEG?* N Give When? 12/27/2017 0830 Irradiated? N Leukodepleted? Y Reason for Type AND Screen/Red Cells: ANEMIA TYPE CODE TESTS RESULT OUT OF RANGE REFERENCE UNITS LAB B10.0800 A Normal BLOOD TYPE GEL POSITIVE LAB B100.4000 Normal Antibody NEGATIVE Screen Performed By: #### B101.7450 #### [facility] [address] [facility]. [place], [place], [address] RC Collected: 12/26/2017 Status: F Source: [place] 10:30 PM [facility] REPOSITORY TYPE CODE TESTS RESULT OUT OF REFERENCE UNITS RANGE LAB U100.0000 [id number] TRANSFUSED PRODUCT: T AND S with Crossmatch, Red Cells COUNT: 2 Performed By: #### U100.0000 #### [facility] - refer to report for specific site CBC W/DIFF, AUTOMATED Collected: 12/26/2017 Status: F Source: [place] 6:00 AM [facility] REPOSITORY Order Comment: 202 TYPE CODE TESTS [...] NEUTROPENIA NOTED. Performed By: #### L100.0100 #### [facility] [address] [place], [address] BASIC METABOLIC Collected: 12/19/2017 Status: F Source: [place]IM[place] PROFILE ([facility]) 8:00 AM [facility] REPOSITORY Order Comment: 202 TYPE CODE TESTS [...] GAP 6 Performed By: #### L500.2500 #### [facility] [address] [place], [address] CBC W/DIFF, AUTOMATED Collected: 12/19/2017 Status: F Source: D[place] 8:00 AM [facility] REPOSITORY Order Comment: 202 TYPE CODE TESTS [...] Normal 2+ Performed By: #### L100.0100 #### [facility] [place], [address] ONCOLOGY VISIT REPORT Observed: 12/15/2017 Status: F Source: [place] 1:20 PM [facility] REPOSITORY [facility] [address] [place] [address]. [place] [address] OFFICE VISIT Date of Service: 12/14/171918 MR#: [id number] Acct: [id number] Name: ORION XIE Rep #: [id number] : 1935 From: Nj Leija MD Age/Sex: [...] Acute Code Visit Office Visits / Consults: 43456 OV L3 Est 12/15/17 1320 <Electronically signed by Nj Leija MD> Date Nj Leija MD Cosigner Signature: Date (if applicable) CC: CBC W/DIFF, AUTOMATED Collected: 12/12/2017 Status: C Source: [place] 6:05 AM [facility] REPOSITORY Order Comment: 202 TYPE CODE TESTS [...] September aman Performed By: #### L100.0100 #### [facility] [address] [place], [address] MISCELLANEOUS LAB Collected: 12/08/2017 Status: F Source: KIMBERLY PROCEDURE 2:19 PM [facility] REPOSITORY Order Comment: Reason for Laboratory Test JAK2-LC# [id number] Comments: [id number] Mutation Analysis, Qualitativ Test(s) Ordered: [id number] Mutation Analysis,TALL LAV WB TYPE CODE TESTS RESULT OUT OF RANGE REFERENCE UNITS LAB L801.1541 Normal [facility] LAB TEST Result Comment: TEST RESULT LIMITS [...] within exon 14 of the JAK2 gene (K5204M) encoding a valine to phenylalanine substitution at [...] type (WT) and JAK2 mutant V617F. The [id number] Absolute Quantitation software will compare the patient specimen valuse to the standard curves and generate percent values for wild type and mutant type. In vitro studies have indicated that this assay has an analytical sensitivity of 1%. References: Smtih EJ, Duarte LM, Jimmy PJ, et al. Acquired mutation of the tyrosine kinase JAK2 in human myeloproliferative disorders. Lancet. 2005 Jul 25; 365(4462):0550-0007. Harley Diego, Edward V, Kisha Silva JP. A unique clonal JAK2 mutation leading to constitutive signaling causes polycythaemia vera. Nature. 2005 Sep 03; 756(1142):6899-4900. Homer R, Clarisa F, Debra , et al. A aqqd-oy-geicomjh mutation of JAK2 in myeloproliferative disorders. N Engl J Med. 2005 Sep 03; 352(14):6688-7295. Director Review: Nathalie Frausto MD, PhD Director, Molecular Oncology [facility] [place] [address] Disclaimer: This test was developed and its performance characteristics determined by [facility]. It has not been cleared or [...] exons 12 to 15 was subjected to reverse-tumbler operator coupled PCR amplification, and bi-directional sequencing to identify sequence variations. This assay has a sensitivity to detect approximately 15% population of cells containing the JAK2 mutations in a background of non-mutant cells. This test was developed and its performance characteristics determined by [facility]. It has not been cleared or approved by the Food and Drug Administration. References Tran Merrill. et al. Detection of mutations in JAK2 exons 12-15 by [place] sequencing. Int J Lab Hemato. 2015, 38:34-41. Meggan Elaine. et al. Mutation profile of JAK2 transcripts in patients with chronic myeloproliferative neoplasias. J Mol Diagn. 2009, 11:49-53. Director Review Keven Petit, PhD Director, Molecular Oncology [facility] [place] [address] Extraction Completed TESTING PERFORMED AT [facility]. ORIGINAL REPORT ON FILE IN LAB CONTAINS ADDITIONAL TEST SITE INFORMATION. Performed By: #### L801.1541 #### [facility] [place], [address] MISCELLANEOUS LAB Collected: 12/08/2017 Status: F Source: DOVER PROCEDURE 2:19 PM [facility] REPOSITORY Order Comment: Reason for Laboratory Test PNH # [id number] Comments: [id number] [facility] 4ML HEPARIN Test(s) Ordered: [id number] PNH 4ML HEPARIN TYPE CODE TESTS RESULT OUT OF RANGE REFERENCE UNITS LAB L801.1541 Normal [facility] LAB TEST Result Comment: TEST RESULT LIMITS [...] image(s) that accompany this report is/are a access service representative image(s) only and should not be used to render a diagnosis. Director Review Reviewed By: Nj Mark M.D. TESTING PERFORMED AT [facility]. ORIGINAL REPORT ON FILE IN LAB CONTAINS ADDITIONAL TEST SITE INFORMATION. Performed By: #### L801.1541 #### [facility] [address] [place], [address] MISCELLANEOUS LAB Collected: 12/08/2017 Status: F Source: KIMBERLY PROCEDURE 3 2:19 PM [facility] REPOSITORY Order Comment: Reason for Laboratory Test FLOW CYTOMETRY-PNH Comments: [id number] Leukemia/Lymphoma Immunophenotyping Profile List Test(s) Ordered by Physician: [id number] Leukemia/Lymphoma Immunophenotyping Profile TYPE CODE TESTS RESULT OUT OF RANGE REFERENCE UNITS LAB L801.1545 Normal [facility] LAB TEST 3 Result Comment: TEST RESULT [...] developed and its performance characteristics determined by [facility]. It has not been cleared or approved by the U.S. Food and Drug Administration. The FDA has determined that such clearance or approval is not necessary. This test is used for clinical purposes. It should not be regarded as investigational or for research. TESTING PERFORMED AT [facility]. ORIGINAL REPORT ON FILE IN LAB CONTAINS ADDITIONAL TEST SITE INFORMATION. Performed By: #### L801.1545 #### [facility] [place], [address] MISCELLANEOUS LAB Collected: 12/08/2017 Status: F Source: DOVER PROCEDURE 2 2:19 PM [facility] REPOSITORY Order Comment: Reason for Laboratory Test PERIPHERAL BLOOD CYTOGENICS-# [id number] Comments: [id number] Chromosome Analysis, PED HEPARIN List Test(s) Ordered by Physician: [id number] Chromosome Analysis, PED HEPARIN TYPE CODE TESTS RESULT OUT OF RANGE REFERENCE UNITS LAB L801.1543 Normal [facility] LAB TEST 2 Result Comment: TEST RESULT [...] in situ hybridization) or a chromosome microarray HELP DESK ASSOCIATE), however, can be performed on this sample. FISH panels available targeting specific disease associated alterations are: AML (#581021), MDS (#978192), CLL (#012989), MM (#772870), ALL (#925691, pediatric panel; #266882, adult panel), and aggressive B-cell lymphoma (#627824). The array (#55483) targets both copy number changes throughout the genome and copy neutral DEUCE. (If desired, please call the number below ([phone]) and testing can be performed on available residual sample.. *In small cell B-lymphoid disorders some leukemic clones can be stimulated by B mitogens, eliminating the necessity for peripheral blood blasts. These disorders include most B-LPD. Director Review: Comment: Sarah Conrad, PhD TESTING PERFORMED AT [facility]. ORIGINAL REPORT ON FILE IN LAB CONTAINS ADDITIONAL TEST SITE INFORMATION. Performed By: #### L801.1543 #### [facility] [address] [place], [place] [address], [address] ONCOLOGY HISTORY AND Observed: 12/07/2017 Status: F Source: KIMBERLY PHYSICAL 5:16 PM [facility] REPOSITORY [facility] Medical Records Department [facility] [place] [address] History and Physical 12/07/17 0079 MR#: [id number] Acct: [id number] Name: ORION XIE Rep #: [id number] : 1935 82 From: Nj Leija MD PCP: Skinny Lopez MD Status: REG RCR Y Location: [facility] Subjective Date of Service:: 12/07/17 Chief Complaint: [...] clinic today for further evaluation. Power of Marble Setter Helper: No Living Will: No Health History: Past [...] drinking: Has the patient needed an eye formulation chemist in the mornings: Comments: Review of Systems [...] findings may represent myeloproliferative disorder/myelodysplastic disorder. Immunohistochemistry ([id number]) does not show significant increase of blasts. [...] Acute Code Visit Office Visits / Consults: 75913 OV L5 New 12/07/17 1716 <Electronically signed by Nj Leija MD> Date Nj Leija MD Cosigner Signature: Date (if applicable) CC: Skinny Lopez MD; Skinny Lopez MD; Nj Leija MD Signed CBC W/DIFF, AUTOMATED Collected: 12/05/2017 Status: C Source: DOVER 6:05 AM [facility] REPOSITORY TYPE CODE TESTS RESULT OUT OF [...] as: September Performed By: #### L100.0100 #### [facility] [place], [address] CBC W/DIFF, AUTOMATED Collected: 11/30/2017 Status: C Source: DOVER 5:55 AM [facility] REPOSITORY TYPE CODE TESTS RESULT OUT OF [...] as: September Performed By: #### L100.0100 #### [facility] [address] [place], [place], [address] TYPE AND SCREEN Collected: 11/30/2017 Status: P Source: KIMBERLY 5:55 AM [facility] REPOSITORY Order Comment: CMV NEG?* N Give When? WHEN NEEDED Irradiated? N Leukodepleted? Y Reason for Type AND Screen/Red Cells: ANEMIA TYPE CODE TESTS RESULT OUT OF RANGE REFERENCE UNITS LAB B10.0800 A Normal BLOOD TYPE GEL POSITIVE LAB B100.4000 Normal Antibody NEGATIVE Screen Performed By: #### B101.7450 #### [facility] [address] [place], [place], [address] TYPE AND SCREEN Collected: 11/30/2017 Status: P Source: DOVER 5:55 AM [facility] REPOSITORY Order Comment: CMV NEG?* N Give When? WHEN NEEDED Irradiated? N Leukodepleted? Y Reason for Type AND Screen/Red Cells: ANEMIA TYPE CODE TESTS RESULT OUT OF RANGE REFERENCE UNITS LAB B10.0800 A Normal BLOOD TYPE GEL POSITIVE LAB B100.4000 Normal Antibody NEGATIVE Screen Performed By: #### B101.7450 #### [facility] [address] [place], [address] CBC W/DIFF, AUTOMATED Collected: 11/30/2017 Status: F Source: DOVER 5:55 AM [facility] REPOSITORY TYPE CODE TESTS RESULT OUT OF [...] as: September Performed By: #### L100.0100 #### [facility] [address] [facility] [place], [place], [address] TYPE AND SCREEN Collected: 11/30/2017 Status: F Source: DOVER 5:55 AM [facility] REPOSITORY Order Comment: CMV NEG?* N Give When? WHEN NEEDED Irradiated? N Leukodepleted? Y Reason for Type AND Screen/Red Cells: ANEMIA TYPE CODE TESTS RESULT OUT OF RANGE REFERENCE UNITS LAB B10.0800 A Normal BLOOD TYPE GEL POSITIVE LAB B100.4000 Normal Antibody NEGATIVE Screen Performed By: #### B101.7450 #### [facility] [address] [facility] [place], [place], [address] RC Collected: 11/30/2017 Status: F Source: DOVER 5:55 AM [facility] REPOSITORY TYPE CODE TESTS RESULT OUT OF REFERENCE UNITS RANGE LAB U100.0000 [id number] TRANSFUSED PRODUCT: T AND S with Crossmatch, Red Cells COUNT: 2 Performed By: #### U100.0000 #### [facility] - refer to report for specific site CBC W/DIFF, AUTOMATED Collected: 11/28/2017 Status: C Source: DOVER 6:40 AM [facility] REPOSITORY TYPE CODE TESTS RESULT OUT OF [...] VERIFIED. CALLED TO JAILYN ABRAMS 11/28/17 0949 Nhaid Sousa. RESULTS READ BACK BY SAME. LAB [...] 11/29/17 1628 PATH REV previously reported as: Violette newton Performed By: #### L100.0100 #### [facility] [address] [place], [place], [address] BASIC METABOLIC Collected: 11/21/2017 Status: F Source: KIMBERLY PROFILE (BMP) 7:50 AM [facility] REPOSITORY TYPE CODE TESTS RESULT OUT OF [...] GAP 6 Performed By: #### L500.2500 #### [facility] [address] [place], [address] CBC W/DIFF, AUTOMATED Collected: 11/21/2017 Status: F Source: KIMBERLY 7:50 AM [facility] REPOSITORY TYPE CODE TESTS RESULT OUT OF [...] LARGE PLTS. Performed By: #### L100.0100 #### [facility] [address] [facility] [place], [address] DISCHARGE SUMMARY Observed: 11/18/2017 Status: F Source: DOVER 5:40 PM [facility] REPOSITORY [facility] Medical Records Department [address] [place] [address] Discharge Summary 11/18/17 1412 MR#: [id number] Acct: [id number] Name: ORION XIE Kenzie Rep #: [id number] : 1935 82 From: Manish MCGILL PCP: Skinny Lopez MD Status: DIS IN Y Location: [place] [address]-1 ADDENDUM by Kevin Meza DO on 11/18/17 at 1740 Code Visit Additional diagnosis: Severe anemia requiring blood transfusion Inpatient E AND M: 92730 Disch Hosp 11/18/17 1740 <Electronically signed by [...] with his primary care provider and with [facility] as an outpatient in order to [...] MD When: as directed Disposition: Asstd Living/Non-Skill [place] Minutes spent on discharge:: 35 Patient Condition:: [...] CC: Skinny Lopez MD; NANO Michel; Kevin Tereletsky DO Signed BONE MARROW ASPIRATON Collected: 11/18/2017 Status: F Source: DOVER 11:20 AM [facility] REPOSITORY TYPE CODE TESTS RESULT OUT OF RANGE REFERENCE UNITS LAB L350.0900 SEE Normal BONE PATHOLOGY MARROW ASP REPORT Result Comment: Specimen submitted to Anatomical Pathology Department for testing. Performed By: #### L350.0900 #### [facility] [address] [place], [address] DISCHARGE INSTRUCTION Observed: 11/18/2017 Status: F Source: DOVER 11:01 AM [facility] REPOSITORY [facility] Medical Records Department [address] [place] [address] Instructions for Home/Discharge Instructions 11/18/17 1059 MR#: [id number] Acct: [id number] Name: ORION XIE Rep #: [id number] : 1935 82 From: Manish MCGILL PCP: [...] F Source: KIMBERLY NO DIFF 5:12 AM [facility] REPOSITORY TYPE CODE TESTS RESULT OUT OF [...] MPV 12.0 Performed By: #### L100.0500 #### [facility] [address] [place], [place], [address] BONE MARROW BIOPSY Observed: 11/18/2017 Status: F Source: KIMBERLY 12:00 AM [facility] REPOSITORY Patient: ORION XIE : 1935 (82/M) Acct Num: [id number] Phys: Derrick ROSE,Kevin Unit Num: [id number] Loc: U [id number] Specimen: [id number] Received: 11/18/17 - 1344 Spec [...] slide. / SJ:timothy 11/18/17 TC: 5 CPT: 12408, 96450, 75373, 21870 x4, 14902 BONE MARROW STUDY Slides are reviewed. CBC [...] aggregate: Absent. Atypical infiltrate: Absent. Comment: Immunohistochemistry ([id number]) does not show significant increase of blasts. ASPIRATE CLOT FINDINGS: Not applicable. SPECIAL STAINS WITH MATCHED CONTROLS: Iron: Decreased. Atypical or ring sideroblasts are not seen. Reticulin: Increased. PAS: Highlights myeloid cells and megakaryocytes. Trichrome: Significant collagenous fibrosis is not seen. COMMENT The findings may represent myeloproliferative disorder/myelodysplastic disorder. Immunohistochemistry ([id number]) does not show significant increase of blasts. [...] on file> Performed By: #### PBMB #### [facility] [address] [place] [address]. [place], [place], [id number] IMMUNOHISTOCHEMISTRY Observed: 11/18/2017 Status: F Source: DOVER 12:00 AM [facility] REPOSITORY Patient: ORION XIE : 1935 (82/M) Acct Num: [id number] Phys: Derrick ,Kevin Unit Num: [id number] Loc: [facility] [id number] Specimen: [id number] Received: 11/21/171206 Spec Type: IMMUNO TISSUES TISSUES: Bone marrow of iliac crest SPECIMEN INFORMATION: Tissue Source: Bone marrow core x3 left iliac, 11g Clinical Info: Pancytopenia; low blood count Specimen Number: [id number] CPT code: 30604 METHODOLOGY: Deparaffinized sections of prefer/formalin-fixed tissue or PAP/DQ stained slides are incubated with monoclonal/polyclonal antibodies/oligonucleotide probes. Localization is made via biotin free immunoperoxidase method. Appropriate controls are performed and reacted as expected. Results on target cell population are indicated in the following table: RESULTS: ANTIBODY / CLONE RESULT CD34 (QBEnd-10) negative These tests were developed and their performance characteristics determined by [facility]. They may not have been cleared [...] the above diagnosis. IDC:[facility] [address] [address] Signed Darrin Terryin 11/22/17 <signature on file> Performed By: #### PIMM #### [facility] [address] [place], [address] CONSULTATION Observed: 11/17/2017 Status: F Source: DOVER 5:22 PM [facility] REPOSITORY [facility] Medical Records Department [address] [place] [address] Consultation 11/16/17 1649 MR#: [id number] Acct: [id number] Name: ORION XIE Rep #: [id number] : 1935 82 From: Nj Leija MD PCP: Skinny Lopez MD Status: ADM IN Y Location: [place] [address] Consult Referring Physician: Dr. Alejandrina London. Consult Results: Pancytopenia R/O MDS Subjective Date of Service:: 11/16/17 Chief Complaint: Asked to see Pt for Pancytopenia. History of Present Illness: 82 y.o.man with history of hypertension and BPH was sent from [facility] with abnormal labs, hemoglobin 6.3, WBC [...] he is discharged, should follow up in [facility] for further evaluation. Thank you. Medications: Prescriptions This Visit Medication Instructions Recorded Acetaminophen 650 mg PO Q4H PRN PRN 11/15/17 Medications Added to Medication List This Visit [facility] 11/16/17 14:00 Active Primary Care Provider: Skinny Lopez MD Referring Provider: - Problem List (1) Pancytopenia Status: Acute Code Visit Office Visits / Consults: 51101 IP Consult L4 11/17/17 1722 <Electronically signed by Nj Leija MD> Date Nj Leija MD Cosigner Signature (if applicable): Date CC: Skinny Lopez MD; Nj Leija MD Signed 12 LEAD ELECTROCARDIOGRAM Observed: 11/17/2017 Status: F Source: DOVER 1:59 PM [facility] REPOSITORY [facility] Cardiovascular Services [address] [place] [address] 12 Lead EKG 11/15/17 1736 MR#: [id number] Acct: [id number] Name: ORION XIE Rep #: [id number] : 1935 82 From: Francisco Sarah MD Attending Dr: Kevin Meza DO Status: ADM IN Ordering Dr: Kevin Meza DO Date: 11/15/17 Location: [facility] Sex: M C Admitted: 11/15/17 Test Reason [...] ECG Confirmed by FRANCISCO SARAH MD ([id number]), rewrite editor PATIENCE LOPEZ ([id number]) on 11/17/2017 1:58:37 PM Referred By: FELA Confirmed By:FRANCISCO SARAH MD 11/17/17 1358 Date Francisco Sarah MD CC: Skinny Lopez MD; Kevin Meza DO Signed BIOPSY/INJ OR NEEDLE Observed: 11/17/2017 Status: F Source: KIMBERLY PLACEMENT 10:06 AM [facility] REPOSITORY [facility] Imaging Services [address] [place] [address] Biopsy/Inj or Needle Placement MR#: [id number] Acct: [id number] Name: ORION XIE Rep #: [id number] : 1935 M 82 From: Gagan Holbrook MD PCP: Skinny Lopez MD Status: ADM IN Study: Biopsy/Inj or Needle Placement Date of Exam: 11/18/17 Exam# [id number] Ordering Dr: Kevin Meza DO PROCEDURE: CT [...] Gagan Holbrook MD at 12:51 EDT Tel [phone], Service support , CC: Skinny Lopez MD; Kevin Meza DO [employer]: Signed CBC-COMPLETE BLOOD CNT Collected: 11/17/2017 Status: F Source: KIMBERLY NO DIFF 5:18 AM [facility] REPOSITORY TYPE CODE TESTS RESULT OUT OF [...] MPV 10.8 Performed By: #### L100.0500 #### [facility] [place], [address] BASIC METABOLIC Collected: 11/17/2017 Status: F Source: DOVER PROFILE (BMP) 5:18 AM [facility] REPOSITORY TYPE CODE TESTS RESULT OUT OF [...] GAP 9 Performed By: #### L500.2500 #### [facility] [address] [facility] [place], [place], [address] HH, HEMOGLOBIN AND Collected: 11/16/2017 Status: F Source: [place]OVER HEMATOCRIT 2:30 PM [facility] REPOSITORY TYPE CODE TESTS RESULT OUT OF RANGE REFERENCE UNITS LAB L100.1300 13.0-16.5 g/dl Low HGB 8.0 LAB L100.1400 40-54 % Low HCT 23.7 Performed By: #### L100.0600 #### [facility] [address] [facility] [place], [address] BASIC METABOLIC Collected: 11/16/2017 Status: F Source: KIMBERLY PROFILE (BMP) 4:10 AM [facility] REPOSITORY TYPE CODE TESTS RESULT OUT OF [...] GAP 9 Performed By: #### L500.2500 #### [facility] [address] [place], [place], [address] CBC W/DIFF, AUTOMATED Collected: 11/16/2017 Status: F Source: KIMBERLY 4:10 AM [facility] REPOSITORY TYPE CODE TESTS RESULT OUT OF [...] Lymph 0.86 Performed By: #### L100.0100 #### [facility] [address] [place], [place], [address] IRON+IRON BINDING Collected: 11/16/2017 Status: F Source: DOVER CAPACITY 4:10 AM [facility] REPOSITORY Order Comment: Comments: Specimen for 11/15/2017 TYPE CODE TESTS RESULT OUT OF REFERENCE UNITS RANGE LAB L503.6075 250-450 ug/dL Low TIBC 193 LAB L503.6150 65-175 ug/dL IRON High 181 LAB L503.6250 15.0-55.0 % IRON High SATURATION 93.8 Performed By: #### L503.6030 #### [facility] [address] [place], [place], [address] FERRITIN Collected: 11/16/2017 Status: F Source: DOVER 4:10 AM [facility] REPOSITORY Order Comment: Comments: Specimen from 11/15/2017 TYPE CODE TESTS RESULT OUT OF REFERENCE UNITS RANGE LAB L503.6550 26-388 ng/mL High FERRITIN 410 Performed By: #### L503.6550 #### [facility] [address] [facility] [place], [place], [address] TROPONIN-I Collected: 11/15/2017 Status: F Source: DOVER 7:12 PM [facility] REPOSITORY TYPE CODE TESTS RESULT OUT OF RANGE REFERENCE UNITS LAB L501.4010 <0.045 ng/mL Normal < 0.015 TROPONIN-I Result Comment: TROPONIN-I EXPECTED VALUES <0.045 Negative 0.045 - 0.590 Consistent with Cardiac Damage > OR = 0.600 Critical Value Not every elevated troponin is indicative of W[place]. These values should be used with clinical judgement in examining the patient's clinical picture for diagnosis. To establish a diagnosis of [place] versus myocardial injury, there must be a demonstrated rise and/or fall in the troponin values, in addition to ischemic symptoms, EKG changes, new regional wall motion abnormality, and/or angiographical evidence. PLEASE NOTE: REFERENCE RANGES EDITED 17 Performed By: #### L501.4010, L504.2610, L506.0250 #### [facility] [address] [place], [address] LDH Collected: 11/15/2017 Status: F Source: DOVER 7:12 PM [facility] REPOSITORY TYPE CODE TESTS RESULT OUT OF RANGE REFERENCE UNITS LAB L504.2610 87-241 U/L High LDH 480 Performed By: #### L501.4010, L504.2610, L506.0250 #### [facility] [address] [place], [address] FOLATES, (FOLIC ACID) Collected: 11/15/2017 Status: F Source: DOVER 7:12 PM [facility] REPOSITORY TYPE CODE TESTS RESULT OUT OF RANGE REFERENCE UNITS LAB L506.0250 3.1-55.4 ng/mL Normal FOLATES 5.90 Performed By: #### L501.4010, L504.2610, L506.0250 #### [facility] [address] [place], [address] PROTHROMBIN TIME W/INR Collected: 11/15/2017 Status: F Source: DOVER 7:12 PM [facility] REPOSITORY TYPE CODE TESTS RESULT OUT OF RANGE REFERENCE UNITS LAB L300.4150 11.7-14.9 SECONDS Normal PROTIME 14.8 LAB L300.4200 Normal INR 1.2 Performed By: #### L300.3900, L300.4310 #### [facility] [address] [place], [address] PARTIAL THROMBOPLAST Collected: 11/15/2017 Status: F Source: DOVER TIME 7:12 PM [facility] REPOSITORY TYPE CODE TESTS RESULT OUT OF RANGE REFERENCE UNITS LAB L300.4310 24.1-36.2 Seconds Normal PTT 34.9 Performed By: #### L300.3900, L300.4310 #### [facility] [address] [facility] [place], [address] VITAMIN B12 Collected: 11/15/2017 Status: F Source: KIMBERLY 7:12 PM [facility] REPOSITORY TYPE CODE TESTS RESULT OUT OF RANGE REFERENCE UNITS LAB L503.0105 211-911 pg/mL Normal Vitamin B12 812 Performed By: #### L503.0105 #### [facility] [address] [facility] [place], [address] HAPTOGLOBIN Collected: 11/15/2017 Status: F Source: KIMBERLY 7:12 PM [facility] REPOSITORY TYPE CODE TESTS RESULT OUT OF RANGE REFERENCE UNITS LAB L3100.1850 34-200 mg/dL Normal HAPTOGLOB 1628 94 Result Comment: Performed at: - [facility] [id number] Back Sizer: Leroy Villegas PhD, Phone: [phone] Performed By: #### L3100.1850 #### [facility] (refer to report for specific site) refer to report for address and phone number HISTORY AND PHYSICAL Observed: 11/15/2017 Status: F Source: [place] EXAM 7:09 PM [facility] REPOSITORY [facility] Medical Records Department [address] [place] [address] History and Physical 11/15/17 1821 MR#: [id number] Acct: [id number] Name: ORION XIE Rep #: [id number] : 1935 82 From: Kei London MD PCP: Skinny Lopez MD Status: ADM IN Y Location: [address] Problem List (1) Pancytopenia Status: Acute (2) Severe anemia Status: Acute (3) BPH (benign prostatic hyperplasia) Status: Chronic (4) Hypertension Status: Chronic History of Present Illness Date of Admission: 11/15/17 Chief Complaint: Abnormal labs The patient is a 82 year old M with history of hypertension, BPH was sent from assisted living center or abnormal labs. Patient had [...] history of hypertension, BPH was sent from [facility] living center or abnormal labs. Patient [...] patient is DNR CC arrest as per fpc paper. Patient does not wish aggressive resuscitation or ventilator on machine support if he gets into terminal condition. Microbiology Past 72 Hours 11/15/17 16:10 Stool Stool Occult Blood (SRIINVASAN) - Final Laboratory Results 11/15/17 16:10: WBC 2.4 L, RBC 1.97 L, Hgb 6.1 L, Hct 18.3 L, MCV 92.9, MCH 31.0, MCHC 33.3, RDW 19.9 H, RDW Differential 66.4 H, Plt Count 68 L, MPV 10.8, Immature Gran % (Auto) 0.400, Neut % (Auto) 27.8 L, Lymph % (Auto) 43.9 H, Cross % (Auto) 27.9 H, Eos % (Auto) [...] Detail Code Visit Inpatient E AND M: 90896 Init Hosp L3 11/15/17 1909 <Electronically signed by Kei London MD> Date Kei London MD Cosigner Signature: Date (if applicable) CC: Skinny Lopez MD; Kei London MD Signed URINALYSIS, COMPLETE Collected: 11/15/2017 Status: F Source: KIM[place] 6:46 PM [facility] REPOSITORY Order Comment: How was Urine Obtained? SCIENTIFIC EDITOR TO SPECIFY TYPE CODE TESTS RESULT OUT [...] URINE SEEN Performed By: #### L400.0001 #### [facility] Laboratory [address] [facility] [place], [address] EMERGENCY DEPARTMENT Observed: 11/15/2017 Status: F Source: DOVER SUMMARY 5:27 PM [facility] REPOSITORY [facility] Medical Records Department [address] [facility] [place] [address] Emergency Department Summary 11/15/17 1725 MR#: [id number] Acct: [id number] Name: ORION XIE Rep #: [id number] : 1935 82 From: Janie Lozano DO [...] Generalized weakness] This note was generated with [employer] software. It may contain incorrect words, spelling, [...] your Primary Care Provider. Call [facility] ([phone]) or report to the closest Emergency Room. Call 911 if necessary. 11/15/17 1727 <Electronically signed by Janie Lozano DO> Date Janie Lozano DO Cosigner Signature (If Indicated): Date CC: Skinny Lopez MD BASIC METABOLIC Collected: 11/15/2017 Status: F Source: [place] PROFILE (BMP) 4:10 PM [facility] REPOSITORY TYPE CODE TESTS RESULT OUT OF [...] GAP 9 Performed By: #### L500.2500 #### [facility] Laboratory [address] [facility] [place], [address] Observed: 11/15/2017 Status: F Source: [place] STOOL OCCULT BLOOD 4:10 PM [facility] IFOB REPOSITORY Order Date: 11/15/17 Has pt arrived? Y STOB iFOB Occult Blood Negative Performed By: #### M100.7900 #### [facility] [address] [facility] [place], [address] CBC W/DIFF, AUTOMATED Collected: 11/15/2017 Status: F Source: DOVER 4:10 PM [facility] REPOSITORY TYPE CODE TESTS RESULT OUT OF [...] ANISOCYTOSIS NOTED Performed By: #### L100.0100 #### [facility] [address] [place], [address] TYPE AND SCREEN Collected: 11/15/2017 Status: F Source: [place]OVER 4:10 PM [facility] REPOSITORY Order Comment: Reason for Type AND Screen/Red Cells: ANEMIA TYPE CODE TESTS RESULT OUT OF RANGE REFERENCE UNITS LAB B10.0800 A Normal BLOOD TYPE GEL POSITIVE LAB B100.4000 Normal Antibody NEGATIVE Screen Performed By: #### B101.7450 #### [facility] [address] [place], [address] RC Collected: 11/15/2017 Status: F Source: K[place] 4:10 PM [facility] REPOSITORY TYPE CODE TESTS RESULT OUT OF REFERENCE UNITS RANGE LAB U100.0000 [id number] TRANSFUSED PRODUCT: T AND S with Crossmatch, Red Cells COUNT: 2 Performed By: #### U100.0000 #### [facility] - refer to report for specific site BNP,B-TYPE NATRIURETIC Collected: 11/15/2017 Status: F Source: [place] PEPTIDE 4:10 PM [facility] REPOSITORY TYPE CODE TESTS RESULT OUT OF RANGE REFERENCE UNITS LAB L503.6620 0-100 pg/mL Normal B-TYPE 25.0 REKHA PEP Performed By: #### L503.6620 #### [facility] [address] [place], [address] RC Collected: 11/15/2017 Status: F Source: [place] 4:10 PM [facility] REPOSITORY TYPE CODE TESTS RESULT OUT OF REFERENCE UNITS RANGE LAB U100.0000 [id number] TRANSFUSED PRODUCT: T AND S with Crossmatch, Red Cells COUNT: 2 Performed By: #### U100.0000 #### [facility] Laboratory - refer to report for specific site RC Collected: 11/15/2017 Status: F Source: [place] 4:10 PM [facility] REPOSITORY TYPE CODE TESTS RESULT OUT OF REFERENCE UNITS RANGE LAB U100.0000 [id number] TRANSFUSED PRODUCT: T AND S with Crossmatch, Red Cells COUNT: 1 Performed By: #### U100.0000 #### [facility] Laboratory - refer to report for specific site CBC W/DIFF, AUTOMATED Collected: 11/15/2017 Status: F Source: KIM[place] 6:50 AM [facility] REPOSITORY Order Comment: 202 CRITICAL VALUE VERIFIED. CALLED TO PRIMO AT [facility] 11/15/17926 Radha Neff. RESULTS READ BACK BY SAME . RESULTS FAXED TO [phone] 11/15/17926 Radha Neff. TYPE CODE TESTS RESULT [...] M.D. 11/15/17 Performed By: #### L100.0100 #### [facility] [address] [place], [place], [address] CBC W/DIFF, AUTOMATED Collected: 11/12/2017 Status: F Source: [place] [address]:45 AM [facility] REPOSITORY TYPE CODE TESTS RESULT OUT OF [...] HYPOCHROMASIA 2+ Performed By: #### L100.0100 #### [facility] [address] [place], [address] BASIC METABOLIC Collected: 11/12/2017 Status: F Source: K[place] PROFILE (BMP) 6:45 AM [facility] REPOSITORY TYPE CODE TESTS RESULT OUT OF [...] 7 Performed By: #### L500.2500, L501.9520 #### [facility] [address] [place], [address] THYROID STIM HORMONE Collected: 11/12/2017 Status: F Source: [place]LY (TSH) 6:45 AM [facility] REPOSITORY TYPE CODE TESTS RESULT OUT OF RANGE REFERENCE UNITS LAB L501.9520 0.358-3.74 uIU/mL Normal TSH 3.49 Performed By: #### L500.2500, L501.9520 #### [facility] [address] [place], [address] CBC-COMPLETE BLOOD CNT Collected: 09/13/2017 Status: F Source: [place] NO DIFF 7:05 AM [facility] REPOSITORY Order Comment: 202 TYPE CODE TESTS [...] performed Performed By: #### L100.0500, L100.4500 #### [facility] [address] [facility]. [place], [place], [address] DIFFERENTIAL COMMENT Collected: 09/13/2017 Status: F Source: [place]LY 7:05 AM [facility] REPOSITORY Order Comment: 202 TYPE CODE TESTS RESULT OUT OF RANGE REFERENCE UNITS LAB L100.4500 Normal SMEAR COMMENT SCANNED Result Comment: LARGE PLATELETS NOTED Performed By: #### L100.0500, L100.4500 #### [facility] [address] [facility] [place], [address] BASIC METABOLIC Collected: 09/13/2017 Status: F Source: [place] PROFILE (BMP) 7:05 AM [facility] REPOSITORY Order Comment: 202 TYPE CODE TESTS [...] GAP 7 Performed By: #### L500.2500 #### [facility] [address] [place], [address] BASIC METABOLIC Collected: 07/06/2017 Status: F Source: [place] PROFILE ([facility]) 6:22 AM [facility] REPOSITORY Order Comment: ROOM 202 PREETHI TYPE [...] GAP 7 Performed By: #### L500.2500 #### [facility] [address] [place], [place], [address] BASIC METABOLIC Collected: 06/14/2017 Status: F Source: [place] PROFILE (BMP) 6:42 AM [facility] REPOSITORY Order Comment: 202 TYPE CODE TESTS [...] GAP 6 Performed By: #### L500.2500 #### [facility] [address] [place], [place], [address] CBC-COMPLETE BLOOD CNT Collected: 06/14/2017 Status: F Source: [place] NO DIFF 6:42 AM [facility] REPOSITORY Order Comment: 202 TYPE CODE TESTS [...] performed Performed By: #### L100.0500, L100.4500 #### [facility] [address] [place], [address] DIFFERENTIAL COMMENT Collected: 06/14/2017 Status: F Source: DOVER 6:42 AM [facility] REPOSITORY Order Comment: 202 TYPE CODE TESTS RESULT OUT OF RANGE REFERENCE UNITS LAB L100.4500 Normal SMEAR COMMENT SCANNED Result Comment: LARGE PLATELETS NOTED Performed By: #### L100.0500, L100.4500 #### [facility] [address] [place], [address] ALLERGIES ALLERGIES DATE TYPE / CODE NAME / CODE REACTION SEVERITY SOURCE 01/02/2018 Drug No Known Unknown [facility] Allergy/416 Allergies/T55101 [facility] 349556(SNOM 0388(RXNORM) Repository ED CT) Drug NO KNOWN [facility] Class/83420 ALLERGIES Main [place] 1003(SNOMED Repository CT) ENCOUNTERS ENCOUNTERS ADMIT/DISCHARGE ACCOUNT ADMITTING ENCOUNTER LOCATION SOURCE NUMBER CLASS 05/29/2018 [id number] [facility] ing:OLS.LBE Repository N 05/22/2018 [id number] [facility] ing:YASEMIN.[employer] Repository N 05/19/2018 [id number] [facility] 05/15/2018 [id number] [facility] ing:YASEMIN.[employer] Repository N 05/08/2018 [id number] [facility] ing:LBE Repository N 05/03/2018 [id number] Ambulatory [facility] Hospital ing:MEDOUTP Repository 05/01/2018 [id number] Ambulatory [facility] Hospital ing:OLS.WHLBE Repository N 04/24/2018 [id number] Ambulatory [facility] Hospital[facility] Hospital ing:OLS.WHLBE Repository N 04/17/2018 [id number] Ambulatory [facility] HospitalBuild Hospital ing:OLS.WHLBE Repository N 04/13/2018 [id number] Ambulatory [facility] HospitalBuild Hospital ing:MEDOUTP Repository 04/10/2018 [id number] Ambulatory [facility] HospitalBuild Hospital ing:OLS.WHLBE Repository N 04/03/2018 [id number] Ambulatory [facility] Hospital ing:OLS.LBE Repository N 03/27/2018 [id number] Ambulatory [facility] Hospital[facility] Hospital ing:OLS.WHLBE Repository N 03/20/2018 [id number] Ambulatory [facility] Hospital ing:MEDOUTP Repository 03/20/2018 [id number] Ambulatory [facility] Hospital[facility] Hospital ing:OLS.WHLBE Repository N 03/13/2018 [id number] Ambulatory [facility] Hospital ing:OLS.LBE Repository N 03/06/2018 [id number] Ambulatory [facility] Hospital ing:OLS.LBE Repository N 02/28/2018 [id number] [facility] ing:MED[facility]P Repository 02/27/2018 [id number] [facility] ing:OLS.WHLBE Repository N 02/20/2018 [id number] Ambulatory [facility] Hospital[facility] Hospital ing:OLS.WHLBE Repository N 02/17/2018/02/21/20 [id number] Ambulatory [address] Repository 02/14/2018 [id number] [facility] ing:MEDOUTP Repository 02/13/2018 [id number] Ambulatory [facility] Hospital[facility] Hospital ing:OLS.WHLBE Repository N 02/06/2018 [id number] Ambulatory [facility] Hospital[facility] Hospital ing:OLS.WHLBE Repository N 01/30/2018 [id number] Ambulatory [facility] Hospital[facility] Hospital ing:OLS.WHLBE Repository N 01/24/2018 [id number] Ambulatory [facility] Hospital[facility] Hospital ing:MEDOUTP Repository 01/23/2018 [id number] Ambulatory [facility] HospitalBuild Hospital ing:OLS.WHLBE Repository N 01/16/2018 [id number] Ambulatory [facility] Hospital[facility] Hospital ing:OLS.WHLBE Repository N 01/11/2018 [id number] Ambulatory [facility] Hospital[facility] Hospital ing:MEDOUTP Repository 01/10/2018 [id number] Ambulatory [facility] Hospital[facility] Hospital ing:OLS.WHLBE Repository N 01/05/2018/01/11/20 [id number] Ambulatory [address] Repository 01/02/2018 [id number] Ambulatory [facility] HospitalBuild Hospital ing:OMD Repository 01/02/2018 [id number] Ambulatory BMSBuilding:B [place].CF.[facility] Repository 01/02/2018 [id number] Ambulatory [facility] HospitalBuild Hospital ing:OLS.WHLBE Repository N 12/27/2017 [id number] Ambulatory [facility] Hospital[facility] Hospital ing:MEDOUTP Repository 12/26/2017 [id number] Ambulatory [facility] HospitalBuild Hospital ing:OLS.WHLBE Repository N 12/19/2017 [id number] Ambulatory [facility] HospitalBuild Hospital ing:OLS.WHLBE Repository N 12/14/2017 [id number] Ambulatory BMSBuilding:B [place].CF.[facility] Repository 12/12/2017 [id number] Ambulatory [facility] HospitalBuild Hospital ing:OLS.WHLBE Repository N 12/07/2017 [id number] Ambulatory BMSBuilding:B [place].CF.[facility] Repository 12/05/2017 [id number] Ambulatory [facility] Hospital ing:OLS.LBE Repository N 12/01/2017 [id number] Ambulatory [facility] Hospital ing:MEDOUTP Repository 11/30/2017 [id number] Ambulatory [facility] Hospital ing:OLS.LBE Repository N 11/28/2017 [id number] Ambulatory [facility] Hospital ing:OLS.LBE Repository N 11/21/2017 [id number] Ambulatory [facility] Hospital ing:OLS.LBE Repository N 11/15/2017 [id number] [facility], Ambulatory BMSBuilding:B [place] Kei MS.[facility] Repository 11/15/2017 [id number] [facility], Ambulatory BMSBuilding:B [place] Kei MS.[facility] Repository 11/15/2017 [id number] [facility], Ambulatory BMSBuilding:B [place] Kei MS.[facility] Repository 11/15/2017 [id number] [facility], Ambulatory BMSBuilding:B [place] Kei MS.CF.[facility] Repository 11/15/2017 [id number] [facility], Ambulatory BMSBuilding:B [place] Kei MS.[facility] Repository 11/15/2017/11/19/19 [id number] [facility], Inpatient [place] 18 Kei [facility] Hospital ing:PCURoom: Repository ISB661Liu: 1 11/15/2017 [id number] [facility] ing:[facility]S.LBE Repository N 11/12/2017 [id number] Ambulatory [facility] Hospital ing:OLS.LBE Repository N 09/13/2017 [id number] [facility] Hospital ing:OLS.LBE Repository N 07/06/2017 [id number] [facility] ing:OLS.LBE Repository N 06/14/2017 [id number] Ambulatory [place] [facility] ing:OLS.WHLBE Repository N PAYERS PAYERS ENCOUNTER GUARANTOR PAYER SUBSCRIBER SOURCE 05/29/2018 ORION Espino Primary NOT GIVENUNK [place] [id number] Insurance:SELF PAY [facility] [place], [place] Number: Effective Repository [address]Buw: (330) Date:2018-05-29 [phone] () 05/22/2018 ORION Espino Primary NOT GIVENUNK [place] [id number] Insurance:SELF PAY [facility] [place] Number: Effective Repository [phone]: (330) Date:2018-05-22 [phone] () 05/19/2018 ORION L Primary ORION Espino [place] [id number] Insurance:MEDICARE HOTHEMDOB: [facility] PART A [facility] [id number] [facility] [place] Number: Repository [address]Res: 330 [id number] () Date:2018-05-15 05/19/2018 Secondary ORION Espino [place] Insurance:CIGNAPolicy HOTHEMDOB: [facility] Number: [id number] [id number] Repository Date:2244-86-12[address], [place] [address]YH: 05/19/2018 Tertiary NOT GIVENUNK [place] Insurance:SELF PAY [facility] Number: Effective Repository Date:2018-05-15 05/15/2018 ORION L Primary ORION Espino [place] [id number] Insurance:MEDICARE HOTHEMDOB: [facility] PART A [facility] [id number] [facility] [place] Number: Repository [address]Pzc: 330 [id number] [phone] () Date:2018-05-15 05/15/2018 Secondary ORION Espino [place] Insurance:CIGNAPolicy HOTHEMDOB: Community Number: [id number] Hospital [id number] Repository Date:2196-48-81[address], [place] [address]VP: 05/15/2018 Tertiary NOT GIVENUNK [place] Insurance:SELF PAY [facility] Number: Effective Repository Date:2018-05-15 05/08/2018 ORION Espino Primary ORION Harris [id number] Insurance:MEDICARE HOTHEMDOB: [facility] RDAPT PART A olic [id number], [place] Number: Repository [address]Hfd: [phone] [id number] [phone] (HP) Date:2018-05-08 05/08/2018 Secondary ORION Espino [place] Insurance:CIGNAPolicy HOTHEMDOB: Community Number: [id number] Hospital [id number] Repository Date:2190-44-68BC [facility] [address]8890EOFKUSZQPEM [place] [address]UQ: 05/08/2018 Tertiary NOT GIVENUNK [place] Insurance:SELF PAY [facility] Number: Effective Repository Date:2018-05-08 05/03/2018 ORION Espino Primary ORION Harris [id number] Insurance:MEDICARE HOTHEMDOB: [facility] RDAPT PART A [facility] [id number], [place] Number: Repository [address]Afc: [phone] [id number] [phone] () Date:2018-05-01 05/03/2018 Secondary ORION Espino [place] Insurance:CIGNAPolicy HOTHEMDOB: Community Number: [id number] Hospital [id number] Repository Date:7978-74-08BH [facility] 136388XRLUSWNHJDA, [place] [address]RU: 05/03/2018 Tertiary NOT GIVENUNK [place] Insurance:SELF PAY [facility] Number: Effective Repository Date:2018-05-01 05/01/2018 ORION Espino Primary ORION Harris [id number] Insurance:MEDICARE [facility] [id number], [place] Number: Repository [address]Ptc: [phone] [id number] [phone] (HP) Date:2018-05-01 05/01/2018 Secondary ORION Harris Insurance:CIGNAPolicy HOTHEMDOB: Community Number: [id number] Hospital [id number] Repository Date:4489-34-10XC [address]BNZMIYUXLIB, [place] [address]JU: 05/01/2018 Tertiary NOT GIVENUNK [place] Insurance:SELF PAY [facility] Number: Effective Repository Date:2018-05-01 04/24/2018 ORION Espino Primary ORION Harris [id number] Insurance:MEDICARE HOTHEMDOB: [facility] [address]AP[address] PART A olicy [id number] Number: Repository [address]Fwv: [phone] [id number] [phone] () Date:2018-04-24 04/24/2018 Secondary ORION Harris Insurance:CIGNAPolicy HOTHEMDOB: Community Number: [id number] Hospital [id number] Repository Date:9501-67-70[address]ZFJORXHQZTZ, [place] [address]JH: 04/24/2018 Tertiary NOT GIVENUNK [place] Insurance:SELF PAY [facility] Number: Effective Repository Date:2018-04-24 04/17/2018 ORION Espino Primary ORION Harris [id number] Insurance:MEDICARE HOTHEMDOB: [facility] RDAP[address] PART A olicy [id number] Number: Repository [address]Qhv: [phone] [id number] [phone] () Date:2018-04-17 04/17/2018 Secondary ORION Harris Insurance:CIGNAPolicy HOTHEMDOB: Community Number: [id number] Hospital [id number] Repository Date:8169-38-11[address]HVOUSWGHVZM, [place] [address]HL: 04/17/2018 Tertiary NOT GIVENUNK [place] Insurance:SELF PAY [facility] Number: Effective Repository Date:2018-04-17 04/13/2018 ORION Espino Primary ORION Harris [id number] Insurance:MEDICARE [facility]MD[facility] [id number] [place] Number: Repository [address]Jcf: [phone] [id number] [phone] () Date:2018-04-10 04/13/2018 Secondary ORION Harris Insurance:CIGNAPolicy HOTHEMDOB: Community Number: [id number] Hospital [id number] Repository Date:2855-61-17[address]MZLGTPZSKBB, [place] [address]KF: 04/13/2018 Tertiary NOT GIVENUNK [place] Insurance:SELF PAY [facility] Number: Effective Repository Date:2018-04-10 04/10/2018 ORION L Primary ORION Harris [id number] Insurance:MEDICARE HOTHEMDOB: [facility] PART A [facility] [id number], [place] Number: Repository [address]Fvd: 330 [id number] [phone] () Date:2018-04-10 04/10/2018 Secondary ORION Espino [place] Insurance:CIGNAPolicy HOTHEMDOB: Community Number: [id number] Hospital [id number] Repository Date:5622-86-22[address]MINVOPOCQH, [place] [address]IG: 04/10/2018 Tertiary NOT GIVENUNK [place] Insurance:SELF PAY [facility] Number: Effective Repository Date:2018-04-10 04/03/2018 ORION L Primary ORION Harris [id number] Insurance:MEDICARE HOTHEMDOB[facility] [id number] [place] Number: Repository [address]Yyy: 330 [id number] [phone] () Date:2018-04-03 04/03/2018 Secondary ORION Espino [place] Insurance:CIGNAPolicy HOTHEMDOB: Community Number: [id number] Hospital [id number] Repository Date:3958-83-95[address]YOJAPWRBGWM, [place] [address]CH: 04/03/2018 Tertiary NOT GIVENUNK [place] Insurance:SELF PAY [facility] Number: Effective Repository Date:2018-04-03 03/27/2018 ORION Espino Primary ORION Harris [id number] Insurance:MEDICARE HOTHEMDOB: [facility] [id number] [place] Number: Repository [address]Ssp: [phone] [id number] [phone] (HP) Date:2018-03-27 03/27/2018 Secondary ORION Harris Insurance:CIGNAPolicy HOTHEMDOB: Community Number: [id number] Hospital [id number] Repository Date:2958-53-69[address]GFKDXOSEKNY, [place] [address]VM: 03/27/2018 Tertiary NOT GIVENUNK [place] Insurance:SELF PAY [facility] Number: Effective Repository Date:2018-03-27 03/20/2018 ORION Espino Primary ORION Harris [id number] Insurance:MEDICARE HOTHEMDOB[facility] [id number], [place] Number: Repository [address]Bts: 330 [id number] [phone] (HP) Date:2018-03-20 03/20/2018 Secondary ORION Harris Insurance:CIGNAPolicy HOTHEMDOB: Community Number: [id number] [facility] [id number] Repository Date:6332-40-28EC [address]WYMUKDKJTYG, [place] [address]XO: 03/20/2018 Tertiary NOT GIVENUNK [place] Insurance:SELF PAY [facility] Number: Effective Repository Date:2018-03-20 03/20/2018 ORION Espino Primary ORION Harris [id number] Insurance:MEDICARE HOTHEMDOB: [facility] RDAPT PART A [facility] [id number], [place] Number: Repository [address]Hli: 330 [id number] [phone] (HP) Date:2018-03-20 03/20/2018 Secondary ORION Harris Insurance:CIGNAPolicy HOTHEMDOB: Community Number: [id number] Hospital [id number] Repository Date:3111-80-54KM [address]JPSWMDYFWUY, [place] [address]AY: 03/20/2018 Tertiary NOT GIVENUNK [place] Insurance:SELF PAY [facility] Effective Repository Date:2018-03-20 03/13/2018 ORION Espino Primary ORION Harris [id number] Insurance:MEDICARE HOTHEMDOB: [facility] RDAPT PART A olic [id number] Number: Repository [address]Mlz: (589) [id number] [phone] () Date:2018-03-13 03/13/2018 Secondary ORION Harris Insurance:CIGNAPolicy HOTHEMDOB: Community Number: [id number] Hospital [id number] Repository Date:4710-80-45XA [address]PIJBQUMRHPM, [place] [address]OT: 03/13/2018 Tertiary NOT GIVENUNK [place] Insurance:SELF PAY [facility] Number: Effective Repository Date:2018-03-13 03/06/2018 ORION Espino Primary ORION Harris [id number] Insurance:MEDICARE HOTHEMDOB: [facility] RDAPT PART A [facility] [id number] Number: Repository [address]Jaa: ([phone]) [id number] [phone] () Date:2018-03-06 03/06/2018 Secondary ORION Harris Insurance:CIGNAPolicy HOTHEMDOB: Community Number: [id number] Hospital [id number] Repository Date:6383-78-68HB [address]QJDEPTFBCBL, [place] [address]DX: 03/06/2018 Tertiary NOT GIVENUNK [place] Insurance:SELF PAY [facility] Number: Effective Repository Date:2018-03-06 02/28/2018 ORION Espino Primary ORION Harris [id number] Insurance:MEDICARE [facility]MDOB[facility] [id number] [place] Number: Repository [address]Muh: 330 [id number] [phone] () Date:2018-02-27 02/28/2018 Secondary ORION Harris Insurance:CIGNAPolicy HOTHEMDOB: Community Number: [id number] Hospital [id number] Repository Date:7975-19-46XA [address]LZZOPKJILNR, [place] [address]LS: 02/28/2018 Tertiary NOT GIVENUNK [place] Insurance:SELF PAY [facility] Number: Effective Repository Date:2018-02-27 02/27/2018 ORION Espino Primary ORION Harris [id number] Insurance:MEDICARE HOTHEMDOB[facility] [id number] Number: Repository [address]Esd: 330 [id number] [phone] () Date:2018-02-27 02/27/2018 Secondary ORION Harris Insurance:CIGNAPolicy HOTHEMDOB: Community Number: [id number] Hospital [id number] Repository Date:4674-58-35SC [address]XHKTSEOZEAB, [place] [address]PR: 02/27/2018 Tertiary NOT GIVENUNK [place] Insurance:SELF PAY [facility] Number: Effective Repository Date:2018-02-27 02/20/2018 ORION Espino Primary ORION Harris [id number] Insurance:MEDICARE HOTHEMDOB[facility] [id number], [place] Number: Repository [address]Het: 330 [id number] [phone] () Date:2018-02-20 02/20/2018 Secondary ORION Harris Insurance:CIGNAPolicy HOTHEMDOB: Community Number: [id number] Hospital [id number] Repository Date:2438-62-59PI [address]GZONJAGKMDA, [place] [address]NA: 02/20/2018 Tertiary NOT GIVENUNK [place] Insurance:SELF PAY [facility] Number: Effective Repository Date:2018-02-20 02/14/2018 ORION Espino Primary ORION Harris [id number] Insurance:MEDICARE HOTHEMDOB[facility] [id number] Number: Repository [address]Izz: 330 [id number] [phone] (HP) Date:2018-02-13 02/14/2018 Secondary ORION Harris Insurance:CIGNAPolicy HOTHEMDOB: Community Number: [id number] Hospital [id number] Repository Date:9803-46-24BX [address]OMJBCMEPNNB, [place] [address]PL: 02/14/2018 Tertiary NOT GIVENUNK [place] Insurance:SELF PAY [facility] Number: Effective Repository Date:2018-02-13 02/13/2018 ORION Espino Primary ORION Herreraoster [id number] Insurance:MEDICARE HOTHEMDOB: [facility] PART A [facility] [id number] [place] Number: Repository [address]Sgk: 330 [id number] [phone] (HP) Date:2018-02-13 02/13/2018 Secondary ORION Harris Insurance:CIGNAPolicy HOTHEMDOB: Community Number: [id number] Hospital [id number] Repository Date:5648-13-68HX [address]ZOWQGIYHGFM, [place] [address]WS: 02/13/2018 Tertiary NOT GIVENUNK [place] Insurance:SELF PAY [facility] Number: Effective Repository Date:2018-02-13 02/06/2018 ORION L Primary ORION Harris [id number] Insurance:MEDICARE HOTHEMDOB[facility] [id number] [place] Number: Repository [address]Nrw: 330 [id number] [phone] (HP) Date:2018-02-06 02/06/2018 Secondary ORION Espino [place] Insurance:CIGNAPolicy HOTHEMDOB: Community Number: [id number] Hospital [id number] Repository Date:8106-47-82KO [address]PMHEKWEQNXUCATONSVILLE, [place] [address]KK: 02/06/2018 Tertiary NOT GIVENUNK [place] Insurance:SELF PAY [facility] Number: Effective Repository Date:2018-02-06 01/30/2018 ORION Espino Primary ORION Harris [id number] Insurance:MEDICARE HOTHEMDOB: [facility] RDAPT PART A [facility] [id number] Number: Repository [address]Woa: (158) [id number] [phone] () Date:2018-01-30 01/30/2018 Secondary ORION Espino [place] Insurance:CIGNAPolicy HOTHEMDOB: [facility] Number: [id number] Hospital [id number] Repository Date:6719-35-43JL [address]VWAJRCIPMMP, [place] [address]GN: 01/30/2018 Tertiary NOT GIVENUNK [place] Insurance:SELF PAY [facility] Number: Effective Repository Date:2018-01-30 01/24/2018 ORION Espino Primary ORION Herreraoster [id number] Insurance:MEDICARE HOTHEMDOB[facility] [id number] Number: Repository [address]Axx: 330 [id number] [phone] () Date:2018-01-23 01/24/2018 Secondary ORION Espino [place] Insurance:CIGNAPolicy HOTHEMDOB: Community Number: [id number] Hospital [id number] Repository Date:5156-47-87VF [address]MYGZENPYJAM, [place] [address]OV: 01/24/2018 Tertiary NOT GIVENUNK [place] Insurance:SELF PAY [facility] Number: Effective Repository Date:2018-01-23 01/23/2018 ORION L Primary ORION Herreraoster [id number] Insurance:MEDICARE HOTHEMDOB: [facility] RDAPT PART A [facility] [id number] Number: Repository [address]Szt: 330 [id number] [phone] () Date:2018-01-23 01/23/2018 Secondary ORION Harris Insurance:CIGNAPolicy HOTHEMDOB: Community Number: [id number] Hospital [id number] Repository Date:1863-95-57JL [address]MBAMRFUGNPE, [place] [address]LM: 01/23/2018 Tertiary NOT GIVENUNK [place] Insurance:SELF PAY [facility] Number: Effective Repository Date:2018-01-23 01/16/2018 ORION Espino Primary ORION Harris [id number] Insurance:MEDICARE HOTHEMDOB[facility] [id number] Number: Repository [address]Tlz: 330 [id number] [phone] () Date:2018-01-16 01/16/2018 Secondary ORION Harris Insurance:CIGNAPolicy HOTHEMDOB: Community Number: [id number] Hospital [id number] Repository Date:8427-67-41TW [address]IEZMWYVRRHC, [place] [address]ZV: 01/16/2018 Tertiary NOT GIVENUNK [place] Insurance:SELF PAY [facility] Number: Effective Repository Date:2018-01-16 01/11/2018 ORION Espino Primary ORION Harris [id number] Insurance:MEDICARE HOTHEMDOB: [facility] PART A [facility] [id number] Number: Repository [address]Lrv: 330 [id number] [phone] () Date:2018-01-10 01/11/2018 Secondary ORION Harris Insurance:CIGNAPolicy HOTHEMDOB: Community Number: [id number] Hospital [id number] Repository Date:0376-36-72BT [address]ZYTNQRVJQMW, [place] [address]VG: 01/11/2018 Tertiary NOT GIVENUNK [place] Insurance:SELF PAY [facility] Number: Effective Repository Date:2018-01-10 01/10/2018 ORION Espino Primary ORION L [place] [id number] Insurance:MEDICARE HOTHEMDOB[facility] [id number] Number: Repository [address]Lpz: 330 [id number] [phone] () Date:2018-01-10 01/10/2018 Secondary ORION Harris Insurance:CIGNAPolicy HOTHEMDOB: Community Number: [id number] Hospital [id number] Repository Date:6731-94-07TP [address]CTPLTVJEGJQ, [place] [address]JN: 01/10/2018 Tertiary NOT GIVENUNK [place] Insurance:SELF PAY [facility] Number: Effective Repository Date:2018-01-10 01/02/2018 ORION L Primary ORION Harris [id number] Insurance:MEDICARE HOTHEMDOB: [facility] PART A [facility] [id number] Hospital [facility] [place] Number: Repository [address]Zgx: 330 [id number] [phone] () Date:2017-11-25 01/02/2018 Secondary ORION Espino [place] Insurance:CIGNAPolicy HOTHEMDOB: Community Number: [id number] Hospital [id number] Repository Date:7221-02-65PT [address]JKHJTPAHLQZ, [place] [address]FW: 01/02/2018 Tertiary NOT GIVENUNK [place] Insurance:SELF PAY [facility] Number: Effective Repository Date:2017-11-25 01/02/2018 ORION L Primary ORION Herreraoster [id number] Insurance:MEDICARE HOTHEMDOB: [facility] [id number] Hospital [facility] [place] Number: Repository [address]Rii: 330 [id number] [phone] () Date:2017-11-25 01/02/2018 Secondary ORION Espino [place] Insurance:CIGNAPolicy HOTHEMDOB: Community Number: [id number] Hospital [id number] Repository Date:2231-34-55EY [address]VFPDHYTJIZS, [place] [address]ZL: 01/02/2018 Tertiary NOT GIVENUNK [place] Insurance:SELF PAY [facility] Number: Effective Repository Date:2018-01-02 01/02/2018 ORION Espino Primary ORION Harris [id number] Insurance:MEDICARE HOTHEMDOB[facility] [id number] Number: Repository [address]Uoi: [phone] [id number] [phone] () Date:2018-01-02 01/02/2018 Secondary ORION Espino [place] Insurance:CIGNAPolicy HOTHEMDOB: Community Number: [id number] Hospital [id number] Repository Date:3831-18-93LG [facility] 858199QTOLRROZMGGCATONSVILLE, [place] [address]FU: 01/02/2018 Tertiary NOT GIVENUNK [place] Insurance:SELF PAY [facility] Number: Effective Repository Date:2018-01-02 12/27/2017 ORION Espino Primary ORION Harris [id number] Insurance:MEDICARE HOTHEMDOB: [facility] [id number], [place] Number: Repository [address]Csv: (052) [id number] [phone] () Date:2017-12-26 12/27/2017 Secondary ORION Espino [place] Insurance:CIGNAPolicy HOTHEMDOB: Community Number: [id number] Hospital [id number] Repository Date:2727-14-26KM [facility] 676710WPJJTDLAQMRCATONSVILLE, [place] [address]LU: 12/27/2017 Tertiary NOT GIVENUNK [place] Insurance:SELF PAY [facility] Number: Effective Repository Date:2017-12-26 12/26/2017 ORION Espino Primary ORION Harris [id number] Insurance:MEDICARE HOTHEMDOB: [facility] RDAPT PART A [facility] [id number], [place] Number: Repository [address]Fom: ([phone]) [id number] [phone] () Date:2017-12-26 12/26/2017 Secondary ORION L [place] Insurance:CIGNAPolicy HOTHEMDOB: Community Number: [id number] Hospital [id number] Repository Date:2243-35-75ZM [address]ETPSBYBXFQU, [place] [address]KU: 12/26/2017 Tertiary NOT GIVENUNK [place] Insurance:SELF PAY [facility] Number: Effective Repository Date:2017-12-26 12/19/2017 ORION Espino Primary ORION Harris [id number] Insurance:MEDICARE HOTHEMDOB: [facility] RDAPT PART A olicy [id number] Number: Repository [address]Swi: (292) [id number] [phone] () Date:2017-12-19 12/19/2017 Secondary ORION Harris Insurance:CIGNAPolicy HOTHEMDOB: Community Number: [id number] Hospital [id number] Repository Date:2704-58-55SQ [address]WJOHKUYUMVQ, [place] [address]SW: 12/19/2017 Tertiary NOT GIVENUNK [place] Insurance:SELF PAY [facility] Number: Effective Repository Date:2017-12-19 12/14/2017 ORION Espino Primary ORION Harris [id number] Insurance:MEDICARE HOTHEMDOB: [facility] RDAPT PART A olic [id number] Number: Repository [address]Cgm: ([phone]) [id number] [phone] () Date:2017-11-25 12/14/2017 Secondary ORION Harris Insurance:CIGNAPolicy HOTHEMDOB: Community Number: [id number] Hospital [id number] Repository Date:7784-87-44JC [address]TUZQOZJALCA, [place] [address]RP: 12/14/2017 Tertiary NOT GIVENUNK [place] Insurance:SELF PAY [facility] Number: Effective Repository Date:2017-12-14 12/12/2017 ORION Espino Primary ORION Harris [id number] Insurance:MEDICARE HOTHEMDOB: [facility] RDAPT PART A [facility] [id number] [place] Number: Repository [address]Vqd: 330 [id number] [phone] () Date:2017-12-12 12/12/2017 Secondary ORION Harris Insurance:CIGNAPolicy HOTHEMDOB: Community Number: [id number] Hospital [id number] Repository Date:3593-34-22MO [address]RJNYGFWONTP, [place] [address]GK: 12/12/2017 Tertiary NOT GIVENUNK [place] Insurance:SELF PAY [facility] Number: Effective Repository Date:2017-12-12 12/07/2017 ORION L Primary ORION Harris [id number] Insurance:MEDICARE HOTHEMDOB[facility] [id number] [place] Number: Repository [address]Mrw: 330 [id number] [phone] () Date:2017-11-25 12/07/2017 Secondary ORION Harris Insurance:CIGNAPolicy HOTHEMDOB: Community Number: [id number] Hospital [id number] Repository Date:5145-93-24AI [address]CUPFZBITJPG, [place] [address]CZ: 12/07/2017 Tertiary NOT GIVENUNK [place] Insurance:SELF PAY [facility] Number: Effective Repository Date:2017-12-07 12/05/2017 Orion L Primary Orion Harris [id number] Insurance:MEDICARE HothemDOB: [facility] RDAP[facility] PART A [facility] [id number] [place] Number: Repository [address]Zyr: 330 [id number] [phone] () Date:2017-12-05 12/05/2017 Secondary Orion Espino [place] Insurance:CIGNAPolicy HothemDOB: Community Number: [id number] Hospital [id number] Repository Date:8532-00-67GI [address]TONRSBRIDXZ, [place] [address]GZ: 12/05/2017 Tertiary NOT GIVENUNK [place] Insurance:SELF PAY [facility] Number: Effective Repository Date:2017-12-05 12/01/2017 ORION L Primary ORION Herreraoster [id number] Insurance:MEDICARE [facility]OTHEMDOB[facility] [id number] Number: Repository [address]Qgd: 330 [id number] [phone] () Date:2017-11-30 12/01/2017 Secondary ORION Espino [place] Insurance:CIGNAPolicy HOTHEMDOB: Community Number: [id number] Hospital [id number] Repository Date:4602-93-34MH [address]BGJXSNWIKWW, [place] [address]QL: 12/01/2017 Tertiary NOT GIVENUNK [place] Insurance:SELF PAY [facility] Number: Effective Repository Date:2017-11-30 11/30/2017 Orion Espino Primary NOT GIVENUNK [place] [id number] Insurance:SELF PAY [address] Number: Effective Repository [id number]: (330) Date:2017-11-30 [phone] () 11/28/2017 Orion L Primary Orion Herreraoster [id number] Insurance:MEDICARE HothemDOB: [facility] PART A [facility] [id number] Number: Repository [address]Lhe: 330 [id number] [phone] () Date:2017-11-28 11/28/2017 Secondary Orion Espino [place] Insurance:CIGNAPolicy HothemDOB: [facility] Number: [id number] Hospital [id number] Repository Date:2970-34-62IO [address]GPEGCMIDSJG, [place] [address]MN: 11/28/2017 Tertiary NOT GIVENUNK [place] Insurance:SELF PAY [facility] Number: Effective Repository Date:2017-11-28 11/21/2017 ORION L Primary ORION Espino [place] [id number] Insurance:MEDICARE HOTHEMDOB: [facility] PART A [facility] [id number] Number: Repository [address]Mwj: 330 [id number] [phone] () Date:2017-11-21 11/21/2017 Secondary ORION Harris Insurance:CIGNAPolicy HOTHEMDOB: Community Number: [id number] Hospital [id number] Repository Date:5693-88-58VY [address]CHNFRNTNTQL, [place] [address]GD: 11/21/2017 Tertiary NOT GIVENUNK [place] Insurance:SELF PAY [facility] Number: Effective Repository Date:2017-11-21 11/15/2017 ORION L Primary ORION Harris [id number] Insurance:MEDICARE HOTHEMDOB: [facility] [id number] Number: Repository [address]Rld: 330 [id number] [phone] () Date:2017-11-15 11/15/2017 Secondary ORION Harris Insurance:CIGNAPolicy HOTHEMDOB: Community Number: [id number] Hospital [id number] Repository Date:0371-93-34SB [address]BPMARWMPUXV, [place] [address]QB: 11/15/2017 Tertiary NOT GIVENUNK [place] Insurance:SELF PAY [facility] Number: Effective Repository Date:2017-11-15 11/15/2017 ORION L Primary ORION Harris [id number] Insurance:MEDICARE HOTHEMDOB[facility] [address] [id number] [place] Number: Repository [address]Nyn: 330 [id number] [phone] () Date:2017-11-15 11/15/2017 Secondary ORION Harris Insurance:CIGNAPolicy HOTHEMDOB: Community Number: [id number] Hospital [id number] Repository Date:4039-01-76OS [address]NXRCBPWTHRZ, [place] [address]PV: 11/15/2017 Tertiary NOT GIVENUNK [place] Insurance:SELF PAY [facility] Number: Effective Repository Date:2017-11-15 11/15/2017 ORION Espino Primary ORION Herreraoster [id number] Insurance:MEDICARE HOTHEMDOB: [facility] [id number] [place] Number: Repository [address]Okn: 330 [id number] [phone] (HP) Date:2017-11-15 11/15/2017 Secondary ORION Harris Insurance:CIGNAPolicy HOTHEMDOB: Community Number: [id number] Hospital [id number] Repository Date:6811-35-07ZY [address]BBXKLQVVDMC, [place] [address]CG: 11/15/2017 Tertiary NOT GIVENUNK [place] Insurance:SELF PAY [facility] Number: Effective Repository Date:2017-11-15 11/15/2017 ORION Espino Primary ORION Herreraoster [id number] Insurance:MEDICARE HOTHEMDOB: [facility] [id number] Number: Repository [address]Kin: 330 [id number] [phone] (HP) Date:2017-11-15 11/15/2017 Secondary ORION Harris Insurance:CIGNAPolicy HOTHEMDOB: Community Number: [id number] Hospital [id number] Repository Date:4927-25-67BB [address]AUROWODFEGU, [place] [address]YE: 11/15/2017 Tertiary NOT GIVENUNK [place] Insurance:SELF PAY [facility] Number: Effective Repository Date:2017-11-15 11/15/2017 ORION Espino Primary ORION Espino [place] [id number] Insurance:MEDICARE HOTHEMDOB: [facility] [id number] [place] Number: Repository [address]Gpd: 330 [id number] [phone] (HP) Date:2017-11-15 11/15/2017 Secondary ORION Espino [place] Insurance:CIGNAPolicy HOTHEMDOB: Community Number: [id number] Hospital [id number] Repository Date:2860-43-70OB [address]KLGIFHTVNPE, [place] [address]NN: 11/15/2017 Tertiary NOT GIVENUNK [place] Insurance:SELF PAY [facility]: Effective Repository Date:2017-11-15 11/15/2017 ORION Espino Primary ORION Herreraoster [id number] Insurance:MEDICARE HOTHEMDOB: [facility] [id number] Number: Repository [address]Rzj: (497) [id number] [phone] () Date:2017-11-15 11/15/2017 Secondary ORION Espino [place] Insurance:CIGNAPolicy HOTHEMDOB: [facility] Number: [id number] Hospital [id number] Repository Date:1075-45-51DE [address]QTPMDERQRTJ, [place] [address]AH: 11/15/2017 Tertiary NOT GIVENUNK [place] Insurance:SELF PAY [facility] Number: Effective Repository Date:2017-11-15 11/15/2017 Orion Espino Primary Orion Herreraoster [id number] Insurance:MEDICARE [facility]hemDOB[facility] [id number] Number: Repository [address]Ytd: 330 [id number] [phone] () Date:2017-11-15 11/15/2017 Secondary Orion Espino [place] Insurance:CIGNAPolicy HothemDOB: Community Number: [id number] Hospital [id number] Repository Date:2818-66-39MK [address]INZIPSUANKC, [place] [address]TX: 11/15/2017 Tertiary NOT GIVENUNK [place] Insurance:SELF PAY [facility] Number: Effective Repository Date:2017-11-15 11/12/2017 ORION L Primary ORION Herreraoster [id number] Insurance:MEDICARE HOTHEMDOB[facility] [id number] Number: Repository [address]Kyj: ([phone] [id number] [phone] (HP) Date:2017-11-12 11/12/2017 Secondary NOT GIVENUNK [place] Insurance:SELF PAY [facility] Number: Effective Repository Date:2017-11-12 09/13/2017 ORION Espino Primary ORION Harris [id number] Insurance:MEDICARE HOTHEMDOB: [facility] [id number] [place] Number: Repository [address]Tbd: 330 [id number] [phone] (HP) Date:2017-09-13 09/13/2017 Secondary NOT GIVENUNK [place] Insurance:SELF PAY [facility] Number: Effective Repository Date:2017-09-13 07/06/2017 Orion Espino Primary Orion Harris [id number] Insurance:MEDICARE HothemDOB: [facility] [id number] Number: Repository [address]Nvt: 330 [id number] [phone] (HP) Date:2017-07-06 07/06/2017 Secondary Orion Harris Insurance:CIGNAPolicy HothemDOB: Community Number: [id number] Hospital [id number] Repository Date:7568-42-38RE [address]ETNEAVBXEHA, [place] [address]GM: 07/06/2017 Tertiary NOT GIVENUNK [place] Insurance:SELF PAY [facility] Number: Effective Repository Date:2017-07-06 06/14/2017 Orion Espino Primary Orion Harris [id number] Insurance:MEDICARE HothemDOB: [facility] [id number] Number: Repository [id number]: [id number] [phone] ([phone]) Date:2017-06-14 06/14/2017 Secondary Orion Espino Woodridge Insurance:CIGNAPolicy HothemDOB: Community Number: [id number] [facility] [id number] Repository Date:[id number], [place] [address]FY: 06/14/2017 Tertiary NOT GIVENUNK Kimberly Insurance:SELF PAY [facility] Effective Repository Date:2017-06-14
== END ==
LOC: OLS.WHLBEN 04:00
PROVIDERS: Visit Provider Family Medicine
DX: D64.9 Anemia, unspecified (principal)
CPT/HCPCS: 36415; 85025

== ENCOUNTER → 2018-05-01 04:00 | Outpatient (REF) | payer MEDICARE, OTHER, SELFPAY ==
[2018-04-13 09:46] VITALS: BMI 23.7
[2018-05-01 07:42] LABS: Absolute Lymphocyte Count 1.19 X10^3/ul (0.83-4.51); Absolute Neutrophil Count 0.1 X10^3/uL (2.0-7.7); Basophil# 0.02 X10^3/uL; Basophil% 1.1 % (0-1); Eosinophil# 0.01 X10^3/uL; Eosinophils% 0.5 % (0-5); Hematocrit 18.3 % (40-54); Lymphocyte # 1.19 X10^3/ul (4.0); Lymphocyte % 64.7 % (19-41); Mean Corp Hgb Conc 31.7 g/gl (32-36); Mean Corpuscular Hgb 27.2 pg (27.0-32.0); Mean Corpuscular Volume 85.9 fL (80-94); Mean Platelet Vol. 11.5 fl (6.2-12.0); Monocyte# 0.44 X10^3/uL; Monocyte% 23.9 % (0-10); Neutrophil # 0.13 X10^3/uL (2.7-7.7); Neutrophil % 7.1 % (47-70); Platelet Count 87 K/mm3 (150-450); RBC Distribution Width CV 15.1 % (11.6-14.6); RBC Distribution Width SD 45.8 fl (35.1-43.9); Red Blood Count 2.13 M/mm3 (4.6-6.2); White Blood Count 1.8 K/mm3 (4.4-11.0)
[2018-05-01 07:57] LABS: Differential Indicated SCAN CRITERIA MET; POSITIVE COUNT YES; POSITIVE DIFFERENTIAL YES; POSITIVE MORPHOLOGY YES
[2018-05-01 07:59] LABS: Hemoglobin 5.8 g/dl (13.0-16.5)
[2018-05-01 10:06] LABS: Pathologist Review Reviewed
[2018-05-19 08:40] VITALS: BMI 23.7
== END ==
LOC: OLS.WHLBEN 04:00
PROVIDERS: Visit Provider Family Medicine
DX: D64.9 Anemia, unspecified (principal)
CPT/HCPCS: 36415; 85025; 86850; 86900; 86920; 86922

== ENCOUNTER → 2018-05-03 08:32 | Outpatient (CLI) | payer MEDICARE, OTHER, SELFPAY ==
[2018-04-13 09:46] VITALS: BMI 23.7
[2018-05-03] VITALS (10 sets, daily range): BP systolic 123–142; BP diastolic 69–85; PULSE 56–86; RESP 16–18; TEMP 36.3–36.7; O2SAT 93–99; BMI 23.7
== END ==
PROVIDERS: Family Provider Family Medicine; PCP Family Medicine; Referring Provider Family Medicine; Visit Provider Family Medicine
DX: D61.818 Other pancytopenia (principal); C92.00 Acute myeloblastic leukemia, not having achieved remission
CPT/HCPCS: 36430; 86850; 86900; 86920; 86922; J7040; P9016; A4216

== ENCOUNTER → 2018-05-08 04:00 | Outpatient (REF) | payer MEDICARE, OTHER, SELFPAY ==
[2018-05-03 08:38] VITALS: BMI 23.7
[2018-05-08 06:28] LABS: Absolute Lymphocyte Count 1.01 X10^3/ul (0.83-4.51); Absolute Neutrophil Count 0.2 X10^3/uL (2.0-7.7); Basophil# 0.02 X10^3/uL; Basophil% 1.1 % (0-1); Eosinophil# 0.01 X10^3/uL; Eosinophils% 0.6 % (0-5); Hematocrit 23.2 % (40-54); Hemoglobin 7.5 g/dl (13.0-16.5); Lymphocyte # 1.01 X10^3/ul (4.0); Lymphocyte % 55.8 % (19-41); Mean Corp Hgb Conc 32.3 g/gl (32-36); Mean Corpuscular Hgb 27.6 pg (27.0-32.0); Mean Corpuscular Volume 85.3 fL (80-94); Mean Platelet Vol. 11.9 fl (6.2-12.0); Monocyte# 0.54 X10^3/uL; Monocyte% 29.8 % (0-10); Neutrophil # 0.21 X10^3/uL (2.7-7.7); Neutrophil % 11.6 % (47-70); Platelet Count 75 K/mm3 (150-450); RBC Distribution Width CV 15.5 % (11.6-14.6); RBC Distribution Width SD 47.2 fl (35.1-43.9); Red Blood Count 2.72 M/mm3 (4.6-6.2); White Blood Count 1.8 K/mm3 (4.4-11.0)
[2018-05-08 06:38] LABS: Differential Indicated SCAN CRITERIA MET; POSITIVE COUNT NO; POSITIVE DIFFERENTIAL YES; POSITIVE MORPHOLOGY NO
[2018-05-08 07:03] LABS: Microcytosis 2+
[2018-05-19 08:40] VITALS: BMI 23.7
== END ==
LOC: OLS.WHLBEN 04:00
PROVIDERS: Visit Provider Family Medicine
DX: D64.9 Anemia, unspecified (principal)
CPT/HCPCS: 36415; 85025

== ENCOUNTER → 2018-05-15 04:00 | Outpatient (REF) | payer MEDICARE, OTHER, SELFPAY ==
[2018-05-03 08:38] VITALS: BMI 23.7
[2018-05-15 07:18] LABS: Anion Gap 9 (5-15); BUN 18 mg/dL (7-18); BUN/Creat Ratio 29.7 RATIO (10-20); Calcium,Total 7.9 mg/dL (8.5-10.1); Chloride 110 mmol/L (98-107); Creatinine, Serum 0.61 mg/dL (0.70-1.30); EST Glomerular Filtration Rate 136 mL/min (>60); Est Glom Filt Rate - Afr Amer 164 mL/min (>60); Glucose 82 mg/dL (74-106); Potassium 3.8 mmol/L (3.5-5.1); Sodium Level 143 mmol/L (136-145)
[2018-05-15 07:42] LABS: Absolute Lymphocyte Count 0.94 X10^3/ul (0.83-4.51); Absolute Neutrophil Count 0.2 X10^3/uL (2.0-7.7); Basophil# 0.01 X10^3/uL; Basophil% 0.7 % (0-1); Hematocrit 20.2 % (40-54); Hemoglobin 6.6 g/dl (13.0-16.5); Lymphocyte # 0.94 X10^3/ul (4.0); Lymphocyte % 63.9 % (19-41); Mean Corp Hgb Conc 32.7 g/gl (32-36); Mean Corpuscular Hgb 26.9 pg (27.0-32.0); Mean Corpuscular Volume 82.4 fL (80-94); Mean Platelet Vol. 11.4 fl (6.2-12.0); Monocyte# 0.36 X10^3/uL; Monocyte% 24.5 % (0-10); Neutrophil # 0.15 X10^3/uL (2.7-7.7); Neutrophil % 10.2 % (47-70); Platelet Count 68 K/mm3 (150-450); RBC Distribution Width SD 48.8 fl (35.1-43.9); Red Blood Count 2.45 M/mm3 (4.6-6.2); White Blood Count 1.5 K/mm3 (4.4-11.0)
[2018-05-15 07:55] LABS: Differential Indicated SCAN CRITERIA MET; POSITIVE COUNT YES; POSITIVE DIFFERENTIAL YES; POSITIVE MORPHOLOGY YES
[2018-05-16 13:32] LABS: Pathologist Review Reviewed
[2018-05-19 08:40] VITALS: BMI 23.7
== END ==
LOC: OLS.WHLBEN 04:00
PROVIDERS: Visit Provider Family Medicine
DX: I10 Essential (primary) hypertension (principal); D64.9 Anemia, unspecified
CPT/HCPCS: 36415; 80048; 85025

== ENCOUNTER → 2018-05-19 08:30 | Outpatient (CLI) | payer MEDICARE, OTHER, SELFPAY ==
[2018-05-03 08:38] VITALS: BMI 23.7
[2018-05-19] VITALS (8 sets, daily range): BP systolic 90–137; BP diastolic 37–94; PULSE 53–85; RESP 16–18; TEMP 36.2–37.5; O2SAT 97–100; BMI 23.7
== END ==
PROVIDERS: Family Provider Family Medicine; PCP Family Medicine; Referring Provider Family Medicine; Visit Provider Family Medicine
DX: C92.00 Acute myeloblastic leukemia, not having achieved remission (principal); D61.818 Other pancytopenia
CPT/HCPCS: 36415; 36430; 86850; 86900; 86920; 86922; J7040; P9016; A4216

== ENCOUNTER → 2018-05-22 05:00 | Outpatient (REF) | payer MEDICARE, OTHER, SELFPAY ==
[2018-05-19 08:40] VITALS: BMI 23.7
[2018-05-22 09:02] LABS: Absolute Lymphocyte Count 0.97 X10^3/ul (0.83-4.51); Absolute Neutrophil Count 0.2 X10^3/uL (2.0-7.7); Basophil# 0.01 X10^3/uL; Basophil% 0.7 % (0-1); Hematocrit 22.5 % (40-54); Hemoglobin 7.3 g/dl (13.0-16.5); Lymphocyte # 0.97 X10^3/ul (4.0); Lymphocyte % 63.8 % (19-41); Mean Corp Hgb Conc 32.4 g/gl (32-36); Mean Corpuscular Hgb 27.4 pg (27.0-32.0); Mean Corpuscular Volume 84.6 fL (80-94); Mean Platelet Vol. 10.7 fl (6.2-12.0); Monocyte# 0.35 X10^3/uL; Neutrophil # 0.17 X10^3/uL (2.7-7.7); Neutrophil % 11.2 % (47-70); Platelet Count 72 K/mm3 (150-450); RBC Distribution Width CV 16.3 % (11.6-14.6); RBC Distribution Width SD 50.5 fl (35.1-43.9); Red Blood Count 2.66 M/mm3 (4.6-6.2); White Blood Count 1.5 K/mm3 (4.4-11.0)
[2018-05-22 09:07] LABS: Differential Indicated SCAN CRITERIA MET; POSITIVE COUNT NO; POSITIVE DIFFERENTIAL YES; POSITIVE MORPHOLOGY NO
== END ==
LOC: OLS.WHLBEN 05:00
PROVIDERS: Visit Provider Family Medicine
DX: D64.9 Anemia, unspecified (principal)
CPT/HCPCS: 36415; 85025

== ENCOUNTER → 2018-05-29 04:30 | Outpatient (REF) | payer MEDICARE, OTHER, SELFPAY ==
[2018-05-19 08:40] VITALS: BMI 23.7
[2018-05-29 07:54] LABS: Hematocrit 21.6 % (40-54); Mean Corp Hgb Conc 32.4 g/gl (32-36); Mean Corpuscular Hgb 27.6 pg (27.0-32.0); Mean Platelet Vol. 11.9 fl (6.2-12.0); Platelet Count 88 K/mm3 (150-450); RBC Distribution Width CV 16.7 % (11.6-14.6); RBC Distribution Width SD 52.1 fl (35.1-43.9); Red Blood Count 2.54 M/mm3 (4.6-6.2); White Blood Count 1.9 K/mm3 (4.4-11.0)
[2018-05-29 08:19] LABS: Differential Indicated MANUAL DIFF; POSITIVE COUNT NO; POSITIVE DIFFERENTIAL YES; POSITIVE MORPHOLOGY YES
[2018-05-29 08:26] LABS: Blast 9 % (0-0); Lymphocyte 60 % (19-41); Monocyte 19 % (0-10); Neutrophil-Segmented 11 % (47-70); Promyelocyte 1 (0-0); Total Cells Counted 100 (MANUAL DIFF)
[2018-05-29 08:27] LABS: Anisocytosis RARE; Hypochromasia 3+; Platelet Estimate MKD DEC (ADEQ); Platelet Morphology LARGE
[2018-05-29 08:28] LABS: Absolute Lymphocyte Count 1.14 X10^3/ul (0.83-4.51); Absolute Neutrophil Count 0.2 X10^3/uL (2.0-7.7)
[2018-05-30 10:36] LABS: Pathologist Review Reviewed
[2018-06-07 08:50] VITALS: BMI 23.7
--- OUTSIDE RECORDS SUMMARY | 2018-07-31 13:18 | XMS RPT_ITS ---
:1935 Author Organization OHIP Support Name Relationship Address Phone Marla Xie Unavailable [address] + [place] [address] R Unavailable Unavailable Unavailable Kayla Wagner Unavailable [address] + [place] [address] Marla Xie Unavailable [address] + [place] [address] R Unavailable Unavailable Unavailable Kayla Wagner Unavailable [address] + [place] [address] ANNE-MARIE, MARLA Unavailable [address] + [place] [address] R Unavailable Unavailable Unavailable KAYLA WAGNER Unavailable [address] + [place] [address] Luciehem, Marla Unavailable [address] + [place] [address] R Unavailable Unavailable Unavailable Kayla, Wagner Unavailable [address] + [place] [address] Luciehem, Marla Unavailable [address] + [place] [address] R Unavailable Unavailable Unavailable Kayla Wagner Unavailable [address] + [place] [address] HOTHEM, MARLA Unavailable [address] + [place] [address] R Unavailable Unavailable Unavailable YADY WAGNER Unavailable [address] + [place] [address] Hothem, Marla Unavailable [address] + [place] [address] R Unavailable Unavailable Unavailable Kayla Wagner Unavailable [address] + [place] [address] [facility] Unavailable [address] + [place] [address] R Unavailable Unavailable Unavailable HumphreyeWagner Unavailable [address] + [place] [address] Hothem, Marla Unavailable [address] + [place] [address] R Unavailable Unavailable Unavailable LloydbeWagner villalpando Unavailable [address] + [place] [address] HOTHEM, MARLA Unavailable [address] + [place] [address] R Unavailable Unavailable Unavailable WAGNER CONTEH Unavailable [address] + [place] [address] Hothem, Marla Unavailable [address] + [place] [address] R Unavailable Unavailable Unavailable Wagner Garza Unavailable [address] + [place] [address] Hothem, Marla Unavailable [address] + [place] [address] R Unavailable Unavailable Unavailable Wagner Garza Unavailable [address] + [place] [address] Hothem, Marla Unavailable [address] + [place] [address] R Unavailable Unavailable Unavailable Wagner Garza Unavailable [address] + [place] [address] HOTHEM, MARLA Unavailable [address] + [place] [address] R Unavailable Unavailable Unavailable WAGNER CONTEH Unavailable [address] + [place] [address] Hothem, Marla Unavailable [address] + [place] [address] R Unavailable Unavailable Unavailable Kayla Wagner Unavailable [address] + [place] [address] Hothem, Marla Unavailable [address] + [place] [address] R Unavailable Unavailable Unavailable Wagner Conteh Unavailable [address] + [place] [address] Hothem, Marla Unavailable [address] + [place] [address] R Unavailable Unavailable Unavailable Tebbe, Wagner Unavailable [address] + [place] [address] HOTHEM, MARLA Unavailable [address] + [place] [address] R Unavailable Unavailable Unavailable TEBBE, WAGNER Unavailable [address] + [place] [address] Hothem, Marla Unavailable [address] + [place] [address] R Unavailable Unavailable Unavailable Tebbe, Wagner Unavailable [address] + [place] [address] [facility], Marla Unavailable [address] + [place] [address] R Unavailable Unavailable Unavailable Tebbe, Wagner Unavailable [address] + [place] [address] [facility], MARLA Unavailable [address] + [place] [address] R Unavailable Unavailable Unavailable LLOYDBBE, WAGNER Unavailable [address] + [place] [address] Hothem, Marla Unavailable [address] + [place] [address] R Unavailable Unavailable Unavailable Tebbe, Wagner Unavailable [address] + [place] [address] Hothem, Marla Unavailable [address] + [place] [address] R Unavailable Unavailable Unavailable Tebbe Wagner Unavailable [address] + [place] [address] Hothem, Marla Unavailable [address] + [place] [address] R Unavailable Unavailable Unavailable Tebbe, Wagner Unavailable [address] [facility] [address] + [place] [address] HOTHEM, MARLA Unavailable [address] + [place] [address] R Unavailable Unavailable Unavailable TEBBE WAGNER Unavailable [address] + [place] [address] Hothem, Marla Unavailable [address] + [place] [address] R Unavailable Unavailable Unavailable Tebbe Wagner Unavailable [address] + [place] [address] HOTHEM, MARLA Unavailable [address] + [place] [address] R Unavailable Unavailable Unavailable TEBBE WAGNER Unavailable [address] + [place] [address] [facility], MARLA Unavailable [address] + [place] [address] R Unavailable Unavailable Unavailable TEBBE, WAGNER Unavailable [address] + [place] [address] [facility], Marla Unavailable [address] + [place] [address] R Unavailable Unavailable Unavailable Tebbe Wagner Unavailable [address] + [place] [address] [facility], MARLA Unavailable [address] + [place] [address] R Unavailable Unavailable Unavailable TEBBE WAGNER Unavailable [address] + [place] [address] HOTHEM, MARLA Unavailable [address] + [place] [address] R Unavailable Unavailable Unavailable TEBBE, WAGNER Unavailable [address] + [place] [address] HOTHEM, MARLA Unavailable [address] + [place] [address] R Unavailable Unavailable Unavailable TEBBE WAGNER Unavailable [address] + [place] [address] [facility], MAR[facility] Unavailable [address] + [place] [address] R Unavailable Unavailable Unavailable TEBBE WAGNER Unavailable [address] + [place] [address] HOTHEM, MARLA Unavailable [address] + [place] [address] R Unavailable Unavailable Unavailable TEBBE WAGNER Unavailable [address] + [place] [address] Hothem, Marla Unavailable [address] + [place] [address] R Unavailable Unavailable Unavailable Tebbe Wagner Unavailable [address] + [place] [address] Hothem, Marla Unavailable [address] + [place] [address] R Unavailable Unavailable Unavailable Tebbe Wagner Unavailable [address] + [place] [address] Hothem, Marla Unavailable [address] + [place] [address] R Unavailable Unavailable Unavailable Tebbe, Wagner Unavailable [address] + [place] [address] HOTHEM, MARLA Unavailable [address] + [place] [address] R Unavailable Unavailable Unavailable HUMPHREYEWAGNER Unavailable [address] + [place] [address] Hothem, Marla Unavailable [address] + [place] [address] R Unavailable Unavailable Unavailable Lloydbbe Wagner Unavailable [address] + [place] [address] Hothem, Marla Unavailable [address] + [place] [address] R Unavailable Unavailable Unavailable Humphreye Wagner Unavailable [address] + [place] [address] Hothem, Marla Unavailable [address] + [place] [address] R Unavailable Unavailable Unavailable Tebbe Wagner Unavailable [address] + [place] [address] Hothem, Marla Unavailable [address] + [place] [address] R Unavailable Unavailable Unavailable Lloydbbe Wagner Unavailable [address] + [place] [address] HOTHEM, MARLA Unavailable [address] + [place] [address] R Unavailable Unavailable Unavailable TEBBE WAGNER Unavailable [address] + [place] [address] Hothem, Marla Unavailable [address] + [place] [address] R Unavailable Unavailable Unavailable TebbeWagner Unavailable [address] + [place] [address] Hothem, Marla Unavailable [address] + [place] [address] R Unavailable Unavailable Unavailable TebbeWagner Unavailable [address] + [place] [address] Hothem, Marla Unavailable [address] + [place] [address] R Unavailable Unavailable Unavailable TebbeWagner Unavailable [address] + [place] [address] Hothem, Marla Unavailable [address] + [place] [address] R Unavailable Unavailable Unavailable LloydbbeWagner Unavailable [address] + [place] [address] Hothem, Marla Unavailable [address] + [place] [address] R Unavailable Unavailable Unavailable Tebbe Wagner Unavailable [address] + [place] [address] Hothem, Marla Unavailable [address] + [place] [address] R Unavailable Unavailable Unavailable TebbeWagner Unavailable [address] + [place] [address] Hothem, Marla Unavailable [address] + [place] [address] R Unavailable Unavailable Unavailable Tebbe Wagner Unavailable [address] + [place] [address] Hothem, Marla Unavailable [address] + [place] [address] R Unavailable Unavailable Unavailable Tebbe Wagner Unavailable [address] + [place] [address] Hothem, Marla Unavailable [address] + [place] [address] R Unavailable Unavailable Unavailable Tebbe Wagner Unavailable [address] [facility] [address] + [place] [address] Anne-Marie Marla Unavailable [address] [place] [address] R Unavailable Unavailable Unavailable Lloydbbe, Wagner Unavailable [address] [facility] + [place] [address] [facility], Marla Unavailable [address] + [place] [address] R Unavailable Unavailable Unavailable Yady, Wagner Unavailable [address] [phone] [place] [address] Care Team Providers Name Role Phone AJ [...] Primary Care Unavailable Surya, Kei Admitting Unavailable PrahNj Consulting Unavailable TereKvin deleon Attending Unavailable Lopez, Skinny Attending Unavailable Lopez, Skinny Attending Unavailable Surya, Kei Admitting Unavailable Surya, Kei Attending Unavailable Lopez, Skinny E Primary Care Unavailable Surya, Kei Consulting Unavailable Surya, Kei Admitting Unavailable Lopez, Skinny E Primary Care Unavailable PraNj villavicencio Consulting Unavailable Radha Hicks, BEET FLUMER-C Attending Unavailable Tereletsky, Kevin Consulting Unavailable Surya, Kei Admitting Unavailable Manish Michel Attending Unavailable Lopez, Skinny E Primary Care Unavailable PrahNj Consulting Unavailable Tereletsky, Kevin Consulting Unavailable Surya, Kei Admitting Unavailable PraNj villavicencio Attending Unavailable Lopez, Skinny E Primary Care Unavailable PrahNj Consulting Unavailable Tereletsky, Kevin Consulting Unavailable Surya, Kei Admitting Unavailable Manish Michel Attending Unavailable Lopez, Skinny E Primary Care Unavailable PraNj villavicencio Consulting Unavailable Tereletsky, Kevin Consulting Unavailable Lopez, Skinny Attending Unavailable Lopez, Skinny Attending Unavailable Lopez, Skinny Attending Unavailable Lopez, Skinny Attending Unavailable Lopez, Skinny Referring Unavailable Lopez, Skinny E Primary Care Unavailable Lopez, Skinny Attending Unavailable PrahNj Attending Unavailable Lopez, Skinny Referring Unavailable Lopez, [...] Unknown 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, 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 / C92.00(ICD-10) 01/02/2018 Unknown 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 [place], [place], [address] CBC W/DIFF, AUTOMATED Collected: 05/22/2018 Status: F Source: [place] 6:10 AM [facility] REPOSITORY TYPE CODE TESTS RESULT OUT OF [...] Performed By: #### L100.0100 #### [facility] [address] [place], [address] TYPE AND SCREEN Collected: 05/17/2018 Status: F Source: [place] 7:15 AM [facility] REPOSITORY Order Comment: CMV NEG?* N Give When? 05/19/18@0830 Irradiated? N Leukodepleted? Y Reason for Type AND Screen/Red Cells: ANEMIA TYPE CODE TESTS RESULT OUT OF RANGE REFERENCE UNITS LAB B10.0800 A Normal BLOOD TYPE GEL POSITIVE LAB B100.4000 Normal Antibody NEGATIVE Screen Performed By: #### B101.7450 #### [facility] [address] [place], [address] Collected: 05/17/2018 Status: F Source: [place] 7:15 AM [facility] REPOSITORY TYPE CODE TESTS RESULT OUT OF REFERENCE UNITS RANGE LAB U100.0000 [id number] TRANSFUSED PRODUCT: T AND S with Crossmatch, Red Cells COUNT: 2 Performed By: #### U100.0000 #### Non-[facility] - refer to report for specific site BASIC METABOLIC Collected: 05/15/2018 Status: F Source: [place] PROFILE (BMP) 5:05 AM [facility] REPOSITORY Order Comment: ROOM 202 TYPE CODE [...] Performed By: #### L500.2500 #### [facility] [address] [place], [place], [address] CBC W/DIFF, AUTOMATED Collected: 05/15/2018 Status: C Source: [place] 5:05 AM [facility] REPOSITORY Order Comment: ROOM 202 TYPE CODE [...] Abdoul Harper D.O. 05/16/18 AMENDED REPORT 05/16/18 6062 PATH REV previously reported as: September aman Performed By: #### L100.0100 #### [facility] [address], [address] CBC W/DIFF, AUTOMATED Collected: 05/08/2018 Status: F Source: [place] 4:20 AM [facility] REPOSITORY Order Comment: 202 EXTRA BB TUBE DRAWN. [id number] TYPE CODE TESTS RESULT OUT OF RANGE [...] Performed By: #### L100.0100 #### [facility] [address] [place], [address] CBC W/DIFF, AUTOMATED Collected: 05/01/2018 Status: C Source: [place] 6:10 AM [facility] REPOSITORY Order Comment: 202 EXTRA BB TUBE [id number] TYPE CODE TESTS RESULT OUT OF RANGE [...] Performed By: #### L100.0100 #### [facility] [address] [facility]. [place], [place], [address] TYPE AND SCREEN Collected: 05/01/2018 Status: P Source: [place] 6:10 AM [facility] REPOSITORY Order Comment: CMV NEG?* Y Give When? 05/03/18 08:30AM Irradiated? N Leukodepleted? Y Reason for Type AND Screen/Red Cells: ANEMIA TYPE CODE TESTS RESULT OUT OF RANGE REFERENCE UNITS LAB B10.0800 A Normal BLOOD TYPE GEL POSITIVE LAB B100.4000 Normal Antibody NEGATIVE Screen Performed By: #### B101.7450 #### [facility] [address] [facility] [place], [place], [address] TYPE AND SCREEN Collected: 05/01/2018 Status: F Source: [place] 6:10 AM [facility] REPOSITORY Order Comment: CMV NEG?* N Give When? 05/03/18 08:30AM Irradiated? N Leukodepleted? Y Reason for Type AND Screen/Red Cells: ANEMIA TYPE CODE TESTS RESULT OUT OF RANGE REFERENCE UNITS LAB B10.0800 A Normal BLOOD TYPE GEL POSITIVE LAB B100.4000 Normal Antibody NEGATIVE Screen Performed By: #### B101.7450 #### [facility] [address] [place], [address] RC Collected: 05/01/2018 Status: F Source: [place] 6:10 AM [facility] REPOSITORY TYPE CODE TESTS RESULT OUT OF REFERENCE UNITS RANGE LAB U100.0000 [id number] TRANSFUSED PRODUCT: T AND S with Crossmatch, Red Cells COUNT: 3 Performed By: #### U100.0000 #### Non-[facility] - refer to report for specific site CBC W/DIFF, AUTOMATED Collected: 04/24/2018 Status: C Source: [place] 5:15 AM [facility] REPOSITORY Order Comment: 202 ETRA BB TUBE DRAWN [id number] TYPE CODE TESTS RESULT OUT OF RANGE [...] Performed By: #### L100.0100 #### [facility] [address] [place], [address] CBC W/DIFF, AUTOMATED Collected: 04/17/2018 Status: F Source: [place] 5:45 AM [facility] REPOSITORY Order Comment: 202 EXRA BB TUBE DRAWN [id number] TYPE CODE TESTS RESULT OUT OF RANGE [...] Performed By: #### L100.0100 #### [facility] [address] [place], [address] TYPE AND SCREEN Collected: 04/12/2018 Status: F Source: [place] 6:00 AM [facility] REPOSITORY Order Comment: CMV NEG?* N Give When? 04/13/18 09:30AM Irradiated? N Leukodepleted? Y Reason for Type AND Screen/Red Cells: ANEMIA TYPE CODE TESTS RESULT OUT OF RANGE REFERENCE UNITS LAB B10.0800 A Normal BLOOD TYPE GEL POSITIVE LAB B100.4000 Normal Antibody NEGATIVE Screen Performed By: #### B101.7450 #### [facility] [address] [place], [address] RC Collected: 04/12/2018 Status: F Source: [place] 6:00 AM [facility] REPOSITORY TYPE CODE TESTS RESULT OUT OF REFERENCE UNITS RANGE LAB U100.0000 [id number] TRANSFUSED PRODUCT: T AND S with Crossmatch, Red Cells COUNT: 2 Performed By: #### U100.0000 #### Non[facility] - refer to report for specific site BASIC METABOLIC Collected: 04/10/2018 Status: F Source: [place] PROFILE (BMP) 5:45 AM [facility] REPOSITORY Order Comment: ROOM 202 TYPE CODE [...] Performed By: #### L500.2500 #### [facility] [address] [place], [place], [address] CBC W/DIFF, AUTOMATED Collected: 04/10/2018 Status: C Source: [place] 5:45 AM [facility] REPOSITORY Order Comment: ROOM 202 TYPE CODE [...] Performed By: #### L100.0100 #### [facility] [address] [place], [address] CBC W/DIFF, AUTOMATED Collected: 04/03/2018 Status: F Source: [place] 6:30 AM [facility] REPOSITORY Order Comment: 202 TYPE CODE TESTS [...] Performed By: #### L100.0100 #### [facility] [address] [place], [address] CBC W/DIFF, AUTOMATED Collected: 03/27/2018 Status: F Source: [place] 5:40 AM [facility] REPOSITORY TYPE CODE TESTS RESULT OUT OF [...] Performed By: #### L100.0100 #### [facility] [address] [place], [address] CBC W/DIFF, AUTOMATED Collected: 03/20/2018 Status: F Source: [place] 6:00 AM [facility] REPOSITORY Order Comment: HUNTER EXTRA BB TUBE [...] Performed By: #### L100.0100 #### [facility] [address] [place], [address] TYPE AND SCREEN Collected: 03/20/2018 Status: F Source: [place] 6:00 AM [facility] REPOSITORY Order Comment: PRETRANSFUSION HGB = 6 HCT = 18.5 PERFORMED AT [facility] CMV NEG?* N Give When? 03/21/18 @0800 Irradiated? N Leukodepleted? Y Reason for Type AND Screen/Red Cells: ANEMIA TYPE CODE TESTS RESULT OUT OF RANGE REFERENCE UNITS LAB B10.0800 A Normal BLOOD TYPE GEL POSITIVE LAB B100.4000 Normal Antibody NEGATIVE Screen Performed By: #### B101.7450 #### [facility] [address] [facility] [place], [address] RC Collected: 03/20/2018 Status: F Source: [place] 6:00 AM [facility] REPOSITORY TYPE CODE TESTS RESULT OUT OF REFERENCE UNITS RANGE LAB U100.0000 [id number] TRANSFUSED PRODUCT: T AND S with Crossmatch, Red Cells COUNT: 3 Performed By: #### U100.0000 #### [facility] - refer to report for specific site BASIC METABOLIC Collected: 03/13/2018 Status: F Source: [place] PROFILE (BMP) 5:50 AM [facility] REPOSITORY TYPE CODE TESTS RESULT OUT OF [...] Performed By: #### L500.2500 #### [facility] [address] [place], [place], [id number] CBC W/DIFF, AUTOMATED Collected: 03/13/2018 Status: C Source: [place] 5:50 AM [facility] REPOSITORY Order Comment: HUNTER EXTRA BLOOD BANK [...] Performed By: #### L100.0100 #### [facility] [address] [place] [address]. [place], [address] CBC W/DIFF, AUTOMATED Collected: 03/06/2018 Status: F Source: [place] 6:20 AM [facility] REPOSITORY Order Comment: HUNTER EXTRA BLOOD BANK TUBE ([id number]) TYPE CODE TESTS RESULT OUT OF RANGE [...] Performed By: #### L100.0100 #### [facility] [address] [place], [address] CBC W/DIFF, AUTOMATED Collected: 02/27/2018 Status: C Source: [place] 6:22 AM [facility] REPOSITORY Order Comment: HUNTER EXTRA BLOOD BANK [...] Performed By: #### L100.0100 #### [facility] [address], [address] TYPE AND SCREEN Collected: 02/27/2018 Status: P Source: [place] 6:22 AM [facility] REPOSITORY Order Comment: CMV NEG?* N Give When? 02/28/18 08:00AM Irradiated? N Leukodepleted? Y Reason for Type AND Screen/Red Cells: ANEMIA TYPE CODE TESTS RESULT OUT OF RANGE REFERENCE UNITS LAB B10.0800 A Normal BLOOD TYPE GEL POSITIVE LAB B100.4000 Normal Antibody NEGATIVE Screen Performed By: #### B101.7450 #### [facility] [address] [place], [address] TYPE AND SCREEN Collected: 02/27/2018 Status: F Source: [place] 6:22 AM [facility] REPOSITORY Order Comment: CMV NEG?* N Give When? 02/28/18 08:00AM Irradiated? N Leukodepleted? Y Reason for Type AND Screen/Red Cells: ANEMIA TYPE CODE TESTS RESULT OUT OF RANGE REFERENCE UNITS LAB B10.0800 A Normal BLOOD TYPE GEL POSITIVE LAB B100.4000 Normal Antibody NEGATIVE Screen Performed By: #### B101.7450 #### [facility] [address] [place], [address] RC Collected: 02/27/2018 Status: F Source: [place] 6:22 AM [facility] REPOSITORY TYPE CODE TESTS RESULT OUT OF REFERENCE UNITS RANGE LAB U100.0000 [id number] TRANSFUSED PRODUCT: T AND S with Crossmatch, Red Cells COUNT: 3 Performed By: #### U100.0000 #### [facility] - refer to report for specific site CBC W/DIFF, AUTOMATED Collected: 02/20/2018 Status: F Source: [place] 6:35 AM [facility] REPOSITORY Order Comment: ROOM 202 TYPE CODE [...] Performed By: #### L100.0100 #### [facility] [place], [address] CNOVSP Observed: 02/17/2018 Status: COMPLETED Source: [facility] 3:10 PM [facility] REPOSITORY Visit (SP) Office (CHERIE) ORION XIE ([id number]) 1935 M Date Time Provider Department 02/17/18 [...] No jaundice or rash. No petechiae. NEUROLOGIC: critical care registered nurse II-XII are grossly intact. ASSESSMENT/PLAN: (C92.00) Acute [...] -He [facility] an [facility] the [facility] to start the process of getting a medical power of commonwealth attorney for healthcare decisions in place as well as a living will. -Is also been having symptoms of melena and constipation. He has not previously had colonoscopy. Plan: -He will continue transfusional supportive care. -I will discuss stool testing and referral to colonoscopy with Dr. Lopez. Aj Lazaro DO Referring Provider: AJ LAZARO [[id number]] Allergies As of Date: 02/17/2018 (No Known [...] 02/17/18 PROGRESS Observed: 02/17/2018 Status: COMPLETED Source: [facility] 3:06 PM [facility] [place] REPOSITORY HNO ID: [id number] Author: Aj Lazaro Service: (none) Author Type: [...] No jaundice or rash. No petechiae. NEUROLOGIC: critical care registered nurse II-XII are grossly intact. ASSESSMENT/PLAN: (C92.00) Acute [...] -He has an appointment with the [facility] studies teacher at the [facility] to start the process of getting a medical power of commonwealth attorney for healthcare decisions in place as well as a living will. -Is also been having symptoms of melena and constipation. He has not previously had colonoscopy. Plan: -He will continue transfusional supportive care. -I will discuss stool testing and referral to colonoscopy with Dr. Lopez. Aj Lazaro, DO CBC W/DIFF, AUTOMATED Collected: 02/13/2018 Status: F Source: KIMBERLY 7:30 AM [facility] REPOSITORY Order Comment: 202 HUNTER EXTRA BLOOD [...] Performed By: #### L100.0100 #### [facility] [address] [place], [place], [id number] TYPE AND SCREEN Collected: 02/13/2018 Status: P Source: KIMBERLY 7:30 AM [facility] REPOSITORY Order Comment: CMV NEG?* N Give When? [id number] 9AM Irradiated? N Leukodepleted? Y Reason for Type AND Screen/Red Cells: ANEMIA TYPE CODE TESTS RESULT OUT OF RANGE REFERENCE UNITS LAB B10.0800 A Normal BLOOD TYPE GEL POSITIVE LAB B100.4000 Normal Antibody NEGATIVE Screen Performed By: #### B101.7450 #### [facility]. [place], [place], [address] TYPE AND SCREEN Collected: 02/13/2018 Status: P Source: KIMBERLY 7:30 AM [facility] REPOSITORY Order Comment: CMV NEG?* N Give When? [id number] 9AM Irradiated? N Leukodepleted? Y Reason for Type AND Screen/Red Cells: ANEMIA TYPE CODE TESTS RESULT OUT OF RANGE REFERENCE UNITS LAB B10.0800 A Normal BLOOD TYPE GEL POSITIVE LAB B100.4000 Normal Antibody NEGATIVE Screen Performed By: #### B101.7450 #### [facility] [address] [place] [address]. [place], [place], [address] TYPE AND SCREEN Collected: 02/13/2018 Status: F Source: KIMBERLY 7:30 AM [facility] REPOSITORY Order Comment: CMV NEG?* N Give When? [id number] 9AM Irradiated? N Leukodepleted? Y Reason for Type AND Screen/Red Cells: ANEMIA TYPE CODE TESTS RESULT OUT OF RANGE REFERENCE UNITS LAB B10.0800 A Normal BLOOD TYPE GEL POSITIVE LAB B100.4000 Normal Antibody NEGATIVE Screen Performed By: #### B101.7450 #### [facility]. [place], [place], [address] RC Collected: 02/13/2018 Status: F Source: KIMBERLY 7:30 AM [facility] REPOSITORY TYPE CODE TESTS RESULT OUT OF REFERENCE UNITS RANGE LAB U100.0000 [id number] TRANSFUSED PRODUCT: T AND S with Crossmatch, Red Cells COUNT: 2 Performed By: #### U100.0000 #### [facility] - refer to report for specific site BASIC METABOLIC Collected: 02/06/2018 Status: F Source: KIMBERLY PROFILE (BMP) 6:40 AM [facility] REPOSITORY TYPE CODE TESTS RESULT OUT OF [...] Performed By: #### L500.2500 #### [facility] [address] [place], [address] CBC W/DIFF, AUTOMATED Collected: 02/06/2018 Status: C Source: SPRINGER 6:40 AM [facility] REPOSITORY Order Comment: HUNTER EXTRA BLOOD BANK [...] Performed By: #### L100.0100 #### [facility] [address] [place] [address]. [place], [address] CBC W/DIFF, AUTOMATED Collected: 01/30/2018 Status: F Source: SPRINGER 5:45 AM [facility] REPOSITORY TYPE CODE TESTS RESULT OUT OF [...] Performed By: #### L100.0100 #### [facility] [address] [place], [address] CBC W/DIFF, AUTOMATED Collected: 01/23/2018 Status: C Source: SPRINGER 6:20 AM [facility] REPOSITORY TYPE CODE TESTS RESULT OUT OF [...] Performed By: #### L100.0100 #### [facility] [address] [place], [address] TYPE AND SCREEN Collected: 01/23/2018 Status: P Source: SPRINGER 6:20 AM [facility] REPOSITORY Order Comment: CMV NEG?* N Give When? 01/24/18 10AM Irradiated? N Leukodepleted? Y Reason for Type AND Screen/Red Cells: ANEMIA TYPE CODE TESTS RESULT OUT OF RANGE REFERENCE UNITS LAB B10.0800 A Normal BLOOD TYPE GEL POSITIVE LAB B100.4000 Normal Antibody NEGATIVE Screen Performed By: #### B101.7450 #### [facility] [address] [facility] [place], [address] TYPE AND SCREEN Collected: 01/23/2018 Status: F Source: SPRINGER 6:20 AM [facility] REPOSITORY Order Comment: CMV NEG?* N Give When? 01/24/18 10AM Irradiated? N Leukodepleted? Y Reason for Type AND Screen/Red Cells: ANEMIA TYPE CODE TESTS RESULT OUT OF RANGE REFERENCE UNITS LAB B10.0800 A Normal BLOOD TYPE GEL POSITIVE LAB B100.4000 Normal Antibody NEGATIVE Screen Performed By: #### B101.7450 #### [facility] [address] [place], [address] RC Collected: 01/23/2018 Status: F Source: SPRINGER 6:20 AM [facility] REPOSITORY TYPE CODE TESTS RESULT OUT OF REFERENCE UNITS RANGE LAB U100.0000 [id number] TRANSFUSED PRODUCT: T AND S with Crossmatch, Red Cells COUNT: 2 Performed By: #### U100.0000 #### [facility] - refer to report for specific site CBC W/DIFF, AUTOMATED Collected: 01/16/2018 Status: C Source: KIMBERLY 6:35 AM [facility] REPOSITORY TYPE CODE TESTS RESULT OUT OF [...] Performed By: #### L100.0100 #### [facility] [address] [facility] [place], [address] TYPE AND SCREEN Collected: 01/10/2018 Status: F Source: SPRINGER 1:55 PM [facility] REPOSITORY Order Comment: CMV NEG?* N Give When? 01/11/18 09:30am Irradiated? N Leukodepleted? Y Reason for Type AND Screen/Red Cells: ANEMIA TYPE CODE TESTS RESULT OUT OF RANGE REFERENCE UNITS LAB B10.0800 A Normal BLOOD TYPE GEL POSITIVE LAB B100.4000 Normal Antibody NEGATIVE Screen Performed By: #### B101.7450 #### [facility] [address] [place], [address] RC Collected: 01/10/2018 Status: F Source: KIMBERLY 1:55 PM [facility] REPOSITORY TYPE CODE TESTS RESULT OUT OF REFERENCE UNITS RANGE LAB U100.0000 [id number] TRANSFUSED PRODUCT: T AND S with Crossmatch, Red Cells COUNT: 2 Performed By: #### U100.0000 #### [facility] - refer to report for specific site BASIC METABOLIC Collected: 01/10/2018 Status: F Source: KIMBERLY PROFILE (BMP) 5:45 AM [facility] REPOSITORY Order Comment: 202 TYPE CODE TESTS [...] Performed By: #### L500.2500 #### [facility] [address] [place], [address] CBC W/DIFF, AUTOMATED Collected: 01/10/2018 Status: C Source: KIMBERLY 5:45 AM [facility] REPOSITORY Order Comment: 202 TYPE CODE TESTS [...] Performed By: #### L100.0100 #### [facility] [address] [place], [address] PROGRESS Observed: 01/07/2018 Status: COMPLETED Source: AMBOY 1:57 PM [facility] REPOSITORY HNO ID: [id number] Author: Aj Lazaro Service: (none) Author Type: [...] is quite satisfied with periodic transfusions at [facility]. He enjoys the food and care. He's not had any infectious complications. He's had no unusual bleeding or unexplained bruising. He is taking an iron supplement and tolerating it well. He is not on any antiplatelet agents or anticoagulation. His appetite is been normal. He is a resident at [facility]--he doesn't have any family in this area. He has 2 brothers but there are not involved in his medical situation. He entered fdc care several years ago after undergoing inguinal [...] No jaundice or rash. No petechiae. NEUROLOGIC: critical care registered nurse II-XII are grossly intact. Unsteady gait--orthostasis observed [...] have a durable health care power of commonwealth attorney nor does he have a living will in place. I encouraged him to do so and we'll have our social studies teacher discuss these documents with him. Plan: -He will continue transfusional supportive care. -OV in about 6 weeks. Aj Lazaro DO CNOVSP Observed: 01/05/2018 Status: COMPLETED Source: AMBOY 3:00 PM [facility] REPOSITORY Visit (SP) Office (CHERIE) ORION XIE ([id number]) 1935 M Date Time Provider Department 01/05/18 [...] is quite satisfied with periodic transfusions at [facility]. He enjoys the food and care. He's not had any infectious complications. He's had no unusual bleeding or unexplained bruising. He is taking an iron supplement and tolerating it well. He is not on any antiplatelet agents or anticoagulation. His appetite is been normal. He is a resident at [facility]--he doesn't have any family in this area. He has 2 brothers but there are not involved in his medical situation. He entered fdc care several years ago after undergoing inguinal [...] No jaundice or rash. No petechiae. NEUROLOGIC: critical care registered nurse II-XII are grossly intact. Unsteady gait--orthostasis observed [...] have a durable health care power of commonwealth attorney nor does he have a living will in place. I encouraged him to do so and we'll have our social studies teacher discuss these documents with him. 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 Discuss acute leukemia. Gisela Garibay LPN Encounter Status:Closed by AJ LAZARO DO on 01/07/18 CNPN Observed: 01/05/2018 Status: COMPLETED Source: AMBOY 12:00 AM [facility] REPOSITORY Telephone (CHERIE) ORION XIE ([id number]) 1935 M Date Time Provider Department 01/05/18 AJ LAZARO During your visit today, we recorded the following information about you: Aliya Mullins 01/05/2018 5:01 PM Signed [facility] requests patient records from his OV with Dr. Lazaro. Fax number is [phone] Zhanna Escalona Psr 01/06/2018 8:10 AM Signed Notes from yesterday have not been completed from , so we will fax this information once it has been completed Zhanna Escalona Psr Kita Hooper, RN, RN 01/10/2018 8:40 AM Signed Notes faxed to [facility]. Gisela Garibay LPN 01/10/2018 12:17 PM Signed Correct fax# is [phone]. Gisela Garibay LPN Allergies As of Date: [...] 01/02/2018 Status: F Source: KIMBERLY 5:06 PM [facility] REPOSITORY [facility] [place] [address] OFFICE VISIT Date of Service: 01/02/18 1633 MR#: [id number] Acct: [id number] Name: ANNE-MARIEORION Kenzie Rep #: [id number] : 1935 From: Nj Leija MD Age/Sex: [...] Chronic Code Visit Office Visits / Consults: 79914 OV L4 Est 01/02/18 1706 <Electronically signed by Nj Leija MD> Date Nj Leija MD Cosigner Signature: Date (if applicable) CC: COMPREHENSIVE METABOLIC Collected: 01/02/2018 Status: F Source: KIMBERLY TIANA 3:00 PM [facility] REPOSITORY Order Comment: Reason for Laboratory Test [...] Performed By: #### L500.4050 #### [facility] [address] [place], [address] CBC W/DIFF, AUTOMATED Collected: 01/02/2018 Status: F Source: SPRINGER 6:05 AM [facility] REPOSITORY Order Comment: 202 TYPE CODE TESTS [...] Performed By: #### L100.0100 #### [facility] [address] [facility] [place], [address] TYPE AND SCREEN Collected: 12/26/2017 Status: F Source: SPRINGER 10:30 PM [facility] REPOSITORY Order Comment: CMV NEG?* N Give When? 12/27/2017 0830 Irradiated? N Leukodepleted? Y Reason for Type AND Screen/Red Cells: ANEMIA TYPE CODE TESTS RESULT OUT OF RANGE REFERENCE UNITS LAB B10.0800 A Normal BLOOD TYPE GEL POSITIVE LAB B100.4000 Normal Antibody NEGATIVE Screen Performed By: #### B101.7450 #### [facility] [address] [facility]. [place], [place], [address] RC Collected: 12/26/2017 Status: F Source: SPRINGER 10:30 PM [facility] REPOSITORY TYPE CODE TESTS RESULT OUT OF REFERENCE UNITS RANGE LAB U100.0000 [id number] TRANSFUSED PRODUCT: T AND S with Crossmatch, Red Cells COUNT: 2 Performed By: #### U100.0000 #### [facility] - refer to report for specific site CBC W/DIFF, AUTOMATED Collected: 12/26/2017 Status: F Source: KIMBERLY 6:00 AM [facility] REPOSITORY Order Comment: 202 TYPE CODE TESTS [...] Performed By: #### L100.0100 #### [facility] [address] [place], [address] BASIC METABOLIC Collected: 12/19/2017 Status: F Source: KIMBERLY PROFILE ([facility]) 8:00 AM [facility] REPOSITORY Order Comment: 202 TYPE CODE TESTS [...] Performed By: #### L500.2500 #### [facility] [address] [place], [address] CBC W/DIFF, AUTOMATED Collected: 12/19/2017 Status: F Source: SPRINGER 8:00 AM [facility] REPOSITORY Order Comment: 202 TYPE CODE TESTS [...] Performed By: #### L100.0100 #### [facility] [place], [address] ONCOLOGY VISIT REPORT Observed: 12/15/2017 Status: F Source: SPRINGER 1:20 PM [facility] REPOSITORY [facility] [address] [place] [address]. [place] [address] OFFICE VISIT Date of Service: 12/14/171918 MR#: [id number] Acct: [id number] Name: ORION XIE Rep #: [id number] : 1935 From: Nj Leija MD Age/Sex: [...] Acute Code Visit Office Visits / Consults: 90641 OV L3 Est 12/15/17 1320 <Electronically signed by Nj Leija MD> Date Nj Leija MD Cosigner Signature: Date (if applicable) CC: CBC W/DIFF, AUTOMATED Collected: 12/12/2017 Status: C Source: KIMBERLY 6:05 AM [facility] REPOSITORY Order Comment: 202 TYPE CODE TESTS [...] Performed By: #### L100.0100 #### [facility] [address] [place], [address] MISCELLANEOUS LAB Collected: 12/08/2017 Status: F Source: KIMBERLY PROCEDURE 2:19 PM [facility] REPOSITORY Order Comment: Reason for Laboratory Test JAK2-LC# [id number] Comments: [id number] Mutation Analysis, Qualitativ Test(s) Ordered: [id number] Mutation Analysis,TALL LAV WB TYPE CODE TESTS RESULT OUT OF RANGE REFERENCE UNITS LAB L801.1541 Normal [facility] Result Comment: TEST RESULT LIMITS [...] within exon 14 of the JAK2 gene (L3853Q) encoding a valine to phenylalanine substitution at [...] type (WT) and JAK2 mutant V617F. The [id number] Absolute Quantitation software will compare the patient specimen valuse to the standard curves and generate percent values for wild type and mutant type. In vitro studies have indicated that this assay has an analytical sensitivity of 1%. References: Smith EJ, Duarte LM, Jimmy PJ, et al. Acquired mutation of the tyrosine kinase JAK2 in human myeloproliferative disorders. Lancet. 2005 Jul 25; 365(4592):6079-5042. Harley Diego, Edward V, Kisha Silva JP. A unique clonal JAK2 mutation leading to constitutive signaling causes polycythaemia vera. Nature. 2005 Sep 03; 147(8541):6065-2490. Homer R, Clarisa F, Debra , et al. A pfmr-tz-fbcitfiv mutation of JAK2 in myeloproliferative disorders. N Engl J Med. 2005 Sep 03; 352(86):8488-1514. Director Review: Nathalie Frausto MD, PhD Director, Molecular Oncology [facility] [place] [address] Disclaimer: This test was developed and its performance characteristics determined by [facility]. It has not been cleared or [...] exons 12 to 15 was subjected to reverse-barrel assembly inspector coupled PCR amplification, and bi-directional sequencing to identify sequence variations. This assay has a sensitivity to detect approximately 15% population of cells containing the JAK2 mutations in a background of non-mutant cells. This test was developed and its performance characteristics determined by [facility]. It has not been cleared or approved by the Food and Drug Administration. References Tran Merrill. et al. Detection of mutations in JAK2 exons 12-15 by Doswell sequencing. Int J Lab Hemato. 2015, 38:34-41. Meggan Elaine. et al. Mutation profile of JAK2 transcripts in patients with chronic myeloproliferative neoplasias. J Mol Diagn. 2009, 11:49-53. Director Review Keven Petit, PhD Director, Molecular Oncology [facility] [place] [address] Extraction Completed TESTING PERFORMED AT [facility]. ORIGINAL REPORT ON FILE IN LAB CONTAINS ADDITIONAL TEST SITE INFORMATION. Performed By: #### L801.1541 #### [facility] [place], [address] MISCELLANEOUS LAB Collected: 12/08/2017 Status: F Source: SPRINGER PROCEDURE 2:19 PM [facility] REPOSITORY Order Comment: Reason for Laboratory Test PNH # [id number] Comments: [id number] P[facility] 4ML HEPARIN Test(s) Ordered: [id number] PNH 4ML HEPARIN TYPE CODE TESTS RESULT OUT OF RANGE REFERENCE UNITS LAB L801.1541 Normal [facility] Result Comment: TEST RESULT LIMITS [...] image(s) that accompany this report is/are a metals sales representative image(s) only and should not be used to render a diagnosis. Director Review Reviewed By: Nj Mark M.D. TESTING PERFORMED AT [facility]. ORIGINAL REPORT ON FILE IN LAB CONTAINS ADDITIONAL TEST SITE INFORMATION. Performed By: #### L801.1541 #### [facility] [address] [place], [address] MISCELLANEOUS LAB Collected: 12/08/2017 Status: F Source: KIMBERLY PROCEDURE 3 2:19 PM [facility] REPOSITORY Order Comment: Reason for Laboratory Test FLOW CYTOMETRY-PNH Comments: [id number] Leukemia/Lymphoma Immunophenotyping Profile List Test(s) Ordered by Physician: [id number] Leukemia/Lymphoma Immunophenotyping Profile TYPE CODE TESTS RESULT OUT OF RANGE REFERENCE UNITS LAB L801.1545 Normal [facility] 3 Result Comment: TEST RESULT [...] developed and its performance characteristics determined by [facility]. It has not been cleared or approved by the U.S. Food and Drug Administration. The FDA has determined that such clearance or approval is not necessary. This test is used for clinical purposes. It should not be regarded as investigational or for research. TESTING PERFORMED AT [facility]. ORIGINAL REPORT ON FILE IN LAB CONTAINS ADDITIONAL TEST SITE INFORMATION. Performed By: #### L801.1545 #### [facility] [place], [address] MISCELLANEOUS LAB Collected: 12/08/2017 Status: F Source: SPRINGER PROCEDURE 2 2:19 PM [facility] REPOSITORY Order Comment: Reason for Laboratory Test PERIPHERAL BLOOD CYTOGENICS-# [id number] Comments: [id number] Chromosome Analysis, PED HEPARIN List Test(s) Ordered by Physician: [id number] Chromosome Analysis, PED HEPARIN TYPE CODE TESTS RESULT OUT OF RANGE REFERENCE UNITS LAB L801.1543 Normal [facility] 2 Result Comment: TEST RESULT [...] in situ hybridization) or a chromosome microarray BREAKFAST MANAGER), however, can be performed on this sample. FISH panels available targeting specific disease associated alterations are: AML (#[id number]), MDS (#956888), CLL (#051067), MM (#[id number]), ALL (#061883, pediatric panel; #[id number], adult panel), and aggressive B-cell lymphoma (#790264). The array (#29449) targets both copy number changes throughout the genome and copy neutral DEUCE. (If desired, please call the number below ([phone]) and testing can be performed on available residual sample.. *In small cell B-lymphoid disorders some leukemic clones can be stimulated by B mitogens, eliminating the necessity for peripheral blood blasts. These disorders include most B-LPD. Director Review: Comment: Sarah Conrad, PhD TESTING PERFORMED AT [facility]. ORIGINAL REPORT ON FILE IN LAB CONTAINS ADDITIONAL TEST SITE INFORMATION. Performed By: #### L801.1543 #### [facility] [address] [place], [place] [address] [place], [address] ONCOLOGY HISTORY AND Observed: 12/07/2017 Status: F Source: KIMBERLY PHYSICAL 5:16 PM [facility] REPOSITORY [facility] Medical Records Department [facility] [place] [address] History and Physical 12/07/17 3089 MR#: [id number] Acct: [id number] Name: ORION XIE Rep #: [id number] : 1935 82 From: Nj Leija MD PCP: Skinny Lopez MD Status: REG RCR Y Location: [facility] Subjective Date of Service:: 12/07/17 [...] clinic today for further evaluation. Power of Melter Helper: No Living Will: No Health History: [...] drinking: Has the patient needed an eye cream tester in the mornings: Comments: Review of Systems [...] findings may represent myeloproliferative disorder/myelodysplastic disorder. Immunohistochemistry (JR77-507) does not show significant increase of blasts. [...] Acute Code Visit Office Visits / Consults: 63879 OV L5 New 12/07/17 1716 <Electronically signed by Nj Leija MD> Date Nj Leija MD Cosigner Signature: Date (if applicable) CC: Skinny Lopez MD; Skinny Lopez MD; Nj Leija MD Signed CBC W/DIFF, AUTOMATED Collected: 12/05/2017 Status: C Source: SPRINGER 6:05 AM [facility] REPOSITORY TYPE CODE TESTS RESULT OUT OF [...] Performed By: #### L100.0100 #### [facility] [place], [address] CBC W/DIFF, AUTOMATED Collected: 11/30/2017 Status: C Source: SPRINGER 5:55 AM [facility] REPOSITORY TYPE CODE TESTS RESULT OUT OF [...] Performed By: #### L100.0100 #### [facility] [address] [place], [place], [address] TYPE AND SCREEN Collected: 11/30/2017 Status: P Source: KIMBERLY 5:55 AM [facility] REPOSITORY Order Comment: CMV NEG?* N Give When? WHEN NEEDED Irradiated? N Leukodepleted? Y Reason for Type AND Screen/Red Cells: ANEMIA TYPE CODE TESTS RESULT OUT OF RANGE REFERENCE UNITS LAB B10.0800 A Normal BLOOD TYPE GEL POSITIVE LAB B100.4000 Normal Antibody NEGATIVE Screen Performed By: #### B101.7450 #### [facility] [address] [place], [place], [address] TYPE AND SCREEN Collected: 11/30/2017 Status: P Source: SPRINGER 5:55 AM [facility] REPOSITORY Order Comment: CMV NEG?* N Give When? WHEN NEEDED Irradiated? N Leukodepleted? Y Reason for Type AND Screen/Red Cells: ANEMIA TYPE CODE TESTS RESULT OUT OF RANGE REFERENCE UNITS LAB B10.0800 A Normal BLOOD TYPE GEL POSITIVE LAB B100.4000 Normal Antibody NEGATIVE Screen Performed By: #### B101.7450 #### [facility] [address] [place], [address] CBC W/DIFF, AUTOMATED Collected: 11/30/2017 Status: F Source: SPRINGER 5:55 AM [facility] REPOSITORY TYPE CODE TESTS RESULT OUT OF [...] Performed By: #### L100.0100 #### [facility] [address] [facility]. [place], [place], [address] TYPE AND SCREEN Collected: 11/30/2017 Status: F Source: SPRINGER 5:55 AM [facility] REPOS[facility]ORY Order Comment: CMV NEG?* N Give When? WHEN NEEDED Irradiated? N Leukodepleted? Y Reason for Type AND Screen/Red Cells: ANEMIA TYPE CODE TESTS RESULT OUT OF RANGE REFERENCE UNITS LAB B10.0800 A Normal BLOOD TYPE GEL POSITIVE LAB B100.4000 Normal Antibody NEGATIVE Screen Performed By: #### B101.7450 #### [facility] [address] [facility]. [place], [place], [address] RC Collected: 11/30/2017 Status: F Source: SPRINGER 5:55 AM [facility] REPOSITORY TYPE CODE TESTS RESULT OUT OF REFERENCE UNITS RANGE LAB U100.0000 [id number] TRANSFUSED PRODUCT: T AND S with Crossmatch, Red Cells COUNT: 2 Performed By: #### U100.0000 #### Non-[facility] - refer to report for specific site CBC W/DIFF, AUTOMATED Collected: 11/28/2017 Status: C Source: SPRINGER 6:40 AM [facility] REPOSITORY TYPE CODE TESTS RESULT OUT OF [...] Performed By: #### L100.0100 #### [facility] [address] [place], [place], [id number] BASIC METABOLIC Collected: 11/21/2017 Status: F Source: KIMBERLY PROFILE (BMP) 7:50 AM [facility] REPOSITORY TYPE CODE TESTS RESULT OUT OF [...] Performed By: #### L500.2500 #### [facility] [address] [place], [address] CBC W/DIFF, AUTOMATED Collected: 11/21/2017 Status: F Source: KIMBERLY 7:50 AM [facility] REPOSITORY TYPE CODE TESTS RESULT OUT OF [...] Performed By: #### L100.0100 #### [facility] [address] [facility] [place], [address] DISCHARGE SUMMARY Observed: 11/18/2017 Status: F Source: SPRINGER 5:40 PM [facility] REPOSITORY [facility] Medical Records Department [address] [place] [address] Discharge Summary 11/18/17 1412 MR#: [id number] Acct: [id number] Name: ORION XIE Kenzie Rep #: [id number] : 1935 82 From: Manish MCGILL PCP: Skinny Lopez MD Status: DIS IN Y Location: [place] [id number] ADDENDUM by Kevin Meza DO on 11/18/17 at 1740 Code Visit Additional diagnosis: Severe anemia requiring blood transfusion Inpatient E AND M: 38585 Disch Hosp 11/18/17 1740 <Electronically signed by [...] with his primary care provider and with [facility] as an outpatient in order to [...] MD When: as directed Disposition: Asstd Living/Non-Skill [place] Minutes spent on discharge:: 35 Patient Condition:: [...] MARROW ASPIRATON Collected: 11/18/2017 Status: F Source: SPRINGER 11:20 AM [facility] REPOSITORY TYPE CODE TESTS RESULT OUT OF RANGE REFERENCE UNITS LAB L350.0900 SEE Normal BONE PATHOLOGY MARROW ASP REPORT Result Comment: Specimen submitted to Anatomical Pathology Department for testing. Performed By: #### L350.0900 #### [facility] [address] [place], [address] DISCHARGE INSTRUCTION Observed: 11/18/2017 Status: F Source: SPRINGER 11:01 AM [facility] REPOSITORY [facility] Medical Records Department [address] [place] [address] Instructions for Home/Discharge Instructions 11/18/17 1059 MR#: [id number] Acct: [id number] Name: ORION XIE Rep #: [id number] : 1935 82 From: Manish MCGILL PCP: [...] F Source: KIMBER[place] NO DIFF 5:12 AM [facility] REPOSITORY TYPE CODE TESTS RESULT OUT OF [...] Performed By: #### L100.0500 #### [facility] [address] [place], [place], [address] BONE MARROW BIOPSY Observed: 11/18/2017 Status: F Source: KIMBERLY 12:00 AM [facility] REPOSITORY Patient: ORION XIE : 1935 (82/M) Acct Num: [id number] Phys: Derrick ROSE,Kevin Unit Num: [id number] Loc: U [id number] Specimen: [id number] Received: 11/18/17 - 1344 Spec [...] slide. / SJ:timothy 11/18/17 TC: 5 CPT: 52257, 74197, 85129, 79714 x4, 92790 BONE MARROW STUDY Slides are reviewed. CBC [...] aggregate: Absent. Atypical infiltrate: Absent. Comment: Immunohistochemistry ([id number]) does not show significant increase of blasts. ASPIRATE CLOT FINDINGS: Not applicable. SPECIAL STAINS WITH MATCHED CONTROLS: Iron: Decreased. Atypical or ring sideroblasts are not seen. Reticulin: Increased. PAS: Highlights myeloid cells and megakaryocytes. Trichrome: Significant collagenous fibrosis is not seen. COMMENT The findings may represent myeloproliferative disorder/myelodysplastic disorder. Immunohistochemistry ([id number]) does not show significant increase of blasts. [...] Performed By: #### PBMB #### [facility] [address] [place] [address]. [place], [place], [id number] IMMUNOHISTOCHEMISTRY Observed: 11/18/2017 Status: F Source: SPRINGER 12:00 AM [facility] REPOSITORY Patient: ORION XIE : 1935 (82/M) Acct Num: [id number] Phys: Derrick ,Kevin Unit Num: [id number] Loc: [facility] [id number] Specimen: [id number] Received: 11/21/171206 Spec Type: IMMUNO TISSUES TISSUES: Bone marrow of iliac crest SPECIMEN INFORMATION: Tissue Source: Bone marrow core x3 left iliac, 11g Clinical Info: Pancytopenia; low blood count Specimen Number: [id number] CPT code: 86431 METHODOLOGY: Deparaffinized sections of prefer/formalin-fixed tissue or PAP/DQ stained slides are incubated with monoclonal/polyclonal antibodies/oligonucleotide probes. Localization is made via biotin free immunoperoxidase method. Appropriate controls are performed and reacted as expected. Results on target cell population are indicated in the following table: RESULTS: ANTIBODY / CLONE RESULT CD34 (QBEnd-10) negative These tests were developed and their performance characteristics determined by [facility]. They may not have been [...] the above diagnosis. IDC:[facility] [address] [address] Signed Darrin Terryin 11/22/17 <signature on file> Performed By: #### PIMM #### [facility] [address] [place], [address] CONSULTATION Observed: 11/17/2017 Status: F Source: SPRINGER 5:22 PM [facility] REPOSITORY [facility] Medical Records Department [address] [place] [address] Consultation 11/16/17 1649 MR#: [id number] Acct: [id number] Name: ORION XIE Rep #: [id number] : 1935 82 From: Nj Leija MD PCP: Skinny Lopez MD Status: ADM IN Y Location: [place] [address] Consult Referring Physician: Dr. Alejandrina London. Consult Results: Pancytopenia R/O MDS Subjective Date of Service:: 11/16/17 Chief Complaint: Asked to see Pt for Pancytopenia. History of Present Illness: 82 y.o.man with history of hypertension and BPH was sent from [facility] with abnormal labs, hemoglobin 6.3, [...] he is discharged, should follow up in [facility] for further evaluation. Thank you. Medications: Prescriptions This Visit Medication Instructions Recorded Acetaminophen 650 mg PO Q4H PRN PRN 11/15/17 Medications Added to Medication List This Visit Ensure [facility] Med 11/16/17 14:00 Active Primary Care Provider: Skinny Lopez MD Referring Provider: - Problem List (1) Pancytopenia Status: Acute Code Visit Office Visits / Consults: 74412 IP Consult L4 11/17/17 1722 <Electronically signed by Nj Leija MD> Date Nj Leija MD Cosigner Signature (if applicable): Date CC: Skinny Lopez MD; Nj Leija MD Signed 12 LEAD ELECTROCARDIOGRAM Observed: 11/17/2017 Status: F Source: SPRINGER 1:59 PM [facility] REPOSITORY [facility] Cardiovascular Services [address] [place] [address] 12 Lead EKG 11/15/17 1736 MR#: [id number] Acct: [id number] Name: ORION XIE Rep #: [id number] : 1935 82 From: Francisco Sarah MD Attending Dr: Kevin Meza DO Status: ADM IN Ordering Dr: Kevin Meza DO Date: 11/15/17 Location: [facility] Sex: M C Admitted: 11/15/17 Test [...] Confirmed by FRANCISCO SARAH MD ([id number]), editor newspaper PATIENCE LOPEZ ([id number]) on 11/17/2017 1:58:37 PM Referred By: FELA Confirmed By:FRANCISCO SARAH MD 11/17/17 1358 Date Francisco Sarah MD CC: Skinny Lopez MD; Kevin Meza DO Signed BIOPSY/INJ OR NEEDLE Observed: 11/17/2017 Status: F Source: [place]IM[place] PLACEMENT 10:06 AM [facility] REPOSITORY [facility] Imaging Services [address] [place] [address] Biopsy/Inj or Needle Placement MR#: [id number] Acct: [id number] Name: ORION XIE Rep #: [id number] : 1935 M 82 From: Gagan Holbrook MD PCP: Skinny Lopez MD Status: ADM IN Study: Biopsy/Inj or Needle Placement Date of Exam: 11/18/17 Exam# [id number] Ordering Dr: Kevin Meza DO PROCEDURE: CT [...] Gagan Holbrook MD at 12:51 EDT Tel [phone], Service support , CC: Skinny Lopez MD; Kevin Meza DO Practice Business Asst: Signed CBC-COMPLETE BLOOD CNT Collected: 11/17/2017 Status: F Source: K[place] NO DIFF 5:18 AM [facility] REPOSITORY TYPE CODE TESTS RESULT OUT OF [...] Performed By: #### L100.0500 #### [facility] [place], [address] BASIC METABOLIC Collected: 11/17/2017 Status: F Source: SPRINGER PROFILE (BMP) 5:18 AM [facility] REPOSITORY TYPE CODE TESTS RESULT OUT OF [...] Performed By: #### L500.2500 #### [facility] [address] [facility]. [place], [place], [address] HH, HEMOGLOBIN AND Collected: 11/16/2017 Status: F Source: SPRINGER HEMATOCRIT 2:30 PM [facility] REPOSITORY TYPE CODE TESTS RESULT OUT OF RANGE REFERENCE UNITS LAB L100.1300 13.0-16.5 g/dl Low HGB 8.0 LAB L100.1400 40-54 % Low HCT 23.7 Performed By: #### L100.0600 #### [facility] [address] [facility] [place], [address] BASIC METABOLIC Collected: 11/16/2017 Status: F Source: KIMBERLY PROFILE (BMP) 4:10 AM [facility] REPOSITORY TYPE CODE TESTS RESULT OUT OF [...] Performed By: #### L500.2500 #### [facility] [address] [place], [place], [address] CBC W/DIFF, AUTOMATED Collected: 11/16/2017 Status: F Source: KIMBERLY 4:10 AM [facility] REPOSITORY TYPE CODE TESTS RESULT OUT OF [...] Performed By: #### L100.0100 #### [facility] [address] [place], [place], [address] IRON+IRON BINDING Collected: 11/16/2017 Status: F Source: SPRINGER CAPACITY 4:10 AM [facility] REPOSITORY Order Comment: Comments: Specimen for 11/15/2017 TYPE CODE TESTS RESULT OUT OF REFERENCE UNITS RANGE LAB L503.6075 250-450 ug/dL Low TIBC 193 LAB L503.6150 65-175 ug/dL IRON High 181 LAB L503.6250 15.0-55.0 % IRON High SATURATION 93.8 Performed By: #### L503.6030 #### [facility] [address] [place], [place], [address] FERRITIN Collected: 11/16/2017 Status: F Source: SPRINGER 4:10 AM [facility] REPOSITORY Order Comment: Comments: Specimen from 11/15/2017 TYPE CODE TESTS RESULT OUT OF REFERENCE UNITS RANGE LAB L503.6550 26-388 ng/mL High FERRITIN 410 Performed By: #### L503.6550 #### [facility] [address] [facility] [place], [place], [address] TROPONIN-I Collected: 11/15/2017 Status: F Source: SPRINGER 7:12 PM [facility] REPOSITORY TYPE CODE TESTS RESULT OUT OF RANGE REFERENCE UNITS LAB L501.4010 <0.045 ng/mL Normal < 0.015 TROPONIN-I Result Comment: TROPONIN-I EXPECTED VALUES <0.045 Negative 0.045 - 0.590 Consistent with Cardiac Damage > OR = 0.600 Critical Value Not every elevated troponin is indicative of SC. These values should be used with clinical judgement in examining the patient's clinical picture for diagnosis. To establish a diagnosis of SC versus myocardial injury, there must be a demonstrated rise and/or fall in the troponin values, in addition to ischemic symptoms, EKG changes, new regional wall motion abnormality, and/or angiographical evidence. PLEASE NOTE: REFERENCE RANGES EDITED 17 Performed By: #### L501.4010, L504.2610, L506.0250 #### [facility] [address] [place], [address] LDH Collected: 11/15/2017 Status: F Source: SPRINGER 7:12 PM [facility] REPOSITORY TYPE CODE TESTS RESULT OUT OF RANGE REFERENCE UNITS LAB L504.2610 87-241 U/L High LDH 480 Performed By: #### L501.4010, L504.2610, L506.0250 #### [facility] [address] [place], [address] FOLATES, (FOLIC ACID) Collected: 11/15/2017 Status: F Source: SPRINGER 7:12 PM [facility] REPOSITORY TYPE CODE TESTS RESULT OUT OF RANGE REFERENCE UNITS LAB L506.0250 3.1-55.4 ng/mL Normal FOLATES 5.90 Performed By: #### L501.4010, L504.2610, L506.0250 #### [facility] [address] [place], [address] PROTHROMBIN TIME W/INR Collected: 11/15/2017 Status: F Source: SPRINGER 7:12 PM [facility] REPOSITORY TYPE CODE TESTS RESULT OUT OF RANGE REFERENCE UNITS LAB L300.4150 11.7-14.9 SECONDS Normal PROTIME 14.8 LAB L300.4200 Normal INR 1.2 Performed By: #### L300.3900, L300.4310 #### [facility] [address] [place], [address] PARTIAL THROMBOPLAST Collected: 11/15/2017 Status: F Source: SPRINGER TIME 7:12 PM [facility] REPOSITORY TYPE CODE TESTS RESULT OUT OF RANGE REFERENCE UNITS LAB L300.4310 24.1-36.2 Seconds Normal PTT 34.9 Performed By: #### L300.3900, L300.4310 #### [facility] [address] [facility] [place], [address] VITAMIN B12 Collected: 11/15/2017 Status: F Source: KIMBERLY 7:12 PM [facility] REPOSITORY TYPE CODE TESTS RESULT OUT OF RANGE REFERENCE UNITS LAB L503.0105 211-911 pg/mL Normal Vitamin B12 812 Performed By: #### L503.0105 #### [facility] [address] [facility] [place], [address] HAPTOGLOBIN Collected: 11/15/2017 Status: F Source: KIMBERLY 7:12 PM [facility] REPOSITORY TYPE CODE TESTS RESULT OUT OF RANGE REFERENCE UNITS LAB L3100.1850 34-200 mg/dL Normal HAPTOGLOB 1628 94 Result Comment: Performed at: - [facility] [id number] Corporation Lawyer: Leroy Villegas PhD, Phone: [phone] Performed By: #### L3100.1850 #### [facility] (refer to report for specific site) refer to report for address and phone number HISTORY AND PHYSICAL Observed: 11/15/2017 Status: F Source: SPRINGER EXAM 7:09 PM [facility] REPOSITORY [facility] Medical Records Department [address] [place] [address] History and Physical 11/15/17 1821 MR#: [id number] Acct: [id number] Name: ORION XIE Rep #: [id number] : 1935 82 From: Kei London MD PCP: Skinny Lopez MD Status: ADM IN Y Location: [address] Problem List (1) Pancytopenia Status: Acute [...] history of hypertension, BPH was sent from [facility] or abnormal labs. Patient [...] patient is DNR CC arrest as per fdc paper. Patient does not wish aggressive resuscitation [...] 27.8 L, Lymph % (Auto) 43.9 H, Emmet % (Auto) 27.9 H, Eos % (Auto) [...] Detail Code Visit Inpatient E AND M: 40548 Init Hosp L3 11/15/17 1909 <Electronically signed by Kei London MD> Date Kei London MD Cosigner Signature: Date (if applicable) CC: Skinny Lopez MD; Kei London MD Signed URINALYSIS, COMPLETE Collected: 11/15/2017 Status: F Source: KIMBERLY 6:46 PM [facility] REPOSITORY Order Comment: How was Urine Obtained? PHILOSOPHY FACULTY TO SPECIFY TYPE CODE TESTS RESULT OUT [...] Performed By: #### L400.0001 #### [facility] [address] [facility] [place], [address] EMERGENCY DEPARTMENT Observed: 11/15/2017 Status: F Source: SPRINGER SUMMARY 5:27 PM [facility] REPOSITORY [facility] Medical Records Department [address] [facility] [place] [address] Emergency Department Summary 11/15/17 1725 MR#: [id number] Acct: [id number] Name: ORION XIE Rep #: [id number] : 1935 82 From: Janie Lozano DO [...] Generalized weakness] This note was generated with ClearMyMailation software. It may contain incorrect words, spelling, [...] your Primary Care Provider. Call [facility] ([phone]) or report to the closest Emergency Room. Call 911 if necessary. 11/15/17 1727 <Electronically signed by Janie Lozano DO> Date Janie Lozano DO Cosigner Signature (If Indicated): Date CC: Skinny Lopez MD BASIC METABOLIC Collected: 11/15/2017 Status: F Source: KIM[place] PROFILE (BMP) 4:10 PM [facility] REPOSITORY TYPE CODE TESTS RESULT OUT OF [...] Performed By: #### L500.2500 #### [facility] [address] [facility] [place], [address] Observed: 11/15/2017 Status: F Source: SPRING[place] STOOL OCCULT BLOOD 4:10 PM [facility] IFOB REPOSITORY Order Date: 11/15/17 Has pt arrived? Y STOB iFOB Occult Blood Negative Performed By: #### M100.7900 #### [facility] [address] [facility] [place], [address] CBC W/DIFF, AUTOMATED Collected: 11/15/2017 Status: F Source: SPRINGER 4:10 PM [facility] REPOSITORY TYPE CODE TESTS RESULT OUT OF [...] Performed By: #### L100.0100 #### [facility] [address] [place], [address] TYPE AND SCREEN Collected: 11/15/2017 Status: F Source: SPRINGER 4:10 PM [facility] REPOSITORY Order Comment: Reason for Type AND Screen/Red Cells: ANEMIA TYPE CODE TESTS RESULT OUT OF RANGE REFERENCE UNITS LAB B10.0800 A Normal BLOOD TYPE GEL POSITIVE LAB B100.4000 Normal Antibody NEGATIVE Screen Performed By: #### B101.7450 #### [facility] [address] [place], [address] RC Collected: 11/15/2017 Status: F Source: KIMBERLY 4:10 PM [facility] REPOSITORY TYPE CODE TESTS RESULT OUT OF REFERENCE UNITS RANGE LAB U100.0000 [id number] TRANSFUSED PRODUCT: T AND S with Crossmatch, Red Cells COUNT: 2 Performed By: #### U100.0000 #### [facility] - refer to report for specific site BNP,B-TYPE NATRIURETIC Collected: 11/15/2017 Status: F Source: SPRINGER PEPTIDE 4:10 PM [facility] REPOSITORY TYPE CODE TESTS RESULT OUT OF RANGE REFERENCE UNITS LAB L503.6620 0-100 pg/mL Normal B-TYPE 25.0 REKHA PEP Performed By: #### L503.6620 #### [facility] [address] [place], [address] RC Collected: 11/15/2017 Status: F Source: KIMBERLY 4:10 PM [facility] REPOSITORY TYPE CODE TESTS RESULT OUT OF REFERENCE UNITS RANGE LAB U100.0000 [id number] TRANSFUSED PRODUCT: T AND S with Crossmatch, Red Cells COUNT: 2 Performed By: #### U100.0000 #### [facility] - refer to report for specific site RC Collected: 11/15/2017 Status: F Source: KIMBERLY 4:10 PM [facility] REPOSITORY TYPE CODE TESTS RESULT OUT OF REFERENCE UNITS RANGE LAB U100.0000 [id number] TRANSFUSED PRODUCT: T AND S with Crossmatch, Red Cells COUNT: 1 Performed By: #### U100.0000 #### [facility] - refer to report for specific site CBC W/DIFF, AUTOMATED Collected: 11/15/2017 Status: F Source: KIMBERLY 6:50 AM [facility] REPOSITORY Order Comment: 202 CRITICAL VALUE VERIFIED. CALLED TO PRIMO AT [facility] 11/15/17926 Radha Neff. RESULTS READ BACK BY SAME . RESULTS FAXED TO [phone] 11/15/17926 Radha Neff. TYPE CODE TESTS RESULT [...] Performed By: #### L100.0100 #### [facility] [address] [place], [place], [address] CBC W/DIFF, AUTOMATED Collected: 11/12/2017 Status: F Source: [place] [address]:45 AM [facility] REPOSITORY TYPE CODE TESTS RESULT OUT OF [...] Performed By: #### L100.0100 #### [facility] [address], [address] BASIC METABOLIC Collected: 11/12/2017 Status: F Source: K[place] PROFILE (BMP) 6:45 AM [facility] REPOSITORY TYPE CODE TESTS RESULT OUT OF [...] By: #### L500.2500, L501.9520 #### [facility] [address] [place], [address] THYROID STIM HORMONE Collected: 11/12/2017 Status: F Source: KIMBERLY (TSH) 6:45 AM [facility] REPOSITORY TYPE CODE TESTS RESULT OUT OF RANGE REFERENCE UNITS LAB L501.9520 0.358-3.74 uIU/mL Normal TSH 3.49 Performed By: #### L500.2500, L501.9520 #### [facility] [address], [address] CBC-COMPLETE BLOOD CNT Collected: 09/13/2017 Status: F Source: [place] NO DIFF 7:05 AM [facility] REPOSITORY Order Comment: 202 TYPE CODE TESTS [...] By: #### L100.0500, L100.4500 #### [facility] [address] [facility]. [place], [place], [address] DIFFERENTIAL COMMENT Collected: 09/13/2017 Status: F Source: KIMBERLY 7:05 AM [facility] REPOSITORY Order Comment: 202 TYPE CODE TESTS RESULT OUT OF RANGE REFERENCE UNITS LAB L100.4500 Normal SMEAR COMMENT SCANNED Result Comment: LARGE PLATELETS NOTED Performed By: #### L100.0500, L100.4500 #### [facility] [address] [facility] [place], [address] BASIC METABOLIC Collected: 09/13/2017 Status: F Source: KIMBERLY PROFILE (BMP) 7:05 AM [facility] REPOSITORY Order Comment: 202 TYPE CODE TESTS [...] Performed By: #### L500.2500 #### [facility] [address] [place], [address] BASIC METABOLIC Collected: 07/06/2017 Status: F Source: SPRINGER PROFILE ([facility]) 6:22 AM [facility] REPOSITORY Order Comment: ROOM 202 PREETHI TYPE [...] Performed By: #### L500.2500 #### [facility] [address] [place], [place], [address] BASIC METABOLIC Collected: 06/14/2017 Status: F Source: KIMBERLY PROFILE (BMP) 6:42 AM [facility] REPOSITORY Order Comment: 202 TYPE CODE TESTS [...] Performed By: #### L500.2500 #### [facility] [address] [place], [place], [address] CBC-COMPLETE BLOOD CNT Collected: 06/14/2017 Status: F Source: [place] NO DIFF 6:42 AM [facility] REPOSITORY Order Comment: 202 TYPE CODE TESTS [...] By: #### L100.0500, L100.4500 #### [facility] [address] [place], [address] DIFFERENTIAL COMMENT Collected: 06/14/2017 Status: F Source: SPRINGER 6:42 AM [facility] REPOSITORY Order Comment: 202 TYPE CODE TESTS RESULT OUT OF RANGE REFERENCE UNITS LAB L100.4500 Normal SMEAR COMMENT SCANNED Result Comment: LARGE PLATELETS NOTED Performed By: #### L100.0500, L100.4500 #### [facility] [address] [place], [address] ALLERGIES ALLERGIES DATE TYPE / CODE NAME / CODE REACTION SEVERITY SOURCE 01/02/2018 Drug No Known Unknown [facility] Allergy/416 Allergies/[id number] [facility] [id number](SNOM 0388(RXNORM) Repository ED CT) Drug NO KNOWN [facility] Class/31443 ALLERGIES [facility] [place] 1003(SNOMED Repository CT) ENCOUNTERS ENCOUNTERS ADMIT/DISCHARGE ACCOUNT ADMITTING ENCOUNTER LOCATION SOURCE NUMBER CLASS 05/29/2018 [id number] [facility] ing:OLS.LBE Repository N 05/22/2018 [id number] [facility] ing:[employer]IN[employer] Repository N 05/19/2018 [id number] [facility] Repository 05/15/2018 [id number] [facility] ing:YASEMIN.[employer] Technologies[employer]BE Repository N 05/08/2018 [id number] [facility] ing:LBE Repository N 05/03/2018 [id number] Ambulatory [facility] Hospital ing:MEDOUTP Repository 05/01/2018 [id number] Ambulatory [facility] Hospital[facility] Hospital ing:OLS.WHLBE Repository N 04/24/2018 [id number] Ambulatory [facility] HospitalBuild Hospital ing:OLS.WHLBE Repository N 04/17/2018 [id number] Ambulatory [facility] HospitalBuild Hospital ing:OLS.WHLBE Repository N 04/13/2018 [id number] Ambulatory [facility] HospitalBuild Hospital ing:MEDOUTP Repository 04/10/2018 [id number] Ambulatory [facility] HospitalBuild Hospital ing:OLS.WHLBE Repository N 04/03/2018 [id number] Ambulatory [facility] Hospital ing:OLS.LBE Repository N 03/27/2018 [id number] Ambulatory [facility] HospitalBuild Hospital ing:OLS.WHLBE Repository N 03/20/2018 [id number] Ambulatory [facility] HospitalBuild Hospital ing:MEDOUTP Repository 03/20/2018 [id number] Ambulatory [facility] HospitalBuild Hospital ing:OLS.WHLBE Repository N 03/13/2018 [id number] Ambulatory [facility]Build Hospital ing:OLS.LBE Repository N 03/06/2018 [id number] Ambulatory [facility]Build Hospital ing:OLS.LBE Repository N 02/28/2018 [id number] [facility] ing:MEDOUTP Repository 02/27/2018 [id number] [facility] ing:OLS.WHLBE Repository N 02/20/2018 [id number] Ambulatory [facility] HospitalBuild Hospital ing:OLS.WHLBE Repository N 02/17/2018/02/21/20 [id number] Ambulatory [address] Repository 02/14/2018 [id number] [facility] Repository 02/13/2018 [id number] Ambulatory [facility] HospitalBuild Hospital ing:OLS.WHLBE Repository N 02/06/2018 [id number] Ambulatory [facility] Hospital ing:OLS.WHLBE Repository N 01/30/2018 [id number] Ambulatory [facility] Hospital ing:OLS.WHLBE Repository N 01/24/2018 [id number] Ambulatory [facility] HospitalBuild Hospital ing:MEDOUTP Repository 01/23/2018 [id number] Ambulatory [facility] Hospital ing:OLS.WHLBE Repository N 01/16/2018 [id number] Ambulatory [facility] Hospital ing:OLS.WHLBE Repository N 01/11/2018 [id number] Ambulatory [facility] HospitalBuild Hospital ing:MEDOUTP Repository 01/10/2018 [id number] Ambulatory [facility] Hospital[facility] Hospital ing:OLS.WHLBE Repository N 01/05/2018/01/11/20 [id number] Ambulatory [address] Repository 01/02/2018 [id number] Ambulatory [facility] HospitalBuild Hospital ing:OMD Repository 01/02/2018 [id number] Ambulatory BMSBuilding:B [place] Hospital Repository 01/02/2018 [id number] Ambulatory [facility] HospitalBuild Hospital ing:OLS.WHLBE Repository N 12/27/2017 [id number] Ambulatory [facility] HospitalBuild Hospital ing:MEDOUTP Repository 12/26/2017 [id number] Ambulatory [facility] HospitalBuild Hospital ing:OLS.WHLBE Repository N 12/19/2017 [id number] Ambulatory [facility] HospitalBuild Hospital ing:OLS.WHLBE Repository N 12/14/2017 [id number] Ambulatory BMSBuilding:B [place] Hospital Repository 12/12/2017 [id number] Ambulatory [facility] HospitalBuild Hospital ing:OLS.WHLBE Repository N 12/07/2017 [id number] Ambulatory BMSBuilding:B [place] Hospital Repository 12/05/2017 [id number] [facility] Hospital ing:OLS.WHLBE Repository N 12/01/2017 [id number] Ambulatory [facility] Hospital ing:MEDOUTP Repository 11/30/2017 [id number] Ambulatory [facility] Hospital ing:OLS.WHLBE Repository N 11/28/2017 [id number] Ambulatory [facility] Hospital ing:OLS.WHLBE Repository N 11/21/2017 [id number] Ambulatory [facility] Hospital ing:OLS.LBE Repository N 11/15/2017/11/19/19 [id number] [facility], Inpatient Kimberly [address] Hospital ing:PCURoom: Repository [id number]: 1 11/15/2017 [id number] [facility], Ambulatory BMSBuilding:B [place] Ke[place] Repository 11/15/2017 [id number] [facility], Ambulatory BMSBuilding:B [place] Repository 11/15/2017 [id number] [facility], Ambulatory BMSBuilding:B [place] [facility] Repository 11/15/2017 [id number] [facility], Ambulatory BMSBuilding:B [place].CF[facility] Repository 11/15/2017 [id number] [facility], Ambulatory BMSBuilding:B [place].[facility] Repository 11/15/2017 [id number] [facility] Hospital ing:OLS.WHLBE Repository N 11/12/2017 [id number] Ambulatory [facility] Hospital ing:OLS.LBE Repository N 09/13/2017 [id number] Ambulatory [facility] Hospital ing:OLS.LBE Repository N 07/06/2017 [id number] Ambulatory [facility] Hospital ing:OLS.LBE Repository N 06/14/2017 [id number] Ambulatory [place] Kimberly [facility] ing:OLS.WHLBE Repository N PAYERS PAYERS ENCOUNTER GUARANTOR PAYER SUBSCRIBER SOURCE 05/29/2018 ORION Espino Primary NOT GIVENUNK [place] [id number] Insurance:SELF PAY [facility] [place] Number: Effective Repository [address]Biz: (330) Date:2018-05-29 [phone] () 05/22/2018 ORION Espino Primary NOT GIVENUNK [place] [id number] Insurance:SELF PAY [facility] [place] Number: Effective Repository [address]Qhn: (330) Date:2018-05-22 [phone] () 05/19/2018 ORION L Primary ORION Espino [place] [id number] Insurance:MEDICARE HOTHEMDOB: [facility] PART A [facility] [id number] [facility] [place] Number: Repository [address]Duq: 330 [id number] () Date:2018-05-15 05/19/2018 Secondary ORION Espino [place] Insurance:CIGNAPolicy HOTHEMDOB: [facility] Number: [id number] Repository Date:5761-39-09IT [address]LGPKJHIXCLY, [place] [address]QU: 05/19/2018 Tertiary NOT GIVENUNK [place] Insurance:SELF PAY [facility] Number: Effective Repository Date:2018-05-15 05/15/2018 ORION L Primary ORION Espino [place] [id number] Insurance:MEDICARE HOTHEMDOB: [facility] PART A [facility] [id number] [facility] [place] Number: Repository [address]Jju: 330 [id number] [phone] () Date:2018-05-15 05/15/2018 Secondary ORION Espnio [place] Insurance:CIGNAPolicy HOTHEMDOB: Community Number: [id number] Hospital [id number] Repository Date:9237-45-30RP [address]ZVAYGNRZLVD, [place] [address]JM: 05/15/2018 Tertiary NOT GIVENUNK Kimber[place] Insurance:SELF PAY [facility] Number: Effective Repository Date:2018-05-15 05/08/2018 ORION Espino Primary ORION Harris [id number] Insurance:MEDICARE HOTHEMDOB: [facility] RDAPT PART A olic [id number], [place] Number: Repository [address]Wim: [phone]) [id number] [phone] (HP) Date:2018-05-08 05/08/2018 Secondary ORION Espino [place] Insurance:CIGNAPolicy HOTHEMDOB: Community Number: [id number] Hospital [id number] Repository Date:4387-83-21HU [facility] 080447FADKCZUX[place]N [place] [address]YW: 05/08/2018 Tertiary NOT GIVENUNK [place] Insurance:SELF PAY [facility] Number: Effective Repository Date:2018-05-08 05/03/2018 ORION Espino Primary ORION Harris [id number] Insurance:MEDICARE HOTHEMDOB: [facility] RDAPT PART A [facility] [id number], [place] Number: Repository [address]Mnc: [phone] [id number] [phone] () Date:2018-05-01 05/03/2018 Secondary ORION Espino [place] Insurance:CIGNAPolicy HOTHEMDOB: Community Number: [id number] Hospital [id number] Repository Date:4399-83-28GP [facility] 422338CVZEGWPJMKH, [place] [address]RC: 05/03/2018 Tertiary NOT GIVENUNK [place] Insurance:SELF PAY [facility] Number: Effective Repository Date:2018-05-01 05/01/2018 ORION Espino Primary ORION Harris [id number] Insurance:MEDICARE [facility] [id number], [place] Number: Repository [address]Rlx: [phone] [id number] [phone] (HP) Date:2018-05-01 05/01/2018 Secondary ORION Harris Insurance:CIGNAPolicy HOTHEMDOB: Community Number: [id number] Hospital [id number] Repository Date:9027-39-34VM [address]LWRPWCCHQUV, [place] [address]CK: 05/01/2018 Tertiary NOT GIVENUNK [place] Insurance:SELF PAY [facility] Number: Effective Repository Date:2018-05-01 04/24/2018 ORION Espino Primary ORION Harris [id number] Insurance:MEDICARE HOTHEMDOB: [facility] RDAPT PART A olicy [id number] Number: Repository [address]Nzu: (691) [id number] [phone] () Date:2018-04-24 04/24/2018 Secondary ORION Harris Insurance:CIGNAPolicy HOTHEMDOB: Community Number: [id number] Hospital [id number] Repository Date:3157-65-64XY [address]VYJFGLAACFT, [place] [address]CZ: 04/24/2018 Tertiary NOT GIVENUNK [place] Insurance:SELF PAY [facility] Number: Effective Repository Date:2018-04-24 04/17/2018 ORION Espino Primary ORION Harris [id number] Insurance:MEDICARE HOTHEMDOB: [facility] RDAP[address] PART A olicy [id number] Number: Repository [address]Ohx: (012) [id number] [phone] () Date:2018-04-17 04/17/2018 Secondary ORION Harris Insurance:CIGNAPolicy HOTHEMDOB: Community Number: [id number] Hospital [id number] Repository Date:0296-38-60KX [address]DXSCUXYUIKN, [place] [address]KL: 04/17/2018 Tertiary NOT GIVENUNK [place] Insurance:SELF PAY [facility] Number: Effective Repository Date:2018-04-17 04/13/2018 ORION Espino Primary ORION Harris [id number] Insurance:MEDICARE [facility] [id number] [place] Number: Repository [address]Vhn: (296) [id number] [phone] () Date:2018-04-10 04/13/2018 Secondary ORION Harris Insurance:CIGNAPolicy HOTHEMDOB: Community Number: [id number] Hospital [id number] Repository Date:5345-96-36FM [address]KNNTZFHKFLG, [place] [address]WX: 04/13/2018 Tertiary NOT GIVENUNK [place] Insurance:SELF PAY [facility] Number: Effective Repository Date:2018-04-10 04/10/2018 ORION L Primary ORION Harris [id number] Insurance:MEDICARE HOTHEMDOB: [facility] PART A [facility] [id number], [place] Number: Repository [address]Oyc: 330 [id number] [phone] () Date:2018-04-10 04/10/2018 Secondary ORION Espino [place] Insurance:CIGNAPolicy HOTHEMDOB: Community Number: [id number] Hospital [id number] Repository Date:9979-57-78AB [address]ZIGIREMEJZD, [place] [address]XO: 04/10/2018 Tertiary NOT GIVENUNK [place] Insurance:SELF PAY [facility] Number: Effective Repository Date:2018-04-10 04/03/2018 ORION L Primary ORION Harris [id number] Insurance:MEDICARE [facility]OTHEMDOB[facility] [id number] [place] Number: Repository [address]Wrp: 330 [id number] [phone] () Date:2018-04-03 04/03/2018 Secondary ORION Esipno [place] Insurance:CIGNAPolicy HOTHEMDOB: Community Number: [id number] Hospital [id number] Repository Date:7549-76-74BN [address]GDHKROSISAR, [place] [address]FI: 04/03/2018 Tertiary NOT GIVENUNK [place] Insurance:SELF PAY [facility] Number: Effective Repository Date:2018-04-03 03/27/2018 ORION Espino Primary ORION Harris [id number] Insurance:MEDICARE [facility]OT[facility]MDOB[facility] [id number] [place] Number: Repository [address]Hwr: (035) [id number] [phone] (HP) Date:2018-03-27 03/27/2018 Secondary ORION Harris Insurance:CIGNAPolicy HOTHEMDOB: Community Number: [id number] Hospital [id number] Repository Date:8704-79-78TG [address]ZUKNTBDXZTD, [place] [address]ZD: 03/27/2018 Tertiary NOT GIVENUNK [place] Insurance:SELF PAY [facility] Number: Effective Repository Date:2018-03-27 03/20/2018 ORION Espino Primary ORION Harris [id number] Insurance:MEDICARE HOTHEMDOB[facility] [id number], [place] Number: Repository [address]Emc: 330 [id number] [phone] (HP) Date:2018-03-20 03/20/2018 Secondary ORION Harris Insurance:CIGNAPolicy HOTHEMDOB: Community Number: [id number] Hospital [id number] Repository Date:9020-92-69OB [address]FEJOKEOZAOL, [place] [address]LG: 03/20/2018 Tertiary NOT GIVENUNK [place] Insurance:SELF PAY [facility] Number: Effective Repository Date:2018-03-20 03/20/2018 ORION Espino Primary ORION Harris [id number] Insurance:MEDICARE HOTHEMDOB: [facility] RDAP[address] PART A [facility] [id number], [place] Number: Repository [address]Fmm: 330 [id number] [phone] (HP) Date:2018-03-20 03/20/2018 Secondary ORION Harris Insurance:CIGNAPolicy HOTHEMDOB: Community Number: [id number] Hospital [id number] Repository Date:6465-10-77IK [address]PDZQDTJXMSH, [place] [address]VI: 03/20/2018 Tertiary NOT GIVENUNK [place] Insurance:SELF PAY [facility] Number: Effective Repository Date:2018-03-20 03/13/2018 ORION Espino Primary ORION Harris [id number] Insurance:MEDICARE HOTHEMDOB: [facility] RDAPT PART A olic [id number] Number: Repository [address]Cxw: ([phone]) [id number] [phone] () Date:2018-03-13 03/13/2018 Secondary ORION Harris Insurance:CIGNAPolicy HOTHEMDOB: Community Number: [id number] Hospital [id number] Repository Date:5051-97-80LR [address]FLUHQDRXTIA, [place] [address]GF: 03/13/2018 Tertiary NOT GIVENUNK [place] Insurance:SELF PAY [facility] Number: Effective Repository Date:2018-03-13 03/06/2018 ORION Espino Primary ORION Harris [id number] Insurance:MEDICARE HOTHEMDOB: [facility] RDAP[address] PART A [facility] [id number] Number: Repository [address]Tyw: (671) [id number] [phone] () Date:2018-03-06 03/06/2018 Secondary ORION Harris Insurance:CIGNAPolicy HOTHEMDOB: Community Number: [id number] Hospital [id number] Repository Date:7301-56-40UL [address]XVPBHZFDDRP, [place] [address]TH: 03/06/2018 Tertiary NOT GIVENUNK [place] Insurance:SELF PAY [facility] Number: Effective Repository Date:2018-03-06 02/28/2018 ORION Espino Primary ORION Harris [id number] Insurance:MEDICARE [facility]OTHEMDOB[facility] [id number] [place] Number: Repository [address]Lvs: 330 [id number] [phone] () Date:2018-02-27 02/28/2018 Secondary ORION Harris Insurance:CIGNAPolicy HOTHEMDOB: Community Number: [id number] Hospital [id number] Repository Date:2283-07-13YR [address]PCZMFPJGMIA, [place] [address]BT: 02/28/2018 Tertiary NOT GIVENUNK [place] Insurance:SELF PAY [facility] Number: Effective Repository Date:2018-02-27 02/27/2018 ORION Espino Primary ORION Harris [id number] Insurance:MEDICARE HOTHEMDOB: [facility] [id number] Number: Repository [address]Zjz: 330 [id number] [phone] () Date:2018-02-27 02/27/2018 Secondary ORION Harris Insurance:CIGNAPolicy HOTHEMDOB: Community Number: [id number] Hospital [id number] Repository Date:6029-15-44AA [address]SKCKGGWAETU, [place] [address]AG: 02/27/2018 Tertiary NOT GIVENUNK [place] Insurance:SELF PAY [facility] Number: Effective Repository Date:2018-02-27 02/20/2018 ORION Espino Primary ORION Harris [id number] Insurance:MEDICARE HOTHEMDOB: [facility] [id number], [place] Number: Repository [address]Kpe: 330 [id number] [phone] () Date:2018-02-20 02/20/2018 Secondary ORION Harris Insurance:CIGNAPolicy HOTHEMDOB: Community Number: [id number] Hospital [id number] Repository Date:8162-97-81NS [address]NLPROFFYCDQ, [place] [address]GJ: 02/20/2018 Tertiary NOT GIVENUNK [place] Insurance:SELF PAY [facility] Number: Effective Repository Date:2018-02-20 02/14/2018 ORION Espino Primary ORION Harris [id number] Insurance:MEDICARE HOTHEMDOB[facility] [id number] Number: Repository [address]Jcd: 330 [id number] [phone] (HP) Date:2018-02-13 02/14/2018 Secondary ORION Harris Insurance:CIGNAPolicy HOTHEMDOB: Community Number: [id number] Hospital [id number] Repository Date:2789-66-95SI [address]QEPFEXMJRFO, [place] [address]SH: 02/14/2018 Tertiary NOT GIVENUNK [place] Insurance:SELF PAY [facility] Number: Effective Repository Date:2018-02-13 02/13/2018 ORION Espino Primary ORION Herreraoster [id number] Insurance:MEDICARE HOTHEMDOB: [facility] PART A [facility] [id number] [place] Number: Repository [address]Neu: 330 [id number] [phone] (HP) Date:2018-02-13 02/13/2018 Secondary ORION Harris Insurance:CIGNAPolicy HOTHEMDOB: Community Number: [id number] Hospital [id number] Repository Date:6250-28-66WI [address]MICAYNZPGTF, [place] [address]HX: 02/13/2018 Tertiary NOT GIVENUNK [place] Insurance:SELF PAY [facility] Number: Effective Repository Date:2018-02-13 02/06/2018 ORION L Primary ORION Harris [id number] Insurance:MEDICARE HOTHEMDOB: [facility] [id number] [place] Number: Repository [address]Cbr: 330 [id number] [phone] (HP) Date:2018-02-06 02/06/2018 Secondary ORION Espino [place] Insurance:CIGNAPolicy HOTHEMDOB: Community Number: [id number] Hospital [id number] Repository Date:0189-81-37SD [address]BOOATZKSSUWGREER, [place] [address]AW: 02/06/2018 Tertiary NOT GIVENUNK [place] Insurance:SELF PAY [facility] Number: Effective Repository Date:2018-02-06 01/30/2018 ORION Espino Primary ORION Harris [id number] Insurance:MEDICARE HOTHEMDOB: [facility] RDAP[address] PART A [facility] [id number] Number: Repository [address]Cxz: (030) [id number] [phone] () Date:2018-01-30 01/30/2018 Secondary ORION Espino [place] Insurance:CIGNAPolicy HOTHEMDOB: [facility] Number: [id number] Hospital [id number] Repository Date:5291-24-90KF [address]MIRXJPXZZYY, [place] [address]HP: 01/30/2018 Tertiary NOT GIVENUNK [place] Insurance:SELF PAY [facility] Number: Effective Repository Date:2018-01-30 01/24/2018 ORION Espino Primary ORION Herreraoster [id number] Insurance:MEDICARE HOTHEMDOB: [facility] [id number] Number: Repository [address]Gbp: 330 [id number] [phone] () Date:2018-01-23 01/24/2018 Secondary ORION Espino [place] Insurance:CIGNAPolicy HOTHEMDOB: Community Number: [id number] Hospital [id number] Repository Date:1341-37-90UK [address]VWJGWXVGRDE, [place] [address]SR: 01/24/2018 Tertiary NOT GIVENUNK [place] Insurance:SELF PAY [facility] Number: Effective Repository Date:2018-01-23 01/23/2018 ORION L Primary ORION Herreraoster [id number] Insurance:MEDICARE HOTHEMDOB: [facility] RDAP[address] PART A [facility] [id number] Number: Repository [address]Gtm: 330 [id number] [phone] () Date:2018-01-23 01/23/2018 Secondary ORION Harris Insurance:CIGNAPolicy HOTHEMDOB: Community Number: [id number] Hospital [id number] Repository Date:7717-38-46MQ [address]XSDPWNINFRR, [place] [address]XA: 01/23/2018 Tertiary NOT GIVENUNK [place] Insurance:SELF PAY [facility] Number: Effective Repository Date:2018-01-23 01/16/2018 ORION Espino Primary ORION Harris [id number] Insurance:MEDICARE HOTHEMDOB: [facility] [id number] Number: Repository [address]Rhi: 330 [id number] [phone] () Date:2018-01-16 01/16/2018 Secondary ORION Harris Insurance:CIGNAPolicy HOTHEMDOB: Community Number: [id number] Hospital [id number] Repository Date:3781-21-52TP [address]HERCJBRGIMY, [place] [address]LA: 01/16/2018 Tertiary NOT GIVENUNK [place] Insurance:SELF PAY [facility] Number: Effective Repository Date:2018-01-16 01/11/2018 ORION Espino Primary ORION Harris [id number] Insurance:MEDICARE HOTHEMDOB: [facility] PART A [facility] [id number] Number: Repository [address]Ocp: 330 [id number] [phone] () Date:2018-01-10 01/11/2018 Secondary ORION Harris Insurance:CIGNAPolicy HOTHEMDOB: Community Number: [id number] Hospital [id number] Repository Date:4115-36-21LD [address]JQHHYMORYQW, [place] [address]TR: 01/11/2018 Tertiary NOT GIVENUNK [place] Insurance:SELF PAY [facility] Number: Effective Repository Date:2018-01-10 01/10/2018 ORION Espino Primary ORION L Kimber[place] [id number] Insurance:MEDICARE [facility]OTHEMDOB[facility] [id number] Number: Repository [address]Atc: 330 [id number] [phone] () Date:2018-01-10 01/10/2018 Secondary ORION Harris Insurance:CIGNAPolicy HOTHEMDOB: Community Number: [id number] Hospital [id number] Repository Date:3375-86-91HZ [address]IUSPIDQDLER, [place] [address]OU: 01/10/2018 Tertiary NOT GIVENUNK [place] Insurance:SELF PAY [facility] Number: Effective Repository Date:2018-01-10 01/02/2018 ORION L Primary ORION Harris [id number] Insurance:MEDICARE HOTHEMDOB: [facility] PART A [facility] [id number] Hospital [facility] [place] Number: Repository [address]Yhm: 330 [id number] [phone] () Date:2017-11-25 01/02/2018 Secondary ORION Espino [place] Insurance:CIGNAPolicy HOTHEMDOB: Community Number: [id number] Hospital [id number] Repository Date:2519-82-91RQ [address]MQYZTWGRHGU, [place] [address]YQ: 01/02/2018 Tertiary NOT GIVENUNK [place] Insurance:SELF PAY [facility] Number: Effective Repository Date:2017-11-25 01/02/2018 ORION L Primary ORION Herreraoster [id number] Insurance:MEDICARE [facility]OTHEMDOB[facility] [id number] Hospital [facility] [place] Number: Repository [address]Shi: 330 [id number] [phone] () Date:2017-11-25 01/02/2018 Secondary ORION Espino [place] Insurance:CIGNAPolicy HOTHEMDOB: Community Number: [id number] [facility] [id number] Repository Date:4302-28-97[address]KMRRVPGEEOL, [place] [address]JH: 01/02/2018 Tertiary NOT GIVENUNK [place] Insurance:SELF PAY [facility] Number: Effective Repository Date:2018-01-02 01/02/2018 ORION Espino Primary ORION Harris [id number] Insurance:MEDICARE [facility] [id number], [place] Number: Repository [address]Pac: [phone] [id number] [phone] () Date:2018-01-02 01/02/2018 Secondary ORION Espino [place] Insurance:CIGNAPolicy HOTHEMDOB: Community Number: [id number] Hospital [id number] Repository Date:2330-64-36MP [facility] [place]9064EFIUSRXYFTYGREER, [place] [address]RI: 01/02/2018 Tertiary NOT GIVENUNK [place] Insurance:SELF PAY [facility] Number: Effective Repository Date:2018-01-02 12/27/2017 ORION Espino Primary ORION Harris [id number] Insurance:MEDICARE HOTHEMDOB[facility] [id number], [place] Number: Repository [address]Unt: [phone] [id number] [phone] () Date:2017-12-26 12/27/2017 Secondary ORION Espino [place] Insurance:CIGNAPolicy HOTHEMDOB: Community Number: [id number] Hospital [id number] Repository Date:1276-68-47CI [facility] 351704VKZYWIDHAAGGREER, [place] [address]UG: 12/27/2017 Tertiary NOT GIVENUNK [place] Insurance:SELF PAY [facility] Number: Effective Repository Date:2017-12-26 12/26/2017 ORION Espino Primary ORION Harris [id number] Insurance:MEDICARE HOTHEMDOB: [facility] RDAPT PART A [facility] [id number], [place] Number: Repository [address]Ilm: [phone] [id number] [phone] () Date:2017-12-26 12/26/2017 Secondary ORION L [place] Insurance:CIGNAPolicy HOTHEMDOB: Community Number: [id number] Hospital [id number] Repository Date:1805-52-56RE [address]AFVMPIHDTCE, [place] [address]IO: 12/26/2017 Tertiary NOT GIVENUNK [place] Insurance:SELF PAY [facility] Number: Effective Repository Date:2017-12-26 12/19/2017 ORION Espino Primary ORION Harris [id number] Insurance:MEDICARE HOTHEMDOB: [facility] RDAPT PART A olicy [id number] Number: Repository [address]Wmf: [phone] [id number] [phone] () Date:2017-12-19 12/19/2017 Secondary ORION Harris Insurance:CIGNAPolicy HOTHEMDOB: Community Number: [id number] Hospital [id number] Repository Date:4036-27-62WR [address]PCFQTPQJGYM, [place] [address]IS: 12/19/2017 Tertiary NOT GIVENUNK [place] Insurance:SELF PAY [facility] Number: Effective Repository Date:2017-12-19 12/14/2017 ORION Espino Primary ORION Harris [id number] Insurance:MEDICARE HOTHEMDOB: [facility] RDAPT PART A olic [id number] Number: Repository [address]Txw: [phone] [id number] [phone] () Date:2017-11-25 12/14/2017 Secondary ORION Harris Insurance:CIGNAPolicy HOTHEMDOB: Community Number: [id number] Hospital [id number] Repository Date:8690-61-63UL [address]QRKPHGYRMUM, [place] [address]ZD: 12/14/2017 Tertiary NOT GIVENUNK [place] Insurance:SELF PAY [facility] Number: Effective Repository Date:2017-12-14 12/12/2017 ORION Espino Primary ORION Harris [id number] Insurance:MEDICARE HOTHEMDOB: [facility] RDAPT PART A [facility] [id number] [place] Number: Repository [address]Bxe: 330 [id number] [phone] () Date:2017-12-12 12/12/2017 Secondary ORION Harris Insurance:CIGNAPolicy HOTHEMDOB: Community Number: [id number] Hospital [id number] Repository Date:9962-08-74OD [address]WTHYLRGNRNU, [place] [address]YN: 12/12/2017 Tertiary NOT GIVENUNK [place] Insurance:SELF PAY [facility] Number: Effective Repository Date:2017-12-12 12/07/2017 ORION L Primary ORION Harris [id number] Insurance:MEDICARE [facility]OTHEMDOB[facility] [id number] [place] Number: Repository [address]Jda: 330 [id number] [phone] () Date:2017-11-25 12/07/2017 Secondary ORION Harris Insurance:CIGNAPolicy HOTHEMDOB: Community Number: [id number] Hospital [id number] Repository Date:8520-10-37MM [address]IQYTMJYMDOX, [place] [address]UI: 12/07/2017 Tertiary NOT GIVENUNK [place] Insurance:SELF PAY [facility] Number: Effective Repository Date:2017-12-07 12/05/2017 Orion L Primary Orion Harris [id number] Insurance:MEDICARE HothemDOB: [facility] RDAPT PART A [facility] [id number] [place] Number: Repository [address]Zfd: 330 [id number] [phone] () Date:2017-12-05 12/05/2017 Secondary Orion Espino [place] Insurance:CIGNAPolicy HothemDOB: Community Number: [id number] Hospital [id number] Repository Date:7021-66-30NA [address]WDDHAUETENP, [place] [address]HU: 12/05/2017 Tertiary NOT GIVENUNK [place] Insurance:SELF PAY [facility] Number: Effective Repository Date:2017-12-05 12/01/2017 ORION L Primary ORION Herreraoster [id number] Insurance:MEDICARE [facility]HEMDOB[facility] [id number] Number: Repository [address]Zcz: 330 [id number] [phone] () Date:2017-11-30 12/01/2017 Secondary ORION Espino [place] Insurance:CIGNAPolicy HOTHEMDOB: Community Number: [id number] Hospital [id number] Repository Date:2056-98-57HI [address]FFGQAYAAMDW, [place] [address]CP: 12/01/2017 Tertiary NOT GIVENUNK [place] Insurance:SELF PAY [facility] Number: Effective Repository Date:2017-11-30 11/30/2017 Orion Espino Primary NOT GIVENUNK [place] [id number] Insurance:SELF PAY [address] Number: Effective Repository [id number]: (330) Date:2017-11-30 [phone] () 11/28/2017 Orion L Primary Orion Herreraoster [id number] Insurance:MEDICARE HothemDOB: [facility] PART A [facility] [id number] Number: Repository [address]Ccz: 330 [id number] [phone] () Date:2017-11-28 11/28/2017 Secondary Orion Espino [place] Insurance:CIGNAPolicy HothemDOB: [facility] Number: [id number] Hospital [id number] Repository Date:3427-57-15BH [address]LSPNMJGQVST, [place] [address]XM: 11/28/2017 Tertiary NOT GIVENUNK [place] Insurance:SELF PAY [facility] Number: Effective Repository Date:2017-11-28 11/21/2017 ORION L Primary ORION Espino [place] [id number] Insurance:MEDICARE HOTHEMDOB: [facility] PART A [facility] [id number] Number: Repository [address]Lch: 330 [id number] [phone] () Date:2017-11-21 11/21/2017 Secondary ORION Harris Insurance:CIGNAPolicy HOTHEMDOB: Community Number: [id number] Hospital [id number] Repository Date:2163-53-91BV [address]QETJGJHFDHV, [place] [address]PD: 11/21/2017 Tertiary NOT GIVENUNK [place] Insurance:SELF PAY [facility] Number: Effective Repository Date:2017-11-21 11/15/2017 ORION L Primary ORION Harris [id number] Insurance:MEDICARE HOTHEMDOB: [facility] [id number] Number: Repository [address]Fug: 330 [id number] [phone] () Date:2017-11-15 11/15/2017 Secondary ORION Harris Insurance:CIGNAPolicy HOTHEMDOB: Community Number: [id number] Hospital [id number] Repository Date:5964-23-27KT [address]CGWNQAWKIAG, [place] [address]DD: 11/15/2017 Tertiary NOT GIVENUNK [place] Insurance:SELF PAY [facility] Number: Effective Repository Date:2017-11-15 11/15/2017 ORION L Primary ORION Harris [id number] Insurance:MEDICARE HOTHEMDOB: [facility] [address] [id number] [place] Number: Repository [address]Qvb: 330 [id number] [phone] () Date:2017-11-15 11/15/2017 Secondary ORION Harris Insurance:CIGNAPolicy HOTHEMDOB: Community Number: [id number] Hospital [id number] Repository Date:9478-29-04WB [address]GEMULVHTSUU, [place] [address]CD: 11/15/2017 Tertiary NOT GIVENUNK [place] Insurance:SELF PAY [facility] Number: Effective Repository Date:2017-11-15 11/15/2017 ORION Espino Primary ORION Herreraoster [id number] Insurance:MEDICARE HOTHEMDOB: [facility] [id number] [place] Number: Repository [address]Xck: 330 [id number] [phone] (HP) Date:2017-11-15 11/15/2017 Secondary ORION Harris Insurance:CIGNAPolicy HOTHEMDOB: Community Number: [id number] Hospital [id number] Repository Date:9176-69-74FD [address]ZWQVEZJOQBA, [place] [address]GL: 11/15/2017 Tertiary NOT GIVENUNK [place] Insurance:SELF PAY [facility] Number: Effective Repository Date:2017-11-15 11/15/2017 ORION Espino Primary ORION Herreraoster [id number] Insurance:MEDICARE HOTHEMDOB: [facility] [id number], [place] Number: Repository [address]Crc: 330 [id number] [phone] (HP) Date:2017-11-15 11/15/2017 Secondary ORION Harris Insurance:CIGNAPolicy HOTHEMDOB: Community Number: [id number] Hospital [id number] Repository Date:8430-32-89SF [address]EPZPCGGXIRN, [place] [address]AO: 11/15/2017 Tertiary NOT GIVENUNK [place] Insurance:SELF PAY [facility] Number: Effective Repository Date:2017-11-15 11/15/2017 ORION Espino Primary ORION Espino [place] [id number] Insurance:MEDICARE HOTHEMDOB: [facility] [id number], [place] Number: Repository [address]Jcf: 330 [id number] [phone] (HP) Date:2017-11-15 11/15/2017 Secondary ORION Espino [place] Insurance:CIGNAPolicy HOTHEMDOB: Community Number: [id number] Hospital [id number] Repository Date:1212-39-57QQ [address]EOEOIHYNYCO, [place] [address]YW: 11/15/2017 Tertiary NOT GIVENUNK [place] Insurance:SELF PAY [facility] Number: Effective Repository Date:2017-11-15 11/15/2017 ORION Espino Primary ORION Herreraoster [id number] Insurance:MEDICARE HOTHEMDOB: [facility] [id number] Number: Repository [address]Leh: ([phone] [id number] [phone] () Date:2017-11-15 11/15/2017 Secondary ORION Espino [place] Insurance:CIGNAPolicy HOTHEMDOB: [facility] Number: [id number] Hospital [id number] Repository Date:3276-86-70BY [address]KVWHEQUPIEC, [place] [address]TE: 11/15/2017 Tertiary NOT GIVENUNK [place] Insurance:SELF PAY [facility] Number: Effective Repository Date:2017-11-15 11/15/2017 Orion Espino Primary Orion Herreraoster [id number] Insurance:MEDICARE HothemDOB[facility] [id number] Number: Repository [address]Yix: 330 [id number] [phone] () Date:2017-11-15 11/15/2017 Secondary Orion Espino [place] Insurance:CIGNAPolicy HothemDOB: Community Number: [id number] Hospital [id number] Repository Date:3929-22-49QC [address]EFUGMQADUYV, [place] [address]HK: 11/15/2017 Tertiary NOT GIVENUNK [place] Insurance:SELF PAY [facility] Number: Effective Repository Date:2017-11-15 11/12/2017 ORION L Primary ORION Herreraoster [id number] Insurance:MEDICARE HOTHEMDOB[facility] [id number] Number: Repository [address]Nws: ([phone] [id number] [phone] (HP) Date:2017-11-12 11/12/2017 Secondary NOT GIVENUNK [place] Insurance:SELF PAY [facility] Number: Effective Repository Date:2017-11-12 09/13/2017 ORION Espino Primary ORION Harris [id number] Insurance:MEDICARE HOTHEMDOB[facility] [id number] [place] Number: Repository [address]Smx: 330 [id number] [phone] (HP) Date:2017-09-13 09/13/2017 Secondary NOT GIVENUNK [place] Insurance:SELF PAY [facility] Number: Effective Repository Date:2017-09-13 07/06/2017 Orion Espino Primary Orion Harris [id number] Insurance:MEDICARE HothemDOB: [facility] [id number] Number: Repository [address]Fnj: 330 [id number] [phone] (HP) Date:2017-07-06 07/06/2017 Secondary Orion Harris Insurance:CIGNAPolicy HothemDOB: Community Number: [id number] Hospital [id number] Repository Date:8079-42-62CR [address]UQTKROYVMMH, [place] [address]TL: 07/06/2017 Tertiary NOT GIVENUNK [place] Insurance:SELF PAY [facility] Number: Effective Repository Date:2017-07-06 06/14/2017 Orion Espino Primary Orion Harris [id number] Insurance:MEDICARE HothemDOB: [facility] [id number] Number: Repository [address]Xyi: 330 [id number] [phone] (HP) Date:2017-06-14 06/14/2017 Secondary Orion Espino [place] Insurance:CIGNAPolicy HothemDOB: Community Number: [id number] Hospital [id number] Repository Date:5798-01-91WX [address]UKNQQLVXVEA, [place] [address]YX: 06/14/2017 Tertiary NOT GIVENUNK [place] Insurance:SELF PAY Community [facility] Number: Effective Repository Date:2017-06-14
== END ==
LOC: OLS.WHLBEN 04:30
PROVIDERS: Visit Provider Family Medicine
DX: D64.9 Anemia, unspecified (principal)
CPT/HCPCS: 36415; 85025

== ENCOUNTER → 2018-06-05 07:35 | Outpatient (REF) | payer MEDICARE, OTHER, SELFPAY ==
[2018-05-19 08:40] VITALS: BMI 23.7
[2018-06-05 09:25] LABS: Hematocrit 19.1 % (40-54); Hemoglobin 6.2 g/dl (13.0-16.5); Mean Corp Hgb Conc 32.5 g/gl (32-36); Mean Corpuscular Hgb 27.4 pg (27.0-32.0); Mean Corpuscular Volume 84.5 fL (80-94); Mean Platelet Vol. 11.5 fl (6.2-12.0); Platelet Count 98 K/mm3 (150-450); RBC Distribution Width CV 16.7 % (11.6-14.6); RBC Distribution Width SD 51.5 fl (35.1-43.9); Red Blood Count 2.26 M/mm3 (4.6-6.2)
[2018-06-05 09:26] LABS: Differential Indicated MANUAL DIFF; POSITIVE COUNT YES; POSITIVE DIFFERENTIAL YES; POSITIVE MORPHOLOGY YES
[2018-06-05 09:53] LABS: Blast 18 % (0-0); Lymphocyte 38 % (19-41); Monocyte 18 % (0-10); Neutrophil-Segmented 26 % (47-70); Total Cells Counted 50 (MANUAL DIFF)
[2018-06-05 09:54] LABS: Hypochromasia 3+; Platelet Estimate MKD DEC (ADEQ); Platelet Morphology LARGE; Schistocytes RARE
[2018-06-05 09:55] LABS: Absolute Neutrophil Count 0.5 X10^3/uL (2.0-7.7)
[2018-06-05 09:56] LABS: Absolute Lymphocyte Count 0.75 X10^3/ul (0.83-4.51)
[2018-06-07 08:47] LABS: Pathologist Review Reviewed
[2018-06-07 08:50] VITALS: BMI 23.7
== END ==
LOC: OLS.WHLBEN 07:35
PROVIDERS: Visit Provider Family Medicine
DX: D64.9 Anemia, unspecified (principal)
CPT/HCPCS: 36415; 85025; 86850; 86900; 86920; 86922

== ENCOUNTER → 2018-06-07 08:30 | Outpatient (CLI) | payer MEDICARE, OTHER, SELFPAY ==
[2018-05-19 08:40] VITALS: BMI 23.7
[2018-06-07] VITALS (9 sets, daily range): BP systolic 111–138; BP diastolic 76–92; PULSE 59–86; RESP 14–18; TEMP 36.6–37.3; O2SAT 96–100; BMI 23.7
== END ==
PROVIDERS: Family Provider Family Medicine; PCP Family Medicine; Referring Provider Family Medicine; Visit Provider Family Medicine
DX: C92.00 Acute myeloblastic leukemia, not having achieved remission (principal); D61.818 Other pancytopenia
CPT/HCPCS: 36430; 86850; 86900; 86920; 86922; J7040; P9016; A4216

== ENCOUNTER → 2018-06-12 04:00 | Outpatient (REF) | payer MEDICARE, OTHER, SELFPAY ==
[2018-06-07 08:50] VITALS: BMI 23.7
[2018-06-12 06:29] LABS: Anion Gap 9 (5-15); BUN 18 mg/dL (7-18); BUN/Creat Ratio 27.4 RATIO (10-20); Calcium,Total 7.9 mg/dL (8.5-10.1); Chloride 110 mmol/L (98-107); Creatinine, Serum 0.66 mg/dL (0.70-1.30); EST Glomerular Filtration Rate 123 mL/min (>60); Est Glom Filt Rate - Afr Amer 149 mL/min (>60); Glucose 82 mg/dL (74-106); Potassium 3.9 mmol/L (3.5-5.1); Sodium Level 142 mmol/L (136-145)
[2018-06-12 06:43] LABS: Absolute Lymphocyte Count 1.11 X10^3/ul (0.83-4.51); Absolute Neutrophil Count 0.2 X10^3/uL (2.0-7.7); Basophil# 0.01 X10^3/uL; Basophil% 0.6 % (0-1); Eosinophil# 0.01 X10^3/uL; Eosinophils% 0.6 % (0-5); Hematocrit 21.9 % (40-54); Hemoglobin 7.1 g/dl (13.0-16.5); Lymphocyte # 1.11 X10^3/ul (4.0); Lymphocyte % 62.7 % (19-41); Mean Corp Hgb Conc 32.4 g/gl (32-36); Mean Corpuscular Hgb 27.5 pg (27.0-32.0); Mean Corpuscular Volume 84.9 fL (80-94); Mean Platelet Vol. 11.4 fl (6.2-12.0); Monocyte# 0.39 X10^3/uL; Neutrophil % 11.3 % (47-70); Platelet Count 81 K/mm3 (150-450); RBC Distribution Width CV 16.9 % (11.6-14.6); Red Blood Count 2.58 M/mm3 (4.6-6.2); White Blood Count 1.8 K/mm3 (4.4-11.0)
[2018-06-12 06:46] LABS: Differential Indicated SCAN CRITERIA MET; POSITIVE COUNT YES; POSITIVE DIFFERENTIAL YES; POSITIVE MORPHOLOGY YES
[2018-06-12 15:11] LABS: Pathologist Review Reviewed
[2018-06-15 11:32] VITALS: BMI 23.6
== END ==
LOC: OLS.WHLBEN 04:00
PROVIDERS: Visit Provider Family Medicine
DX: D64.9 Anemia, unspecified (principal); I10 Essential (primary) hypertension
CPT/HCPCS: 36415; 80048; 85025

== ENCOUNTER → 2018-06-15 11:25 | Outpatient (CLI) | payer MEDICARE, OTHER, SELFPAY ==
[2018-06-07 08:50] VITALS: BMI 23.7
[2018-06-15] VITALS (7 sets, daily range): BP systolic 122–150; BP diastolic 72–90; PULSE 48–91; RESP 16–18; TEMP 36.6–37.3; O2SAT 98–99; BMI 23.6
== END ==
PROVIDERS: Family Provider Family Medicine; PCP Family Medicine; Referring Provider Family Medicine; Visit Provider Family Medicine
DX: C92.00 Acute myeloblastic leukemia, not having achieved remission (principal); D61.818 Other pancytopenia
CPT/HCPCS: 36415; 36430; 86850; 86900; 86920; 86922; J7040; P9016; A4216

== ENCOUNTER → 2018-06-19 04:00 | Outpatient (REF) | payer MEDICARE, OTHER, SELFPAY ==
[2018-06-15 11:32] VITALS: BMI 23.6
[2018-06-19 09:12] LABS: Absolute Neutrophil Count 0.2 X10^3/uL (2.0-7.7); Basophil# 0.01 X10^3/uL; Hemoglobin 7.7 g/dl (13.0-16.5); Lymphocyte # 1.06 X10^3/ul (4.0); Mean Corp Hgb Conc 32.1 g/gl (32-36); Mean Corpuscular Hgb 27.4 pg (27.0-32.0); Mean Corpuscular Volume 85.4 fL (80-94); Mean Platelet Vol. 11.2 fl (6.2-12.0); Monocyte# 0.31 X10^3/uL; Neutrophil # 0.24 X10^3/uL (2.7-7.7); Platelet Count 84 K/mm3 (150-450); RBC Distribution Width CV 16.7 % (11.6-14.6); RBC Distribution Width SD 52.4 fl (35.1-43.9); Red Blood Count 2.81 M/mm3 (4.6-6.2); White Blood Count 1.6 K/mm3 (4.4-11.0)
[2018-06-19 09:17] LABS: Differential Indicated SCAN CRITERIA MET; POSITIVE COUNT NO; POSITIVE DIFFERENTIAL YES; POSITIVE MORPHOLOGY YES
[2018-06-19 09:21] LABS: ALB/GLOB Ratio 0.7 RATIO (0.9-2.4); AST(SGOT) 17 U/L (15-37); Alanine Aminotransfer ALT/SGPT 21 U/L (16-61); Albumin, Serum 2.7 g/dL (3.2-5.0); Alkaline Phosphatase 296 U/L (45-117); Anion Gap 7 (5-15); BUN 17 mg/dL (7-18); BUN/Creat Ratio 26.6 RATIO (10-20); Calcium,Total 7.6 mg/dL (8.5-10.1); Chloride 110 mmol/L (98-107); Creatinine, Serum 0.64 mg/dL (0.70-1.30); EST Glomerular Filtration Rate 127 mL/min (>60); Est Glom Filt Rate - Afr Amer 154 mL/min (>60); Globulin 3.7 g/dL (2.2-4.2); Glucose 81 mg/dL (74-106); Potassium 3.7 mmol/L (3.5-5.1); Protein, Total 6.4 g/dL (6.4-8.2); Sodium Level 141 mmol/L (136-145)
[2018-06-19 09:39] LABS: Atypical Lymphocyte 2+ %; Blast 19 % (0-0); Eosinophil 1 % (0-5); Lymphocyte 34 % (19-41); Monocyte 31 % (0-10); Neutrophil-Band 1 % (0-5); Neutrophil-Segmented 14 % (47-70); Platelet Estimate MKD DEC (ADEQ); Total Cells Counted 100 (MANUAL DIFF)
[2018-06-19 09:40] LABS: Hypochromasia 2+; Platelet Morphology LARGE; Polychromasia RARE; Scan Smear per Review Criteria MANUAL DIFF
[2018-06-19 09:41] LABS: Absolute Lymphocyte Count 0.55 X10^3/ul (0.83-4.51)
[2018-06-20 14:06] LABS: Pathologist Review Reviewed
== END ==
LOC: OLS.WHLBEN 04:00
PROVIDERS: Visit Provider Family Medicine
DX: D64.9 Anemia, unspecified (principal); R60.9 Edema, unspecified; R53.83 Other fatigue
CPT/HCPCS: 36415; 80053; 85025

== ENCOUNTER → 2018-06-26 04:00 | Outpatient (REF) | payer MEDICARE, OTHER, SELFPAY ==
[2018-06-15 11:32] VITALS: BMI 23.6
[2018-06-26 08:40] LABS: Hematocrit 22.8 % (40-54); Hemoglobin 7.3 g/dl (13.0-16.5); Mean Corpuscular Hgb 27.7 pg (27.0-32.0); Mean Corpuscular Volume 86.4 fL (80-94); Platelet Count 93 K/mm3 (150-450); RBC Distribution Width CV 16.5 % (11.6-14.6); RBC Distribution Width SD 52.8 fl (35.1-43.9); Red Blood Count 2.64 M/mm3 (4.6-6.2)
[2018-06-26 08:51] LABS: Differential Indicated MANUAL DIFF; POSITIVE COUNT YES; POSITIVE DIFFERENTIAL YES; POSITIVE MORPHOLOGY YES
[2018-06-26 10:11] LABS: Blast 19 % (0-0); Metamyelocyte 1 % (0-1); Neutrophil-Band 1 % (0-5); Neutrophil-Segmented 9 % (47-70); Total Cells Counted 100 (MANUAL DIFF)
[2018-06-26 10:12] LABS: Hypochromasia 2+; Lymphocyte 37 % (19-41); Monocyte 33 % (0-10); Platelet Estimate MKD DEC (ADEQ)
[2018-06-27 14:06] LABS: Pathologist Review Reviewed
== END ==
LOC: OLS.WHLBEN 04:00
PROVIDERS: Visit Provider Family Medicine
DX: D64.9 Anemia, unspecified (principal)
CPT/HCPCS: 36415; 85025

== ENCOUNTER → 2018-07-03 04:00 | Outpatient (REF) | payer MEDICARE, OTHER, SELFPAY ==
[2018-06-15 11:32] VITALS: BMI 23.6
[2018-07-03 09:27] LABS: Absolute Lymphocyte Count 1.24 X10^3/ul (0.83-4.51); Absolute Neutrophil Count 0.2 X10^3/uL (2.0-7.7); Basophil# 0.01 X10^3/uL; Basophil% 0.5 % (0-1); Eosinophil# 0.01 X10^3/uL; Eosinophils% 0.5 % (0-5); Hematocrit 18.9 % (40-54); Hemoglobin 6.1 g/dl (13.0-16.5); Lymphocyte # 1.24 X10^3/ul (4.0); Lymphocyte % 60.5 % (19-41); Mean Corp Hgb Conc 32.3 g/gl (32-36); Mean Corpuscular Hgb 27.5 pg (27.0-32.0); Mean Corpuscular Volume 85.1 fL (80-94); Mean Platelet Vol. 10.8 fl (6.2-12.0); Monocyte# 0.51 X10^3/uL; Monocyte% 24.9 % (0-10); Neutrophil # 0.24 X10^3/uL (2.7-7.7); Neutrophil % 11.6 % (47-70); Platelet Count 77 K/mm3 (150-450); RBC Distribution Width CV 16.7 % (11.6-14.6); RBC Distribution Width SD 52.5 fl (35.1-43.9); Red Blood Count 2.22 M/mm3 (4.6-6.2); White Blood Count 2.1 K/mm3 (4.4-11.0)
[2018-07-03 09:28] LABS: Differential Indicated SCAN CRITERIA MET; POSITIVE COUNT YES; POSITIVE DIFFERENTIAL YES; POSITIVE MORPHOLOGY YES
[2018-07-03 09:31] LABS: Anion Gap 9 (5-15); BUN 18 mg/dL (7-18); BUN/Creat Ratio 27.3 RATIO (10-20); Calcium,Total 7.5 mg/dL (8.5-10.1); Chloride 109 mmol/L (98-107); Creatinine, Serum 0.66 mg/dL (0.70-1.30); EST Glomerular Filtration Rate 123 mL/min (>60); Est Glom Filt Rate - Afr Amer 149 mL/min (>60); Glucose 85 mg/dL (74-106); Potassium 4.1 mmol/L (3.5-5.1); Sodium Level 142 mmol/L (136-145)
[2018-07-05 10:14] LABS: Pathologist Review Reviewed
[2018-07-06 08:13] VITALS: BMI 23.7
== END ==
LOC: OLS.WHLBEN 04:00
PROVIDERS: Visit Provider Family Medicine
DX: D64.9 Anemia, unspecified (principal); Z79.899 Other long term (current) drug therapy
CPT/HCPCS: 36415; 80048; 85025

== ENCOUNTER → 2018-07-06 07:57 | Outpatient (CLI) | payer MEDICARE, OTHER, SELFPAY ==
[2018-06-15 11:32] VITALS: BMI 23.6
[2018-07-06] VITALS (7 sets, daily range): BP systolic 108–133; BP diastolic 65–88; PULSE 62–79; RESP 16–18; TEMP 36.6–37.1; O2SAT 95–99; BMI 23.7
== END ==
PROVIDERS: Family Provider Family Medicine; PCP Family Medicine; Referring Provider Family Medicine; Visit Provider Family Medicine
DX: C92.00 Acute myeloblastic leukemia, not having achieved remission (principal); D61.818 Other pancytopenia
CPT/HCPCS: 36415; 36430; 86850; 86900; 86920; 86922; J7040; P9016; A4216

== ENCOUNTER → 2018-07-10 04:00 | Outpatient (REF) | payer MEDICARE, OTHER, SELFPAY ==
[2018-07-06 08:13] VITALS: BMI 23.7
[2018-07-10 08:54] LABS: Basophil# 0.02 X10^3/uL; Eosinophil# 0.01 X10^3/uL; Hematocrit 23.2 % (40-54); Hemoglobin 7.5 g/dl (13.0-16.5); Mean Corp Hgb Conc 32.3 g/gl (32-36); Mean Corpuscular Hgb 28.2 pg (27.0-32.0); Mean Corpuscular Volume 87.2 fL (80-94); Mean Platelet Vol. 11.1 fl (6.2-12.0); Platelet Count 103 K/mm3 (150-450); RBC Distribution Width CV 16.8 % (11.6-14.6); RBC Distribution Width SD 53.4 fl (35.1-43.9); Red Blood Count 2.66 M/mm3 (4.6-6.2); White Blood Count 3.2 K/mm3 (4.4-11.0)
[2018-07-10 09:07] LABS: Differential Indicated SCAN CRITERIA MET; POSITIVE COUNT NO; POSITIVE DIFFERENTIAL YES; POSITIVE MORPHOLOGY YES
[2018-07-10 09:53] LABS: Neutrophil-Band 2 % (0-5); Neutrophil-Segmented 13 % (47-70); Total Cells Counted 100 (MANUAL DIFF)
[2018-07-10 09:54] LABS: Basophil 1 % (0-1); Blast 26 % (0-0); Lymphocyte 22 % (19-41); Monocyte 7 % (0-10); Myelocyte 3 (0-0); Plasma Cell 1 %; Promyelocyte 25 (0-0)
[2018-07-10 09:59] LABS: Platelet Estimate MOD DEC (ADEQ); Red Cell Morphology NORM C+C NORMAL (NORM C&C)
[2018-07-10 10:00] LABS: Scan Smear per Review Criteria MANUAL DIFF
[2018-07-10 10:03] LABS: Neutrophil # 0.48 X10^3/uL (2.7-7.7)
[2018-07-10 10:04] LABS: Absolute Neutrophil Count 0.5 X10^3/uL (2.0-7.7)
[2018-07-10 14:28] LABS: Pathologist Review Reviewed
== END ==
LOC: OLS.WHLBEN 04:00
PROVIDERS: Visit Provider Family Medicine
DX: D64.9 Anemia, unspecified (principal)
CPT/HCPCS: 36415; 85025

== ENCOUNTER → 2018-07-17 04:00 | Outpatient (REF) | payer MEDICARE, OTHER, SELFPAY ==
[2018-07-06 08:13] VITALS: BMI 23.7
[2018-07-17 08:36] LABS: Hematocrit 18.4 % (40-54); Mean Corp Hgb Conc 31.5 g/gl (32-36); Mean Corpuscular Hgb 27.2 pg (27.0-32.0); Mean Corpuscular Volume 86.4 fL (80-94); Mean Platelet Vol. 11.2 fl (6.2-12.0); Platelet Count 102 K/mm3 (150-450); RBC Distribution Width CV 16.9 % (11.6-14.6); RBC Distribution Width SD 53.8 fl (35.1-43.9); Red Blood Count 2.13 M/mm3 (4.6-6.2); White Blood Count 2.4 K/mm3 (4.4-11.0)
[2018-07-17 08:39] LABS: Hemoglobin 5.8 g/dl (13.0-16.5); POSITIVE COUNT YES; POSITIVE DIFFERENTIAL YES; POSITIVE MORPHOLOGY YES
[2018-07-17 09:07] LABS: Differential Indicated MANUAL DIFF
[2018-07-17 09:12] LABS: Blast 14 % (0-0); Lymphocyte 49 % (19-41); Metamyelocyte 1 % (0-1); Monocyte 26 % (0-10); Myelocyte 1 (0-0); Neutrophil-Segmented 9 % (47-70); Total Cells Counted 100 (MANUAL DIFF)
[2018-07-17 09:13] LABS: Atypical Lymphocyte 2+ %; Hypochromasia 2+; Platelet Estimate MOD DEC (ADEQ)
[2018-07-17 09:14] LABS: Absolute Lymphocyte Count 1.17 X10^3/ul (0.83-4.51); Absolute Neutrophil Count 0.2 X10^3/uL (2.0-7.7)
[2018-07-18 13:42] LABS: Pathologist Review Reviewed
[2018-07-19 08:25] VITALS: BMI 23.7
== END ==
LOC: OLS.WHLBEN 04:00
PROVIDERS: Visit Provider Family Medicine
DX: D64.9 Anemia, unspecified (principal)
CPT/HCPCS: 36415; 85025; 86850; 86900; 86920; 86922

== ENCOUNTER → 2018-07-19 07:54 | Outpatient (CLI) | payer MEDICARE, OTHER, SELFPAY ==
[2018-07-06 08:13] VITALS: BMI 23.7
[2018-07-19] VITALS (9 sets, daily range): BP systolic 108–135; BP diastolic 53–82; PULSE 60–79; RESP 15–18; TEMP 36.6–37.2; O2SAT 96–100; BMI 23.7
== END ==
PROVIDERS: Family Provider Family Medicine; PCP Family Medicine; Referring Provider Family Medicine; Visit Provider Family Medicine
DX: C92.00 Acute myeloblastic leukemia, not having achieved remission (principal); D61.818 Other pancytopenia
CPT/HCPCS: 36430; 86850; 86900; 86920; 86922; J7040; P9016; A4216

== ENCOUNTER → 2018-07-24 04:00 | Outpatient (REF) | payer MEDICARE, OTHER, SELFPAY ==
[2018-07-19 08:25] VITALS: BMI 23.7
[2018-07-24 07:05] LABS: Absolute Lymphocyte Count 1.85 X10^3/ul (0.83-4.51); Absolute Neutrophil Count 0.3 X10^3/uL (2.0-7.7); Basophil# 0.01 X10^3/uL; Basophil% 0.4 % (0-1); Eosinophil# 0.01 X10^3/uL; Eosinophils% 0.4 % (0-5); Hematocrit 23.5 % (40-54); Hemoglobin 7.6 g/dl (13.0-16.5); Lymphocyte # 1.85 X10^3/ul (4.0); Lymphocyte % 68.8 % (19-41); Mean Corp Hgb Conc 32.3 g/gl (32-36); Mean Corpuscular Hgb 27.6 pg (27.0-32.0); Mean Corpuscular Volume 85.5 fL (80-94); Mean Platelet Vol. 11.3 fl (6.2-12.0); Monocyte# 0.48 X10^3/uL; Monocyte% 17.8 % (0-10); Neutrophil # 0.31 X10^3/uL (2.7-7.7); Neutrophil % 11.5 % (47-70); Platelet Count 112 K/mm3 (150-450); RBC Distribution Width CV 16.5 % (11.6-14.6); RBC Distribution Width SD 51.2 fl (35.1-43.9); Red Blood Count 2.75 M/mm3 (4.6-6.2); White Blood Count 2.7 K/mm3 (4.4-11.0)
[2018-07-24 07:07] LABS: Differential Indicated SCAN CRITERIA MET; POSITIVE COUNT NO; POSITIVE DIFFERENTIAL YES; POSITIVE MORPHOLOGY YES
== END ==
LOC: OLS.WHLBEN 04:00
PROVIDERS: Visit Provider Family Medicine
DX: D64.9 Anemia, unspecified (principal)
CPT/HCPCS: 36415; 85025

== ENCOUNTER → 2018-07-31 04:00 | Outpatient (REF) | payer MEDICARE, OTHER, SELFPAY ==
[2018-07-19 08:25] VITALS: BMI 23.7
[2018-07-31 13:33] LABS: Basophil# 0.01 X10^3/uL; Differential Indicated SCAN CRITERIA MET; Eosinophil# 0.01 X10^3/uL; Hematocrit 22.4 % (40-54); Hemoglobin 7.4 g/dl (13.0-16.5); Mean Corpuscular Hgb 28.2 pg (27.0-32.0); Mean Corpuscular Volume 85.5 fL (80-94); Mean Platelet Vol. 11.3 fl (6.2-12.0); Monocyte# 0.58 X10^3/uL; POSITIVE COUNT NO; POSITIVE DIFFERENTIAL YES; POSITIVE MORPHOLOGY YES; Platelet Count 122 K/mm3 (150-450); RBC Distribution Width CV 16.5 % (11.6-14.6); RBC Distribution Width SD 51.6 fl (35.1-43.9); Red Blood Count 2.62 M/mm3 (4.6-6.2); White Blood Count 3.5 K/mm3 (4.4-11.0)
[2018-07-31 13:38] LABS: Anion Gap 5 (5-15); BUN 21 mg/dL (7-18); BUN/Creat Ratio 27.5 RATIO (10-20); Calcium,Total 8.3 mg/dL (8.5-10.1); Chloride 110 mmol/L (98-107); Creatinine, Serum 0.76 mg/dL (0.70-1.30); EST Glomerular Filtration Rate 104 mL/min (>60); Est Glom Filt Rate - Afr Amer 125 mL/min (>60); Glucose 107 mg/dL (74-106); Potassium 4.3 mmol/L (3.5-5.1); Sodium Level 140 mmol/L (136-145)
[2018-07-31 14:13] LABS: Scan Smear per Review Criteria MANUAL DIFF
[2018-07-31 14:37] LABS: Blast 21 % (0-0); Lymphocyte 34 % (19-41); Metamyelocyte 4 % (0-1); Monocyte 8 % (0-10); Myelocyte 9 (0-0); Neutrophil-Band 1 % (0-5); Neutrophil-Segmented 17 % (47-70); Other WBC Type 2 %; Promyelocyte 4 (0-0); Total Cells Counted 100 (MANUAL DIFF)
[2018-07-31 14:39] LABS: Anisocytosis 1+; Ovalocyte 1+; Platelet Estimate SLT DEC (ADEQ); Red Cell Morphology N CHROM NORMAL (NORM C&C)
[2018-07-31 14:42] LABS: Neutrophil # 0.63 X10^3/uL (2.7-7.7)
[2018-07-31 14:43] LABS: Absolute Neutrophil Count 0.6 X10^3/uL (2.0-7.7)
[2018-08-01 12:35] LABS: Pathologist Review Reviewed
== END ==
LOC: OLS.WHLBEN 04:00
PROVIDERS: Visit Provider Family Medicine
DX: D64.9 Anemia, unspecified (principal); I10 Essential (primary) hypertension
CPT/HCPCS: 36415; 80048; 85025

== ENCOUNTER → 2018-08-07 04:00 | Outpatient (REF) | payer MEDICARE, OTHER, SELFPAY ==
[2018-07-19 08:25] VITALS: BMI 23.7
[2018-08-07 08:45] LABS: Hematocrit 18.9 % (40-54); Hemoglobin 6.3 g/dl (13.0-16.5); Mean Corp Hgb Conc 33.3 g/gl (32-36); Mean Corpuscular Hgb 28.3 pg (27.0-32.0); Mean Corpuscular Volume 84.8 fL (80-94); Platelet Count 129 K/mm3 (150-450); RBC Distribution Width CV 16.4 % (11.6-14.6); RBC Distribution Width SD 50.6 fl (35.1-43.9); Red Blood Count 2.23 M/mm3 (4.6-6.2); White Blood Count 4.7 K/mm3 (4.4-11.0)
[2018-08-07 08:48] LABS: POSITIVE COUNT NO; POSITIVE DIFFERENTIAL YES; POSITIVE MORPHOLOGY YES
[2018-08-07 10:26] LABS: Differential Indicated MANUAL DIFF
[2018-08-07 10:36] LABS: Blast 17 % (0-0); Lymphocyte 58 % (19-41); Metamyelocyte 2 % (0-1); Monocyte 17 % (0-10); Neutrophil-Segmented 6 % (47-70); Total Cells Counted 100 (MANUAL DIFF)
[2018-08-07 10:37] LABS: Platelet Estimate SLT DEC (ADEQ); Red Cell Morphology NORM C+C NORMAL (NORM C&C); Scan Smear per Review Criteria MANUAL DIFF
[2018-08-07 10:38] LABS: Absolute Neutrophil Count 0.3 X10^3/uL (2.0-7.7)
[2018-08-08 12:24] LABS: Pathologist Review Reviewed
== END ==
LOC: OLS.WHLBEN 04:00
PROVIDERS: Visit Provider Family Medicine
DX: D64.9 Anemia, unspecified (principal)
CPT/HCPCS: 36415; 85025

== ENCOUNTER → 2018-08-09 08:29 | Outpatient (CLI) | payer MEDICARE, OTHER, SELFPAY ==
[2018-07-19 08:25] VITALS: BMI 23.7
[2018-08-09] VITALS (7 sets, daily range): BP systolic 101–134; BP diastolic 67–89; PULSE 67–92; RESP 16–18; TEMP 36.7–37.3; O2SAT 97–100
== END ==
PROVIDERS: Family Provider Family Medicine; PCP Family Medicine; Referring Provider Family Medicine; Visit Provider Family Medicine
DX: C92.00 Acute myeloblastic leukemia, not having achieved remission (principal); D61.818 Other pancytopenia
CPT/HCPCS: 36430; 86850; 86900; 86920; 86922; J7040; P9016

== ENCOUNTER → 2018-08-14 05:00 | Outpatient (REF) | payer MEDICARE, OTHER, SELFPAY ==
[2018-07-19 08:25] VITALS: BMI 23.7
[2018-08-14 06:42] LABS: Absolute Lymphocyte Count 2.95 X10^3/ul (0.83-4.51); Absolute Neutrophil Count 0.3 X10^3/uL (2.0-7.7); Basophil# 0.02 X10^3/uL; Basophil% 0.5 % (0-1); Eosinophil# 0.01 X10^3/uL; Eosinophils% 0.3 % (0-5); Hemoglobin 6.4 g/dl (13.0-16.5); Lymphocyte # 2.95 X10^3/ul (4.0); Lymphocyte % 75.8 % (19-41); Mean Corp Hgb Conc 33.7 g/gl (32-36); Mean Corpuscular Hgb 28.7 pg (27.0-32.0); Mean Corpuscular Volume 85.2 fL (80-94); Mean Platelet Vol. 10.6 fl (6.2-12.0); Monocyte# 0.61 X10^3/uL; Monocyte% 15.7 % (0-10); Neutrophil # 0.26 X10^3/uL (2.7-7.7); Neutrophil % 6.7 % (47-70); Platelet Count 102 K/mm3 (150-450); RBC Distribution Width CV 15.9 % (11.6-14.6); RBC Distribution Width SD 49.6 fl (35.1-43.9); Red Blood Count 2.23 M/mm3 (4.6-6.2); White Blood Count 3.9 K/mm3 (4.4-11.0)
[2018-08-14 06:46] LABS: Differential Indicated SCAN CRITERIA MET; POSITIVE COUNT NO; POSITIVE DIFFERENTIAL YES; POSITIVE MORPHOLOGY YES
[2018-08-14 07:23] LABS: Hypochromasia 2+
[2018-08-14 07:24] LABS: Differential Comment SCANNED
[2018-08-14 11:46] LABS: Pathologist Review Reviewed
== END ==
LOC: OLS.WHLBEN 05:00
PROVIDERS: Visit Provider Family Medicine
DX: D64.9 Anemia, unspecified (principal)
CPT/HCPCS: 36415; 85025

== ENCOUNTER → 2018-08-21 04:30 | Outpatient (REF) | payer MEDICARE, OTHER, SELFPAY ==
[2018-07-19 08:25] VITALS: BMI 23.7
[2018-08-21 08:20] LABS: Hematocrit 17.2 % (40-54); Mean Corp Hgb Conc 33.7 g/gl (32-36); Mean Platelet Vol. 10.6 fl (6.2-12.0); Platelet Count 114 K/mm3 (150-450); RBC Distribution Width CV 16.2 % (11.6-14.6); RBC Distribution Width SD 50.5 fl (35.1-43.9); White Blood Count 4.5 K/mm3 (4.4-11.0)
[2018-08-21 08:28] LABS: Differential Indicated MANUAL DIFF; Hemoglobin 5.8 g/dl (13.0-16.5); POSITIVE COUNT YES; POSITIVE DIFFERENTIAL YES; POSITIVE MORPHOLOGY YES
[2018-08-21 08:54] LABS: Blast 30 % (0-0); Lymphocyte 37 % (19-41); Metamyelocyte 2 % (0-1); Monocyte 19 % (0-10); Neutrophil-Segmented 12 % (47-70); Total Cells Counted 100 (MANUAL DIFF)
[2018-08-21 08:55] LABS: Platelet Estimate SLT DEC (ADEQ); Red Cell Morphology NORM C+C NORMAL (NORM C&C)
[2018-08-21 08:56] LABS: Absolute Neutrophil Count 0.5 X10^3/uL (2.0-7.7)
[2018-08-21 08:57] LABS: Absolute Lymphocyte Count 1.66 X10^3/ul (0.83-4.51); Lymphocyte # 1.66 X10^3/ul (4.0)
[2018-08-22 08:37] VITALS: BMI 23.7
[2018-08-22 14:10] LABS: Pathologist Review Reviewed
== END ==
LOC: OLS.WHLBEN 04:30
PROVIDERS: Visit Provider Family Medicine
DX: D64.9 Anemia, unspecified (principal)
CPT/HCPCS: 36415; 85025

== ENCOUNTER → 2018-08-22 | Outpatient (CLI) | payer MEDICARE, OTHER, SELFPAY ==
[2018-07-19 08:25] VITALS: BMI 23.7
[2018-08-22] VITALS (10 sets, daily range): BP systolic 99–127; BP diastolic 63–85; PULSE 66–91; RESP 16–20; TEMP 36.4–36.9; O2SAT 93–100; BMI 23.7
[2018-08-22] MEDS: Furosemide 20 MG/2 ML VIAL IV ×2 (10:58→14:13)
== END | disposition home or self-care (01) ==
LOC: MEDOUTP 08:06
PROVIDERS: Family Provider Family Medicine; PCP Family Medicine; Referring Provider Family Medicine; Visit Provider Family Medicine
DX: C92.00 Acute myeloblastic leukemia, not having achieved remission (principal); D61.818 Other pancytopenia
CPT/HCPCS: 36415; 36430; 86850; 86900; 86920; 86922; J7040; P9016; A4216; J1940

== ENCOUNTER → 2018-08-28 04:00 | Outpatient (REF) | payer MEDICARE, OTHER, SELFPAY ==
[2018-08-22 08:37] VITALS: BMI 23.7
[2018-08-28 08:08] LABS: Anion Gap 7 (5-15); BUN 19 mg/dL (7-18); BUN/Creat Ratio 26.6 RATIO (10-20); Calcium,Total 7.7 mg/dL (8.5-10.1); Chloride 109 mmol/L (98-107); Creatinine, Serum 0.71 mg/dL (0.70-1.30); EST Glomerular Filtration Rate 112 mL/min (>60); Est Glom Filt Rate - Afr Amer 136 mL/min (>60); Glucose 89 mg/dL (74-106); Hemoglobin 7.5 g/dl (13.0-16.5); Mean Corp Hgb Conc 32.6 g/gl (32-36); Mean Corpuscular Hgb 27.6 pg (27.0-32.0); Mean Corpuscular Volume 84.6 fL (80-94); Mean Platelet Vol. 10.3 fl (6.2-12.0); Platelet Count 90 K/mm3 (150-450); Potassium 3.8 mmol/L (3.5-5.1); RBC Distribution Width CV 16.1 % (11.6-14.6); RBC Distribution Width SD 49.9 fl (35.1-43.9); Red Blood Count 2.72 M/mm3 (4.6-6.2); Sodium Level 140 mmol/L (136-145); White Blood Count 6.5 K/mm3 (4.4-11.0)
[2018-08-28 08:56] LABS: Differential Indicated MANUAL DIFF; POSITIVE COUNT NO; POSITIVE DIFFERENTIAL YES; POSITIVE MORPHOLOGY YES
[2018-08-28 09:03] LABS: Blast 32 % (0-0); Lymphocyte 42 % (19-41); Monocyte 22 % (0-10); Myelocyte 1 (0-0); Neutrophil-Segmented 3 % (47-70); Total Cells Counted 100 (MANUAL DIFF)
[2018-08-28 09:04] LABS: Atypical Lymphocyte 3+ %; Hypochromasia 3+; Platelet Estimate MKD DEC (ADEQ)
[2018-08-28 09:05] LABS: Absolute Lymphocyte Count 2.73 X10^3/ul (0.83-4.51); Absolute Neutrophil Count 0.2 X10^3/uL (2.0-7.7)
[2018-08-29 09:11] VITALS: BMI 23.0
[2018-08-29 14:43] LABS: Pathologist Review Reviewed
== END ==
LOC: OLS.WHLBEN 04:00
PROVIDERS: Visit Provider Family Medicine
DX: D64.9 Anemia, unspecified (principal); I10 Essential (primary) hypertension
CPT/HCPCS: 36415; 80048; 85025

== ENCOUNTER → 2018-08-29 | Outpatient (CLI) | payer MEDICARE, OTHER, SELFPAY ==
[2018-08-22 08:37] VITALS: BMI 23.7
[2018-08-29] VITALS (7 sets, daily range): BP systolic 97–113; BP diastolic 58–74; PULSE 71–87; RESP 16; TEMP 36.6–37.3; O2SAT 97–99; BMI 23.0
[2018-08-29] MEDS: Furosemide 20 MG/2 ML VIAL IV (12:36)
== END | disposition home or self-care (01) ==
LOC: MEDOUTP 07:59
PROVIDERS: Family Provider Family Medicine; PCP Family Medicine; Referring Provider Nurse Practitioner Adult Health; Visit Provider Nurse Practitioner Adult Health
DX: D61.818 Other pancytopenia (principal); C92.00 Acute myeloblastic leukemia, not having achieved remission
CPT/HCPCS: 36430; 86850; 86900; 86920; 86922; J7040; P9040; A4216; J1940

== ENCOUNTER → 2018-09-04 05:00 | Outpatient (REF) | payer MEDICARE, OTHER, SELFPAY ==
[2018-08-29 09:11] VITALS: BMI 23.0
[2018-09-04 07:51] LABS: Hematocrit 24.2 % (40-54); Mean Corp Hgb Conc 33.1 g/gl (32-36); Mean Corpuscular Hgb 27.9 pg (27.0-32.0); Mean Corpuscular Volume 84.3 fL (80-94); Mean Platelet Vol. 11.6 fl (6.2-12.0); Platelet Count 84 K/mm3 (150-450); RBC Distribution Width CV 16.2 % (11.6-14.6); RBC Distribution Width SD 50.6 fl (35.1-43.9); Red Blood Count 2.87 M/mm3 (4.6-6.2); White Blood Count 6.9 K/mm3 (4.4-11.0)
[2018-09-04 07:55] LABS: Differential Indicated MANUAL DIFF; POSITIVE COUNT NO; POSITIVE DIFFERENTIAL YES; POSITIVE MORPHOLOGY YES
[2018-09-04 08:26] LABS: Blast 66 % (0-0); Lymphocyte 17 % (19-41); Monocyte 13 % (0-10); Neutrophil-Segmented 4 % (47-70); Total Cells Counted 100 (MANUAL DIFF)
[2018-09-04 08:27] LABS: Absolute Neutrophil Count 0.3 X10^3/uL (2.0-7.7); Platelet Estimate MOD DEC (ADEQ); Red Cell Morphology NORM C+C NORMAL (NORM C&C)
[2018-09-06 15:58] LABS: Pathologist Review Reviewed
== END ==
LOC: OLS.WHLBEN 05:00
PROVIDERS: Visit Provider Family Medicine
DX: D64.9 Anemia, unspecified (principal)
CPT/HCPCS: 36415; 85025

== ENCOUNTER → 2018-09-11 05:40 | Outpatient (REF) | payer MEDICARE, OTHER, SELFPAY ==
[2018-08-29 09:11] VITALS: BMI 23.0
[2018-09-11 09:38] LABS: Hematocrit 21.7 % (40-54); Hemoglobin 7.1 g/dl (13.0-16.5); Mean Corp Hgb Conc 32.7 g/gl (32-36); Mean Corpuscular Hgb 27.6 pg (27.0-32.0); Mean Corpuscular Volume 84.4 fL (80-94); Mean Platelet Vol. 11.6 fl (6.2-12.0); Platelet Count 84 K/mm3 (150-450); RBC Distribution Width CV 16.4 % (11.6-14.6); Red Blood Count 2.57 M/mm3 (4.6-6.2); White Blood Count 7.8 K/mm3 (4.4-11.0)
[2018-09-11 09:40] LABS: Differential Indicated MANUAL DIFF; POSITIVE COUNT NO; POSITIVE DIFFERENTIAL YES; POSITIVE MORPHOLOGY YES
[2018-09-11 10:11] LABS: Blast 60 % (0-0); Lymphocyte 22 % (19-41); Monocyte 12 % (0-10); Neutrophil-Segmented 6 % (47-70); Total Cells Counted 100 (MANUAL DIFF)
[2018-09-11 10:12] LABS: Platelet Estimate MOD DEC (ADEQ); Red Cell Morphology NORM C+C NORMAL (NORM C&C)
[2018-09-11 10:13] LABS: Absolute Neutrophil Count 0.5 X10^3/uL (2.0-7.7)
[2018-09-12 15:22] LABS: Pathologist Review Reviewed
== END ==
LOC: OLS.WHLBEN 05:40
PROVIDERS: Visit Provider Family Medicine
DX: D64.9 Anemia, unspecified (principal)
CPT/HCPCS: 36415; 85025

== ENCOUNTER → 2018-09-18 04:00 | Outpatient (REF) | payer MEDICARE, OTHER, SELFPAY ==
[2018-08-29 09:11] VITALS: BMI 23.0
[2018-09-18 08:45] LABS: Hematocrit 20.9 % (40-54); Hemoglobin 6.9 g/dl (13.0-16.5); Mean Corpuscular Hgb 27.5 pg (27.0-32.0); Mean Corpuscular Volume 83.3 fL (80-94); Platelet Count 96 K/mm3 (150-450); RBC Distribution Width CV 16.4 % (11.6-14.6); RBC Distribution Width SD 50.6 fl (35.1-43.9); Red Blood Count 2.51 M/mm3 (4.6-6.2); White Blood Count 9.6 K/mm3 (4.4-11.0)
[2018-09-18 08:47] LABS: Differential Indicated MANUAL DIFF; POSITIVE COUNT NO; POSITIVE DIFFERENTIAL YES; POSITIVE MORPHOLOGY YES
[2018-09-18 09:07] LABS: Blast 38 % (0-0); Lymphocyte 46 % (19-41); Monocyte 13 % (0-10); Neutrophil-Band 1 % (0-5); Neutrophil-Segmented 2 % (47-70); Total Cells Counted 100 (MANUAL DIFF)
[2018-09-18 09:08] LABS: Absolute Neutrophil Count 0.2 X10^3/uL (2.0-7.7); Atypical Lymphocyte 3+ %; Hypochromasia 3+; Platelet Estimate MKD DEC (ADEQ)
[2018-09-18 09:09] LABS: Absolute Lymphocyte Count 4.39 X10^3/ul (0.83-4.51)
[2018-09-19 08:13] VITALS: BMI 20.3
[2018-09-19 14:45] LABS: Pathologist Review Reviewed
== END ==
LOC: OLS.WHLBEN 04:00
PROVIDERS: Visit Provider Family Medicine
DX: D64.9 Anemia, unspecified (principal)
CPT/HCPCS: 36415; 85025; A4216

== ENCOUNTER → 2018-09-19 08:04 | Outpatient (CLI) | payer MEDICARE, OTHER, SELFPAY ==
[2018-08-29 09:11] VITALS: BMI 23.0
[2018-09-19] VITALS (7 sets, daily range): BP systolic 85–105; BP diastolic 59–72; PULSE 63–78; RESP 16; TEMP 35.9–37; O2SAT 96–99; BMI 20.3
== END ==
PROVIDERS: Family Provider Family Medicine; PCP Family Medicine; Referring Provider Family Medicine; Visit Provider Family Medicine
DX: C92.00 Acute myeloblastic leukemia, not having achieved remission (principal); D61.818 Other pancytopenia
CPT/HCPCS: 36430; 86850; 86900; 86920; 86922; J7040; P9016; A4216

== ENCOUNTER → 2018-09-25 04:55 | Outpatient (REF) | payer MEDICARE, OTHER, SELFPAY ==
[2018-09-19 08:13] VITALS: BMI 20.3
[2018-09-25 07:01] LABS: Hematocrit 22.6 % (40-54); Hemoglobin 7.5 g/dl (13.0-16.5); Mean Corp Hgb Conc 33.2 g/gl (32-36); Mean Corpuscular Hgb 28.1 pg (27.0-32.0); Mean Corpuscular Volume 84.6 fL (80-94); Platelet Count 88 K/mm3 (150-450); RBC Distribution Width CV 16.6 % (11.6-14.6); RBC Distribution Width SD 51.5 fl (35.1-43.9); Red Blood Count 2.67 M/mm3 (4.6-6.2)
[2018-09-25 07:13] LABS: Differential Indicated MANUAL DIFF; POSITIVE COUNT NO; POSITIVE DIFFERENTIAL YES; POSITIVE MORPHOLOGY YES
[2018-09-25 07:23] LABS: Monocyte 7 % (0-10); Neutrophil-Segmented 4 % (47-70); Total Cells Counted 100 (MANUAL DIFF)
[2018-09-25 07:26] LABS: Blast 44 % (0-0); Lymphocyte 45 % (19-41)
[2018-09-25 07:27] LABS: Hypochromasia 2+; Microcytosis 2+; Platelet Estimate MOD DEC (ADEQ)
[2018-09-25 07:29] LABS: Absolute Lymphocyte Count 4.95 X10^3/ul (0.83-4.51); Absolute Neutrophil Count 0.4 X10^3/uL (2.0-7.7); Lymphocyte # 4.95 X10^3/ul (4.0); Neutrophil # 0.44 X10^3/uL (2.7-7.7)
[2018-09-26 10:33] LABS: Pathologist Review Reviewed
== END ==
LOC: OLS.WHLBEN 04:55
PROVIDERS: Visit Provider Family Medicine
DX: D64.9 Anemia, unspecified (principal)
CPT/HCPCS: 36415; 85025

== ENCOUNTER → 2018-10-03 | Outpatient (REF) | payer MEDICARE, OTHER, SELFPAY ==
[2018-09-19 08:13] VITALS: BMI 20.3
[2018-10-03 08:31] LABS: Hematocrit 19.4 % (40-54); Hemoglobin 6.5 g/dl (13.0-16.5); Mean Corp Hgb Conc 33.5 g/gl (32-36); Mean Corpuscular Hgb 27.9 pg (27.0-32.0); Mean Corpuscular Volume 83.3 fL (80-94); Mean Platelet Vol. 11.3 fl (6.2-12.0); Platelet Count 99 K/mm3 (150-450); RBC Distribution Width CV 16.9 % (11.6-14.6); RBC Distribution Width SD 51.2 fl (35.1-43.9); Red Blood Count 2.33 M/mm3 (4.6-6.2); White Blood Count 17.8 K/mm3 (4.4-11.0)
[2018-10-03 08:32] LABS: Anion Gap 7 (5-15); BUN 26 mg/dL (7-18); BUN/Creat Ratio 31.2 RATIO (10-20); Calcium,Total 7.5 mg/dL (8.5-10.1); Chloride 108 mmol/L (98-107); Creatinine, Serum 0.83 mg/dL (0.70-1.30); EST Glomerular Filtration Rate 94 mL/min (>60); Est Glom Filt Rate - Afr Amer 114 mL/min (>60); Glucose 79 mg/dL (74-106); Potassium 4.1 mmol/L (3.5-5.1); Sodium Level 140 mmol/L (136-145)
[2018-10-03 08:34] LABS: Differential Indicated MANUAL DIFF; POSITIVE COUNT NO; POSITIVE DIFFERENTIAL YES; POSITIVE MORPHOLOGY YES
[2018-10-03 09:58] LABS: Blast 52 % (0-0); Lymphocyte 26 % (19-41); Monocyte 20 % (0-10); Neutrophil-Segmented 2 % (47-70); Platelet Estimate MOD DEC (ADEQ); Red Cell Morphology NORM C+C NORMAL (NORM C&C); Total Cells Counted 100 (MANUAL DIFF)
[2018-10-03 09:59] LABS: Absolute Neutrophil Count 0.4 X10^3/uL (2.0-7.7)
[2018-10-04 12:05] LABS: Pathologist Review Reviewed
[2018-10-06 08:07] VITALS: BMI 22.2
== END | disposition home or self-care (01) ==
LOC: OLS.WHLBEN 06:35
PROVIDERS: Visit Provider Family Medicine
DX: I10 Essential (primary) hypertension (principal); D64.9 Anemia, unspecified
CPT/HCPCS: 36415; 80048; 85025

== ENCOUNTER → 2018-10-05 12:36 | Outpatient (REF) | payer SELFPAY ==
[2018-09-19 08:13] VITALS: BMI 20.3
[2018-10-06 08:07] VITALS: BMI 22.2
== END ==
LOC: OLS.WHLBEN 12:36
PROVIDERS: Visit Provider Family Medicine
DX: C92.00 Acute myeloblastic leukemia, not having achieved remission (principal); D61.818 Other pancytopenia
CPT/HCPCS: 86920; 86922

== ENCOUNTER → 2018-10-06 | Outpatient (CLI) | payer MEDICARE, OTHER, SELFPAY ==
[2018-09-19 08:13] VITALS: BMI 20.3
[2018-10-06] VITALS (8 sets, daily range): BP systolic 85–109; BP diastolic 41–70; PULSE 64–83; RESP 16–18; TEMP 36.8–37.3; O2SAT 97–99; BMI 22.2
== END | disposition home or self-care (01) ==
LOC: MEDOUTP 07:53
PROVIDERS: Family Provider Family Medicine; PCP Family Medicine; Referring Provider Family Medicine; Visit Provider Family Medicine
DX: D61.818 Other pancytopenia (principal); C92.00 Acute myeloblastic leukemia, not having achieved remission
CPT/HCPCS: 36415; 36430; 86850; 86900; 86920; 86922; J7040; P9016; A4216

== ENCOUNTER → 2018-10-09 | Outpatient (REF) | payer MEDICARE, OTHER, SELFPAY ==
[2018-10-06 08:07] VITALS: BMI 22.2
[2018-10-09 09:11] LABS: Hematocrit 22.7 % (40-54); Hemoglobin 7.6 g/dl (13.0-16.5); Mean Corp Hgb Conc 33.5 g/gl (32-36); Mean Corpuscular Hgb 28.4 pg (27.0-32.0); Mean Corpuscular Volume 84.7 fL (80-94); Mean Platelet Vol. 10.8 fl (6.2-12.0); Platelet Count 102 K/mm3 (150-450); RBC Distribution Width CV 17.5 % (11.6-14.6); RBC Distribution Width SD 54.4 fl (35.1-43.9); Red Blood Count 2.68 M/mm3 (4.6-6.2); White Blood Count 20.7 K/mm3 (4.4-11.0)
[2018-10-09 09:12] LABS: Differential Indicated MANUAL DIFF; POSITIVE COUNT NO; POSITIVE DIFFERENTIAL YES; POSITIVE MORPHOLOGY YES
[2018-10-09 09:59] LABS: Blast 53 % (0-0); Lymphocyte 13 % (19-41); Monocyte 31 % (0-10); Neutrophil-Band 2 % (0-5); Neutrophil-Segmented 1 % (47-70); Total Cells Counted 100 (MANUAL DIFF)
[2018-10-09 10:00] LABS: Absolute Neutrophil Count 0.6 X10^3/uL (2.0-7.7); Platelet Estimate SLT DEC (ADEQ); Red Cell Morphology NORM C+C NORMAL (NORM C&C)
[2018-10-09 15:37] LABS: Pathologist Review Reviewed
== END | disposition home or self-care (01) ==
LOC: OLS.WHLBEN 06:15
PROVIDERS: Visit Provider Family Medicine
DX: D64.9 Anemia, unspecified (principal)
CPT/HCPCS: 36415; 85025

== ENCOUNTER → 2018-10-16 05:00 | Outpatient (REF) | payer MEDICARE, OTHER, SELFPAY ==
[2018-10-06 08:07] VITALS: BMI 22.2
[2018-10-16 08:14] LABS: Differential Indicated MANUAL DIFF; Hematocrit 20.7 % (40-54); Mean Corp Hgb Conc 33.8 g/gl (32-36); Mean Corpuscular Hgb 28.3 pg (27.0-32.0); Mean Corpuscular Volume 83.8 fL (80-94); Mean Platelet Vol. 11.2 fl (6.2-12.0); POSITIVE COUNT NO; POSITIVE DIFFERENTIAL YES; POSITIVE MORPHOLOGY YES; Platelet Count 132 K/mm3 (150-450); RBC Distribution Width CV 17.5 % (11.6-14.6); RBC Distribution Width SD 54.2 fl (35.1-43.9); Red Blood Count 2.47 M/mm3 (4.6-6.2); White Blood Count 23.4 K/mm3 (4.4-11.0)
[2018-10-16 08:45] LABS: Blast 65 % (0-0); Lymphocyte 15 % (19-41); Monocyte 16 % (0-10); Neutrophil-Band 1 % (0-5); Neutrophil-Segmented 3 % (47-70); Platelet Estimate SLT DEC (ADEQ); Red Cell Morphology NORM C+C NORMAL (NORM C&C); Total Cells Counted 100 (MANUAL DIFF)
[2018-10-16 08:47] LABS: Absolute Neutrophil Count 0.9 X10^3/uL (2.0-7.7)
[2018-10-17 09:11] LABS: Pathologist Review Reviewed
== END ==
LOC: OLS.WHLBEN 05:00
PROVIDERS: Visit Provider Family Medicine
DX: D64.9 Anemia, unspecified (principal)
CPT/HCPCS: 36415; 85025

== ENCOUNTER → 2018-10-23 | Outpatient (REF) | payer MEDICARE, OTHER, SELFPAY ==
[2018-10-06 08:07] VITALS: BMI 22.2
[2018-10-23 07:41] LABS: Hematocrit 18.1 % (40-54); Hemoglobin 6.1 g/dl (13.0-16.5); Mean Corp Hgb Conc 33.7 g/gl (32-36); Mean Corpuscular Hgb 28.2 pg (27.0-32.0); Mean Corpuscular Volume 83.8 fL (80-94); Mean Platelet Vol. 10.9 fl (6.2-12.0); Platelet Count 142 K/mm3 (150-450); RBC Distribution Width CV 17.6 % (11.6-14.6); RBC Distribution Width SD 54.1 fl (35.1-43.9); Red Blood Count 2.16 M/mm3 (4.6-6.2); White Blood Count 26.5 K/mm3 (4.4-11.0)
[2018-10-23 07:42] LABS: Differential Indicated MANUAL DIFF; POSITIVE COUNT NO; POSITIVE DIFFERENTIAL YES; POSITIVE MORPHOLOGY YES
[2018-10-23 08:03] LABS: Blast 26 % (0-0); Lymphocyte 68 % (19-41); Monocyte 2 % (0-10); Neutrophil-Segmented 4 % (47-70); Total Cells Counted 100 (MANUAL DIFF)
[2018-10-23 08:04] LABS: Atypical Lymphocyte 3+ %; Hypochromasia 2+; Platelet Estimate ADEQUATE (ADEQ)
[2018-10-23 08:05] LABS: Absolute Lymphocyte Count 17.99 X10^3/ul (0.83-4.51); Absolute Neutrophil Count 1.1 X10^3/uL (2.0-7.7)
[2018-10-24 08:30] VITALS: BMI 22.6
[2018-10-24 13:54] LABS: Pathologist Review Reviewed
== END | disposition home or self-care (01) ==
LOC: OLS.WHLBEN 06:15
PROVIDERS: Visit Provider Family Medicine
DX: D64.9 Anemia, unspecified (principal)
CPT/HCPCS: 36415; 85025

== ENCOUNTER → 2018-10-24 | Outpatient (CLI) | payer MEDICARE, OTHER, SELFPAY ==
[2018-10-06 08:07] VITALS: BMI 22.2
[2018-10-24] VITALS (8 sets, daily range): BP systolic 91–99; BP diastolic 59–70; PULSE 69–81; RESP 14–18; TEMP 36.6–37.1; O2SAT 97–100; BMI 22.6
== END | disposition home or self-care (01) ==
PROVIDERS: Referring Provider Family Medicine; Visit Provider Family Medicine
DX: D61.818 Other pancytopenia (principal); C92.00 Acute myeloblastic leukemia, not having achieved remission
CPT/HCPCS: 36430; 86850; 86900; 86920; 86922; J7040; P9016

== ENCOUNTER → 2018-10-30 | Outpatient (REF) | payer MEDICARE, OTHER, SELFPAY ==
[2018-10-24 08:30] VITALS: BMI 22.6
[2018-10-30 08:37] LABS: Anion Gap 8 (5-15); BUN 30 mg/dL (7-18); BUN/Creat Ratio 32.3 RATIO (10-20); Calcium,Total 7.9 mg/dL (8.5-10.1); Chloride 107 mmol/L (98-107); Creatinine, Serum 0.93 mg/dL (0.70-1.30); EST Glomerular Filtration Rate 83 mL/min (>60); Est Glom Filt Rate - Afr Amer 100 mL/min (>60); Glucose 76 mg/dL (74-106); Potassium 4.4 mmol/L (3.5-5.1); Sodium Level 140 mmol/L (136-145)
[2018-10-30 08:38] LABS: Hematocrit 22.9 % (40-54); Hemoglobin 7.7 g/dl (13.0-16.5); Mean Corp Hgb Conc 33.6 g/gl (32-36); Mean Corpuscular Hgb 28.3 pg (27.0-32.0); Mean Corpuscular Volume 84.2 fL (80-94); Mean Platelet Vol. 11.8 fl (6.2-12.0); Platelet Count 162 K/mm3 (150-450); RBC Distribution Width CV 17.6 % (11.6-14.6); RBC Distribution Width SD 55.4 fl (35.1-43.9); Red Blood Count 2.72 M/mm3 (4.6-6.2)
[2018-10-30 08:43] LABS: Differential Indicated MANUAL DIFF; POSITIVE COUNT YES; POSITIVE DIFFERENTIAL YES; POSITIVE MORPHOLOGY YES
[2018-10-30 09:08] LABS: Blast 80 % (0-0); Lymphocyte 11 % (19-41); Monocyte 6 % (0-10); Neutrophil-Segmented 2 % (47-70); Platelet Estimate ADEQUATE (ADEQ); Promyelocyte 1 (0-0); Red Cell Morphology NORM C+C NORMAL (NORM C&C); Total Cells Counted 100 (MANUAL DIFF)
[2018-10-30 09:09] LABS: Absolute Lymphocyte Count 4.07 X10^3/ul (0.83-4.51); Absolute Neutrophil Count 0.7 X10^3/uL (2.0-7.7); Lymphocyte # 4.07 X10^3/ul (4.0)
[2018-11-01 14:20] LABS: Pathologist Review Reviewed
== END | disposition home or self-care (01) ==
LOC: OLS.WHLBEN 07:20
PROVIDERS: Visit Provider Family Medicine
DX: D64.9 Anemia, unspecified (principal)
CPT/HCPCS: 36415; 80048; 85025

== ENCOUNTER 2018-11-03 17:16 | Emergency (ER) | payer MEDICARE, OTHER, SELFPAY ==
[2018-10-24 08:30] VITALS: BMI 22.6
[2018-11-03 17:17] VITALS: BP 113/67; PULSE 75; RESP 16; TEMP 36.7; O2SAT 98; BMI 24.7
--- NOTE | 2018-11-03 17:50 | RAD_ITS ---
HISTORY: Shortness of breath XR Chest 1 View TECHNIQUE: Single frontal view of chest. # of images incl. paperwork: 1 COMPARISON: None. FINDINGS: Rotated exam. Borderline cardiomegaly. Severe tortuosity of the aorta. Severe vascular calcification of the vessel within the left anterior superior mediastinum. No pulmonary venous congestion. 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 Bibasilar scarring. No confluent areas of acute consolidation. No layering pleural effusions or pneumothorax. No acute osseous abnormality of the thorax. RAD/Chest 1 View (Portable) IMPRESSION: 1. No acute cardiopulmonary disease. 2. COPD. 3. Severe tortuosity of the aorta, aortic aneurysm not excluded. Severe atherosclerotic calcification of a vessel within the left anterior superior mediastinum. at 1815 Reported and signed by: Kevin Monroe MD Electronically Signed: Kevin Monroe MD at 18:13 EDT Tel , Service support ,
--- NOTE | 2018-11-03 17:50 | EKG12_ITS ---
Test Reason : EDEMA Blood Pressure : / mmHG Vent. Rate : 076 BPM Atrial Rate : 076 BPM P-R Int : 176 ms QRS Dur : 090 ms QT Int : 422 ms P-R-T Axes : 034 010 041 degrees QTc Int : 474 ms Sinus rhythm with Fusion complexes Low Voltage QRS ( limb leads) Confirmed by ARIANNA DAVIS, WESLEY ([id number]), editor in chief HUNTER GARCIA ([id number]) on 11/06/2018 1:24:57 PM Referred By: GERSON Confirmed By:WESLEY KELLER MD
--- NOTE | 2018-11-03 17:52 | ED.VISSUMM ---
- ER Visit Summary Date of Service: 11/03/18 Chief Complaint: Bilateral lower extremity edema History of Present Illness: The patient is a 83 M who was sent from [facility] for worsening bilateral lower extremity edema. Patient is unable to provide much history. 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 It does not appear that he is on Lasix 40 twice daily as well as Spironolactone 25 mg a day. He denies difficulty breathing or congestion. Physical Examination: Blood pressure is 113/67, temperature 98.1, heart rate 75, respiratory rate 16, pulse ox 98% on room air. Patient is a cachectic appearing elderly gentleman sitting upright in bed. He is in no acute distress. Heart is regular rate and rhythm with 3/6 murmur. Lung sounds are clear. Abdomen is soft and nontender. Abdomen does not appear to be distended. Lower extremity examination reveals 3+ edema that is symmetric. He has mild venous stasis changes to the lower legs with no sign of acute cellulitis. No open skin injury noted. Test Results: CBC reveals a white count of 32.5 with 60 lymphs and 30 blast cells. Hemoglobin is 6.8. Patient's hemoglobin seems to run from 5.8 up to the mid 8 range. Based on previous lab work sent with the patient his white count has been elevated similar to current values as well. Chemistry studies are unremarkable. Troponin and BNP are both unremarkable. Venous ultrasound of both legs revealed no sign of DVT. Emergency Department Course and Treatment: I spoke with Dr. Rogerio Jacome, covering for the patient's primary care physician. At this time there does not appear to be any acute change in the patient's blood work. He will be discharged back to the [facility] and arrangements for an outpatient transfusion can be made. Treatment Plan: [] Disposition: Discharge Impression: Bilateral lower extremity edema This note was generated with [employer] dictation software. It may contain incorrect words, spelling, and punctuation that were not noted in review of the chart prior to signing ED Disposition - Plan for ED Patient: Disposition: Home or Assisted Living Instructions: PERIPHERAL EDEMA, Bilateral Referrals: Skinny Gutierrez MD [STAFF PHYSICIAN] - 3-5 Days
--- NOTE | 2018-11-03 18:08 | US_ITS ---
HISTORY: Bilateral lower extremity swelling COMPARISON: None. TECHNIQUE: Sagittal and axial ramos scale and color Doppler images, including compression images, obtained of the bilateral common femoral, femoral, popliteal, posterior tibial veins. Doppler wave forms from the segments also recorded. Doppler and color Doppler interrogation performed of the saphenofemoral junction. # of images incl. paperwork: 29 FINDINGS: Color Doppler and ramos scale imaging of the bilateral lower extremity deep venous structures demonstrate no evidence of intraluminal thrombus. Normal compressibility of all deep venous segments. Normal phasic spectral wave forms, which demonstrate normal augmentation response and no evidence of venous reflux. US/Venous Duplex Imag/Yandel Extrem IMPRESSION: 1. Negative for bilateral lower extremity deep venous thrombosis. at 1851 Reported and signed by: Kevin Monroe MD Electronically Signed: Kevin Monroe MD at 18:50 EDT Tel , Service support ,
[2018-11-03 18:10] LABS: Hematocrit 19.9 % (40-54); Hemoglobin 6.8 g/dl (13.0-16.5); Mean Corp Hgb Conc 34.2 g/gl (32-36); Mean Corpuscular Hgb 28.5 pg (27.0-32.0); Mean Corpuscular Volume 83.3 fL (80-94); Mean Platelet Vol. 11.3 fl (6.2-12.0); Platelet Count 151 K/mm3 (150-450); RBC Distribution Width CV 17.5 % (11.6-14.6); RBC Distribution Width SD 53.7 fl (35.1-43.9); Red Blood Count 2.39 M/mm3 (4.6-6.2)
[2018-11-03 18:11] LABS: POSITIVE COUNT YES; POSITIVE DIFFERENTIAL YES; POSITIVE MORPHOLOGY YES
[2018-11-03 18:12] LABS: White Blood Count 32.5 K/mm3 (4.4-11.0)
[2018-11-03 18:24] LABS: Anion Gap 4 (5-15); BUN 35 mg/dL (7-18); Calcium,Total 7.8 mg/dL (8.5-10.1); Chloride 108 mmol/L (98-107); Creatinine, Serum 1.13 mg/dL (0.70-1.30); EST Glomerular Filtration Rate 66 mL/min (>60); Est Glom Filt Rate - Afr Amer 80 mL/min (>60); Estimated Creatinine Clearance 55.32 ml/min; Glucose 85 mg/dL (74-106); Potassium 4.7 mmol/L (3.5-5.1); Sodium Level 138 mmol/L (136-145)
[2018-11-03 18:33] LABS: Differential Indicated MANUAL DIFF
[2018-11-03 18:40] LABS: Blast 30 % (0-0); Lymphocyte 60 % (19-41); Monocyte 3 % (0-10); Neutrophil-Segmented 1 % (47-70); Promyelocyte 6 (0-0); Total Cells Counted 100 (MANUAL DIFF)
[2018-11-03 18:42] LABS: Red Cell Morphology N CYTIC NORMAL (NORM C&C); Smudge Cells 2+
[2018-11-03 18:43] LABS: Hypochromasia 1+
[2018-11-03 18:46] LABS: Platelet Estimate ADEQUATE (ADEQ)
[2018-11-03 18:47] LABS: Atypical Lymphocyte 3+ %
[2018-11-03 18:51] VITALS: BP 91/65; PULSE 76; RESP 18; O2SAT 96
[2018-11-03 18:55] LABS: BNP,B-Type NATRIURETIC PEPTIDE 19.9 pg/mL (0-100)
[2018-11-03 20:00] VITALS: BP 90/63; PULSE 74; RESP 14; O2SAT 96
[2018-11-06 12:44] LABS: Pathologist Review Reviewed
== END 2018-11-03 20:21 | disposition home or self-care (01) ==
PROVIDERS: Emergency Provider Emergency Medicine
DX: R60.0 Localized edema (principal); I10 Essential (primary) hypertension; Z85.6 Personal history of leukemia; Z87.891 Personal history of nicotine dependence
CPT/HCPCS: 71045; 80048; 83880; 84484; 85025; 93005; 93970; 99285; A4216

== ENCOUNTER → 2018-11-06 06:30 | Outpatient (REF) | payer MEDICARE, OTHER, SELFPAY ==
[2018-11-03 17:17] VITALS: BMI 24.7
[2018-11-06 08:19] LABS: Hematocrit 18.6 % (40-54); Hemoglobin 6.3 g/dl (13.0-16.5); Mean Corp Hgb Conc 33.9 g/gl (32-36); Mean Corpuscular Hgb 28.3 pg (27.0-32.0); Mean Corpuscular Volume 83.4 fL (80-94); Mean Platelet Vol. 11.3 fl (6.2-12.0); Platelet Count 149 K/mm3 (150-450); RBC Distribution Width CV 17.7 % (11.6-14.6); RBC Distribution Width SD 55.3 fl (35.1-43.9); Red Blood Count 2.23 M/mm3 (4.6-6.2)
[2018-11-06 08:46] LABS: Differential Indicated MANUAL DIFF; POSITIVE COUNT YES; POSITIVE DIFFERENTIAL NO; POSITIVE MORPHOLOGY YES
[2018-11-06 08:50] LABS: White Blood Count 30.1 K/mm3 (4.4-11.0)
[2018-11-06 09:32] LABS: Blast 77 % (0-0); Lymphocyte 17 % (19-41); Monocyte 4 % (0-10); Neutrophil-Segmented 2 % (47-70); Platelet Estimate SLT DEC (ADEQ); Red Cell Morphology NORM C+C NORMAL (NORM C&C); Total Cells Counted 100 (MANUAL DIFF)
[2018-11-06 09:33] LABS: Absolute Neutrophil Count 0.6 X10^3/uL (2.0-7.7)
[2018-11-06 09:34] LABS: Absolute Lymphocyte Count 5.11 X10^3/ul (0.83-4.51); Lymphocyte # 5.11 X10^3/ul (4.0)
[2018-11-07 08:02] VITALS: BMI 24.7
[2018-11-08 10:05] LABS: Pathologist Review Reviewed
== END ==
LOC: OLS.WHLBEN 06:30
PROVIDERS: Visit Provider Family Medicine
DX: D64.9 Anemia, unspecified (principal)
CPT/HCPCS: 36415; 85025

== ENCOUNTER → 2018-11-07 | Outpatient (CLI) | payer MEDICARE, OTHER, SELFPAY ==
[2018-11-03 17:17] VITALS: BMI 24.7
[2018-11-07] VITALS (7 sets, daily range): BP systolic 84–101; BP diastolic 49–70; PULSE 67–79; RESP 16–18; TEMP 36.4–37.1; O2SAT 92–99; BMI 24.7
== END | disposition home or self-care (01) ==
LOC: MEDOUTP 07:47
PROVIDERS: Referring Provider Family Medicine; Visit Provider Family Medicine
DX: D61.818 Other pancytopenia (principal); C92.00 Acute myeloblastic leukemia, not having achieved remission
CPT/HCPCS: 36430; 86850; 86900; 86920; 86922; J7040; P9040; A4216

== ENCOUNTER → 2018-11-13 06:20 | Outpatient (REF) | payer MEDICARE, OTHER, SELFPAY ==
[2018-11-07 08:02] VITALS: BMI 24.7
[2018-11-13 08:03] LABS: Hemoglobin 6.8 g/dl (13.0-16.5); Mean Corpuscular Hgb 28.9 pg (27.0-32.0); Mean Corpuscular Volume 85.1 fL (80-94); Mean Platelet Vol. 11.8 fl (6.2-12.0); Platelet Count 137 K/mm3 (150-450); RBC Distribution Width CV 17.3 % (11.6-14.6); RBC Distribution Width SD 54.1 fl (35.1-43.9); Red Blood Count 2.35 M/mm3 (4.6-6.2); White Blood Count 23.5 K/mm3 (4.4-11.0)
[2018-11-13 08:06] LABS: Differential Indicated MANUAL DIFF; POSITIVE COUNT NO; POSITIVE DIFFERENTIAL YES; POSITIVE MORPHOLOGY YES
[2018-11-13 08:59] LABS: Blast 50 % (0-0); Lymphocyte 44 % (19-41); Neutrophil-Band 1 % (0-5); Neutrophil-Segmented 5 % (47-70); Platelet Estimate SLT DEC (ADEQ); Red Cell Morphology NORM C+C NORMAL (NORM C&C); Total Cells Counted 100 (MANUAL DIFF)
[2018-11-13 09:00] LABS: Absolute Neutrophil Count 1.4 X10^3/uL (2.0-7.7)
[2018-11-14 10:24] LABS: Pathologist Review Reviewed
== END ==
LOC: OLS.WHLBEN 06:20
PROVIDERS: Visit Provider Family Medicine
DX: R69 Illness, unspecified (principal)
CPT/HCPCS: 36415; 85025

== ENCOUNTER 2018-11-16 11:35 | Inpatient (IN) | payer MEDICARE, OTHER, SELFPAY ==
[2018-11-07 08:02] VITALS: BMI 24.7
[2018-11-16] VITALS (19 sets, daily range): BP systolic 75–98; BP diastolic 55–64; PULSE 59–76; RESP 14–20; TEMP 36.6–37.1; O2SAT 92–98; BMI 23.6; BMI 22.7
--- NOTE | 2018-11-16 12:03 | CT_ITS ---
STUDY: CT BRAIN WITHOUT CONTRAST REASON FOR EXAM: Male, 83 years old. Syncopal episode with loss of consciousness. RADIATION DOSAGE (If Supplied By Facility): CTDIvol = ( 60.81 ) mGy, DLP = ( 1021.47 ) mGycm TECHNIQUE: Transaxial CT imaging of the brain was performed without administration of intravenous contrast material. Individualized dose optimization techniques were used for this CT. COMPARISON: No relevant priors. FINDINGS: Normal soft tissue structures. Normal calvarium. There is mild cerebral atrophy with widening of the extra-axial spaces and ventricular dilatation. There are areas of decreased attenuation within the white matter tracts of the supratentorial brain, consistent with microvascular disease changes. There are small punctate calcifications of the basal ganglia which are seen in the aging brain as a normal variant. Old lacunar infarct in the left basal ganglia. Normal brainstem. There is mild cerebellar atrophy. There is no intracranial hemorrhage. There are no findings of an acute ischemic infarction. Normal visualized paranasal sinuses. CT/Brain/Head without Contrast IMPRESSION: Chronic involutional changes of the brain. Electronically Signed: Gagan Holbrook, at 12:41 EDT , Service support ,
--- NOTE | 2018-11-16 12:03 | EKG12_ITS ---
Test Reason : SYNCOPE Blood Pressure : / mmHG Vent. Rate : 074 BPM Atrial Rate : 074 BPM P-R Int : 176 ms QRS Dur : 096 ms QT Int : 420 ms P-R-T Axes : 051 019 056 degrees QTc Int : 466 ms Normal sinus rhythm Nonspecific ST and T wave abnormality Abnormal ECG Confirmed by COSME DAVIS, MATEO ([id number]), multimedia editor HUNTER GARCIA ([id number]) on 11/17/2018 12:12:46 PM Referred By: Chan Ross Confirmed By:MATEO AGUIAR MD
--- NOTE | 2018-11-16 12:03 | RAD_ITS ---
STUDY: X-RAY CHEST REASON FOR EXAM: Male, 83 years old. Syncope. Altered mental status. TECHNIQUE: Single AP portable view of the chest. COMPARISON: Comparison is made with prior study dated November 03, 2018. FINDINGS: EKG electrodes are seen. Minimal increased markings at the lung bases slightly worse on the right side suggestive of bibasilar atelectasis. There is no demonstrated pleural abnormality. Normal size heart. Normal mediastinum and kenzie. Normal visualized pulmonary arteries. There is atherosclerotic tortuosity of the aortic arch and descending thoracic aorta. There is a levoscoliosis of the thoracic spine. Severe sclerosis of the thoracic vertebrae. Metastatic disease should be ruled out. Normal visualized ribs, clavicles, and shoulders. There is no demonstrated abnormality of the visualized soft tissue structures of the upper abdomen. RAD/Chest 1 View (Portable) IMPRESSION: Mild increased markings of the lung bases suggestive of atelectasis and/or scarring. Sclerosis of the vertebral bodies. Electronically Signed: Gagan Holbrook, at 12:36 EDT , Service support ,
[2018-11-16 12:26] LABS: International Normalized Ratio 1.1; Prothrombin Time (Protime)PT. 13.6 SECONDS (11.7-14.9)
[2018-11-16 12:27] LABS: Partial Thromboplast Time 35.2 Seconds (24.1-36.2)
[2018-11-16] MEDS: 0.9% Normal Saline 1,000 ML 1000 ML IV (12:33)
[2018-11-16 12:36] LABS: Hematocrit 23.5 % (40-54); Hemoglobin 7.7 g/dl (13.0-16.5); Mean Corp Hgb Conc 32.8 g/gl (32-36); Mean Corpuscular Hgb 28.2 pg (27.0-32.0); Mean Corpuscular Volume 86.1 fL (80-94); Mean Platelet Vol. 11.5 fl (6.2-12.0); Platelet Count 175 K/mm3 (150-450); RBC Distribution Width CV 17.5 % (11.6-14.6); RBC Distribution Width SD 55.5 fl (35.1-43.9); Red Blood Count 2.73 M/mm3 (4.6-6.2); White Blood Count 27.6 K/mm3 (4.4-11.0)
[2018-11-16 12:40] LABS: Differential Indicated MANUAL DIFF; POSITIVE COUNT NO; POSITIVE DIFFERENTIAL YES; POSITIVE MORPHOLOGY YES
[2018-11-16 12:41] LABS: ALB/GLOB Ratio 0.7 RATIO (0.9-2.4); AST(SGOT) 17 U/L (15-37); Alanine Aminotransfer ALT/SGPT 12 U/L (16-61); Albumin, Serum 2.7 g/dL (3.2-5.0); Alkaline Phosphatase 298 U/L (45-117); Anion Gap 9 (5-15); BUN 37 mg/dL (7-18); BUN/Creat Ratio 28.9 RATIO (10-20); Calcium,Total 7.9 mg/dL (8.5-10.1); Chloride 102 mmol/L (98-107); Creatinine, Serum 1.28 mg/dL (0.70-1.30); EST Glomerular Filtration Rate 57 mL/min (>60); Est Glom Filt Rate - Afr Amer 69 mL/min (>60); Estimated Creatinine Clearance 45.94 ml/min; Glucose 108 mg/dL (74-106); Potassium 3.7 mmol/L (3.5-5.1); Protein, Total 6.7 g/dL (6.4-8.2); Sodium Level 140 mmol/L (136-145)
--- NOTE | 2018-11-16 12:48 | ED.RN ---
CATHETER INSERTED BY Donato REDDY RN. PER DR. PHILIPPE, PT NEEDS ACCURATE I AND O'S BECAUSE OF LOW BP AND SYNCOPAL EPISODE.
[2018-11-16 12:52] LABS: Lactic Acid 3.3 mmol/L (0.4-2.0)
[2018-11-16 12:53] LABS: Mucous, Urine 0 SEEN /hpf (<or=2+); Red Blood Cells-Urine 0 SEEN /hpf (0-5); Squamous Epithelial Cells - UA 0 SEEN /hpf (0-5); White Blood Cells 0 SEEN /hpf (0-5)
--- NOTE | 2018-11-16 12:53 | ED.RN ---
LAB CALL TO REPORT LACTIC 3.3. VERBALLY REPORTED TO DR. PHILIPPE
[2018-11-16 12:56] LABS: Color, Urine Yellow (Yellow); Glucose, Dipstick Normal (Normal); Ketone-Dipstick Negative (Negative); Leukocyte Esterase-Dipstick Negative /ul (Negative); Nitrite-Dipstick Negative (Negative); Occult Blood-Urine Negative /ul (Negative); Protein-Dipstick Negative (Negative); Specific Gravity, Urine 1.005 (1.002-1.030); Urine Bilirubin Dipstick Negative (Negative); Urine Clarity Clear (Clear); Urine Urobilinogen Normal (Normal)
[2018-11-16 13:04] LABS: Bacteria RARE /hpf (None Seen)
[2018-11-16 13:32] LABS: Blast 95 % (0-0); Lymphocyte 4 % (19-41); Neutrophil-Segmented 1 % (47-70); Platelet Estimate ADEQUATE (ADEQ); Total Cells Counted 100 (MANUAL DIFF)
[2018-11-16 13:33] LABS: Absolute Neutrophil Count 0.3 X10^3/uL (2.0-7.7); Red Cell Morphology NORM C+C NORMAL (NORM C&C)
--- NOTE | 2018-11-16 15:02 | CASEMGMT ---
Attempt to perform CM Face to Face assessment. Patient very soft spoken and with difficulty engaging in conversation for proper assessment completion. Patient from [facility]. CM and/or SW on floor to follow as needed. Abby Richardson RNCM
--- NOTE | 2018-11-16 15:04 | ED.DCSUM_ITS ---
- ER Visit Summary Date of Service: 11/16/18 Chief Complaint: Syncope History of Present Illness: The patient is a 83 M who presents from his extended care facility for syncopal episode when he was getting a bath today. It lasted about 5 minutes. The patient was breathing throughout the episode. No history of syncope or seizures. Blood pressure was low. No fevers or other associated symptoms. Patient is unable to provide history at this time secondary to his medical condition, so he had no further complaints. Patient is full code. Physical Examination: Blood pressure 75/57. Otherwise vital signs unremarkable. Patient is alert. He does track me, but he does not speak or follow commands. Head and neck are atraumatic. Heart regular. Lungs clear. Abdomen soft and nontender. Extremities nontender. Lower extremity edema noted, symmetric. He has venous stasis changes. Test Results: EKG showed sinus rhythm at a rate of [address] and T wave changes. Chest x-ray showed bibasilar atelectasis and vertebral body sclerosis. CT brain showed chronic changes. White count 27.6, stable, hemoglobin 7.7, stable. Chemistry panel is unremarkable. Coags unremarkable. Troponin normal. Lactate 3.3. Cultures pending. Emergency Department Course and Treatment: Patient presents with syncope. Hypotension noted. He was treated with a fluid bolus and placed on a monitor. Work-up as above. His labs were fairly unremarkable and stable. His lactate however was 3.3. Patient was discussed with the hospitalist. We have no evidence of sepsis. We will continue to monitor. Will be admitted to PCU. Treatment Plan: As above Disposition: Admission Impression: 1. Lactic acidosis 2. Syncope. This note was generated with [employer] dictation software. It may contain incorrect words, spelling, and punctuation that were not noted in review of the chart prior to signing
--- NOTE | 2018-11-16 15:05 | HP.PCM_ITS ---
Problem List (1) Myelodysplastic syndrome Status: Chronic (2) Leukemia Status: Suspected (3) Chronic anemia Status: Chronic (4) Pancytopenia Status: Chronic (5) BPH (benign prostatic hyperplasia) Status: Chronic (6) Hypertension Status: Chronic History of Present Illness Date of Admission: 11/16/18 Chief Complaint: Syncope. The patient is a 83 year old M with past medical history as mentioned above presented to the emergency room from the group home because of syncopal episode when patient was getting a bath today. At this time, patient is incoherent although he was alert but not able to provide any history. He continued to mumble some incoherent words and could not provide any useful information. No family members at the bedside. According to the ED physician and nursing staff at the group home, the patient was taking a bath and he passed out. Reportedly, patient was breathing throughout the syncopal episode. His blood pressure was low at the group home. No reported other associated symptoms such as fever, chills, chest pain or shortness of breath. He has history of hypertension with chronic bilateral leg edema and he has been on Lasix and metolazone and his blood pressure is usually borderline. He has a history of benign prostatic hypertrophy, on chronic indwelling Holly catheter and he has been on Proscar. 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 Upon arrival to ER, blood pressure was 75/57, was afebrile, not tachycardic, pulse ox was 93% on room air. He received bolus of IV fluids and his blood pressure improved. His routine blood work was remarkable for chronic leukocytosis, hemoglobin of 7.7 g/dL lactic acid was 3.3. EKG revealed normal sinus rhythm without evidence of acute ischemic changes.. Troponin was negative. Urinalysis showed no evidence of acute infection. Chest x-ray showed no acute infiltrate or consolidation. Patient is being admitted for syncope probably vasovagal syncope, hypotension, lactic acidosis and acute on chronic anemia. Past Medical History Past Medical History (Chronic Problems): Chronic Problems (Last Reviewed 01/02/18 @ 15:34 by Monisha Santoro) Myelodysplastic syndrome (Chronic) Chronic anemia (Chronic) Pancytopenia (Chronic) BPH (benign prostatic hyperplasia) (Chronic) Hypertension (Chronic) Medical History: Medical History (Last Reviewed 01/02/18 @ 15:34 by Monisha Santoro) Anemia D64.9 Benign prostatic hyperplasia N40.0 Hernia K46.9 Pancytopenia D61.818 Hypertension I10 Allergies No Known Allergies Allergy (Verified 11/16/18 11:36) Home Medications: Ambulatory Orders Medication Instructions Recorded Finasteride [Proscar] 5 mg PO QHS 01/09/16 Ferrous Gluconate 324 mg PO BID 11/16/18 Furosemide [Lasix] 40 mg PO BID 11/16/18 Metolazone 5 mg PO QODAY 11/16/18 Oxycodone HCl 5 mg PO Q4H PRN PRN 11/16/18 Potassium Chloride [Klor-Con M20] 20 meq PO DAILY 11/16/18 Surgical History: Surgical History (Last Reviewed 01/02/18 @ 15:34 by Monisha Santoro) History of hernia repair Z98.890, Z87.19 2016 Surgical History: noncontributory, - - Patient is not able to provide any history. Psychiatric History: No pertinent psych hx Lives: Jail Smoking Status: Never smoker Alcohol: None Drugs: None - *Family History Paternal Family History: Family History (Last Reviewed 01/02/18 @ 15:34 by Monisha Santoro) Other No pertinent family history History Items: No pertinent history Maternal Family History: Family History (Last Reviewed 01/02/18 @ 15:34 by Monisha Santoro) Other No pertinent family history History Items: No pertinent history Review of Systems Constitutional: Reports: - - Patient is not able to provide any information, incoherent. Eyes: Reports: - - Patient is not able to provide any information, incoherent. HEENT: Reports: - - Patient is not able to provide any information, incoherent. Cardiovascular: Reports: - - Patient is not able to provide any information, incoherent. Respiratory: Reports: - - Patient is not able to provide any information, incoherent. Gastrointestinal: Reports: - - Patient is not able to provide any information, incoherent. Genitourinary: Reports: - - Patient is not able to provide any information, incoherent. Musculoskeletal: Reports: - - Patient is not able to provide any information, incoherent. Neurological: Reports: - - Patient is not able to provide any information, incoherent. Psychiatric: Reports: - - Patient is not able to provide any information, incoherent. VTE Information - Inpt Only VTE Present on Admission: No VTE Mechan Device Prophylaxis: None VTE Pharm Prophylaxis ordered?: Yes Patient Problems: Active and Suspected Problems (Last Reviewed 01/02/18 @ 15:34 by Monisha Santoro) Leukemia (Suspected) - Physical Exam General: Alert, Cooperative, Confused, Disoriented, - - incoherent. HEENT: Atraumatic, PERRLA, EOMI, Normocephalic Oral: Moist Mucosa, No Gingival or Mucosal Lesions/ Ulcerations Neck: Supple, No JVD, Negative Carotid Bruits, Trachea Midline, Thyroid Normal Size and Texture Lungs: Clear to auscultation, Normal air movement, No rhonchi, No wheeze, No rales, Diminished Cardiovascular: Regular rate, Regular Rhythm, Normal S1, Normal S2, PMI Normal Abdomen: Bowel Sounds Present, Soft, Non Tender, Non-Distended, No Hepato- splenomegaly Extremities: No clubbing, No cyanosis, Edema - ++ Edema. Lymphedema. Skin: No rashes, No breakdown Lymphatic: No Cervical, Supraclavicular, or Inguinal Adenopathy Neurological: Cranial nerves II-XII grossly intact, - - Moving all limbs. Psych/Mental Status: Flat Affect Vital Signs Temp Pulse Resp BP Pulse Ox 98.3 F 68 16 91/61 96 11/16/18 14:17 11/16/18 14:17 11/16/18 14:17 11/16/18 14:17 11/16/18 14:17 Oxygen Delivery Method Room Air Weight: 164 lb 14.492 oz Body Mass Index (BMI) 23.6 Laboratory Tests Past 24 Hrs 11/16/18 11/16/18 11/16/18 11:42 11:42 11:42 WBC 27.6 H RBC 2.73 L Hgb 7.7 L Hct 23.5 L MCV 86.1 MCH 28.2 MCHC 32.8 RDW 17.5 H RDW Differential 55.5 H Plt Count 175 MPV 11.5 Neut % (Auto) Not Reportable Absolute Neuts (auto) 0.3 L Absolute Lymphs (auto) 1.10 Total Counted 100 Neutrophils % (Manual) 1 L Lymphocytes % (Manual) 4 L Blast Cells % 95 H* Diff Path Review May foll Platelet Estimate ADEQUATE RBC Morphology NORM C+C PT 13.6 INR 1.1 APTT 35.2 Sodium 140 Potassium 3.7 Chloride 102 Carbon Dioxide 29.0 Anion Gap 9 BUN 37 H Creatinine 1.28 Estim Creat Clear Calc 45.94 Est GFR (MDRD) Af Amer 69 Est GFR (MDRD) Non-Af 57 L BUN/Creatinine Ratio 28.9 H Glucose 108 H Lactic Acid Calcium 7.9 L Total Bilirubin 0.30 AST 17 ALT 12 L Alkaline Phosphatase 298 H Troponin I < 0.015 Total Protein 6.7 Albumin 2.7 L Globulin 4.0 Albumin/Globulin Ratio 0.7 L Urine Color Urine Clarity Urine pH Ur Specific [place] Urine Protein Urine Glucose (UA) Urine Ketones Urine Occult Blood Urine Nitrite Urine Bilirubin Urine Urobilinogen Ur Leukocyte Esterase Urine RBC Urine WBC Ur Squamous Epith Cells Urine Bacteria Urine Mucus 11/16/18 11/16/18 12:12 12:47 WBC RBC Hgb Hct MCV MCH MCHC RDW RDW Differential Plt Count MPV Neut % (Auto) Absolute Neuts (auto) Absolute Lymphs (auto) Total Counted Neutrophils % (Manual) Lymphocytes % (Manual) Blast Cells % Diff Path Review Platelet Estimate RBC Morphology PT INR APTT Sodium Potassium Chloride Carbon Dioxide Anion Gap BUN Creatinine Estim Creat Clear Calc Est GFR (MDRD) Af Amer Est GFR (MDRD) Non-Af BUN/Creatinine Ratio Glucose Lactic Acid 3.3 H Calcium Total Bilirubin AST ALT Alkaline Phosphatase Troponin I Total Protein Albumin Globulin Albumin/Globulin Ratio Urine Color Yellow Urine Clarity Clear Urine pH 7.0 Ur Specific Lake 1.005 Urine Protein Negative Urine Glucose (UA) Normal Urine Ketones Negative Urine Occult Blood Negative Urine Nitrite Negative Urine Bilirubin Negative Urine Urobilinogen Normal Ur Leukocyte Esterase Negative Urine RBC 0 SEEN Urine WBC 0 SEEN Ur Squamous Epith Cells 0 SEEN Urine Bacteria RARE Urine Mucus 0 SEEN Clinical Impression(s) from Imaging Studies Brain CT 11/16/18 12:03 IMPRESSION: Chronic involutional changes of the brain. Electronically Signed: Gagan Holbrook, at 12:41 EDT , Service support , Chest X-Ray 11/16/18 12:03 IMPRESSION: Mild increased markings of the lung bases suggestive of atelectasis and/or scarring. Sclerosis of the vertebral bodies. Electronically Signed: Gagan Holbrook, at 12:36 EDT , Service support , Assessment/Plan This is an 83 years old male patient presented to the emergency room from the group home because of syncopal episode, found to have hypotension, lactic acidosis and acute on chronic anemia. #1 syncope: This is probably due to vasovagal syncope secondary to hypotension. Patient has been on Lasix and metolazone for diuresis for significant bilateral leg edema. At this time, I doubt infection, sepsis or severe sepsis. EKG reviewed, was unremarkable. Blood pressure improved after IV fluid bolus. CT scan brain showed no acute findings. He has no focal deficit on physical exam. Plan: Admit to PCU, cardiac monitoring, gentle IV fluids for hydration, discontinue diuretics, repeat CBC and BMP tomorrow morning, PT OT evaluation and treatment. #2 lactic acidosis: This is probably due to hypotension causing tissue hypoperfusion. No evidence of infection. Chest x-ray showed no acute findings. Urinalysis was unremarkable. Patient does have chronic leukocytosis and he has been afebrile. Blood and urine culture sent. At this time, no indication to start IV antibiotics. Plan for IV fluids for hydration, repeat lactic acid in 3 hours. #3 acute on chronic anemia: Secondary to MDS?suspected leukemia. At this time, no evidence of active bleeding. Patient has been receiving blood transfusion weekly. Admission hemoglobin is 7.7 g/dL. Baseline hemoglobin around 6 to 7 g/dL over the last year. Because of syncope, will transfuse 1 unit of packed RBCs, repeat CBC tomorrow morning. 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 At this point, it is not clear if the patient will be seen at a tertiary care center for evaluation or not. Patient is unable to provide any details. #5 hypertension: Blood pressure is borderline at this time. Plan to hold Lasix and metolazone. #6 benign prostatic hypertrophy: On chronic indwelling Holly catheter. Maintain catheter, continue Proscar. #7 CODE STATUS: Upon revision of the documents from group home, patient is full code. At this time, not able to discuss the CODE STATUS with the patient and there is no family at the bedside. #8 DVT prophylaxis: Subcu Lovenox. This note was generated with [employer] dictation software. It may contain incorrect words, spelling, and punctuation that were not noted in checking the note before signing. Code Visit Inpatient E&M: 91278 Init Hosp L3
[2018-11-16] MEDS: Lactated Ringers 1,000 ML 75 ML IV (16:07)
[2018-11-16 16:15] LABS: Reflex Lactate? Y
[2018-11-16 17:45] LABS: Lactic Acid 1.5 mmol/L (0.4-2.0)
[2018-11-16] MEDS: Ferrous Gluconate 324 MG Tablet PO (17:57)
[2018-11-16] MEDS: Finasteride 5 MG Tablet PO (21:27)
[2018-11-17] VITALS (14 sets, daily range): BP systolic 96–112; BP diastolic 61–67; PULSE 55–72; RESP 16–18; TEMP 36.4–37.1; O2SAT 92–99
[2018-11-17 05:54] LABS: Anion Gap 6 (5-15); BUN 32 mg/dL (7-18); BUN/Creat Ratio 32.6 RATIO (10-20); Calcium,Total 7.5 mg/dL (8.5-10.1); Chloride 106 mmol/L (98-107); Creatinine, Serum 0.98 mg/dL (0.70-1.30); EST Glomerular Filtration Rate 78 mL/min (>60); Est Glom Filt Rate - Afr Amer 94 mL/min (>60); Estimated Creatinine Clearance 59.02 ml/min; Glucose 79 mg/dL (74-106); Potassium 3.6 mmol/L (3.5-5.1); Sodium Level 142 mmol/L (136-145)
[2018-11-17 06:15] LABS: Hematocrit 22.4 % (40-54); Hemoglobin 7.6 g/dl (13.0-16.5); Mean Corp Hgb Conc 33.9 g/gl (32-36); Mean Corpuscular Volume 85.5 fL (80-94); Mean Platelet Vol. 11.1 fl (6.2-12.0); Platelet Count 125 K/mm3 (150-450); RBC Distribution Width CV 16.6 % (11.6-14.6); RBC Distribution Width SD 52.3 fl (35.1-43.9); Red Blood Count 2.62 M/mm3 (4.6-6.2)
[2018-11-17 06:51] LABS: POSITIVE COUNT NO; POSITIVE DIFFERENTIAL YES; POSITIVE MORPHOLOGY YES
[2018-11-17 07:09] LABS: Blast 88 % (0-0); Lymphocyte 7 % (19-41); Monocyte 1 % (0-10); Neutrophil-Segmented 4 % (47-70); Total Cells Counted 100 (MANUAL DIFF)
[2018-11-17 07:12] LABS: Differential Indicated MANUAL DIFF; Scan Smear per Review Criteria MANUAL DIFF
[2018-11-17 07:14] LABS: Absolute Lymphocyte Count 1.31 X10^3/ul (0.83-4.51); Absolute Neutrophil Count 0.9 X10^3/uL (2.0-7.7)
[2018-11-17] MEDS: Enoxaparin 30 MG/0.3 ML Syringe SC (08:45)
[2018-11-17] MEDS: Ferrous Gluconate 324 MG Tablet PO ×2 (08:45→17:14)
--- NOTE | 2018-11-17 11:09 | CASEMGMT ---
Addendum entered by Lorena Capps 11/17/18 14:56: Patient is from [facility]. SW let [facility] know patient will not be returning today, but possibly this weekend. Green sheet on chart. Plan: d/c back to [facility]. Lorena ARNDT Original Note: [facility] is a jail resident from [facility]. LARISSA faxed updates. SW will put green sheet on chart for weekend if patient is not discharged today. Plan: d/c back to [facility] when medically ready. Lorena ARNDT
[2018-11-17 13:25] LABS: Pathologist Review Reviewed
--- NOTE | 2018-11-17 13:57 | PN_ITS ---
<Manish Michel - Last Filed: 11/17/18 13:57> Patient Problems: Active and Suspected Problems (Last Reviewed 01/02/18 @ 15:34 by Monisha Santoro) Leukemia (Suspected) Subjective: Pt very weak, and complains of Tail bone pain and requesting repositioning. He responds to written questions. He however is complaining that nobody will come help him, however he has not been utilizing the call light despite being shows multiple times, so I suspect some underlying confusion. He is very frail, and has difficulty even sitting up on his ownn. - Physical Exam General: Alert, Cooperative, Confused, - - cachectic HEENT: Atraumatic, PERRLA, EOMI, Normocephalic Neck: Supple, No JVD, Negative Carotid Bruits Lungs: Clear to auscultation, Normal air movement Cardiovascular: Regular rate, No murmurs Abdomen: Bowel Sounds Present, Soft, Non Tender Extremities: No edema, Capillary Refill Less than 3 Seconds Skin: No rashes, No breakdown Musculoskeletal: No Tenderness to Palpation of Joints or Extremities Neurological: Cranial nerves II-XII grossly intact Psych/Mental Status: Normal Affect, Appropriate Vital Signs Temp Pulse Resp BP Pulse Ox 97.9 F 72 16 96/61 92 11/17/18 13:33 11/17/18 13:42 11/17/18 13:42 11/17/18 13:33 11/17/18 13:33 Oxygen Delivery Method Room Air Weight: 158 lb 4.67 oz Body Mass Index (BMI) 22.7 Intake and Output for Last 24 Hours 11/15/18 11/16/18 11/17/18 23:59 23:59 23:59 Intake Total 946 / 946 754 / 754 Output Total 950 / 950 550 / 550 Balance -4 / -4 204 / 204 Microbiology Past 72 Hours 11/16/18 12:47 Urine Culture - Preliminary Urine, Clean Catch Culture exhibits no growth. Laboratory Tests Past 24 Hrs 11/16/18 11/16/18 11/16/18 11:42 16:01 17:11 WBC RBC Hgb Hct MCV MCH MCHC RDW RDW Differential Plt Count MPV Immature Gran % (Auto) Neut % (Auto) Lymph % (Auto) Swain % (Auto) Eos % (Auto) Baso % (Auto) Absolute Neuts (auto) Absolute Lymphs (auto) Total Counted Neutrophils % (Manual) Lymphocytes % (Manual) Monocytes % (Manual) Blast Cells % Diff Path Review Reviewed Sodium Potassium Chloride Carbon Dioxide Anion Gap BUN Creatinine Estim Creat Clear Calc Est GFR (MDRD) Af Amer Est GFR (MDRD) Non-Af BUN/Creatinine Ratio Glucose Lactic Acid 1.5 Calcium Blood Type A POSITIVE Antibody Screen NEGATIVE Crossmatch See Detail 11/17/18 11/17/18 05:15 05:15 WBC 23.0 H RBC 2.62 L Hgb 7.6 L Hct 22.4 L MCV 85.5 MCH 29.0 MCHC 33.9 RDW 16.6 H RDW Differential 52.3 H Plt Count 125 L MPV 11.1 Immature Gran % (Auto) [employer] Neut % (Auto) [employer] Lymph % (Auto) [employer] Swain % (Auto) [employer] Eos % (Auto) [employer] Baso % (Auto) [employer] Absolute Neuts (auto) 0.9 L Absolute Lymphs (auto) 1.31 Total Counted 100 Neutrophils % (Manual) 4 L Lymphocytes % (Manual) 7 L Monocytes % (Manual) 1 Blast Cells % 88 H* Diff Path Review May foll Sodium 142 Potassium 3.6 Chloride 106 Carbon Dioxide 30.0 Anion Gap 6 BUN 32 H Creatinine 0.98 Estim Creat Clear Calc 59.02 Est GFR (MDRD) Af Amer 94 Est GFR (MDRD) Non-Af 78 BUN/Creatinine Ratio 32.6 H Glucose 79 Lactic Acid Calcium 7.5 L Blood Type Antibody Screen Crossmatch Medical Necessity - Tobacco Use Smoking Status: Never smoker Assessment/Plan 1. Syncope likely 2/2 hypotension - probably due to diuretics. These have been held (lasix metolazone) and his BP is improved. BUN improved. Check orthos qshift. Monitor for volume overload. Also complicated by underlying anemia. tele with SR.This is also complicated by his underlying anemia, he has been transfused with 1 unit PRBC. No improvement in Hgb. Repeat tomorrow. Check stool occult blood. If no improvement or worsening of #2 consider Hem/Onc c/s. -CT brain negative. 2. Chronic anemia, thrombocytopenia, leukocytosis, elevated blasts - underlying MDS/leukemia. Needs outpatient follow up reportedly has been referred to outpatient tertiary but has not gone. 3. BPH - proscar 4. HTN - low normal. No on antihypertensives. 5. Chronic LE edema - reason for outpatient diuretic use. As above held. DVT ppx: lovenox - dc and switch to SCDs with worsening anemia and low platelets. DC planning: SNF, PTOT This patient was seen by Manish Michel PA-C under the supervision of Dr. Shaw. <ValeriaAnita - Last Filed: 11/17/18 15:13> - Physical Exam Vital Signs Temp Pulse Resp BP Pulse Ox 97.9 F 72 16 96/61 92 11/17/18 13:33 11/17/18 13:42 11/17/18 13:42 11/17/18 13:33 11/17/18 13:33 Oxygen Delivery Method Room Air Weight: 158 lb 4.67 oz Body Mass Index (BMI) 22.7 Intake and Output for Last 24 Hours 11/15/18 11/16/18 11/17/18 23:59 23:59 23:59 Intake Total 946 / 946 754 / 754 Output Total 950 / 950 550 / 550 Balance -4 / -4 204 / 204 Microbiology Past 72 Hours 11/16/18 12:47 Urine Culture - Preliminary Urine, Clean Catch Culture exhibits no growth. Laboratory Tests Past 24 Hrs 11/16/18 11/16/18 11/16/18 11:42 16:01 17:11 WBC RBC Hgb Hct MCV MCH MCHC RDW RDW Differential Plt Count MPV Immature Gran % (Auto) Neut % (Auto) Lymph % (Auto) Swain % (Auto) Eos % (Auto) Baso % (Auto) Absolute Neuts (auto) Absolute Lymphs (auto) Total Counted Neutrophils % (Manual) Lymphocytes % (Manual) Monocytes % (Manual) Blast Cells % Diff Path Review Reviewed Sodium Potassium Chloride Carbon Dioxide Anion Gap BUN Creatinine Estim Creat Clear Calc Est GFR (MDRD) Af Amer Est GFR (MDRD) Non-Af BUN/Creatinine Ratio Glucose Lactic Acid 1.5 Calcium Blood Type A POSITIVE Antibody Screen NEGATIVE Crossmatch See Detail 11/17/18 11/17/18 05:15 05:15 WBC 23.0 H RBC 2.62 L Hgb 7.6 L Hct 22.4 L MCV 85.5 MCH 29.0 MCHC 33.9 RDW 16.6 H RDW Differential 52.3 H Plt Count 125 L MPV 11.1 Immature Gran % (Auto) [employer] Neut % (Auto) [employer] Lymph % (Auto) [employer] Swain % (Auto) [employer] Eos % (Auto) [employer] Baso % (Auto) [employer] Absolute Neuts (auto) 0.9 L Absolute Lymphs (auto) 1.31 Total Counted 100 Neutrophils % (Manual) 4 L Lymphocytes % (Manual) 7 L Monocytes % (Manual) 1 Blast Cells % 88 H* Diff Path Review May foll Sodium 142 Potassium 3.6 Chloride 106 Carbon Dioxide 30.0 Anion Gap 6 BUN 32 H Creatinine 0.98 Estim Creat Clear Calc 59.02 Est GFR (MDRD) Af Amer 94 Est GFR (MDRD) Non-Af 78 BUN/Creatinine Ratio 32.6 H Glucose 79 Lactic Acid Calcium 7.5 L Blood Type Antibody Screen Crossmatch Assessment/Plan Patient seen by Manish Michel PA-C under my supervision Patient was admitted with a complaint of syncope. This was thought to be due to hypotension. Blood pressure was 75/57 on admission. Lactic acid was elevated at 3.3 but trended down to 1.5 with IV fluid administration. He was hydrated with IVF. He was also transfused one unit of PRBC o/a of acute on chronic anemia. Patient seen and examined. He is quite confused. Patient kept saying he would only understand what I was asking him evaluated down on a piece of paper. I would questions down to ask how he was feeling but patient did not give any answer and just read attention of his head. Unable to do review of systems on account of confusion. Hypotension has resolved. o/e: Vital Signs Height 5 ft 10 in Weight: 158 lb 4.67 oz Weight in Pounds 158.3 lbs Pulse Ox 92 Temperature 97.9 F Pulse Rate 72 Respiratory Rate 16 Blood Pressure [2nd BP] 86/57 Blood Pressure 96/61 Blood Pressure Position [2nd Semi-Fowlers BP] Blood Pressure Position Semi-Fowlers General: Alert, Cooperative, Confused, Disoriented, patient looks very pale HEENT: Atraumatic, PERRLA, EOMI, Normocephalic Oral: Moist Mucosa, No Gingival or Mucosal Lesions/ Ulcerations Neck: Supple, No JVD, Negative Carotid Bruits, Lungs: Clear to auscultation, Normal air movement, No rhonchi, No wheeze, No rales, Diminished Cardiovascular: Regular rate, Regular Rhythm, Normal S1, Normal S2, PMI Normal Abdomen: Bowel Sounds Present, Soft, Non Tender, Non-Distended, No Hepato- splenomegaly Extremities: No clubbing, No cyanosis, Edema - ++ Edema. Lymphedema. Skin: No rashes, No breakdown Lymphatic: No Cervical, Supraclavicular, or Inguinal Adenopathy Neurological: Cranial nerves II-XII grossly intact, - - Moving all limbs. Psych/Mental Status: very confused. Plan is to continue hydrating with IVF. Will hold off on further blood transfusion for now, because he has baseline severe anemia with 88% blasts. 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 Baseline Hb is ~ 7-8. Continue hydration; for possible DC back to SNF tomorrow. Rest of management as per Manish Michel PA-C's note, which I have reviewed and endorsed. Code Visit Inpatient E&M: 50367 Subs Hosp L2
[2018-11-17] MEDS: Finasteride 5 MG Tablet PO (22:08)
[2018-11-18] VITALS (8 sets, daily range): BP systolic 102–110; BP diastolic 57–68; PULSE 62–68; RESP 16–18; TEMP 36.4–37.1; O2SAT 93–97
[2018-11-18 08:13] LABS: Hematocrit 23.7 % (40-54); Hemoglobin 7.9 g/dl (13.0-16.5); Mean Corp Hgb Conc 33.3 g/gl (32-36); Mean Corpuscular Hgb 28.2 pg (27.0-32.0); Mean Corpuscular Volume 84.6 fL (80-94); Mean Platelet Vol. 10.7 fl (6.2-12.0); Platelet Count 125 K/mm3 (150-450); RBC Distribution Width CV 16.6 % (11.6-14.6); RBC Distribution Width SD 52.2 fl (35.1-43.9); White Blood Count 27.2 K/mm3 (4.4-11.0)
[2018-11-18 08:15] LABS: Differential Indicated MANUAL DIFF; POSITIVE COUNT NO; POSITIVE DIFFERENTIAL YES; POSITIVE MORPHOLOGY YES
[2018-11-18 08:43] LABS: Anisocytosis 1+; Atypical Lymphocyte 3+ %; Blast 45 % (0-0); Hypochromasia 2+; Lymphocyte 37 % (19-41); Monocyte 14 % (0-10); Myelocyte 1 (0-0); Neutrophil-Segmented 3 % (47-70); Platelet Estimate SLT DEC (ADEQ); Total Cells Counted 100 (MANUAL DIFF)
[2018-11-18 08:45] LABS: Absolute Lymphocyte Count 10.06 X10^3/ul (0.83-4.51); Absolute Neutrophil Count 0.8 X10^3/uL (2.0-7.7)
[2018-11-18] MEDS: Ferrous Gluconate 324 MG Tablet PO (09:02)
--- NOTE | 2018-11-18 11:05 | DCINST_ITS ---
- Discharge Diagnoses Current Active Problems: Current Active and Chronic Problems (Last Reviewed 01/02/18 @ 15:34 by Monisha Santoro) Myelodysplastic syndrome (Chronic) Chronic anemia (Chronic) You will use the following diet at home:: No restrictions Your food should be the consistency of: Regular Your liquids should be the consistency of: Regular/Thin Discharge Activity: Return to Normal Activity Allergies/Adverse Reactions: Allergies No Known Allergies Allergy (Verified 11/16/18 11:36) Medications to take at Discharge Finasteride [Proscar] 5 mg PO QHS 01/09/16 Ferrous Gluconate 324 mg PO BID 11/16/18 Furosemide [Lasix] 40 mg PO BID 11/16/18 Metolazone 5 mg PO QODAY 11/16/18 Oxycodone HCl 5 mg PO Q4H PRN PRN 11/16/18 Potassium Chloride [Klor-Con M20] 20 meq PO DAILY 11/16/18 Primary Care Physician: Skinny Gutierrez MD [Primary Care Provider] - Please follow up with your Primary Care Physician in: 1-2 weeks Test Results: Test results from this visit will be discussed in further detail at your follow- up appointment, if applicable. Please Follow Up With: Aj Lazaro DO When: 5 days Proposed Discharge Date: 11/18/18
--- NOTE | 2018-11-18 12:53 | NURSING ---
Nursing report given to Carmel at [facility].
--- NOTE | 2018-11-18 13:07 | PCM.DC.SUM ---
<Manish Michel - Last Filed: 11/18/18 13:07> Discharge Date and Diagnosis Date of Admission: 11/16/18 Date of Discharge: 11/18/18 - Primary Discharge Diagnosis Active and Suspected Problems (Last Reviewed 01/02/18 @ 15:34 by Monisha Santoro) Syncope secondary to hypotension, diuretic therapy Chronic anemia, thrombocytopenia, leukocytosis with elevated blasts secondary to underlying MDS/leukemia BPH Hypertension Chronic lower extremity edema Deaf - Secondary Discharge Diagnosis Chronic Problems (Last Reviewed 01/02/18 @ 15:34 by Monisha Santoro) Myelodysplastic syndrome (Chronic) Chronic anemia (Chronic) Pancytopenia (Chronic) BPH (benign prostatic hyperplasia) (Chronic) Hypertension (Chronic) Hospital Course and Treatment Imaging Results: CT/Brain/Head without Contrast IMPRESSION: Chronic involutional changes of the brain. RAD/Chest 1 View (Portable) IMPRESSION: Mild increased markings of the lung bases suggestive of atelectasis and/or scarring. Sclerosis of the vertebral bodies. Operations: None Procedures: None Summary of Care Provided: Hospital course: The patient is a 83 year old M with past medical history of myelodysplastic syndrome and suspected underlying leukemia, hypertension, chronic lower extremity edema, BPH, who presented to the emergency room from assisted living complaints of syncope. He was significantly anemic with a hemoglobin of 7.7, he was hypotensive with a blood pressure of 75/57 and he had an elevated BUN. He was felt to have had syncope secondary to hypotension likely from his diuretics and dehydration. He received 1 unit of packed red blood cells while here and his hemoglobin remained stable. Off of his metolazone and Lasix his blood pressure improved and he had no dizziness or lightheadedness. The patient has severe changes in his CBC and has previously been referred to oncology as an outpatient. I discussed this with his nurse at his assisted living. He refused to follow-up with Dr. Lazaro. Also while here was some very weak and frail, however he refused to work with physical therapy. I attempted to discuss palliative care and hospice with him as he appears to be experiencing functional decline, and is refusing to follow up with oncology, not working with therapy, and is unable to maintain his own blood counts (has had multiple blood transtusion), however he was reluctant to consider either of these at this time. He was discharged back to assisted living off of his diuretics. He will need to follow-up with his PCP in 1 to 2 weeks. He should follow-up with oncology within the next week if he plans to pursue treatment. This patient was seen by Manish Michel PA-C under the supervision of Doctor Valeria. [] - Physical Exam General: Alert, Oriented x3, Cooperative, - - cachectic HEENT: Atraumatic, PERRLA, EOMI, Normocephalic, - - deaf Neck: Supple, No JVD, Negative Carotid Bruits Lungs: Clear to auscultation, Normal air movement Cardiovascular: Regular rate, No murmurs Abdomen: Bowel Sounds Present, Soft, Non Tender Extremities: No edema, Capillary Refill Less than 3 Seconds Skin: No rashes, No breakdown Musculoskeletal: No Tenderness to Palpation of Joints or Extremities Neurological: Cranial nerves II-XII grossly intact Psych/Mental Status: Depressed, Alert and oriented to time, place, person, mood and affect Vital Signs Temp Pulse Resp BP Pulse Ox 98.7 F 65 17 102/67 95 11/18/18 13:03 11/18/18 13:03 11/18/18 13:03 11/18/18 13:03 11/18/18 13:03 Oxygen Delivery Method Room Air Weight: 158 lb 4.67 oz Body Mass Index (BMI) 22.7 Intake and Output for Last 24 Hours 11/16/18 11/17/18 11/18/18 23:59 23:59 23:59 Intake Total 946 / 946 904 / 1004 760 / 760 Output Total 950 / 950 800 / 1000 650 / 650 Balance -4 / -4 104 / 4 110 / 110 Microbiology Past 72 Hours 11/16/18 12:47 Urine Culture - Preliminary Urine, Clean Catch Culture exhibits no growth. Laboratory Tests Past 24 Hrs 11/16/18 11/18/18 11:42 07:30 WBC 27.2 H RBC 2.80 L Hgb 7.9 L Hct 23.7 L MCV 84.6 MCH 28.2 MCHC 33.3 RDW 16.6 H RDW Differential 52.2 H Plt Count 125 L MPV 10.7 Neut % (Auto) Not Reportable Absolute Neuts (auto) 0.8 L Absolute Lymphs (auto) 10.06 H Total Counted 100 Neutrophils % (Manual) 3 L Lymphocytes % (Manual) 37 Monocytes % (Manual) 14 H Myelocytes % 1 H Blast Cells % 45 H* Diff Path Review Reviewed May foll Atypical Lymphocytes 3+ Platelet Estimate SLT DEC Hypochromasia 2+ Anisocytosis 1+ Discharge Diet: No Restrictions Discharge Activity: Return to Normal Activity Home Medications: Medications to take at Discharge Finasteride [Proscar] 5 mg PO QHS 01/09/16 Ferrous Gluconate 324 mg PO BID 11/16/18 Oxycodone HCl 5 mg PO Q4H PRN PRN 11/16/18 Potassium Chloride [Klor-Con M20] 20 meq PO DAILY 11/16/18 Primary Care Physician: Skinny Gutierrez MD [Primary Care Provider] - Please follow up with your Primary Care Physician in: 1-2 weeks Please Follow Up With: Aj Lazaro DO When: 5 days Disposition: [facility] Living/[facility] Minutes spent on discharge:: 35 Patient Condition:: Stable Medical Necessity - Tobacco Use Smoking Status: Never smoker Meaningful Use Info Meaningful Use Diagnoses (Choose all that apply): None applicable <Anita Shaw - Last Filed: 11/18/18 14:38> Discharge Date and Diagnosis - Secondary Discharge Diagnosis Chronic Problems (Last Reviewed 01/02/18 @ 15:34 by Monisha Santoro) Myelodysplastic syndrome (Chronic) Chronic anemia (Chronic) Pancytopenia (Chronic) BPH (benign prostatic hyperplasia) (Chronic) Hypertension (Chronic) Hospital Course and Treatment Summary of Care Provided: Patient seen by Manish Michel PA-C under my supervision The patient is a 83 year old M with a PMH as listed. He was admitted with a complaint of syncope from his assisted living facility. She was found to be anemic with hemoglobin of 7.7 and was also severely hypotensive with blood pressure of 75/57 on admission with an elevated BUN. Syncope was thought to be due to hypotension from diuretics and dehydration. He was hydrated with IV fluids. He also received a unit of packed red blood cells on account of the anemia. Anemia was chronic as patient had been diagnosed with MDS versus acute leukemia and was post follow-up at a tertiary care facility. He had however not yet followed up. Hypotension resolved with IV fluids. Metolazone and Lasix were discontinued. Patient remained stable during admission. He was very weak and frail and confused work with physical therapy. Patient was not interested in hospice and palliative care. His care was discussed with his sister living facility and is an outpatient follow-up with hematology and oncology for severe anemia and MDS versus acute leukemia. Patient was discharged to his long term on 11/18/2018 and his follow-up with his primary care doctor in 1 to 2 weeks. Patient seen and examined. He remained quite confused. Unable to the complaints of review of systems on account of confusion. Labs and vitals reviewed. Home medication reviewed and reconciled. o/e: [] Vital Signs Height 5 ft 10 in Weight: 158 lb 4.67 oz Weight in Pounds 158.3 lbs Pulse Ox 95 Temperature 98.7 F Pulse Rate 65 Respiratory Rate 17 Blood Pressure [2nd BP] 86/57 Blood Pressure 102/67 Blood Pressure Position [2nd Semi-Fowlers BP] Blood Pressure Position Semi-Fowlers General: Alert, Cooperative, Confused, Disoriented, patient looks very pale HEENT: Atraumatic, PERRLA, EOMI, Normocephalic Oral: Moist Mucosa, No Gingival or Mucosal Lesions/ Ulcerations Neck: Supple, No JVD, Negative Carotid Bruits, Lungs: Clear to auscultation, Normal air movement, No rhonchi, No wheeze, No rales, Diminished Cardiovascular: Regular rate, Regular Rhythm, Normal S1, Normal S2, PMI Normal Abdomen: Bowel Sounds Present, Soft, Non Tender, Non-Distended, No Hepato-splenomegaly Extremities: No clubbing, No cyanosis, Edema - ++ Edema. Lymphedema. Skin: No rashes, No breakdown Lymphatic: No Cervical, Supraclavicular, or Inguinal Adenopathy Neurological: Cranial nerves II-XII grossly intact, - - Moving all limbs. Psych/Mental Status: very confused. Plan as above. I have reviewed Manish Michel PA-C's note, which I have reviewed and endorsed. - Physical Exam Vital Signs Temp Pulse Resp BP Pulse Ox 98.7 F 65 17 102/67 95 11/18/18 13:03 11/18/18 13:03 11/18/18 13:03 11/18/18 13:03 11/18/18 13:03 Oxygen Delivery Method Room Air Weight: 158 lb 4.67 oz Body Mass Index (BMI) 22.7 Intake and Output for Last 24 Hours 11/16/18 11/17/18 11/18/18 23:59 23:59 23:59 Intake Total 946 / 946 904 / 1004 760 / 760 Output Total 950 / 950 800 / 1000 650 / 650 Balance -4 / -4 104 / 4 110 / 110 Microbiology Past 72 Hours 11/16/18 12:12 Blood Culture - Preliminary Blood Culture (Wb) - Left Forearm No growth in 48 hours. 11/16/18 01:10 Blood Culture - Preliminary Blood Culture (Wb) - Right Forearm No growth in 48 hours. 11/16/18 12:47 Urine Culture - Preliminary Urine, Clean Catch Culture exhibits no growth. Laboratory Tests Past 24 Hrs 11/18/18 07:30 WBC 27.2 H RBC 2.80 L Hgb 7.9 L Hct 23.7 L MCV 84.6 MCH 28.2 MCHC 33.3 RDW 16.6 H RDW Differential 52.2 H Plt Count 125 L MPV 10.7 Neut % (Auto) Not Reportable Absolute Neuts (auto) 0.8 L Absolute Lymphs (auto) 10.06 H Total Counted 100 Neutrophils % (Manual) 3 L Lymphocytes % (Manual) 37 Monocytes % (Manual) 14 H Myelocytes % 1 H Blast Cells % 45 H* Diff Path Review May foll Atypical Lymphocytes 3+ Platelet Estimate SLT DEC Hypochromasia 2+ Anisocytosis 1+ Code Visit Inpatient E&M: 28219 Disch Hosp
[2018-11-20 14:27] LABS: Pathologist Review Reviewed
[2018-11-20 14:52] LABS: Pathologist Review Reviewed
== END 2018-11-18 13:05 | disposition home or self-care (01) | DRG 312 ==
LOC: ED 12:11 → PCU 15:06
PROVIDERS: Physician Assistant; Admitting Provider Hospitalist; Emergency Provider Emergency Medicine; Family Provider Family Medicine; PCP Family Medicine; Referring Provider Hospitalist; Visit Provider Student in an Organized Health Care Education/Training Program
DX: I95.2 Hypotension due to drugs (principal); E87.2 Acidosis; D61.818 Other pancytopenia; C95.90 Leukemia, unspecified not having achieved remission; T50.2X5A Adverse effect of carbonic-anhydrase inhibitors, benzothiadiazides and other diuretics, initial encounter; R55 Syncope and collapse; N40.0 Benign prostatic hyperplasia without lower urinary tract symptoms; R60.0 Localized edema; D46.9 Myelodysplastic syndrome, unspecified; I10 Essential (primary) hypertension; T50.1X5A Adverse effect of loop [high-ceiling] diuretics, initial encounter; H91.90 Unspecified hearing loss, unspecified ear; E86.0 Dehydration
CPT/HCPCS: 36415; 51702; 70450; 71045; 80048; 80053; 81001; 83605; 84484; 85025; 85610; 85730; 86850; 86900; 86920; 86922; 87040; 87086; 93005; 99285; J7030; J7040; J7120; P9016; A4216

== ENCOUNTER → 2018-11-20 | Outpatient (REF) | payer MEDICARE, OTHER, SELFPAY ==
[2018-11-16 16:12] VITALS: BMI 22.7
[2018-11-20 08:00] LABS: Hematocrit 23.4 % (40-54); Hemoglobin 7.4 g/dl (13.0-16.5); Mean Corp Hgb Conc 31.6 g/gl (32-36); Mean Corpuscular Hgb 27.7 pg (27.0-32.0); Mean Corpuscular Volume 87.6 fL (80-94); Mean Platelet Vol. 11.3 fl (6.2-12.0); Platelet Count 129 K/mm3 (150-450); RBC Distribution Width CV 16.6 % (11.6-14.6); RBC Distribution Width SD 51.2 fl (35.1-43.9); Red Blood Count 2.67 M/mm3 (4.6-6.2); White Blood Count 26.9 K/mm3 (4.4-11.0)
[2018-11-20 08:03] LABS: Differential Indicated MANUAL DIFF; POSITIVE COUNT NO; POSITIVE DIFFERENTIAL YES; POSITIVE MORPHOLOGY YES
[2018-11-20 08:44] LABS: Blast 48 % (0-0); Lymphocyte 40 % (19-41); Monocyte 9 % (0-10); Neutrophil-Segmented 3 % (47-70); Total Cells Counted 100 (MANUAL DIFF)
[2018-11-20 08:45] LABS: Absolute Lymphocyte Count 10.76 X10^3/ul (0.83-4.51); Absolute Neutrophil Count 0.8 X10^3/uL (2.0-7.7); Hypochromasia 2+; Platelet Estimate ADEQUATE (ADEQ)
[2018-11-21 10:23] LABS: Pathologist Review Reviewed
[2018-11-28 08:42] VITALS: BMI 22.5
== END | disposition home or self-care (01) ==
LOC: OLS.WHLBEN 06:20
PROVIDERS: Visit Provider Family Medicine
DX: D64.9 Anemia, unspecified (principal)
CPT/HCPCS: 36415; 85025

== ENCOUNTER → 2018-11-27 | Outpatient (REF) | payer MEDICARE, OTHER, SELFPAY ==
[2018-11-16 16:12] VITALS: BMI 22.7
[2018-11-27 07:36] LABS: Hematocrit 20.1 % (40-54); Hemoglobin 6.5 g/dL (13.0-16.5); Mean Corp Hgb Conc 32.3 g/dL (32-36); Mean Corpuscular Hgb 28.4 pg (27.0-32.0); Mean Corpuscular Volume 87.8 fL (80-94); Mean Platelet Vol. 11.9 fl (6.2-12.0); NRBC Flagged by Analyzer 0 % (0-5); POSITIVE COUNT YES; POSITIVE DIFFERENTIAL YES; POSITIVE MORPHOLOGY YES; Platelet Count 155 K/mm3 (150-450); RBC Distribution Width CV 17.1 % (11.6-14.6); RBC Distribution Width SD 54.7 fl (35.1-43.9); Red Blood Count 2.29 M/mm3 (4.6-6.2)
[2018-11-27 07:45] LABS: Differential Indicated MANUAL DIFF; White Blood Count 33.9 K/mm3 (4.4-11.0)
[2018-11-27 08:01] LABS: Anion Gap 9 (5-15); BUN 26 mg/dL (7-18); BUN/Creat Ratio 30.7 RATIO (10-20); Calcium,Total 7.7 mg/dL (8.5-10.1); Chloride 109 mmol/L (98-107); Creatinine, Serum 0.85 mg/dL (0.70-1.30); EST Glomerular Filtration Rate 92 mL/min (>60); Est Glom Filt Rate - Afr Amer 111 mL/min (>60); Glucose 67 mg/dL (74-106); Potassium 4.6 mmol/L (3.5-5.1); Sodium Level 143 mmol/L (136-145)
[2018-11-27 08:04] LABS: Blast 29 % (0-0); Lymphocyte 64 % (19-41); Monocyte 3 % (0-10); Neutrophil-Segmented 4 % (47-70); Platelet Estimate ADEQUATE (ADEQ); Red Cell Morphology NORM C+C NORMAL (NORM C&C); Total Cells Counted 100 (MANUAL DIFF)
[2018-11-27 08:06] LABS: Absolute Neutrophil Count 1.4 X10^3/uL (2.0-7.7)
[2018-11-28 08:42] VITALS: BMI 22.5
[2018-11-28 11:45] LABS: Pathologist Review Reviewed
== END | disposition home or self-care (01) ==
LOC: OLS.WHLBEN 05:25
PROVIDERS: Visit Provider Family Medicine
DX: I48.91 Unspecified atrial fibrillation (principal); D64.9 Anemia, unspecified; I10 Essential (primary) hypertension
CPT/HCPCS: 36415; 80048; 85025

== ENCOUNTER → 2018-11-28 | Outpatient (CLI) | payer MEDICARE, OTHER, SELFPAY ==
[2018-11-16 16:12] VITALS: BMI 22.7
[2018-11-28] VITALS (9 sets, daily range): BP systolic 91–123; BP diastolic 62–82; PULSE 64–84; RESP 16–18; TEMP 36.2–37.2; O2SAT 95–100; BMI 22.5
== END | disposition home or self-care (01) ==
PROVIDERS: Family Provider Family Medicine; PCP Family Medicine; Referring Provider Family Medicine; Visit Provider Family Medicine
DX: C92.00 Acute myeloblastic leukemia, not having achieved remission (principal); D61.818 Other pancytopenia
CPT/HCPCS: 36430; 86850; 86900; 86920; 86922; J7040; P9016; A4216

== ENCOUNTER → 2018-12-04 | Outpatient (REF) | payer MEDICARE, OTHER, SELFPAY ==
[2018-11-28 08:42] VITALS: BMI 22.5
[2018-12-04 07:10] LABS: Hematocrit 24.1 % (40-54); Hemoglobin 7.7 g/dL (13.0-16.5); Mean Corpuscular Volume 87.6 fL (80-94); Mean Platelet Vol. 11.3 fl (6.2-12.0); POSITIVE COUNT YES; POSITIVE DIFFERENTIAL YES; POSITIVE MORPHOLOGY YES; Platelet Count 153 K/mm3 (150-450); RBC Distribution Width CV 17.9 % (11.6-14.6); RBC Distribution Width SD 57.6 fl (35.1-43.9); Red Blood Count 2.75 M/mm3 (4.6-6.2)
[2018-12-04 07:11] LABS: Differential Indicated MANUAL DIFF
[2018-12-04 07:15] LABS: White Blood Count 35.1 K/mm3 (4.4-11.0)
[2018-12-04 08:10] LABS: Blast 74 % (0-0); Lymphocyte 22 % (19-41); Neutrophil-Band 3 % (0-5); Platelet Estimate ADEQUATE (ADEQ); Promyelocyte 1 (0-0); Total Cells Counted 100 (MANUAL DIFF)
[2018-12-04 08:11] LABS: Platelet Morphology GIANT; Red Cell Morphology NORM C+C NORMAL (NORM C&C)
[2018-12-04 08:17] LABS: Absolute Lymphocyte Count 7.73 X10^3/uL (0.83-4.51); Absolute Neutrophil Count 1.1 X10^3/uL (2.0-7.7); Lymphocyte # 7.73 X10^3/ul (4.0); Neutrophil # 1.05 X10^3/uL (2.7-7.7)
[2018-12-04 14:33] LABS: Pathologist Review Reviewed
== END | disposition home or self-care (01) ==
LOC: OLS.WHLBEN 05:00
PROVIDERS: Visit Provider Family Medicine
DX: R33.9 Retention of urine, unspecified (principal); R26.2 Difficulty in walking, not elsewhere classified; R19.5 Other fecal abnormalities; I73.9 Peripheral vascular disease, unspecified
CPT/HCPCS: 36415; 85025

== ENCOUNTER → 2018-12-11 05:00 | Outpatient (REF) | payer MEDICARE, OTHER, SELFPAY ==
[2018-11-28 08:42] VITALS: BMI 22.5
[2018-12-11 06:12] LABS: Hematocrit 20.8 % (40-54); Hemoglobin 6.7 g/dL (13.0-16.5); Mean Corp Hgb Conc 32.2 g/dL (32-36); Mean Corpuscular Hgb 27.9 pg (27.0-32.0); Mean Corpuscular Volume 86.7 fL (80-94); Mean Platelet Vol. 11.7 fl (6.2-12.0); POSITIVE COUNT YES; POSITIVE DIFFERENTIAL YES; POSITIVE MORPHOLOGY YES; Platelet Count 138 K/mm3 (150-450); RBC Distribution Width CV 17.9 % (11.6-14.6); RBC Distribution Width SD 57.1 fl (35.1-43.9); White Blood Count 38.2 K/mm3 (4.4-11.0)
[2018-12-11 06:44] LABS: Differential Indicated MANUAL DIFF
[2018-12-11 07:54] LABS: Blast 62 % (0-0); Lymphocyte 27 % (19-41); Monocyte 8 % (0-10); Neutrophil-Segmented 3 % (47-70); Total Cells Counted 100 (MANUAL DIFF)
[2018-12-11 07:55] LABS: Atypical Lymphocyte 2+ %; Hypochromasia 1+; Platelet Estimate ADEQUATE (ADEQ)
[2018-12-11 07:56] LABS: Absolute Neutrophil Count 1.2 X10^3/uL (2.0-7.7)
[2018-12-11 11:30] LABS: Pathologist Review Reviewed
== END ==
LOC: OLS.WHLBEN 05:00
PROVIDERS: Visit Provider Family Medicine
DX: R33.9 Retention of urine, unspecified (principal); R26.2 Difficulty in walking, not elsewhere classified; R19.5 Other fecal abnormalities; I73.9 Peripheral vascular disease, unspecified; L60.2 Onychogryphosis; D64.9 Anemia, unspecified
CPT/HCPCS: 36415; 85025

== ENCOUNTER 2018-12-17 10:26 | Emergency (ER) | payer MEDICARE, OTHER, SELFPAY ==
[2018-11-28 08:42] VITALS: BMI 22.5
[2018-12-17 10:27] VITALS: BP 89/62; PULSE 76; RESP 16; TEMP 36.4; O2SAT 96; BMI 26.2
--- NOTE | 2018-12-17 10:41 | RAD_ITS ---
STUDY: X-RAY CHEST REASON FOR EXAM: Male, 83 years old. Dyspnea TECHNIQUE: AP COMPARISON: 11/16/2018 FINDINGS: Calcified mass adjacent to the lower trachea (superior mediastinum) may represent a calcified thyroid mass. Small right pleural effusion is new. Bibasilar opacities are demonstrated. Normal size heart. Normal mediastinum and kenzie. Normal visualized pulmonary arteries. There is atherosclerotic tortuosity of the aortic arch and descending thoracic aorta. No acute bony process. There is no demonstrated abnormality of the visualized soft tissue structures of the upper abdomen. RAD/Chest 1 View (Portable) IMPRESSION: 1. Small right pleural effusion. Bibasilar atelectasis or infiltrates. 2. Stable left paratracheal calcified mass, possibly calcified thyroid nodule. Electronically Signed: Antoine Hook MD (Brooks) at 11:54 EDT , Service support ,
[2018-12-17 10:57] LABS: Hematocrit 23.5 % (40-54); Hemoglobin 7.4 g/dL (13.0-16.5); Mean Corp Hgb Conc 31.5 g/dL (32-36); Mean Corpuscular Hgb 27.4 pg (27.0-32.0); Mean Platelet Vol. 11.6 fl (6.2-12.0); NRBC Flagged by Analyzer 0 % (0-5); POSITIVE COUNT YES; POSITIVE DIFFERENTIAL YES; POSITIVE MORPHOLOGY YES; Platelet Count 153 K/mm3 (150-450); RBC Distribution Width CV 17.3 % (11.6-14.6); RBC Distribution Width SD 55.1 fl (35.1-43.9); White Blood Count 48.1 K/mm3 (4.4-11.0)
[2018-12-17 10:59] LABS: Differential Indicated SCAN CRITERIA MET
--- NOTE | 2018-12-17 11:04 | ED.DCSUM_ITS ---
History of Present Illness Informant: Patient, [facility] Onset: Yesterday Context: Gradual Onset Timing: Continuous Quality: fatigue Location: entire body Current Severity: Severe Maximum Severity: Severe Worsened by: Exertion Relieved by: Rest Associated Symptoms: Fatigue Narrative: 83-year-old male history of myelodysplastic syndrome presents from longterm with fatigue weakness and hypotension. The patient has chronic hypotension. Patient was noted to have a fever last night of 102 ?F orally at the longterm. He was given Tylenol last night. He has not had a fever since. No documented fever this morning at the longterm. His last blood transfusion was about 2-1/2 weeks ago. He denies any black or bloody stools or any other symptoms of bleeding. He denies cough chest pain or shortness of breath. Denies vomiting or diarrhea. Denies urinary symptoms. Denies headache or neck pain. 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 He denies any other review of systems. Prior similar symptoms: Yes Recent Illness/Hospitalization: Yes <Mio Mccormick - Last Filed: 12/17/18 12:14> <Morena Marroquin - Last Filed: 12/17/18 15:14> Chief Complaint: Hypotension Past Medical History Prior records reviewed: Yes Past Medical History: - - Myelodysplastic syndrome Surgical History: noncontributory, - - Patient is not able to provide any history. Lives: Care Home Smoking Status: Never smoker Alcohol: None Drugs: None - Family History Paternal Family History: Family History (Last Reviewed 01/02/18 @ 15:34 by Monisha Santoro) Other No pertinent family history Family History: Reports: No pertinent history Maternal Family History: Family History (Last Reviewed 01/02/18 @ 15:34 by Monisha Santoro) Other No pertinent family history Family History: Reports: No pertinent history <Mio Mccormick - Last Filed: 12/17/18 12:14> - Family History Paternal Family History: Family History (Last Reviewed 01/02/18 @ 15:34 by Monisha Santoro) Other No pertinent family history Maternal Family History: Family History (Last Reviewed 01/02/18 @ 15:34 by Monisha Santoro) Other No pertinent family history <Morena Marroquin - Last Filed: 12/17/18 15:14> - Allergies and Home Meds Allergies/Adverse Reactions: Allergies No Known Allergies Allergy (Verified 12/17/18 11:20) Primary Care Physician: Skinny Gutierrez MD [Primary Care Provider] - Review of Systems All systems negative except as indicated General: Reports: Malaise <Mio Mccormick - Last Filed: 12/17/18 12:14> Physical Exam Vital Signs/Narrative: Vital Signs Temp Pulse Resp BP Pulse Ox 12/17/18 10:27 97.6 F L 76 16 89/62 L 96 Inital Vital Signs reviewed: Yes General: Well developed, Cachectic, No Acute Distress Head: Normocephalic, Atraumatic Eyes: Perrl, EOMI ENT: Moist mucous membranes Neck: Supple, Nontender Cardiovascular: Regular rate, Regular rhythm Respiratory: No distress, CTA bilaterally, Chest nontender Abdomen: Soft, Nontender, Nondistended, Normal bowel sounds, No masses Back: Nontender Extremities: Nontender, Edema. Negative for: Tenderness Skin: No rash, Pallor Neurological: Alert, Oriented x3 Psychological: Normal affect <AnnyMio - Last Filed: 12/17/18 12:14> Vital Signs/Narrative: Vital Signs Pulse Resp BP Pulse Ox 12/17/18 12:20 69 17 107/82 H 98 12/17/18 11:24 70 14 90/71 98 <Morena Marroquin - Last Filed: 12/17/18 15:14> Diagnostic/Tx/Re-eval Chest X-Ray - ED: 1 View, Read by ED Physician, Read by Radiologist, No Acute Disease, Chronic Changes - Rhythm Strip Rhythm Strip: Sinus Rhythm Rate: 68 Ectopy: None - Medical Decision Making Patient presents slightly hypotensive blood pressure 90/70. The patient is chronically hypotensive. Reported fever at longterm last night. He is afebrile on arrival to the emergency department as well as being afebrile morning at the longterm. He has no complaints at this time other than fatigue which is chronic for him due to his leukemia. His laboratory work-up was remarkable for a white blood cell count of 40. Hemoglobin 7.4. Lactate 3.8. Blood cultures were drawn despite him not having a fever here. The rest of his labs are unremarkable. Chest x-ray shows chronic changes but no acute findings. Patient given IV fluids. Blood pressure is improved. At this time do not feel the patient requires an acute transfusion. I spoke with Dr. Gutierrez the patient's doctor at the longterm who is in agreement with discharging back to the longterm he will follow-up with the results of the blood cultures but does not feel antibiotics need to be started at this time or that the patient requires admission or transfusion. Patient informed of findings and is agreeable with plan of discharge. <Mio Mccormick - Last Filed: 12/17/18 12:14> - Medical Decision Making Patient seen and evaluated with PA. [facility] with reported hypot[facility]. It is noted the patient's normal systolic blood pressure is between 60 and 90. Patient reported had a temperature last evening but no fever has been noted today. His only complaint is chronic tailbone pain. Patient sitting upright in bed no acute distress. He is hard of hearing. Heart is regular rate and rhythm. Lung sounds are clear. Abdomen is soft with no focal tenderness. Laboratory work-up reveals chronic blood dyscrasia near baseline. No obvious source of infection. Patient discussed with his PCP. Patient be discharged back to [facility] and cultures will be followed. <Morena Marroquin - Last Filed: 12/17/18 15:14> ED Disposition <Mio Mccormick - Last Filed: 12/17/18 12:14> <Morena Marroquin - Last Filed: 12/17/18 15:14> - Plan for ED Patient: Disposition: [facility] Facility Diagnosis: Chronic anemia, Myelodysplastic syndrome, Pancytopenia, Chronic hypotension Instructions: HYPOTENSION, All Causes Referrals: Skinny Gutierrez MD [Primary Care Provider] -
[2018-12-17 11:09] LABS: Anion Gap 6 (5-15); BUN 38 mg/dL (7-18); BUN/Creat Ratio 35.2 RATIO (10-20); Calcium,Total 7.5 mg/dL (8.5-10.1); Chloride 109 mmol/L (98-107); Creatinine, Serum 1.08 mg/dL (0.70-1.30); EST Glomerular Filtration Rate 70 mL/min (>60); Est Glom Filt Rate - Afr Amer 84 mL/min (>60); Glucose 91 mg/dL (74-106); Potassium 4.6 mmol/L (3.5-5.1); Sodium Level 141 mmol/L (136-145)
[2018-12-17 11:13] LABS: International Normalized Ratio 1.3; Prothrombin Time (Protime)PT. 15.6 SECONDS (11.7-14.9)
[2018-12-17 11:24] VITALS: BP 90/71; PULSE 70; RESP 14; O2SAT 98
[2018-12-17 11:24] LABS: Lactic Acid 3.8 mmol/L (0.4-2.0)
--- NOTE | 2018-12-17 11:26 | ED.RN ---
LAB RESULTED LACTIC 3.8, PHYSICIAN NOTIFIED
[2018-12-17 11:27] LABS: Blast 93 % (0-0); Lymphocyte 1 % (19-41); Neutrophil-Segmented 4 % (47-70); Promyelocyte 2 (0-0); Red Cell Morphology NORM C+C NORMAL (NORM C&C); Total Cells Counted 100 (MANUAL DIFF)
[2018-12-17 11:28] LABS: Platelet Estimate ADEQUATE (ADEQ); Scan Smear per Review Criteria MANUAL DIFF; Smudge Cells 1+
[2018-12-17 11:29] LABS: Absolute Lymphocyte Count 0.48 X10^3/uL (0.83-4.51); Absolute Neutrophil Count 1.9 X10^3/uL (2.0-7.7); Lymphocyte # 0.48 X10^3/ul (4.0); Neutrophil # 1.92 X10^3/uL (2.7-7.7)
[2018-12-17] MEDS: 0.9% Normal Saline 1,000 ML 1000 ML IV (11:51)
[2018-12-17 12:20] VITALS: BP 107/82; PULSE 69; RESP 17; O2SAT 98
[2018-12-17 14:50] LABS: Reflex Lactate? Y
[2018-12-18 13:32] LABS: Pathologist Review Reviewed
== END 2018-12-17 13:18 | disposition skilled nursing facility (03) ==
PROVIDERS: Emergency Provider Physician Assistant Medical; Family Provider Family Medicine; PCP Family Medicine
DX: D46.9 Myelodysplastic syndrome, unspecified (principal); D63.8 Anemia in other chronic diseases classified elsewhere; I95.89 Other hypotension; D61.818 Other pancytopenia; Z79.899 Other long term (current) drug therapy
CPT/HCPCS: 71045; 80048; 83605; 85025; 85610; 86850; 86900; 86920; 86922; 87040; 96360; 99285; J7030; A4216

== ENCOUNTER → 2018-12-25 05:00 | Outpatient (REF) | payer MEDICARE, OTHER, SELFPAY ==
[2018-12-17 10:27] VITALS: BMI 26.2
[2018-12-25 09:01] LABS: Hematocrit 20.5 % (40-54); Hemoglobin 6.6 g/dL (13.0-16.5); Mean Corp Hgb Conc 32.2 g/dL (32-36); Mean Corpuscular Hgb 27.4 pg (27.0-32.0); Mean Corpuscular Volume 85.1 fL (80-94); Mean Platelet Vol. 11.3 fl (6.2-12.0); POSITIVE COUNT YES; POSITIVE DIFFERENTIAL YES; POSITIVE MORPHOLOGY YES; Platelet Count 133 K/mm3 (150-450); RBC Distribution Width CV 17.5 % (11.6-14.6); RBC Distribution Width SD 54.5 fl (35.1-43.9); Red Blood Count 2.41 M/mm3 (4.6-6.2)
[2018-12-25 09:07] LABS: Anion Gap 8 (5-15); BUN 56 mg/dL (7-18); BUN/Creat Ratio 88.5 RATIO (10-20); Calcium,Total 7.7 mg/dL (8.5-10.1); Chloride 115 mmol/L (98-107); Creatinine, Serum 0.63 mg/dL (0.70-1.30); EST Glomerular Filtration Rate 129 mL/min (>60); Est Glom Filt Rate - Afr Amer 156 mL/min (>60); Glucose 66 mg/dL (74-106); Potassium 3.8 mmol/L (3.5-5.1); Sodium Level 148 mmol/L (136-145)
[2018-12-25 09:30] LABS: Differential Indicated MANUAL DIFF
[2018-12-25 10:26] LABS: Blast 59 % (0-0); Lymphocyte 27 % (19-41); Monocyte 3 % (0-10); Neutrophil-Segmented 11 % (47-70); Platelet Estimate SLT DEC (ADEQ); Red Cell Morphology NORM C+C NORMAL (NORM C&C); Total Cells Counted 100 (MANUAL DIFF)
[2018-12-25 10:27] LABS: Absolute Lymphocyte Count 8.64 X10^3/uL (0.83-4.51); Absolute Neutrophil Count 3.5 X10^3/uL (2.0-7.7); Lymphocyte # 8.64 X10^3/ul (4.0)
[2018-12-25 12:35] LABS: Pathologist Review Reviewed
[2018-12-26 09:13] VITALS: BMI 21.5
== END ==
LOC: OLS.WHLBEN 05:00
PROVIDERS: Visit Provider Family Medicine
DX: R33.9 Retention of urine, unspecified (principal); I10 Essential (primary) hypertension; D64.9 Anemia, unspecified; R26.2 Difficulty in walking, not elsewhere classified; I73.9 Peripheral vascular disease, unspecified; R19.5 Other fecal abnormalities; L60.2 Onychogryphosis
CPT/HCPCS: 36415; 80048; 85025; 86850; 86900; 86901; 86920; 86922

== ENCOUNTER → 2018-12-26 | Outpatient (CLI) | payer MEDICARE, OTHER, SELFPAY ==
[2018-12-17 10:27] VITALS: BMI 26.2
[2018-12-26] VITALS (7 sets, daily range): BP systolic 50–121; BP diastolic 33–80; PULSE 62–81; RESP 16–22; TEMP 36.3–36.9; O2SAT 92–99; BMI 21.5
== END | disposition home or self-care (01) ==
LOC: MEDOUTP 08:01
PROVIDERS: Family Provider Family Medicine; PCP Family Medicine; Referring Provider Family Medicine; Visit Provider Family Medicine
DX: C92.00 Acute myeloblastic leukemia, not having achieved remission (principal); D61.818 Other pancytopenia
CPT/HCPCS: 36430; 86850; 86900; 86901; 86920; 86922; J7040; P9016; A4216